=== PATIENT | male | born 1955 | race African-American/Black ===

== ENCOUNTER 2016-11-28 06:54 | Emergency (ER) | payer MEDICAID ==
[~2016-11-28] VITALS: Ht 172.7 cm; Wt 94.0 kg
[~2016-11-28 06:54] MED LIST: BLOOD GLUCOSE T1 TES; BUTA1CAP PO; CARV6.252 PO; DAPA1TAB PO; FLUT1SPR9 EACH NARE; HUMA75IN SQ; HUMALOG SQ; LANTINJ SQ; LIPI80TA PO; LISI-515 PO; MONT5CHW2 CHEW; OMEP20CA2 PO; PLAV75TA29 PO; PRED1SUS6 EACH EYE; REGL10TA5 PO; SERT-129 PO; TOPA100T11 PO; [UNRECOGNIZED DRUG - CODE] PO; [UNRECOGNIZED DRUG - SUPPLY]
[2016-11-28 06:58] VITALS: BP 170/84; PULSE 112; RESP 18; TEMP 97.9; O2SAT 98
[2016-11-28] MEDS ORDERED: SODIUM CHLOR 0.9% 1000 ML INJ 1,000 ML IV SCH ×2 (07:00→08:45)
[2016-11-28] MEDS ORDERED: ONDANSETRON HCL 4 MG/2 ML VIAL IVP ONE (07:00)
[2016-11-28] MEDS ORDERED: SODIUM CHLORIDE 0.9% FLUSH 5 ML FLUSH IVF PRN (07:00)
[2016-11-28 07:02] VITALS: BP 146/84; PULSE 109; RESP 18; TEMP 97.9; O2SAT 100
--- NOTE | 2016-11-28 07:21 | PD ---
HPI Chief Complaint: Cardiac Complaint Time Seen by Provider: 07:00 Travel History International Travel<30 days: No Contact w/Intl Traveler<30days: No Traveled to known affect area: No History of Present Illness HPI This is a 61-year-old male with a history of coronary artery disease who presents to the emergency department having not felt well for 6 months, saying that he saw his primary care doctor yesterday because he been having increasing headaches and abdominal cramping. He says overnight his headache worsen then he 's been having persistent diarrhea, having been on the toilet most of the night. He denies any fevers or chills. He does report cramping abdominal pain. He denies any chest pain or shortness of breath. [facility] was concerned about the patient's EKG and transported him as a STEMI alert, however he has no chest pain or shortness of breath at this time. PFSH Past Medical History Hx Anticoagulant Therapy: Yes Anemia: Yes Arthritis: Yes Depression: Yes Cancer: No Cardiovascular Problems: Yes High Cholesterol: Yes Cerebrovascular Accident: Yes Diabetes: Yes Patient Takes Glucophage: No Diminished Hearing: No Endocrine: Yes Gastrointestinal Disorders: No Genitourinary: No Hypertension: Yes Immune Disorder: No Musculoskeletal: Yes Neurologic: No Psychiatric: Yes Reproductive: No Respiratory: Yes Immunizations Current: Yes Sickle Cell Disease: Yes (sickle cell trait) Sleep Apnea: No Past Surgical History Cardiac Surgery: Yes (2 CARDIAC STENTS) Eye Surgery: Yes (retinopathy, LASER both eyes) Other Surgery: No Social History Alcohol Use: No Tobacco Use: No (QUIT 2006) Substance Use: No Allergies-Medications (Allergen,Severity, Reaction): Coded Allergies: Aspirin (Verified Allergy, Intermediate, nausea, 11/28/16) Reported Meds & Prescriptions Reported Meds & Active Scripts Active Lantus Solostar Pen Inj (Insulin Glargine) 300 Unit/3 Ml Pen 40 Units SQ HS Flonase Allergy Relief Children Nasal [place] (Fluticasone Nasal [place]) 50 Mcg/ Act [place] 2 [place] EACH NARE DAILY 50 mcg/spray Singulair (Montelukast Sodium) 5 Mg Chew 5 Mg CHEW HS Fioricet (Ezxlwjzfqq-Ybiqjcdfhdemm-Eatzrdjn) 50-300-40 Mg Cap 1 Cap PO Q4H PRN Reglan (Metoclopramide HCl) 10 Mg Tab 10 Mg PO TIDAC [31 G needle] Units TIDAC Blood Glucose Test Strips 1 Casi Casi 1 Ea .ROUTE BID Plavix (Clopidogrel Bisulfate) 75 Mg Tab 75 Mg PO DAILY Topamax (Topiramate) 100 Mg Tab 100 Mg PO DAILY Sertraline (Sertraline HCl) 100 Mg Tab 100 Mg PO DAILY Prednisolone Acetate Opth 1% Susp 1 Drop EACH EYE DAILY Omeprazole 20 Mg Cap 1 Cap PO DAILY Олег Advanced Aspirin Regular (Aspirin) 325 Mg Tab 325 Mg PO DAILY Humalog Inj (Insulin Human Lispro) 1,000 Unit/10 Ml Vial 1-9 Units SQ ACHS Max dose at bedtime:( )units; sugars< 70,(0)units; sugars 150-199,(1)unit; sugars 200-249,(3)units; sugars 250-299,(5)units; sugars 300-349,(7)units; sugars more than 349,(9)units. Lisinopril 20 Mg Tab 20 Mg PO DAILY Lipitor (Atorvastatin Calcium) 80 Mg Tab 80 Mg PO HS Carvedilol 6.25 Mg Tab 6.25 Mg PO BID Farxiga (Dapagliflozin) 5 Mg Tab 5 Mg PO DAILY Humalog Mix 75-25 Kwikpen Pen Inj (Insulin Lispro Protamine-Lispro 75-25 Inj) 300 unit/3 ML Pen 5 Units SQ TIDAC Review of Systems Except as stated in HPI: all other systems reviewed are Neg Physical Exam Narrative GENERAL:Well appearing, no acute distress SKIN: Warm and dry. HEAD: Atraumatic. Normocephalic. EYES: Patient is blind. Eyes are closed with some yellow drainage bilaterally. ENT: Moist mucous membranes NECK: Trachea midline. CARDIOVASCULAR: Regular rate and rhythm. No murmur appreciated. RESPIRATORY: Clear to auscultation. Breath sounds equal bilaterally. GASTROINTESTINAL: Abdomen soft, mildly tender to palpation in the epigastrium with no rebound or guarding. MUSCULOSKELETAL: No obvious deformities. NEUROLOGICAL: Awake and alert. No obvious cranial nerve deficits. Moving all extremities. PSYCHIATRIC: Appropriate mood and affect; insight and judgment normal. Data Data Last Documented VS Vital Signs Date Time Temp Pulse Resp B/P Pulse Ox O2 Delivery O2 Flow Rate FiO2 11/28/16 07:02 97.9 109 18 146/84 100 Room Air Orders Complete Blood Count With Diff (11/28/16 07:00) Comprehensive Metabolic Panel (11/28/16 07:00) Lipase (11/28/16 07:00) Urinalysis - C+S If Indicated (11/28/16 07:00) Iv Access Insert/Monitor (11/28/16 07:00) Ecg Monitoring (11/28/16 07:00) Oximetry (11/28/16 07:00) Ondansetron Inj (Zofran Inj) (11/28/16 07:00) Sodium Chlor 0.9% 1000 Ml Inj (Ns 1000 M (11/28/16 07:00) Sodium Chloride 0.9% Flush (Ns Flush) (11/28/16 07:00) Electrocardiogram (11/28/16 07:00) Troponin I (11/28/16 07:02) Ketorolac Inj (Toradol Inj) (11/28/16 08:45) Prochlorperazine Inj (Compazine Inj) (11/28/16 08:45) Ns (Bolus) Inj (11/28/16 08:45) Labs Laboratory Tests Test 11/28/16 07:00 White Blood Count 7.3 TH/MM3 Red Blood Count 5.89 MIL/MM3 Hemoglobin 12.3 GM/DL Hematocrit 39.5 % Mean Corpuscular Volume 67.0 FL Mean Corpuscular Hemoglobin 20.9 PG Mean Corpuscular Hemoglobin 31.2 % Concent Red Cell Distribution Width 16.4 % Platelet Count 186 TH/MM3 Mean Platelet Volume 9.7 FL Neutrophils (%) (Auto) 38.4 % Lymphocytes (%) (Auto) 47.8 % Monocytes (%) (Auto) 9.5 % Eosinophils (%) (Auto) 3.8 % Basophils (%) (Auto) 0.5 % Neutrophils # (Auto) 2.8 TH/MM3 Lymphocytes # (Auto) 3.5 TH/MM3 Monocytes # (Auto) 0.7 TH/MM3 Eosinophils # (Auto) 0.3 TH/MM3 Basophils # (Auto) 0.0 TH/MM3 CBC Comment AUTO DIFF Sodium Level 134 MEQ/L Potassium Level 4.1 MEQ/L Chloride Level 102 MEQ/L Carbon Dioxide Level 23.0 MEQ/L Anion Gap 9 MEQ/L Blood Urea Nitrogen 24 MG/DL Creatinine 1.17 MG/DL Estimat Glomerular Filtration 77 ML/MIN Rate Random Glucose 200 MG/DL Calcium Level 8.8 MG/DL Total Bilirubin 0.2 MG/DL Aspartate Amino Transf 29 U/L (AST/SGOT) Alanine Aminotransferase 40 U/L (ALT/SGPT) Alkaline Phosphatase 157 U/L Troponin I 0.05 NG/ML Total Protein 7.6 GM/DL Albumin 3.5 GM/DL Lipase 85 U/L MDM Medical Decision Making Medical Screen Exam Complete: Yes Emergency Medical Condition: Yes Medical Record Reviewed: Yes (patient had an abdominal CT scan on January of this year which was reassuring and has had 2 head CTs this year) Interpretation(s) Afebrile, tachycardic, mild hypertension No leukocytosis Mild hyponatremia BUN is 24 Troponin is 0.05 which is consistent with baseline Lipase is normal Differential Diagnosis Gastroenteritis, inflammatory bowel disease, irritable bowel syndrome, colitis, diverticulitis, appendicitis, cholecystitis Narrative Course This is a 61-year-old male who presents to the emergency department with abdominal pain and diarrhea associated with a headache. He reports that this is been going on intermittently since 2012 and he sees a GI doctor for these symptoms but he feels like his symptoms of been flaring up over the past 24 hours. He denies Any chest pain or trouble breathing and his EKG is ischemic but appears consistent with prior infarct. He was placed on a monitor and an IV was established. Labs are all reassuring. He was given 2 L of IV hydration in the setting of tachycardia which I suspect is dehydration due to diarrhea. I discussed with the patient the risks versus benefits of CT imaging as he is already had a CT scan this year. He feels like the symptoms are an exacerbation of his chronic symptoms and he would like to defer CT imaging at this time which I agree with. Patient will be treated for headache, and discharged home to follow up with his GI doctor. Diagnosis Primary Impression: Chronic abdominal pain Patient Instructions: General Instructions Additional Instructions: If you develop severe or worsening abdominal pain, fever>100.4, persistent vomiting or inability to eat or drink return to the emergency department immediately. Follow up with your primary care physician in 1-2 days for a check-up. Med/Other Pt SpecificInfo: Prescription(s) given Scripts Ondansetron Odt (Zofran Odt)4 Mg Tab4 Mg SL Q6HR PRN (Nausea/Vomiting) #15 TAB Ref 0 Prov:Jeanie Lundberg MD 11/28/16 Dicyclomine (Bentyl)20 Mg Tab20 Mg PO QID PRN (CRAMPS) #20 TAB Ref 0 Prov:Jeanie Lundberg MD 11/28/16 Disposition: 01 DISCHARGE HOME Condition: Stable Jeanie Lundberg MD Nov 28, 2016 07:21
[2016-11-28 08:09] LABS: AUTOMATED NEUTROPHIL # 2.8 TH/MM3 (1.8-7.7); BASOPHIL % 0.5 % (0.0-2.0); EOSINOPHIL # 0.3 TH/MM3 (0-0.4); EOSINOPHIL % 3.8 % (0.0-4.0); HEMATOCRIT 39.5 % (39.0-51.0); LYMPH % 47.8 % (9.0-44.0); LYMPHOCYTE # 3.5 TH/MM3 (1.0-4.8); MEAN CORPUSCULAR HEMOGLOBIN 20.9 PG (27.0-34.0); MEAN CORPUSCULAR HGB CONC 31.2 % (32.0-36.0); MONO % 9.5 % (0.0-8.0); NEUT % 38.4 % (16.0-70.0); PLATELET COUNT 186 TH/MM3 (150-450); RED BLOOD COUNT 5.89 MIL/MM3 (4.50-5.90); RED CELL DISTRIBUTION WIDTH 16.4 % (11.6-17.2); WHITE BLOOD COUNT 7.3 TH/MM3 (4.0-11.0)
[2016-11-28 08:15] LABS: HEMO FLAGS AUTO DIFF
[2016-11-28 08:30] LABS: ALKALINE PHOSPHATASE 157 U/L (45-117); ALT (GPT) 40 U/L (12-78); ANION GAP 9 MEQ/L (5-15); AST (GOT) 29 U/L (15-37); BLOOD UREA NITROGEN 24 MG/DL (7-18); CHLORIDE 102 MEQ/L (98-107); GLOMERULAR FILTRATION RATE 77 ML/MIN (>89); POTASSIUM 4.1 MEQ/L (3.5-5.1); SODIUM (NA) 134 MEQ/L (136-145); TOTAL BILIRUBIN ADULT 0.2 MG/DL (0.2-1.0)
[2016-11-28 08:45] VITALS: BP 170/85; PULSE 108; RESP 18; O2SAT 100
[2016-11-28] MEDS ORDERED: KETOROLAC TROMETHAMINE 30 MG/ML (IVP) VIAL IV PUSH ONE (08:45)
[2016-11-28] MEDS ORDERED: PROCHLORPERAZINE INJ 10 MG/2 ML VIAL IM ONE (08:45)
[2016-11-28] MEDS ORDERED: ZOFR4TAB3 SL (08:47)
[2016-11-28] MEDS ORDERED: BENT20TA PO (08:47)
[2016-11-28 08:56] LABS: BLOOD, URINE NEG (NEG); COMMENT (UR) CULT NOT INDICATED; CULTURE IF INDICATED CULT NOT INDICATED; GLUCOSE,URINE 70 mg/dL (NEG); HYALINE CAST, URINE 1 /lpf (RARE); KETONE, URINE NEG (NEG); NITRITE,URINE NEG (NEG); PH, URINE 5.5 (5.0-8.5); URINE COLOR LIGHT-YELLOW (YELLW/STRAW)
[2016-11-28 09:07] LABS: OVALOCYTES 1+ (NORMAL); SCAN/DIFF AUTO DIFF CONFIRMED
--- NOTE | 2016-11-28 12:26 | EKG ---
Date Performed: 11/28/2016 Time Performed: 06:56:45 PTAGE: 61 years EKG: SINUS TACHYCARDIA WITH OCCASIONAL VENTRICULAR PREMATURE COMPLEXES INFERIOR MYOCARDIAL INFAR CTION ABNORMAL ECG INTERPRETATION BASED ON A DEFAULT AGE OF 40 YEARS PREVIOUS TRACING : 06/20/2016 14.33 DOCTOR: Edenilson Pompa Interpretating Date/Time 11/28/2016 12:22:30
[2016-11-29] MEDS ORDERED: CARV6.252 PO (12:34)
[2016-11-29] MEDS ORDERED: LIPI80TA PO (12:34)
[2016-11-29] MEDS ORDERED: BLOOD GLUCOSE T1 TES (12:36)
[2016-12-03] MEDS ORDERED: PLAV75TA29 PO (11:04)
[2016-12-06] MEDS ORDERED: HUMA75IN SQ (16:43)
[2017-01-01] MEDS ORDERED: TOPA100T11 PO (13:04)
[2017-01-01] MEDS ORDERED: MONT5CHW2 CHEW (13:04)
[2017-01-01] MEDS ORDERED: FLUT1SPR9 EACH NARE (13:04)
[2017-01-01] MEDS ORDERED: PLAV75TA29 PO (13:19)
[2017-01-17] MEDS ORDERED: LISI-515 PO (16:41)
[2017-02-04] MEDS ORDERED: BLOOD GLUCOSE T1 TES (15:00)
[2017-03-04] MEDS ORDERED: [UNRECOGNIZED DRUG - SUPPLY] (16:47)
[2017-03-04] MEDS ORDERED: test strips (16:47)
[2017-03-04] MEDS ORDERED: PRED1SUS6 EACH EYE (16:47)
[2017-03-04] MEDS ORDERED: NYST100084 TOPICAL (16:57)
[2017-03-04] MEDS ORDERED: REGL10TA5 PO (16:58)
[2017-04-08] MEDS ORDERED: LANTINJ SQ (13:49)
[2017-04-08] MEDS ORDERED: HUMA75IN SQ (13:50)
== END 2016-11-28 11:00 | disposition home or self-care (01) ==
LOC: NEPE 06:54 → NEDAMB 11:00
DX: R10.9 Unspecified abdominal pain (principal); G89.29 Other chronic pain; D64.9 Anemia, unspecified; E78.00 Pure hypercholesterolemia, unspecified; I10 Essential (primary) hypertension; D57.3 Sickle-cell trait; R94.31 Abnormal electrocardiogram [ECG] [EKG]
CPT/HCPCS: 80053; 81001; 83690; 84484; 85025; 93005; 96372; 96374; 96375; 99284; J0780; J1885; J2405; J7030

== ENCOUNTER 2017-07-16 18:39 | Emergency (ER) | payer MEDICAID ==
[~2017-07-16] VITALS: Ht 172.7 cm; Wt 99.0 kg
[~2017-07-16 18:39] MED LIST changes: +ASPI81CH CHEW; +BAYEMIS; -BUTA1CAP PO; -FLUT1SPR9 EACH NARE; -HUMALOG SQ; +ZOFR4TAB3 SL; -[UNRECOGNIZED DRUG - CODE] PO; +test strips
[2017-07-16 18:40] VITALS: BP 159/78; PULSE 124; RESP 20; TEMP 102.4; O2SAT 99
[2017-07-16] MEDS ORDERED: IOHEXOL 350 MG/ML 10 ML VIAL (for RAD DIAG) IVCONTRAST ONE (18:40)
--- NOTE | 2017-07-16 18:58 | PD ---
Physical Exam Date Seen by Provider: Jul 16, 2017 Time Seen by Provider: 18:57 Data Data Last Documented VS Vital Signs Date Time Temp Pulse Resp B/P (MAP) Pulse Ox O2 Delivery O2 Flow Rate FiO2 07/16/17 18:40 102.4 124 20 159/78 (105) 99 Room Air MDM Supervised Visit with CINDY: No Narrative Course 61 YO M with complaint of N/V since yesterday. Denies CP, SOB. Cardiac stent placed 06/18. Vitals reviewed. Patient seen in triage, awaiting bed placement. Gaby Magdaleno Jul 16, 2017 18:58
[2017-07-16 19:27] VITALS: BP 161/82; PULSE 120; RESP 22; O2SAT 97
[2017-07-16] MEDS ORDERED: SODIUM CHLORIDE 0.9% FLUSH 10 ML FLUSH IV FLUSH PRN (19:30)
[2017-07-16] MEDS ORDERED: MORPHINE SULFATE 4 MG/ML INJ IV PUSH ONE (19:30)
[2017-07-16] MEDS ORDERED: SODIUM CHLOR 0.9% 1000 ML INJ 1,000 ML IV SCH (19:30)
[2017-07-16] MEDS ORDERED: ONDANSETRON HCL 4 MG/2 ML VIAL IVP ONE (19:30)
--- NOTE | 2017-07-16 19:37 | PD ---
HPI Chief Complaint: GI Complaint Time Seen by Provider: 19:30 Travel History International Travel<30 days: No Contact w/Intl Traveler<30days: No Traveled to known affect area: No History of Present Illness HPI The patient is a 61-year-old [place] male who presents to the emergency department for nausea, vomiting, and abdominal pain. The patient's states his symptoms started yesterday with him not "feeling well", followed by nausea and vomiting. The patient then developed abdominal pain which is located mostly in the right lower quadrant and radiates to the right mid low back. The patient denies any associated dysuria, frequency, or urgency. The does note he has had a few loose bowel movements, but has a history of intermittent loose bowel movements. The patient denies any previous abdominal surgeries. The patient does have a history of coronary artery disease with recent stent placement and is followed by his primary physician, Dr. Nicholson, at the [address] [place] [address]. He is unsure if he has had any fevers have her, does note decreased appetite and decreased oral intake secondary to the persistent nausea and right lower quadrant abdominal pain. Symptoms are moderate without any acute alleviating or exacerbating factors. PFSH Past Medical History Hx Anticoagulant Therapy: Yes Anemia: Yes Arthritis: Yes Depression: Yes Cancer: No Cardiovascular Problems: Yes High Cholesterol: Yes Diabetes: Yes Diminished Hearing: No Endocrine: Yes Gastrointestinal Disorders: No Genitourinary: No Hypertension: Yes Immune Disorder: No Musculoskeletal: Yes Neurologic: No Psychiatric: Yes Reproductive: No Respiratory: Yes Immunizations Current: Yes Sickle Cell Disease: Yes (sickle cell trait) Sleep Apnea: No Past Surgical History Cardiac Surgery: Yes (2 CARDIAC STENTS) Eye Surgery: Yes (retinopathy, LASER both eyes) Other Surgery: No Social History Alcohol Use: No Tobacco Use: No (QUIT 2006) Substance Use: No Allergies-Medications (Allergen,Severity, Reaction): Coded Allergies: aspirin (Verified Allergy, Intermediate, nausea, 07/16/17) Reported Meds & Prescriptions Reported Meds & Active Scripts Active Singulair (Montelukast Sodium) 5 Mg Chew 5 Mg CHEW HS [31 G needle] Units TIDAC Give BD Ultrafine pen needles, short 8mm x 31G Олег Microlet Lancets 1 Mis Mis 1 Ea .ROUTE DIRECTED Carvedilol 6.25 Mg Tab 6.25 Mg PO BID Farxiga (Dapagliflozin) 5 Mg Tab 5 Mg PO DAILY Lipitor (Atorvastatin Calcium) 80 Mg Tab 80 Mg PO HS Humalog Mix 75-25 Kwikpen Pen Inj (Insulin Lispro Protamine-Lispro 75-25 Inj) 300 unit/3 ML Pen 10 Units SQ TIDAC Lantus Solostar Pen Inj (Insulin Glargine) 300 Unit/3 Ml Pen 40 Units SQ HS Reglan (Metoclopramide HCl) 10 Mg Tab 10 Mg PO TIDAC [test strips] TIDAC Prednisolone Acetate Opth 1% Susp 1 Drop EACH EYE DAILY Blood Glucose Test Strips 1 Casi Casi 1 Ea .ROUTE BID Please provide Managed by Q Ultra test strips. Use to test blood sugar at least twice daily. 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 SKIN: Focused skin assessment warm/dry. HEAD: Atraumatic. Normocephalic. EYES: Blind in both eyes. ENT: No nasal bleeding or discharge. Dry mucous membranes. NECK: Trachea midline. No JVD. CARDIOVASCULAR: Regular, tachycardic with a heart rate of 120. RESPIRATORY: No accessory muscle use. Clear to auscultation. Breath sounds equal bilaterally. GASTROINTESTINAL: Abdomen soft, tender to palpation right lower quadrant. No rebound tenderness or guarding. Back: Mild tenderness of the paravertebral muscles bilaterally. MUSCULOSKELETAL: No obvious deformities. No clubbing. No cyanosis. No edema. NEUROLOGICAL: Awake and alert. No obvious cranial nerve deficits. Motor grossly within normal limits. Normal speech. PSYCHIATRIC: Appropriate mood and affect; insight and judgment normal. Data Data Last Documented VS Vital Signs Date Time Temp Pulse Resp B/P (MAP) Pulse Ox O2 Delivery O2 Flow Rate FiO2 07/16/17 19:27 120 22 161/82 (108) 97 Room Air 07/16/17 18:40 102.4 Orders Orders Electrocardiogram (07/16/17 ) Complete Blood Count With Diff (07/16/17 19:30) Comprehensive Metabolic Panel (07/16/17 19:30) Lipase (07/16/17 19:30) Lactic Acid (07/16/17 19:30) Urinalysis - C+S If Indicated (07/16/17 19:30) Ct Abd/Pel W Iv Contrast(Rout) (07/16/17 19:30) Iv Access Insert/Monitor (07/16/17 19:30) Ecg Monitoring (07/16/17 19:30) Oximetry (07/16/17 19:30) Morphine Inj (Morphine Inj) (07/16/17 19:30) Ondansetron Inj (Zofran Inj) (07/16/17 19:30) Sodium Chlor 0.9% 1000 Ml Inj (Ns 1000 M (07/16/17 19:30) Sodium Chloride 0.9% Flush (Ns Flush) (07/16/17 19:30) Chest, Single Ap (07/16/17 19:30) Blood Culture (07/16/17 19:30) Iohexol 350 Inj (Omnipaque 350 Inj) (07/16/17 18:40) Sodium Chlor 0.9% 1000 Ml Inj (Ns 1000 M (07/16/17 22:15) Labs Laboratory Tests Test 07/16/17 19:40 07/16/17 19:45 White Blood Count 12.0 TH/MM3 Red Blood Count 5.55 MIL/MM3 Hemoglobin 11.3 GM/DL Hematocrit 37.8 % Mean Corpuscular Volume 68.1 FL Mean Corpuscular Hemoglobin 20.3 PG Mean Corpuscular Hemoglobin Concent 29.9 % Red Cell Distribution Width 15.6 % Platelet Count 206 TH/MM3 Mean Platelet Volume 9.3 FL Neutrophils (%) (Auto) 74.6 % Lymphocytes (%) (Auto) 17.1 % Monocytes (%) (Auto) 6.8 % Eosinophils (%) (Auto) 0.9 % Basophils (%) (Auto) 0.6 % Neutrophils # (Auto) 8.9 TH/MM3 Lymphocytes # (Auto) 2.0 TH/MM3 Monocytes # (Auto) 0.8 TH/MM3 Eosinophils # (Auto) 0.1 TH/MM3 Basophils # (Auto) 0.1 TH/MM3 CBC Comment DIFF FINAL Differential Comment Urine Color YELLOW Urine Turbidity CLEAR Urine pH 6.0 Urine Specific [place] 1.035 Urine Protein 30 mg/dL Urine Glucose (UA) 1000 mg/dL Urine Ketones NEG mg/dL Urine Occult Blood MOD Urine Nitrite NEG Urine Bilirubin NEG Urine Urobilinogen 2.0 MG/DL Urine Leukocyte Esterase NEG Urine RBC 17 /hpf Urine WBC 1 /hpf Microscopic Urinalysis Comment CULT NOT INDICATED Lactic Acid Level 2.8 mmol/L Blood Urea Nitrogen 14 MG/DL Creatinine 1.15 MG/DL Random Glucose 278 MG/DL Total Protein 7.8 GM/DL Albumin 3.0 GM/DL Calcium Level 9.3 MG/DL Alkaline Phosphatase 174 U/L Aspartate Amino Transf (AST/SGOT) 19 U/L Alanine Aminotransferase (ALT/SGPT) 22 U/L Total Bilirubin 0.5 MG/DL Sodium Level 134 MEQ/L Potassium Level 4.2 MEQ/L Chloride Level 101 MEQ/L Carbon Dioxide Level 24.4 MEQ/L Anion Gap 9 MEQ/L Estimat Glomerular Filtration Rate 78 ML/MIN Lipase 64 U/L MDM Medical Decision Making Medical Screen Exam Complete: Yes Emergency Medical Condition: Yes Medical Record Reviewed: Yes Interpretation(s) EKG reveals sinus tachycardia with a heart rate of 120. Q waves noted in lead 2 , 3, and aVF. Inverted T waves noted in lead V3, V4, V5, and V6. Laboratory Tests Test 07/16/17 19:40 07/16/17 19:45 White Blood Count 12.0 TH/MM3 Red Blood Count 5.55 MIL/MM3 Hemoglobin 11.3 GM/DL Hematocrit 37.8 % Mean Corpuscular Volume 68.1 FL Mean Corpuscular Hemoglobin 20.3 PG Mean Corpuscular Hemoglobin Concent 29.9 % Red Cell Distribution Width 15.6 % Platelet Count 206 TH/MM3 Mean Platelet Volume 9.3 FL Neutrophils (%) (Auto) 74.6 % Lymphocytes (%) (Auto) 17.1 % Monocytes (%) (Auto) 6.8 % Eosinophils (%) (Auto) 0.9 % Basophils (%) (Auto) 0.6 % Neutrophils # (Auto) 8.9 TH/MM3 Lymphocytes # (Auto) 2.0 TH/MM3 Monocytes # (Auto) 0.8 TH/MM3 Eosinophils # (Auto) 0.1 TH/MM3 Basophils # (Auto) 0.1 TH/MM3 CBC Comment DIFF FINAL Differential Comment Urine Color YELLOW Urine Turbidity CLEAR Urine pH 6.0 Urine Specific [place] 1.035 Urine Protein 30 mg/dL Urine Glucose (UA) 1000 mg/dL Urine Ketones NEG mg/dL Urine Occult Blood MOD Urine Nitrite NEG Urine Bilirubin NEG Urine Urobilinogen 2.0 MG/DL Urine Leukocyte Esterase NEG Urine RBC 17 /hpf Urine WBC 1 /hpf Microscopic Urinalysis Comment CULT NOT INDICATED Lactic Acid Level 2.8 mmol/L Blood Urea Nitrogen 14 MG/DL Creatinine 1.15 MG/DL Random Glucose 278 MG/DL Total Protein 7.8 GM/DL Albumin 3.0 GM/DL Calcium Level 9.3 MG/DL Alkaline Phosphatase 174 U/L Aspartate Amino Transf (AST/SGOT) 19 U/L Alanine Aminotransferase (ALT/SGPT) 22 U/L Total Bilirubin 0.5 MG/DL Sodium Level 134 MEQ/L Potassium Level 4.2 MEQ/L Chloride Level 101 MEQ/L Carbon Dioxide Level 24.4 MEQ/L Anion Gap 9 MEQ/L Estimat Glomerular Filtration Rate 78 ML/MIN Lipase 64 U/L Chest x-rays unremarkable CT of the abdomen and pelvis is negative Differential Diagnosis Differential diagnosis includes appendicitis, diverticulitis, pyelonephritis, nephrolithiasis, cholecystitis, lower lobe pneumonia, sepsis. Narrative Course IV was established, labs were drawn and sent, and the patient was placed on cardiac telemetry monitoring and continuous pulse oximetry monitoring. EKG was ordered and interpreted. Lactic acid and blood cultures were sent to lab. The patient was administered IV fluids, Zofran, and morphine. Chest x-ray was obtained. CT of the abdomen and pelvis with IV contrast was ordered. Laboratory evaluation reveals mildly elevated white count and glucose, otherwise unremarkable. Chest x-rays negative for pneumonia. CT of the abdomen and pelvis is negative for cholecystitis, appendicitis, and diverticulitis, there were no acute findings to identify the patient's symptoms. The patient was reevaluated at 10 PM, his symptoms had significantly improved. His heart rate was down to 100. I do discussion with the patient regarding 23 hour observation versus discharge home. Patient states he feels well enough to go home. The patient was administered a second liter of IV fluids and will be discharged home on Zofran and Bentyl. He is advised to return if symptoms worsen or progress. Sepsis Criteria SIRS Criteria (2 or more): Temp > 100.9 or < 96.8, Heart rate over 90, WBC > 93538, < 4000 or > 10% bands Diagnosis Primary Impression: Abdominal pain Qualified Codes: R10.31 - Right lower quadrant pain Additional Impression: Nausea & vomiting Qualified Codes: R11.2 - Nausea with vomiting, unspecified Patient Instructions: General Instructions Additional Instructions: Please provide the patient a copy of his CT results and lab results at discharge. Follow-up with your primary physician. Medications as directed. Return if symptoms worsen or progress. Med/Other Pt SpecificInfo: Prescription(s) given Scripts Dicyclomine (Bentyl) 10 Mg Cap 10 MG PO QID for Bowel Management for 12 Days, CAP 0 Refills Prov: Galdino Mendoza MD 07/16/17 Ondansetron Odt (Zofran Odt) 4 Mg Tab 4 MG SL Q6HR Y for Nausea/Vomiting, #7 TAB 0 Refills Prov: Galdino Mendoza MD 07/16/17 Disposition: 01 DISCHARGE HOME Condition: Stable Galdino Mendoza MD Jul 16, 2017 19:37
[2017-07-16] MEDS ORDERED: HYDR50TA94 PO (19:42)
[2017-07-16 20:17] LABS: AUTOMATED NEUTROPHIL # 8.9 TH/MM3 (1.8-7.7); BASOPHIL # 0.1 TH/MM3 (0-0.2); BASOPHIL % 0.6 % (0.0-2.0); EOSINOPHIL # 0.1 TH/MM3 (0-0.4); EOSINOPHIL % 0.9 % (0.0-4.0); HEMATOCRIT 37.8 % (39.0-51.0); HEMO FLAGS DIFF FINAL; LYMPH % 17.1 % (9.0-44.0); MEAN CELL VOLUME 68.1 FL (80.0-100.0); MEAN CORPUSCULAR HEMOGLOBIN 20.3 PG (27.0-34.0); MONO % 6.8 % (0.0-8.0); NEUT % 74.6 % (16.0-70.0); PLATELET COUNT 206 TH/MM3 (150-450); RED BLOOD COUNT 5.55 MIL/MM3 (4.50-5.90); RED CELL DISTRIBUTION WIDTH 15.6 % (11.6-17.2)
[2017-07-16 20:22] LABS: BLOOD, URINE MOD (NEG); COMMENT (UR) CULT NOT INDICATED; CULTURE IF INDICATED CULT NOT INDICATED; GLUCOSE,URINE 1000 mg/dL (NEG); KETONE, URINE NEG (NEG); NITRITE,URINE NEG (NEG); URINE COLOR YELLOW (YELLW/STRAW)
[2017-07-16 20:25] LABS: MEAN CORPUSCULAR HGB CONC 29.9 % (32.0-36.0)
[2017-07-16 20:32] LABS: ALT (GPT) 22 U/L (12-78); ANION GAP 9 MEQ/L (5-15); AST (GOT) 19 U/L (15-37); BICARBONATE 24.4 MEQ/L (21.0-32.0); BLOOD UREA NITROGEN 14 MG/DL (7-18); CHLORIDE 101 MEQ/L (98-107); GLOMERULAR FILTRATION RATE 78 ML/MIN (>89); POTASSIUM 4.2 MEQ/L (3.5-5.1); SODIUM (NA) 134 MEQ/L (136-145)
[2017-07-16 20:35] LABS: ALKALINE PHOSPHATASE 174 U/L (45-117); TOTAL BILIRUBIN ADULT 0.5 MG/DL (0.2-1.0)
--- NOTE | 2017-07-16 21:08 | RADRPT ---
EXAM DATE/TIME: 07/16/2017 20:01 [facility] COMPARISON: CHEST SINGLE AP, June 20, 2016, 15:13. INDICATIONS : Fever. MEDICAL HISTORY : Cardiovascular disease. Hypertension. Diabetes SURGICAL HISTORY : Coronary artery stent. ENCOUNTER: Initial ACUITY: 2 days PAIN SCORE: 0/10 LOCATION: Bilateral chest FINDINGS: Portable AP view of the chest demonstrates a normal-sized cardiac silhouette. No effusion, consolidat ion, or pneumothorax is visualized. The bones and soft tissues demonstrate no acute abnormality. Lung s are underinflated. CONCLUSION: No acute cardiopulmonary abnormality is identified. Markus Chester MD on July 16, 2017 at 21:06 Board Certified Radiologist. This report was verified electronically.
--- NOTE | 2017-07-16 21:48 | RADRPT ---
EXAM DATE/TIME: 07/16/2017 21:17 [facility] COMPARISON: CT ABDOMEN & PELVIS W CONTRAST, February 05, 2016, 1:24. INDICATIONS : Patient complains of abdominal pain, nausea, vomiting. IV CONTRAST: 75 cc Omnipaque 350 (iohexol) IV ORAL CONTRAST: No oral contrast ingested. RADIATION DOSE: 14.65 CTDIvol (mGy) MEDICAL HISTORY : Cardiovascular disease. Diabetes mellitus type 1. Hypertension. SURGICAL HISTORY : None. ENCOUNTER: Initial ACUITY: 1 day PAIN SCALE: 5/10 LOCATION: lower quadrant TECHNIQUE: Volumetric scanning of the abdomen and pelvis was performed. Using automated exposure control and ad justment of the mA and/or kV according to patient size, radiation dose was kept as low as reasonably achievable to obtain optimal diagnostic quality images. DICOM format image data is available electro nically for review and comparison. FINDINGS: LOWER LUNGS: There is dependent atelectasis. LIVER: Homogeneous density without lesion. There is no dilation of the biliary tree. No calcified gallston es. SPLEEN: Normal size without lesion. PANCREAS: Within normal limits. KIDNEYS: Normal in size and shape. There is no mass, stone or hydronephrosis. There are 3 low density lesions in the left kidney ranging in size from 7 mm up to 11 mm. These are stable but too small to characte rize. ADRENAL GLANDS: Within normal limits. VASCULAR: There is no aortic aneurysm. There is mild atherosclerotic disease. BOWEL/MESENTERY: The stomach, small bowel, and colon demonstrate no acute abnormality. There is no free intraperitone al air or fluid. A small hiatal hernia is present. Appendix is normal. ABDOMINAL WALL: Within normal limits. RETROPERITONEUM: There is no lymphadenopathy. BLADDER: No wall thickening or mass. REPRODUCTIVE: Within normal limits. INGUINAL: There is no lymphadenopathy or hernia. MUSCULOSKELETAL: No acute abnormality. CONCLUSION: 1. No acute finding is identified to explain the clinical symptoms. 2. Stable small hiatal hernia and low density lesions in the left kidney. Markus Chester MD on July 16, 2017 at 21:42 Board Certified Radiologist. This report was verified electronically.
[2017-07-16] MEDS ORDERED: ZOFR4TAB3 SL (22:14)
[2017-07-16] MEDS ORDERED: DICY10 PO (22:14)
[2017-07-16] MEDS ORDERED: SODIUM CHLOR 0.9% 1000 ML INJ 1,000 ML IV ONE (22:15)
[2017-07-16] MEDS ORDERED: ACETAMINOPHEN 325 MG TAB PO ONE (22:30)
[2017-07-16 23:17] VITALS: BP 158/64; PULSE 60; RESP 20; O2SAT 98
--- NOTE | 2017-07-17 19:48 | EKG ---
Date Performed: 07/16/2017 Time Performed: 19:28:52 PTAGE: 61 years EKG: SINUS TACHYCARDIA INFERIOR MYOCARDIAL INFARCTION ABNORMAL ECG PREVIOUS TRACING : 11/28/2016 06.56 Compared to prior tracing no significant change DOCTOR: Leticia Coburn Interpretating Date/Time 07/17/2017 19:47:22
== END 2017-07-17 00:59 | disposition home or self-care (01) ==
LOC: NEPE 18:39
DX: R10.31 Right lower quadrant pain (principal); R11.2 Nausea with vomiting, unspecified; I10 Essential (primary) hypertension; E11.9 Type 2 diabetes mellitus without complications; E78.00 Pure hypercholesterolemia, unspecified; R94.31 Abnormal electrocardiogram [ECG] [EKG]
CPT/HCPCS: 71010; 74177; 80053; 81001; 83605; 83690; 85025; 87040; 93005; 96374; 96375; 99285; J2270; J2405; J7030; Q9967

== ENCOUNTER 2017-07-22 16:31 | Inpatient (IN) | payer MEDICAID ==
[~2017-07-22] VITALS: Ht 172.7 cm; Wt 118.7 kg
[~2017-07-22 16:31] MED LIST changes: +DICY10 PO; +HYDR50TA94 PO
[2017-07-22 16:51] VITALS: BP 167/81; PULSE 96; RESP 18; TEMP 100.2; O2SAT 98
[2017-07-22] MEDS ORDERED: SODIUM CHLOR 0.9% 1000 ML INJ 1,000 ML IV ONE ×2 (18:26→20:15)
[2017-07-22] MEDS ORDERED: SODIUM CHLORIDE 0.9% FLUSH 10 ML FLUSH IVF PRN (18:30)
[2017-07-22] MEDS ORDERED: ONDANSETRON HCL 4 MG/2 ML VIAL IVP ONE (18:30)
--- NOTE | 2017-07-22 18:43 | PD ---
HPI Chief Complaint: GI Complaint Time Seen by Provider: 18:17 Travel History International Travel<30 days: No Contact w/Intl Traveler<30days: No Traveled to known affect area: No History of Present Illness HPI Patient sent in by his primary care doctor for evaluation of generalized weakness, headache and not eating. Patient was seen emergency Department on the for abdominal pain and was evaluated at that time discharged home. Patient's reports patient is not eating or drinking much and has been complaining of headaches. states his gait is getting worse. Patient denies any chest pain or headaches currently. Denies any shortness breath, fever, nausea, vomiting, or diarrhea. Patient states has not had a bowel movement in a couple of days but has not been eating either. PFSH Past Medical History Hx Anticoagulant Therapy: Yes Anemia: Yes Arthritis: Yes Depression: Yes Cancer: No Cardiovascular Problems: Yes High Cholesterol: Yes Diabetes: Yes Patient Takes Glucophage: No Diminished Hearing: No Endocrine: Yes Gastrointestinal Disorders: No Genitourinary: No Hypertension: Yes Immune Disorder: No Medical other: Yes (BLINDNESS) Musculoskeletal: Yes Neurologic: No Psychiatric: Yes Reproductive: No Respiratory: Yes Immunizations Current: Yes Sickle Cell Disease: Yes (sickle cell trait) Sleep Apnea: No Tetanus Vaccination: Unknown Past Surgical History Cardiac Surgery: Yes (2 CARDIAC STENTS) Eye Surgery: Yes (retinopathy, LASER both eyes) Other Surgery: No Social History Alcohol Use: No Tobacco Use: No (QUIT 2006) Substance Use: No (HX OF) Allergies-Medications (Allergen,Severity, Reaction): Coded Allergies: aspirin (Verified Allergy, Intermediate, nausea, 07/22/17) Reported Meds & Prescriptions Reported Meds & Active Scripts Active Bentyl (Dicyclomine HCl) 10 Mg Cap 10 Mg PO QID 12 Days Singulair (Montelukast Sodium) 5 Mg Chew 5 Mg CHEW HS Carvedilol 6.25 Mg Tab 6.25 Mg PO BID Farxiga (Dapagliflozin) 5 Mg Tab 5 Mg PO DAILY Lipitor (Atorvastatin Calcium) 80 Mg Tab 80 Mg PO HS Humalog Mix 75-25 Kwikpen Pen Inj (Insulin Lispro Protamine-Lispro 75-25 Inj) 300 unit/3 ML Pen 10 Units SQ TIDAC Lantus Solostar Pen Inj (Insulin Glargine) 300 Unit/3 Ml Pen 40 Units SQ HS Reglan (Metoclopramide HCl) 10 Mg Tab 10 Mg PO TIDAC Prednisolone Acetate Opth 1% Susp 1 Drop EACH EYE DAILY Lisinopril 20 Mg Tab 20 Mg PO DAILY Plavix (Clopidogrel Bisulfate) 75 Mg Tab 75 Mg PO DAILY Topamax (Topiramate) 100 Mg Tab 100 Mg PO DAILY Omeprazole 20 Mg Cap 1 Cap PO DAILY Zofran Odt (Ondansetron Odt) 4 Mg Tab 4 Mg SL Q6HR PRN Sertraline (Sertraline HCl) 100 Mg Tab 100 Mg PO DAILY Reported Hydroxyzine HCl 50 Mg Tab 50 Mg PO HS Aspirin 81 Mg Chew 81 Mg CHEW DAILY Review of Systems Except as stated in HPI: all other systems reviewed are Neg Physical Exam Narrative GENERAL: Well-developed, overly nourished, in no acute distress, and non-ill appearing. SKIN: Focused skin assessment warm and dry. HEAD: Atraumatic. Normocephalic. EYES: Pupils equal and round. No scleral icterus. No injection or drainage. ENT: No nasal bleeding or discharge. Mucous membranes pink and moist. NECK: Trachea midline. Supple. No nuclear rigidity. CARDIOVASCULAR: Regular rate and rhythm. No murmur appreciated. RESPIRATORY: No accessory muscle use. No respiratory distress. Clear to auscultation. Breath sounds equal bilaterally. GASTROINTESTINAL: Abdomen soft, non-tender, nondistended, and no guarding. Hepatic and splenic margins not palpable. Normal bowel sounds 4. No pulsatile mass. MUSCULOSKELETAL: No obvious deformities. No clubbing. No cyanosis. No edema. Full range of motion. NEUROLOGICAL: Awake and alert. No obvious cranial nerve deficits. Motor grossly within normal limits. Normal speech. PSYCHIATRIC: Appropriate mood and affect; insight and judgment normal. Data Data Last Documented VS Vital Signs Date Time Temp Pulse Resp B/P (MAP) Pulse Ox O2 Delivery O2 Flow Rate FiO2 07/22/17 19:28 104 18 134/74 (94) 99 Room Air 07/22/17 16:51 100.2 Orders Orders Electrocardiogram (07/22/17 18:26) Complete Blood Count With Diff (07/22/17 18:26) Comprehensive Metabolic Panel (07/22/17 18:26) Magnesium (Mg) (07/22/17 18:26) Ckmb (Isoenzyme) Profile (07/22/17 18:26) Troponin I (07/22/17 18:26) Act Partial Throm Time (Ptt) (07/22/17 18:26) Prothrombin Time / Inr (Pt) (07/22/17 18:26) Urinalysis - C+S If Indicated (07/22/17 18:26) Chest, Single Ap (07/22/17 18:26) Ct Brain W/O Iv Contrast(Rout) (07/22/17 18:26) Blood Glucose (07/22/17 18:26) Ecg Monitoring (07/22/17 18:26) Iv Access Insert/Monitor (07/22/17 18:26) Oximetry (07/22/17 18:26) Sodium Chloride 0.9% Flush (Ns Flush) (07/22/17 18:30) Sodium Chlor 0.9% 1000 Ml Inj (Ns 1000 M (07/22/17 18:26) Beta Hydroxybutyrate (Acetone) (07/22/17 18:26) Lipase (07/22/17 18:26) Ondansetron Inj (Zofran Inj) (07/22/17 18:30) CKMB (07/22/17 18:48) CKMB% (07/22/17 18:48) Lactic Acid Sepsis Protocol (07/22/17 20:01) Blood Culture (07/22/17 20:01) Vancomycin Inj (Vancomycin Inj) (07/22/17 20:01) Piperacil-Tazo 4.5 Gm Premix (Zosyn 4.5 (07/22/17 20:01) Sodium Chlor 0.9% 1000 Ml Inj (Ns 1000 M (07/22/17 20:15) Admit Order (Ed Use Only) (07/22/17 20:57) Labs Laboratory Tests Test 07/22/17 18:40 07/22/17 18:48 07/22/17 20:05 White Blood Count 21.8 TH/MM3 Red Blood Count 4.71 MIL/MM3 Hemoglobin 9.8 GM/DL Hematocrit 31.7 % Mean Corpuscular Volume 67.2 FL Mean Corpuscular Hemoglobin 20.9 PG Mean Corpuscular Hemoglobin Concent 31.1 % Red Cell Distribution Width 15.7 % Platelet Count 241 TH/MM3 Mean Platelet Volume 9.1 FL Neutrophils (%) (Auto) 83.5 % Lymphocytes (%) (Auto) 7.9 % Monocytes (%) (Auto) 7.9 % Eosinophils (%) (Auto) 0.1 % Basophils (%) (Auto) 0.6 % Neutrophils # (Auto) 18.2 TH/MM3 Lymphocytes # (Auto) 1.7 TH/MM3 Monocytes # (Auto) 1.7 TH/MM3 Eosinophils # (Auto) 0.0 TH/MM3 Basophils # (Auto) 0.1 TH/MM3 CBC Comment AUTO DIFF Differential Total Cells Counted 100 Neutrophils % (Manual) 73 % Band Neutrophils % 12 % Lymphocytes % 10 % Monocytes % 4 % Basophils % 1 % Neutrophils # (Manual) 18.5 TH/MM3 Differential Comment FINAL DIFF MANUAL Platelet Estimate NORMAL Platelet Morphology Comment NORMAL Ovalocytes 1+ Acanthocytes OCC Prothrombin Time 12.1 SEC Prothromb Time International Ratio 1.1 RATIO Activated Partial Thromboplast Time 31.2 SEC Blood Urea Nitrogen 37 MG/DL Creatinine 1.66 MG/DL Random Glucose 237 MG/DL Total Protein 8.1 GM/DL Albumin 2.3 GM/DL Calcium Level 8.9 MG/DL Magnesium Level 2.8 MG/DL Alkaline Phosphatase 152 U/L Aspartate Amino Transf (AST/SGOT) 88 U/L Alanine Aminotransferase (ALT/SGPT) 52 U/L Total Bilirubin 0.5 MG/DL Sodium Level 132 MEQ/L Potassium Level 3.9 MEQ/L Chloride Level 99 MEQ/L Carbon Dioxide Level 23.2 MEQ/L Anion Gap 10 MEQ/L Estimat Glomerular Filtration Rate 51 ML/MIN Total Creatine Kinase 261 U/L Creatine Kinase MB 1.1 NG/ML Troponin I 0.17 NG/ML Lipase 87 U/L B-Hydroxybutyrate 1.29 MMOL/L Lactic Acid Level 1.4 mmol/L [facility] Medical Decision Making Medical Screen Exam Complete: Yes Emergency Medical Condition: Yes Interpretation(s) EKG reviewed by Dr. Sandhu shows sinus tachycardia with a ventricular rate of 104. No STEMI. Chest x-ray read by the radiologist shows: No acute disease. CT the head read by the radiologist shows: 1. No acute abnormality is seen. 2. Atrophy. 3. Persistent stable encephalomalacia at the inferior left cerebellar hemisphere. Differential Diagnosis Pneumonia, CVA, WI, likely normally, dehydration, failure to thrive, DKA, other Narrative Course Patient was seen and examined. Initial laboratory radiological studies were ordered. Patient was hydrated with IV fluid. Discussed patient with Dr. Sandhu, who saw and evaluated the patient and is in agreement with plan of care and disposition. Discussed all findings (with exception of UA that has not been collected yet) and plan care of patient is agreeable for admission. All questions were answered. Discussed patient with residents operations support professionals, who are agreeable to admit the patient. HemaPrompt Point of Care Internal Pos. & Neg. Controls: Passed Fecal Specimen Occult Blood: Negative Comment Verbal consent was obtained. Digital rectal exam was performed. Stool specimen applied and test interpreted between 1 and 3 minutes of application and the result was negative. Internal Controls: Both positive and negative controls were validated. electronics tester Kelly was present during this exam. Sepsis Criteria SIRS Criteria (2 or more): Heart rate over 90, WBC > 87468, < 4000 or > 10% bands Sepsis Criteria (SIRS+source): Infect source susp/known Severe Sepsis (+one): Organ Dysfunction Physician Communication Physician Communication [id number] discussed patient with residents operations support professionals who are agreeable to admit the patient for Dr. Mcdaniel. Diagnosis Primary Impression: Sepsis Qualified Codes: A41.9 - Sepsis, unspecified organism Additional Impressions: Elevated troponin Dehydration Admitting Information Admitting Physician Requests: Admit Condition: Stable Clay Ochoa Jul 22, 2017 18:43
[2017-07-22 19:03] LABS: AUTOMATED NEUTROPHIL # 18.2 TH/MM3 (1.8-7.7); BASOPHIL # 0.1 TH/MM3 (0-0.2); BASOPHIL % 0.6 % (0.0-2.0); EOSINOPHIL % 0.1 % (0.0-4.0); HEMATOCRIT 31.7 % (39.0-51.0); LYMPH % 7.9 % (9.0-44.0); LYMPHOCYTE # 1.7 TH/MM3 (1.0-4.8); MEAN CELL VOLUME 67.2 FL (80.0-100.0); MEAN CORPUSCULAR HEMOGLOBIN 20.9 PG (27.0-34.0); MEAN CORPUSCULAR HGB CONC 31.1 % (32.0-36.0); MONO % 7.9 % (0.0-8.0); NEUT % 83.5 % (16.0-70.0); PLATELET COUNT 241 TH/MM3 (150-450); RED BLOOD COUNT 4.71 MIL/MM3 (4.50-5.90); RED CELL DISTRIBUTION WIDTH 15.7 % (11.6-17.2); WHITE BLOOD COUNT 21.8 TH/MM3 (4.0-11.0)
[2017-07-22 19:12] LABS: HEMO FLAGS AUTO DIFF
[2017-07-22 19:16] LABS: APTT (PATIENT) 31.2 SEC (24.3-30.1); INTERNATIONAL NORMALIZED RATIO 1.1 RATIO; PROTHROMBIN TIME - PATIENT 12.1 SEC (9.8-11.6)
[2017-07-22 19:21] LABS: ANION GAP 10 MEQ/L (5-15); AST (GOT) 88 U/L (15-37); BICARBONATE 23.2 MEQ/L (21.0-32.0); BLOOD UREA NITROGEN 37 MG/DL (7-18); CHLORIDE 99 MEQ/L (98-107); GLOMERULAR FILTRATION RATE 51 ML/MIN (>89); MAGNESIUM 2.8 MG/DL (1.5-2.5); POTASSIUM 3.9 MEQ/L (3.5-5.1); SODIUM (NA) 132 MEQ/L (136-145)
[2017-07-22 19:22] LABS: ALT (GPT) 52 U/L (12-78)
[2017-07-22 19:25] LABS: ALKALINE PHOSPHATASE 152 U/L (45-117); BETA-HYDROXYBUTYRATE 1.29 MMOL/L (0.00-0.39); CREATINE KINASE 261 U/L (39-308); TOTAL BILIRUBIN ADULT 0.5 MG/DL (0.2-1.0)
[2017-07-22 19:28] VITALS: BP 134/74; PULSE 104; RESP 18; O2SAT 99
[2017-07-22 19:37] LABS: CKMB 1.1 NG/ML (0.5-3.6)
[2017-07-22 20:00] LABS: BANDS 12 % (0-6); BASOPHILS 1 % (0-2); NEUTROPHIL # MANUAL DIFF 18.5 TH/MM3 (1.8-7.7); POLYS (SEG NEUTROPHILS) 73 % (16-70); WBC DIFF SAMPLE 100
[2017-07-22 20:01] LABS: ACANTHOCYTES OCC (NORMAL); OVALOCYTES 1+ (NORMAL); PLATELET ESTIMATE SMEAR NORMAL (NORMAL); PLATELET MORPHOLOGY NORMAL (NORMAL); SCAN/DIFF FINAL DIFF MANUAL
[2017-07-22] MEDS ORDERED: VANCOMYCIN INJ 1,000 MG in SODIUM CHLOR 0.9% 250 ML INJ 250 ML IV STA (20:01)
[2017-07-22] MEDS ORDERED: PIPERACIL-TAZO 4.5 GM PREMIX 100 ML IV STA (20:01)
--- NOTE | 2017-07-22 20:09 | PD ---
Physical Exam Narrative I, Dr. Sandhu, have reviewed the advance practice practitioner's documentation and am in agreement, met with the patient face to face, made the diagnosis, and the medical decision making was done by me. *My assessment and Findings: Sepsis vs. failure to failure vs. UTI 61yo M with PMH of CAD, DM, CVA bilateral blindness was sent in by [facility] medicine for generalized weakness and not eating well. Pt denies any headache to me. Denies any chest pain, sob, n/v, abdominal pain, focal weakness or numbness. Labs reviewed, leukocytosis at 21.8, increased from 07/16/17 when he was evaluated for abdominal pain. H/H is also low at 9.8/31.7 which is decreased from 11.3/37.8. Occult blood negative. Glucose elevated at 237 with normal anion gap. There is also an increased in BUN/creatinine at 37/1.66 compared to 6 days ago. Troponin is mildly elevated at 0.17. However, pt is denying any chest pain or sob. May be elevated secondary to sepsis. Blood cultures were drawn, lactic acid added and pt empirically given vancomycin and zosyn. NS IVF also given. Lactic acid normal at 1.4. Data Data Last Documented VS Vital Signs Date Time Temp Pulse Resp B/P (MAP) Pulse Ox O2 Delivery O2 Flow Rate FiO2 07/22/17 19:28 104 18 134/74 (94) 99 Room Air 07/22/17 16:51 100.2 Orders Orders Electrocardiogram (07/22/17 18:26) Complete Blood Count With Diff (07/22/17 18:26) Comprehensive Metabolic Panel (07/22/17 18:26) Magnesium (Mg) (07/22/17 18:26) Ckmb (Isoenzyme) Profile (07/22/17 18:26) Troponin I (07/22/17 18:26) Act Partial Throm Time (Ptt) (07/22/17 18:26) Prothrombin Time / Inr (Pt) (07/22/17 18:26) Urinalysis - C+S If Indicated (07/22/17 18:26) Chest, Single Ap (07/22/17 18:26) Ct Brain W/O Iv Contrast(Rout) (07/22/17 18:26) Blood Glucose (07/22/17 18:26) Ecg Monitoring (07/22/17 18:26) Iv Access Insert/Monitor (07/22/17 18:26) Oximetry (07/22/17 18:26) Sodium Chloride 0.9% Flush (Ns Flush) (07/22/17 18:30) Sodium Chlor 0.9% 1000 Ml Inj (Ns 1000 M (07/22/17 18:26) Beta Hydroxybutyrate (Acetone) (07/22/17 18:26) Lipase (07/22/17 18:26) Ondansetron Inj (Zofran Inj) (07/22/17 18:30) CKMB (07/22/17 18:48) CKMB% (07/22/17 18:48) Lactic Acid Sepsis Protocol (07/22/17 20:01) Blood Culture (07/22/17 20:01) Vancomycin Inj (Vancomycin Inj) (07/22/17 20:01) Piperacil-Tazo 4.5 Gm Premix (Zosyn 4.5 (07/22/17 20:01) Sodium Chlor 0.9% 1000 Ml Inj (Ns 1000 M (07/22/17 20:15) Admit Order (Ed Use Only) (07/22/17 20:57) Labs Laboratory Tests Test 07/22/17 18:40 07/22/17 18:48 07/22/17 20:05 White Blood Count 21.8 TH/MM3 Red Blood Count 4.71 MIL/MM3 Hemoglobin 9.8 GM/DL Hematocrit 31.7 % Mean Corpuscular Volume 67.2 FL Mean Corpuscular Hemoglobin 20.9 PG Mean Corpuscular Hemoglobin Concent 31.1 % Red Cell Distribution Width 15.7 % Platelet Count 241 TH/MM3 Mean Platelet Volume 9.1 FL Neutrophils (%) (Auto) 83.5 % Lymphocytes (%) (Auto) 7.9 % Monocytes (%) (Auto) 7.9 % Eosinophils (%) (Auto) 0.1 % Basophils (%) (Auto) 0.6 % Neutrophils # (Auto) 18.2 TH/MM3 Lymphocytes # (Auto) 1.7 TH/MM3 Monocytes # (Auto) 1.7 TH/MM3 Eosinophils # (Auto) 0.0 TH/MM3 Basophils # (Auto) 0.1 TH/MM3 CBC Comment AUTO DIFF Differential Total Cells Counted 100 Neutrophils % (Manual) 73 % Band Neutrophils % 12 % Lymphocytes % 10 % Monocytes % 4 % Basophils % 1 % Neutrophils # (Manual) 18.5 TH/MM3 Differential Comment FINAL DIFF MANUAL Platelet Estimate NORMAL Platelet Morphology Comment NORMAL Ovalocytes 1+ Acanthocytes OCC Prothrombin Time 12.1 SEC Prothromb Time International Ratio 1.1 RATIO Activated Partial Thromboplast Time 31.2 SEC Blood Urea Nitrogen 37 MG/DL Creatinine 1.66 MG/DL Random Glucose 237 MG/DL Total Protein 8.1 GM/DL Albumin 2.3 GM/DL Calcium Level 8.9 MG/DL Magnesium Level 2.8 MG/DL Alkaline Phosphatase 152 U/L Aspartate Amino Transf (AST/SGOT) 88 U/L Alanine Aminotransferase (ALT/SGPT) 52 U/L Total Bilirubin 0.5 MG/DL Sodium Level 132 MEQ/L Potassium Level 3.9 MEQ/L Chloride Level 99 MEQ/L Carbon Dioxide Level 23.2 MEQ/L Anion Gap 10 MEQ/L Estimat Glomerular Filtration Rate 51 ML/MIN Total Creatine Kinase 261 U/L Creatine Kinase MB 1.1 NG/ML Troponin I 0.17 NG/ML Lipase 87 U/L B-Hydroxybutyrate 1.29 MMOL/L Lactic Acid Level 1.4 mmol/L [facility] Supervised Visit with CINDY: Yes Interpretation(s) EKG: Sinus tachycardia at 104bpm. Q waves inferior leads unchanged from EKG from 11/28/16. T wave flattening V6. Critical Care Narrative Aggregate critical care time was 35 minutes. Time to perform other separately billable procedures was not included in the critical care time. My time did not include minutes spent treating any other patients simultaneously or on activities that did not directly contribute to the patient's treatment. The services I provided to this patient were to treat and/or prevent clinically significant deterioration that could result in: cardiovascular collapse or . I provided critical care services requiring my management, as noted below: Chart data review, documentation time, medication orders and management, vital sign assessments/reviewing monitor data, ordering and reviewing lab tests, ordering and interpreting/reviewing x-rays and diagnostic studies, care of the patient and discussion of the patient with the admitting physicians. Diagnosis Primary Impression: Sepsis Qualified Codes: A41.9 - Sepsis, unspecified organism Admitting Information Admitting Physician Requests: Lisa White DO Jul 22, 2017 20:09
--- NOTE | 2017-07-22 20:16 | RADRPT ---
EXAM DATE/TIME: 07/22/2017 18:43 [facility] COMPARISON: CHEST SINGLE AP, July 16, 2017, 20:01. INDICATIONS : Chest pain MEDICAL HISTORY : Cardiovascular disease. Hypertension. Diabetes SURGICAL HISTORY : Coronary artery stent. ENCOUNTER: Initial ACUITY: 1 week PAIN SCORE: 4/10 LOCATION: chest FINDINGS: A single view of the chest demonstrates the lungs to be symmetrically aerated without evidence of mas s, infiltrate or effusion. The cardiomediastinal contours are unremarkable. Osseous structures are intact. CONCLUSION: No acute disease. Markus Denny MD on July 22, 2017 at 20:14 Board Certified Radiologist. This report was verified electronically.
--- NOTE | 2017-07-22 20:27 | RADRPT ---
EXAM DATE/TIME: 07/22/2017 19:17 [facility] COMPARISON: CT BRAIN W/O CONTRAST, June 20, 2016, 17:05. INDICATIONS : Cephalgia. RADIATION DOSE: 34.85 CTDIvol (mGy) MEDICAL HISTORY : Cardiovascular disease. Hypertension. Sickle cell trait. SURGICAL HISTORY : Cardiac stents. Coronary stent. ENCOUNTER: Initial ACUITY: 1 day PAIN SCALE: 2/10 LOCATION: cranial TECHNIQUE: Multiple contiguous axial images were obtained of the head. Using automated exposure control and adj ustment of the mA and/or kV according to patient size, radiation dose was kept as low as reasonably a chievable to obtain optimal diagnostic quality images. DICOM format image data is available electro nically for review and comparison. FINDINGS: CEREBRUM: The ventricles and cortical sulci are widened. No evidence of midline shift, mass lesion, hemorrhage or acute infarction. No extra-axial fluid collections are seen. POSTERIOR FOSSA: There is an area of persistent encephalomalacia at the inferior left cerebellar hemisphere. Otherwise , the cerebellum and brainstem are intact. The 4th ventricle is midline. The cerebellopontine angle is unremarkable. EXTRACRANIAL: The visualized portion of the orbits is intact. SKULL: The calvaria is intact. No evidence of skull fracture. CONCLUSION: 1. No acute abnormality is seen. 2. Atrophy. 3. Persistent stable encephalomalacia at the inferior left cerebellar hemisphere. Markus Denny MD on July 22, 2017 at 20:23 Board Certified Radiologist. This report was verified electronically.
--- NOTE | 2017-07-22 21:02 | HHI.HP ---
HPI Service Family Medicine Primary Care Physician Unknown Admission Diagnosis sepsis, elevated troponin, dehydration Diagnoses: Chief Complaint: dehydration International Travel<30 Days: No Contact w/Intl Traveler<30days: No Known Affected Area: No History of Present Illness Patient is a 61-year-old male with history of diabetes, CAD, CVA's, HTN who presents from clinic. Patient was seen in the ED last week after nausea, vomiting, and abdominal pain. Patient was given IV fluids and then sent home. Today, he followed up in outpatient clinic with Dr. Nicholson. Per chart review, patient has had more difficulty ambulating and decreased by mouth intake since ED visit. He states he has only had oatmeal in the last couple days once. He endorses decreased appetite. States his nausea and vomiting has improved. Has had 2 falls in the last week, states there are slow falls and he did not hit his head. Unsure how he fell. Patient does live with his and daughter. Patient reports no pain, except for headache. Denies any fever. Occasional chills. States he hasn't taking his medications in the last few days. Denies any chest pain, shortness of breath, abdominal pain, leg pain, dysuria. Has not had a bowel movement for a few days. Review of Systems ROS Limitations: Poor Historian Constitutional: COMPLAINS OF: Chills, DENIES: Fever Eyes: COMPLAINS OF: Vision loss Ears, nose, mouth, throat: DENIES: Hearing loss Respiratory: DENIES: Cough, Sputum production, Shortness of breath Cardiovascular: DENIES: Chest pain Gastrointestinal: COMPLAINS OF: Constipation, DENIES: Abdominal pain, Diarrhea , Nausea, Vomiting Genitourinary: DENIES: Urinary frequency, Dysuria Integumentary: DENIES: Rash Neurologic: DENIES: Abnormal gait, Headache Psychiatric: DENIES: Anxiety, Confusion Past Family Social History Past Medical History 07/16/2017: ED visit at [facility] for N/V and abdominal pain; received IVF, CXR, labs, CT abd/pelvis, lactate was 2.8 Diabetes - "Type 1" poorly controlled, last A1c 10.3 10/2016 Hypertension 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 Calloway for wound care Past Surgical History Eye Surgery 2009 PCI with stent placement in 2014 Reported Medications Reported Meds & Active Scripts Active Bentyl (Dicyclomine HCl) 10 Mg Cap 10 Mg PO QID 12 Days Singulair (Montelukast Sodium) 5 Mg Chew 5 Mg CHEW HS Carvedilol 6.25 Mg Tab 6.25 Mg PO BID Farxiga (Dapagliflozin) 5 Mg Tab 5 Mg PO DAILY Lipitor (Atorvastatin Calcium) 80 Mg Tab 80 Mg PO HS Humalog Mix 75-25 Kwikpen Pen Inj (Insulin Lispro Protamine-Lispro 75-25 Inj) 300 unit/3 ML Pen 10 Units SQ TIDAC Lantus Solostar Pen Inj (Insulin Glargine) 300 Unit/3 Ml Pen 40 Units SQ HS Reglan (Metoclopramide HCl) 10 Mg Tab 10 Mg PO TIDAC Prednisolone Acetate Opth 1% Susp 1 Drop EACH EYE DAILY Lisinopril 20 Mg Tab 20 Mg PO DAILY Plavix (Clopidogrel Bisulfate) 75 Mg Tab 75 Mg PO DAILY Topamax (Topiramate) 100 Mg Tab 100 Mg PO DAILY Omeprazole 20 Mg Cap 1 Cap PO DAILY Zofran Odt (Ondansetron Odt) 4 Mg Tab 4 Mg SL Q6HR PRN Sertraline (Sertraline HCl) 100 Mg Tab 100 Mg PO DAILY Reported Hydroxyzine HCl 50 Mg Tab 50 Mg PO HS Aspirin 81 Mg Chew 81 Mg CHEW DAILY Allergies: Coded Allergies: aspirin (Verified Allergy, Intermediate, nausea, 07/22/17) Active Ordered Medications Active Medications Ondansetron HCl (Zofran Inj) 4 mg ONCE ONCE IVP Last administered on 07/22/17 19:11; Admin Dose 4 MG; Start 07/22/17 at 18:30; Stop 07/22/17 at 18:32; Status DC Piperacillin Sod/ Tazobactam Sod 100 ml @ 200 mls/hr ONCE STAT IV Last administered on 07/22/17 20:01; Admin Dose 200 MLS/HR; Start 07/22/17 at 20:01 ; Stop 07/22/17 at 20:30; Status DC Sodium Chloride 1,000 ml @ 999 mls/hr BOLUS ONCE IV; Start 07/22/17 at 20:15; Stop 07/22/17 at 21:15 Sodium Chloride 1,000 ml @ 1,000 mls/hr Q1H ONCE IV Last administered on t 19:11; Admin Dose 1,000 MLS/HR; Start 07/22/17 at 18:26; Stop 07/22/17 at 19:25; Status DC Sodium Chloride (NS Flush) 2 ml UNSCH PRN IVF; Start 07/22/17 at 18:30 Vancomycin HCl 1000 mg/Sodium Chloride 250 ml @ 250 mls/hr ONCE STAT IV; Start 07/22/17 at 20:01; Stop 07/22/17 at 21:00 Family History Fatherdeceased, unknown cause Motherdeceased, unknown cause Siblings2 sisters and 3 brothers, healthy Childrenone male child, healthy Social History On disability. No smoking or alcohol use. Denies illicit drug use. takes care of patient at home but notes feeling overwhelmed Baseline prior to 07/15/2017: requiring some assistance with ADLs, but could toilet and ambulate with tactile stimuli Physical Exam Vital Signs Vital Signs Date Time Temp Pulse Resp B/P (MAP) Pulse Ox O2 Delivery O2 Flow Rate FiO2 07/22/17 19:28 104 18 134/74 (94) 99 Room Air 07/22/17 16:51 100.2 96 18 167/81 (109) 98 Physical Exam GENERAL: This is a well-nourished, well-developed patient, lying in bed. No acute distress. SKIN: No rashes, ecchymoses or lesions. Cool and dry. No sacral ulcers. HEAD: Atraumatic. Normocephalic. EYES: Eyelids shut. Blindness from diabetic retinopathy. ENT: Nose without bleeding. Throat with white plaque presents. Uvula midline. Airway patent. NECK: Trachea midline. No JVD or lymphadenopathy. Supple, nontender. CARDIOVASCULAR: Regular rate and rhythm without murmurs, gallops, or rubs. RESPIRATORY: Clear to auscultation. Breath sounds equal bilaterally. No wheezes , rales, or rhonchi. GASTROINTESTINAL: Abdomen soft, non-tender, mildly distended. BS+. No masses appreciated. MUSCULOSKELETAL: Extremities without clubbing, cyanosis, or edema. No joint tenderness, effusion, or edema noted. No calf tenderness. Ulcer present on right medial hallux. NEUROLOGICAL: Awake and alert. Motor and sensory grossly within normal limits. Normal speech. Laboratory Laboratory Tests Test 07/22/17 18:40 07/22/17 18:48 07/22/17 20:05 White Blood Count 21.8 Red Blood Count 4.71 Hemoglobin 9.8 Hematocrit 31.7 Mean Corpuscular Volume 67.2 Mean Corpuscular Hemoglobin 20.9 Mean Corpuscular Hemoglobin Concent 31.1 Red Cell Distribution Width 15.7 Platelet Count 241 Mean Platelet Volume 9.1 Neutrophils (%) (Auto) 83.5 Lymphocytes (%) (Auto) 7.9 Monocytes (%) (Auto) 7.9 Eosinophils (%) (Auto) 0.1 Basophils (%) (Auto) 0.6 Neutrophils # (Auto) 18.2 Lymphocytes # (Auto) 1.7 Monocytes # (Auto) 1.7 Eosinophils # (Auto) 0.0 Basophils # (Auto) 0.1 CBC Comment AUTO DIFF Differential Total Cells Counted 100 Neutrophils % (Manual) 73 Band Neutrophils % 12 Lymphocytes % 10 Monocytes % 4 Basophils % 1 Neutrophils # (Manual) 18.5 Differential Comment FINAL DIFF MANUAL Platelet Estimate NORMAL Platelet Morphology Comment NORMAL Ovalocytes 1+ Acanthocytes OCC Prothrombin Time 12.1 Prothromb Time International Ratio 1.1 Activated Partial Thromboplast Time 31.2 Blood Urea Nitrogen 37 Creatinine 1.66 Random Glucose 237 Total Protein 8.1 Albumin 2.3 Calcium Level 8.9 Magnesium Level 2.8 Alkaline Phosphatase 152 Aspartate Amino Transf (AST/SGOT) 88 Alanine Aminotransferase (ALT/SGPT) 52 Total Bilirubin 0.5 Sodium Level 132 Potassium Level 3.9 Chloride Level 99 Carbon Dioxide Level 23.2 Anion Gap 10 Estimat Glomerular Filtration Rate 51 Total Creatine Kinase 261 Creatine Kinase MB 1.1 Troponin I 0.17 Lipase 87 B-Hydroxybutyrate 1.29 Lactic Acid Level 1.4 Date/Time Source Procedure Growth Status 07/22/17 20:05 Blood Peripheral Aerobic Blood Culture Pending Received 07/22/17 20:05 Blood Peripheral Anaerobic Blood Culture Pending Received Result Diagram: 07/22/17 1840 07/22/17 1848 Septic Shock Reassessment Heart: Regular rate and rhythm Lungs: Clear, Diminished Skin: Warm, Dry Peripheral Pulses: Weak Right Dorsalis Pedis Weak Left Dorsalis Pedis Weak Right Posterior Tibial Weak Left Posterior Tibial Bounding Right Radial Bounding Left Radial Bounding Right Popliteal Bounding Left Popliteal Capillary Refill: <2 seconds Caprini VTE Risk Assessment Caprini VTE Risk Assessment: Mod/High Risk (score >= 2) Caprini Risk Assessment Model Point Value = 1 Point Value = 2 Point Value = 3 Point Value = 5 Age 41-60 Minor surgery BMI > 25 kg/m2 Swollen legs Varicose veins or History of unexplained or recurrent spontaneous Oral contraceptives or hormone replacement Sepsis (< 1 month) Serious lung disease, including pneumonia (< 1 month) Abnormal pulmonary function Acute myocardial infarction Congestive heart failure (< 1 month) History of inflammatory bowel disease Medical patient at bed rest Age 61-74 Arthroscopic surgery Major open surgery (> 45 min) Laparoscopic surgery (> 45 min) Malignancy Confined to bed (> 72 hours) Immobilizing plaster cast Central venous access Age >= 75 History of VTE Family history of VTE Factor V Leiden Prothrombin [id number] Lupus anticoagulant Anticardiolipin antibodies Elevated serum homocysteine Heparin-induced thrombocytopenia Other congenital or acquired thrombophilia Stroke (< 1 month) Elective arthroplasty Hip, pelvis, or leg fracture Acute spinal cord injury (< 1 month) Prophylaxis Regimen Total Risk Factor Score Risk Level Prophylaxis Regimen 0-1 Low Early ambulation 2 Moderate Order ONE of the following: *Sequential Compression Device (SCD) *Heparin 5000 units SQ BID 3-4 Higher Order ONE of the following medications: *Heparin 5000 units SQ TID *Enoxaparin/Lovenox 40 mg SQ daily (WT < 150 kg, CrCl > 30 mL/min) *Enoxaparin/Lovenox 30 mg SQ daily (WT < 150 kg, CrCl > 10-29 mL/min) *Enoxaparin/Lovenox 30 mg SQ BID (WT < 150 kg, CrCl > 30 mL/min) AND/OR *Sequential Compression Device (SCD) 5 or more Highest Order ONE of the following medications: *Heparin 5000 units SQ TID (Preferred with Epidurals) *Enoxaparin/Lovenox 40 mg SQ daily (WT < 150 kg, CrCl > 30 mL/min) *Enoxaparin/Lovenox 30 mg SQ daily (WT < 150 kg, CrCl > 10-29 mL/min) *Enoxaparin/Lovenox 30 mg SQ BID (WT < 150 kg, CrCl > 30 mL/min) AND *Sequential Compression Device (SCD) Assessment and Plan Assessment and Plan 61-year-old male with history of hypertension, poorly controlled diabetes, CVA, WA, presents with malaise and conditioning. We'll admit for infectious workup and treatment. Code Status Full Discussed Condition With Dr. Somers Problem List: (1) Sepsis ICD Codes: A41.9 - Sepsis, unspecified organism Status: Acute Plan: Patient presents with leukocytosis to 21.8. On admission, heart rate up to 104. Fever to 100.2. Respiratory rate stable on room air. Meets SIRS criteria, unclear source of infection. Lactic acid 1.4. CXR: no acute disease Head CT: no acute abnormality UA: 1000 glucose, 30 protein, 10 ketones; rare bacteria, neg nitrite and neg LE -Admit to inpatient -Continue Vancomycin q12H; consult pharmacy -Continue Zosyn 4.5g q6H -CT abdomen/pelvis -IVF -Blood cultures pending (2) Elevated troponin ICD Codes: R79.89 - Other specified abnormal findings of blood chemistry Status: Acute Plan: Elevated troponin to 0.17. History of multiple MIs and CAD. Denies any chest pain. EKG with chronic changes. No acute ST changes. -Trend troponins/EKGs -Monitor vitals -O2 PRN (3) Diabetes mellitus ICD Codes: E11.9 - Type 2 diabetes mellitus without complications Status: Acute Plan: History of poorly controlled diabetes. Patient takes Lantus 40 units SQ at bedtime and Humalog mix 10 units 3 times a day. Glucose elevated to 37 on admission. Beta hydroxybutyrate 1.29. Patient states he has not been eating much lately, nor taking his insulin. -Regular Accuchecks -Low dose SSI -Hold home insulin regimen since pt not eating; may need to add basal insulin once tolerating PO (4) Hypertension ICD Codes: I10 - Essential (primary) hypertension Status: Acute Plan: Blood pressure 167/81 on arrival. Trending down. Continue home meds -Coreg 6.2mg BID -Lisinopril 20mg daily (5) Toe ulcer, right ICD Codes: L97.519 - Non-pressure chronic ulcer of other part of right foot with unspecified severity Plan: Ulcer present on right medial hallux. He dose see jute bag clipper outpatient. -Consult wound care-appreciate recs -Regular cleaning and dressing changes (6) Anemia ICD Codes: D64.9 - Anemia, unspecified Plan: Hemoglobin of 9.8 on admission. Microcytic anemia, with MCV of 67.2. This is a downtrend from 11.3 and week ago. Hemoccult done in the ED, which was negative. -Daily CBC -Monitor for signs of bleeding. (7) HOWARD (acute kidney injury) ICD Codes: N17.9 - Acute kidney failure, unspecified Plan: Elevated BUN to 37. Up from 14 last week. Creatinine 1.66, up from 1.15. BUN/CR ratio 22.3. Suggestive of prerenal etiology, most likely dehydration. Patient with dry mucous membranes on exam. -IVF -Daily BMPs -Continue to monitor (8) Thrush, oral ICD Codes: B37.0 - Candidal stomatitis Plan: Thrush on tongue on physical exam. Patient with uncontrolled diabetes, more susceptible to fungal infections. -Nystatin QID -Continue to monitor (9) FEN Status: Acute Plan: Fluids: NS @ 150mls/hr Electrolytes: wnl, continue to monitor Diet: CLD DVT ppx: heparin q12H Physician Certification 2 Midnight Certification Type: Admission for Inpatient Services Order for Inpatient Services The services are ordered in accordance with Medicare regulations or non- Medicare payer requirements, as applicable. In the case of services not specified as inpatient-only, they are appropriately provided as inpatient services in accordance with the 2-midnight benchmark. Estimated LOS (days): 3 days is the estimated time the patient will need to remain in the hospital, assuming treatment plan goals are met and no additional complications. Post-Hospital Plan: Home Problem Qualifiers (1) Sepsis: Qualified Codes: A41.9 - Sepsis, unspecified organism (2) Diabetes mellitus: Qualified Codes: E10.319 - Type 1 diabetes mellitus with unspecified diabetic retinopathy without macular edema (3) Hypertension: Qualified Codes: I10 - Essential (primary) hypertension (4) Toe ulcer, right: Qualified Codes: L97.512 - Non-pressure chronic ulcer of other part of right foot with fat layer exposed (5) Anemia: Qualified Codes: D64.9 - Anemia, unspecified Joshua Leary MD, R2 Jul 22, 2017 21:02
[2017-07-22] MEDS: SODIUM CHLOR 0.9% 1000 ML INJ 1,000 ML IV SCH (21:50)
[2017-07-22] MEDS: HEPARIN SODIUM - SQ 10,000 UNITS/ML VIAL SQ SCH (22:00)
[2017-07-22] MEDS ORDERED: Vancomycin Consult Pharmacy 1 EA OTHER SCH (22:00)
[2017-07-22] MEDS ORDERED: BISACODYL 10 MG SUPP RECTAL PRN (22:00)
[2017-07-22] MEDS ORDERED: SODIUM CHLORIDE 0.9% FLUSH 10 ML FLUSH IV FLUSH PRN (22:00)
[2017-07-22] MEDS ORDERED: SENNOSIDES 8.6 MG TAB PO PRN (22:00)
[2017-07-22] MEDS ORDERED: NALOXONE HCL 0.4 MG/ML AMP IV PRN (22:00)
[2017-07-22] MEDS ORDERED: LACTULOSE SYRUP 20 GM/30 ML CUP PO PRN (22:00)
[2017-07-22] MEDS ORDERED: MAGNESIUM HYDROXIDE SUSP 30 ML CUP PO PRN (22:00)
[2017-07-22 22:08] LABS: BACTERIA, URINE RARE /hpf; BLOOD, URINE TRACE (NEG); GLUCOSE,URINE 1000 mg/dL (NEG); HYALINE CAST, URINE 13 /lpf (RARE); KETONE, URINE 10 mg/dL (NEG); MUCUS URINE FEW /lpf (OCC); NITRITE,URINE NEG (NEG); SQUAMOUS EPITHELIAL CELL URINE <1 /hpf (0-5); URINE COLOR YELLOW (YELLW/STRAW)
[2017-07-22 22:11] VITALS: BP 138/64; PULSE 99; RESP 16; TEMP 99.4; O2SAT 98
[2017-07-22 22:12] LABS: COMMENT (UR) CULT NOT INDICATED; CULTURE IF INDICATED CULT NOT INDICATED
[2017-07-22 22:13] VITALS: O2SAT 98
[2017-07-22] MEDS ORDERED: DEXTROSE 50% IN WATER 50 ML VIAL(D50) IV PRN (22:15)
[2017-07-22] MEDS: VANCOMYCIN 1,000 MG/NS 250 ML IV ONE ×2 (22:15)
[2017-07-22] MEDS ORDERED: GLUCAGON 1 MG/ML VIAL OTHER PRN (22:15)
[2017-07-22] MEDS ORDERED: DIATRIZOATE MEGLUM/DIATRIZOATE SOD 9 ML CUP ONE (22:16)
[2017-07-22] MEDS ORDERED: DIATRIZOATE MEGLUM/DIATRIZOATE SOD 9 ML CUP PO ONE (22:45)
[2017-07-22] MEDS: PANTOPRAZOLE SODIUM 40 MG VIAL IV PUSH SCH (22:45)
[2017-07-22] MEDS ORDERED: IOHEXOL 350 MG/ML 10 ML VIAL (for RAD DIAG) IVCONTRAST ONE (23:59)
[2017-07-23] VITALS (10 sets, daily range): BP systolic 104–139; BP diastolic 59–68; PULSE 89–99; RESP 14–23; TEMP 98.2–101.7; O2SAT 97–98
--- NOTE | 2017-07-23 00:15 | RADRPT ---
EXAM DATE/TIME: 07/22/2017 23:56 [facility] COMPARISON: CT ABDOMEN & PELVIS W CONTRAST, July 16, 2017, 21:17. INDICATIONS : Abdominal pain with general weakness. IV CONTRAST: 95 cc Omnipaque 350 (iohexol) IV ORAL CONTRAST: Prescribed oral contrast ingested. RADIATION DOSE: 17.34 CTDIvol (mGy) MEDICAL HISTORY : Myocardial infarction. Cardiovascular disease Diabetes mellitus type 2.Sickle cell trait. Hypertensio n. SURGICAL HISTORY : Cardiac stent. ENCOUNTER: Initial ACUITY: 1 day PAIN SCALE: 5/10 LOCATION: Bilateral abdomen TECHNIQUE: Volumetric scanning of the abdomen and pelvis was performed. Using automated exposure control and ad justment of the mA and/or kV according to patient size, radiation dose was kept as low as reasonably achievable to obtain optimal diagnostic quality images. DICOM format image data is available electro nically for review and comparison. FINDINGS: There is respiratory motion artifact. LOWER LUNGS: There is trace left pleural fluid with dependent atelectasis bilaterally. LIVER: Homogeneous density without lesion. There is no dilation of the biliary tree. No calcified gallston es. SPLEEN: Normal size without lesion. PANCREAS: Within normal limits. KIDNEYS: Normal in size and shape. There is no mass, stone or hydronephrosis. There is an incidental 6 mm low -density lesion at the upper pole the right kidney that is too small to characterize. 2 low-density l esions are present the lower pole left kidney measuring up to 8 mm. These have density measurements c onsistent with cysts. ADRENAL GLANDS: Within normal limits. VASCULAR: There is no aortic aneurysm. There is mild atherosclerotic disease. BOWEL/MESENTERY: The stomach, small bowel, and colon demonstrate no acute abnormality. There is no free intraperitone al air or fluid. Small lateral hernia is present. ABDOMINAL WALL: Within normal limits. RETROPERITONEUM: There is no lymphadenopathy. BLADDER: No wall thickening or mass. REPRODUCTIVE: Within normal limits. INGUINAL: There is no lymphadenopathy or hernia. MUSCULOSKELETAL: No acute abnormality. CONCLUSION: 1. No acute finding is identified within the abdomen or pelvis. There is mild respiratory motion jeffery fact. 2. Stable nonacute findings include small hiatal hernia and small bilateral low-density renal lesions . There is trace left pleural fluid. Markus Chester MD on July 23, 2017 at 0:06 Board Certified Radiologist. This report was verified electronically.
[2017-07-23] MEDS: PIPERACIL-TAZO 4.5 GM PREMIX 100 ML IV SCH ×4 (02:30→19:20)
[2017-07-23] MEDS: SODIUM CHLOR 0.9% 1000 ML INJ 1,000 ML IV SCH ×3 (05:11→17:55)
[2017-07-23] MEDS ORDERED: VANCOMYCIN INJ 1,500 MG in SODIUM CHLORID 0.9% 500 ML INJ 500 ML IV SCH (08:00)
[2017-07-23] MEDS: INSULIN ASPART SUPPLEMENTAL SCALE SQ SCH ×4 (08:20→22:49)
--- NOTE | 2017-07-23 09:49 | HHI.FPPN ---
Subjective Remarks Mr. ribera is a 62-year-old gentleman, with a significant past medical history for type 2 diabetes, coronary artery disease, CVA, blindness 2/2 uncontrolled diabetes, and right ankle wound present with increase in weakness over the past 7 days. On 07/15/2017, he was having episodes of nausea and vomiting, and was evaluated on 07/16/2017. A chest x-ray, basic lab chemistries, and CT of his abdomen at that time were benign. Per ED physician note, patient was given the option for 23 hour observation, but opted to go home. Over the next several days, he continued to have decreased appetite, decreased by mouth intake, and increasing weakness. It got to the point where his had to help him out of bed to use the bedside commode. He was evaluated by Dr. Sonia Nicholson on 07/22/17, was found to be severely dehydrated and was encouraged to go to the emergency department. In the emergency department, he had a leukocytosis of 21.8 k, an increase in BUN/creatinine from a normal baseline to 37/1.66, and an elevated troponin of 0.18. A repeat CT of his abdomen showed no acute pathology, a chest x-ray was within normal limits, and a UA showed no signs of infection. He was started on vancomycin, Zosyn, and IV fluids. Serial EKGs showed sinus rhythm of 100 bpm, with possible new Q waves in V6, and peaked P waves in inferior leads. 07/23: Patient reports feeling better. He denies any chest pain, shortness of breath, increased sputum production, swelling in his extremities, or new shortness of breath when laying flat. He says that he wants to start a diet today as he is feeling better at the current time. He denies being in pain. He denies any changes in his bowel movements. He denies any pain with urination. (Johny Freire MD, R3) Objective Vitals Vital Signs Date Time Temp Pulse Resp B/P (MAP) Pulse Ox O2 Delivery O2 Flow Rate FiO2 07/23/17 07:40 99.3 97 18 139/66 (90) 97 07/23/17 04:00 100.2 95 18 130/65 (86) 97 07/23/17 01:15 98 14 135/63 (87) 97 Room Air 8/28/17 22:13 98 07/22/17 22:11 99.4 99 16 138/64 (88) 98 Room Air 07/22/17 19:28 104 18 134/74 (94) 99 Room Air 07/22/17 16:51 100.2 96 18 167/81 (109) 98 I/O 07/22/17 07/22/17 07/22/17 07/23/17 07/23/17 07/23/17 07:00 15:00 23:00 07:00 15:00 23:00 Intake Total 2350 ml 1350 ml Balance 2350 ml 1350 ml Intake IV Total 2350 ml 1350 ml (Johny Freire MD, R3) Result Diagram: 07/22/17 1840 07/22/17 1848 Objective Remarks Gen.: Disheveled, poorly groomed, not opening his eyes. No acute distress CV: Regular rate and rhythm, no murmurs appreciated. Pulses equal to all extremities. Left upper extremity cooler than right upper extremity. (Johny Freire MD, R3) A/P Assessment and Plan 61-year-old male with history of hypertension, poorly controlled diabetes, CVA, ID, presents with malaise and conditioning. We'll admit for infectious workup and treatment. (Johny Freire MD, R3) Attending Attestation Patient interviewed and examined with Dr Robert Freire. Case reviewed and discussed with the resident . Agree with plan of care as discussed with me and documented in the resident note. (Nick Mcdaniel MD) Problem List: (1) Elevated troponin ICD Codes: R79.89 - Other specified abnormal findings of blood chemistry Status: Acute Plan: Patient at high risk for myocardial infarction given uncontrolled diabetes, and history. Elevated troponins from a normal baseline to 0.18. EKG showing nonspecific Q-wave abnormalities in inferior leads, that are similar to EKGs in 2016. He was evaluated on 02/18/16, by Dr. Jacinto who recommended medical optimization. October 2015 cath showed an ejection fraction of 50% with a 30% LAD, 60% ramus occlusion. He also had a totally included RCA treated with a 3.5 18 mm bare- metal stent. At that time, it was recommended that he continued his statin, aspirin, Plavix, and beta jose eduardo. We will reconsult cardiology, given increasing troponin, previous coronary artery disease with stents, and vague symptoms in a person with diabetes that may represent ischemia. (2) Sepsis ICD Codes: A41.9 - Sepsis, unspecified organism Status: Acute Plan: Patient presents with leukocytosis to 21.8. On admission, heart rate up to 104. Fever to 100.2. Respiratory rate stable on room air. Meets SIRS criteria, unclear source of infection. May be from right diabetic foot ulcer/infection. Lactic acid 1.6. CXR: no acute disease Head CT: no acute abnormality UA: 1000 glucose, 30 protein, 10 ketones; rare bacteria, neg nitrite and neg LE -Admit to inpatient -Continue Vancomycin q12H; consult pharmacy -Continue Zosyn 4.5g q6H -CT abdomen/pelvis grossly WNL. -IVF at maintenance. -Blood cultures pending (3) Diabetes mellitus ICD Codes: E11.9 - Type 2 diabetes mellitus without complications Status: Acute Plan: History of poorly controlled diabetes. Patient takes Lantus 40 units SQ at bedtime and Humalog mix 10 units 3 times a day. Glucose elevated to 37 on admission. Beta hydroxybutyrate 1.29. Patient states he has not been eating much lately, nor taking his insulin. -Regular Accuchecks -Low dose SSI -Hold home insulin regimen since pt not eating; may need to add basal insulin once tolerating PO (4) Hypertension ICD Codes: I10 - Essential (primary) hypertension Status: Acute Plan: Continue home meds -Coreg 6.2mg BID -Lisinopril 20mg daily (5) Toe ulcer, right ICD Codes: L97.519 - Non-pressure chronic ulcer of other part of right foot with unspecified severity Status: Acute Plan: Ulcer present on right medial hallux. He dose see business process manager outpatient. -Consult wound care and podiatry -appreciate recs -Regular cleaning and dressing changes (6) Anemia ICD Codes: D64.9 - Anemia, unspecified Plan: Hemoglobin of 9.8 on admission. Microcytic anemia, with MCV of 67.2. This is a downtrend from 11.3 and week ago. Hemoccult done in the ED, which was negative. -Daily CBC -Monitor for signs of bleeding. (7) HOWARD (acute kidney injury) ICD Codes: N17.9 - Acute kidney failure, unspecified Plan: Elevated BUN to 37. Up from 14 last week. Creatinine 1.66, up from 1.15. BUN/CR ratio 22.3. Suggestive of prerenal etiology, most likely dehydration. Patient with dry mucous membranes on exam. -IVF -Daily BMPs -Continue to monitor (8) Thrush, oral ICD Codes: B37.0 - Candidal stomatitis Plan: Thrush on tongue on physical exam. Patient with uncontrolled diabetes, more susceptible to fungal infections. -Nystatin QID -Continue to monitor (9) FEN Status: Acute Plan: Fluids: NS @ 150mls/hr Electrolytes: wnl, continue to monitor Diet: CLD DVT ppx: heparin q12H sdw Dr. Mcdaniel. (Johny Freire MD, R3) Problem Qualifiers (1) Sepsis: Qualified Codes: A41.9 - Sepsis, unspecified organism (2) Diabetes mellitus: Qualified Codes: E10.52 - Type 1 diabetes mellitus with diabetic peripheral angiopathy with gangrene (3) Hypertension: Qualified Codes: I10 - Essential (primary) hypertension (4) Toe ulcer, right: Qualified Codes: L97.512 - Non-pressure chronic ulcer of other part of right foot with fat layer exposed (5) Anemia: Qualified Codes: D64.9 - Anemia, unspecified Johny Freire MD, R3 Jul 23, 2017 09:48 Nick Mcdaniel MD Jul 23, 2017 19:42
--- NOTE | 2017-07-23 09:49 | HHI.DS ---
Discharge Summary Admission Date Jul 22, 2017 at 20:59 Admitting Diagnosis sepsis, elevated troponin, dehydration (1) Sepsis Plan: Patient presents with leukocytosis to 21.8. On admission, heart rate up to 104. Fever to 100.2. Respiratory rate stable on room air. Meets SIRS criteria, unclear source of infection. Lactic acid 1.4. CXR: no acute disease Head CT: no acute abnormality UA: 1000 glucose, 30 protein, 10 ketones; rare bacteria, neg nitrite and neg LE -Admit to inpatient -Continue Vancomycin q12H; consult pharmacy -Continue Zosyn 4.5g q6H -CT abdomen/pelvis -IVF -Blood cultures pending ICD Codes: A41.9 - Sepsis, unspecified organism Status: Acute (2) Elevated troponin Plan: Elevated troponin to 0.17. History of multiple MIs and CAD. Denies any chest pain. EKG with chronic changes. No acute ST changes. -Trend troponins/EKGs -Monitor vitals -O2 PRN ICD Codes: R79.89 - Other specified abnormal findings of blood chemistry Status: Acute (3) Diabetes mellitus Plan: History of poorly controlled diabetes. Patient takes Lantus 40 units SQ at bedtime and Humalog mix 10 units 3 times a day. Glucose elevated to 37 on admission. Beta hydroxybutyrate 1.29. Patient states he has not been eating much lately, nor taking his insulin. -Regular Accuchecks -Low dose SSI -Hold home insulin regimen since pt not eating; may need to add basal insulin once tolerating PO ICD Codes: E11.9 - Type 2 diabetes mellitus without complications Status: Acute (4) Hypertension Plan: Blood pressure 167/81 on arrival. Trending down. Continue home meds -Coreg 6.2mg BID -Lisinopril 20mg daily ICD Codes: I10 - Essential (primary) hypertension Status: Acute (5) Toe ulcer, right Plan: Ulcer present on right medial hallux. He dose see gluer machine operator outpatient. -Consult wound care-appreciate recs -Regular cleaning and dressing changes ICD Codes: L97.519 - Non-pressure chronic ulcer of other part of right foot with unspecified severity (6) Anemia Plan: Hemoglobin of 9.8 on admission. Microcytic anemia, with MCV of 67.2. This is a downtrend from 11.3 and week ago. Hemoccult done in the ED, which was negative. -Daily CBC -Monitor for signs of bleeding. ICD Codes: D64.9 - Anemia, unspecified (7) HOWARD (acute kidney injury) Plan: Elevated BUN to 37. Up from 14 last week. Creatinine 1.66, up from 1.15. BUN/CR ratio 22.3. Suggestive of prerenal etiology, most likely dehydration. Patient with dry mucous membranes on exam. -IVF -Daily BMPs -Continue to monitor ICD Codes: N17.9 - Acute kidney failure, unspecified (8) Thrush, oral Plan: Thrush on tongue on physical exam. Patient with uncontrolled diabetes, more susceptible to fungal infections. -Nystatin QID -Continue to monitor ICD Codes: B37.0 - Candidal stomatitis (9) FEN Plan: Fluids: NS @ 150mls/hr Electrolytes: wnl, continue to monitor Diet: CLD DVT ppx: heparin q12H Status: Acute Brief History Patient is a 61-year-old male with history of diabetes, CAD, CVA's, HTN who presents from clinic. Patient was seen in the ED last week after nausea, vomiting, and abdominal pain. Patient was given IV fluids and then sent home. Today, he followed up in outpatient clinic with Dr. Nicholson. Per chart review, patient has had more difficulty ambulating and decreased by mouth intake since ED visit. He states he has only had oatmeal in the last couple days once. He endorses decreased appetite. States his nausea and vomiting has improved. Has had 2 falls in the last week, states there are slow falls and he did not hit his head. Unsure how he fell. Patient does live with his and daughter. Patient reports no pain, except for headache. Denies any fever. Occasional chills. States he hasn't taking his medications in the last few days. Denies any chest pain, shortness of breath, abdominal pain, leg pain, dysuria. Has not had a bowel movement for a few days. CBC/BMP: 07/22/17 18407/22/17 184 Significant Findings Laboratory Tests Test 07/22/17 18:40 07/22/17 18:48 07/22/17 20:05 07/22/17 21:25 White Blood Count 21.8 TH/MM3 (4.0-11.0) Hemoglobin 9.8 GM/DL (13.0-17.0) Hematocrit 31.7 % (39.0-51.0) Mean Corpuscular Volume 67.2 FL (80.0-100.0) Mean Corpuscular Hemoglobin 20.9 PG (27.0-34.0) Mean Corpuscular Hemoglobin Concent 31.1 % (32.0-36.0) Neutrophils (%) (Auto) 83.5 % (16.0-70.0) Lymphocytes (%) (Auto) 7.9 % (9.0-44.0) Neutrophils # (Auto) 18.2 TH/MM3 (1.8-7.7) Monocytes # (Auto) 1.7 TH/MM3 (0-0.9) Neutrophils % (Manual) 73 % (16-70) Band Neutrophils % 12 % (0-6) Neutrophils # (Manual) 18.5 TH/MM3 (1.8-7.7) Ovalocytes 1+ (NORMAL) Prothrombin Time 12.1 SEC (9.8-11.6) Activated Partial Thromboplast Time 31.2 SEC (24.3-30.1) Blood Urea Nitrogen 37 MG/DL (7-18) Creatinine 1.66 MG/DL (0.60-1.30) Random Glucose 237 MG/DL (74-106) Albumin 2.3 GM/DL (3.4-5.0) Magnesium Level 2.8 MG/DL (1.5-2.5) Alkaline Phosphatase 152 U/L (45-117) Aspartate Amino Transf (AST/SGOT) 88 U/L (15-37) Sodium Level 132 MEQ/L (136-145) Estimat Glomerular Filtration Rate 51 ML/MIN (>89) Troponin I 0.17 NG/ML (0.02-0.05) B-Hydroxybutyrate 1.29 MMOL/L (0.00-0.39) Urine Turbidity HAZY (CLEAR) Urine Protein 30 mg/dL (NEG-TRACE) Urine Glucose (UA) 1000 mg/dL (NEG) Urine Ketones 10 mg/dL (NEG) Urine Occult Blood TRACE (NEG) Urine Bacteria RARE /hpf (NONE) Urine Mucus FEW /lpf (OCC) Test 07/23/17 01:17 Troponin I 0.18 NG/ML (0.02-0.05) Johny Freire MD, R3 Jul 23, 2017 09:49
[2017-07-23] MEDS ORDERED: NITROGLYCERIN 2% OINT 1 GM PACKET TOPICAL ONE (10:00)
[2017-07-23] MEDS: TOPIRAMATE 100 MG TAB PO SCH (10:22)
[2017-07-23] MEDS: SODIUM CHLORIDE 0.9% FLUSH 10 ML FLUSH IV FLUSH SCH ×2 (10:22→21:00)
[2017-07-23] MEDS: CLOPIDOGREL 75 MG TAB PO SCH (10:23)
[2017-07-23] MEDS: PANTOPRAZOLE SODIUM 40 MG VIAL IV PUSH SCH (10:24)
[2017-07-23] MEDS: NYSTATIN SUSP 500,000 U/5 ML CUP SWISH-SWAL SCH ×4 (10:24→22:34)
[2017-07-23] MEDS: DOCUSATE SODIUM 50 MG/SENNA 8.6 MG TAB PO SCH ×2 (10:25→22:34)
[2017-07-23] MEDS: SERTRALINE HCL 100 MG TAB PO SCH (10:25)
[2017-07-23] MEDS: ASPIRIN 81 MG CHEW TAB CHEW SCH (10:25)
[2017-07-23] MEDS: prednisoLONE ACETATE 1% OPHT SUSP 5 ML BTL EACH EYE SCH (10:25)
[2017-07-23] MEDS: LISINOPRIL 20 MG TAB PO SCH (10:25)
[2017-07-23] MEDS: CARVEDILOL 6.25 MG TAB PO SCH ×2 (10:25→22:34)
[2017-07-23] MEDS: HEPARIN SODIUM - SQ 10,000 UNITS/ML VIAL SQ SCH ×2 (10:26→22:34)
--- NOTE | 2017-07-23 11:17 | RADRPT ---
EXAM DATE/TIME: 07/23/2017 10:24 [facility] COMPARISON: No previous studies available for comparison. INDICATIONS : Wound on right medial foot. MEDICAL HISTORY : Hypertension. Diabetes mellitus type II. SURGICAL HISTORY : None. ENCOUNTER: Initial ACUITY: 2 weeks PAIN SCORE: 0/10 LOCATION: Right foot. FINDINGS: The bony structures appear intact. There are vascular calcifications between the first second and thi rd metatarsals. There is soft tissue swelling ventral to the first metatarsal phalangeal joints and s uspicion of crescentic air in the soft tissues. CONCLUSION: Vascular calcifications. Soft tissue swelling ventral to the first metatarsophalangeal joint and on o ne view suggests a possible crescentic air in soft tissues Floyd Johansen MD on July 23, 2017 at 11:14 Board Certified Radiologist. This report was verified electronically.
--- NOTE | 2017-07-23 12:30 | PD.WOU.CON ---
Patient Intake Chief Complaint Achiness changes of the right hallux Consult Requested by Medicine Reason for Consult Evaluate patient for possible saving of his toe versus amputation Primary Care Physician Unknown History of Present Illness Patient is a 62-year-old male who I saw for his initial visit 2 weeks ago and the wound center. Patient was given a referral for arterial segmental Dopplers at that time. Patient's primary care physician has not followed through on the referral for arterial segmental Dopplers. Patient had 2 visits to the ER for chills and fever with nausea. He is unable to take his medications. The toe is gotten worse and he was admitted for workup. Coded Allergies: aspirin (Verified Allergy, Intermediate, nausea, 07/22/17) Preferred Language to Discuss: Luxembour[place] Barriers to Learning: None Teaching Method: Discussion Vital Signs Date Time Temp Pulse Resp B/P (MAP) Pulse Ox O2 Delivery O2 Flow Rate FiO2 07/23/17 11:45 101.1 99 23 134/68 (90) 07/23/17 07:40 99.3 97 18 139/66 (90) 97 07/23/17 04:00 100.2 95 18 130/65 (86) 97 07/23/17 01:15 98 14 135/63 (87) 97 Room Air 07/22/17 22:13 98 07/22/17 22:11 99.4 99 16 138/64 (88) 98 Room Air 07/22/17 19:28 104 18 134/74 (94) 99 Room Air 07/22/17 16:51 100.2 96 18 167/81 (109) 98 Pain scale used: 0-10 numeric scale Pain score: 2 Medications Current Medications Sodium Chloride (NS Flush) 2 ml UNSCH PRN IVF FLUSH AFTER USING IV ACCESS; Start 07/22/17 at 18:30 Sodium Chloride 1,000 ml @ 1,000 mls/hr Q1H ONCE IV Last administered on 19:11; Start 07/22/17 at 18:26; Stop 07/22/17 at 19:25; Status DC Ondansetron HCl (Zofran Inj) 4 mg ONCE ONCE IVP Last administered on 19:11; Start 07/22/17 at 18:30; Stop 07/22/17 at 18:32; Status DC Vancomycin HCl 1000 mg/Sodium Chloride 250 ml @ 250 mls/hr ONCE STAT IV Last administered on 07/22/17 20:01; Start 07/22/17 at 20:01; Stop 07/22/17 at 21:00 ; Status DC Piperacillin Sod/ Tazobactam Sod 100 ml @ 200 mls/hr ONCE STAT IV Last administered on 07/22/17 20:01; Start 07/22/17 at 20:01; Stop 07/22/17 at 20:30 ; Status DC Sodium Chloride 1,000 ml @ 999 mls/hr BOLUS ONCE IV Last administered on 07/22 20:15; Start 07/22/17 at 20:15; Stop 07/22/17 at 21:16; Status DC Sodium Chloride 1,000 ml @ 150 mls/hr Q6H40M IV Last administered on 21:50; Start 07/22/17 at 21:50 Sodium Chloride (NS Flush) 2 ml UNSCH PRN IV FLUSH FLUSH AFTER USING IV ACCESS ; Start 07/22/17 at 22:00 Sodium Chloride (NS Flush) 2 ml BID IV FLUSH ; Start 07/23/17 at 09:00 Acetaminophen (Tylenol) 650 mg Q4H PRN PO TEMP > 100.4; Start 07/22/17 at 22:00 Ondansetron HCl (Zofran Inj) 4 mg Q6H PRN IVP NAUSEA OR VOMITING; Start at 22:00 Heparin Sodium (Porcine) (Heparin Inj) 5,000 units Q12H SQ Last administered on 07/23/17 10:26; Start 07/22/17 at 22:00 Naloxone HCl (Narcan Inj) 0.4 mg UNSCH PRN IV SEE LABEL COMMENTS; Start at 22:00 Senna/Docusate Sodium (Najma-Colace) 1 tab BID PO Last administered on 10:25; Start 07/23/17 at 09:00 Magnesium Hydroxide (Milk Of Magnesia Liq) 30 ml Q12H PRN PO MILD - MODERATE CONSTIPATION; Start 07/22/17 at 22:00 Sennosides (Senokot) 17.2 mg Q12H PRN PO MODERATE - SEVERE CONSTIPATION; Start 07/22/17 at 22:00 Bisacodyl (Dulcolax Supp) 10 mg DAILY PRN RECTAL SEVERE CONSITIPATION; Start at 22:00 Lactulose (Lactulose Liq) 30 ml DAILY PRN PO SEVERE CONSITIPATION; Start at 22:00 Pharmacy Profile Note 0 ml @ 0 mls/hr UNSCH OTHER ; Start 07/22/17 at 22:00 Vancomycin HCl 1500 mg/Sodium Chloride 515 ml @ 257.5 mls/ hr Q12H IV ; Start 07/23/17 at 08:00; Status UNV Piperacillin Sod/ Tazobactam Sod 100 ml @ 200 mls/hr Q6H IV Last administered on 07/23/17 10:21; Start 07/23/17 at 02:00 Aspirin (Aspirin Chew) 81 mg DAILY CHEW Last administered on 07/23/17 10:25; Start 07/23/17 at 09:00 Atorvastatin Calcium (Lipitor) 80 mg HS PO ; Start 07/23/17 at 21:00 Carvedilol (Coreg) 6.25 mg BID PO Last administered on 07/23/17 10:25; Start 07/23/17 at 09:00 Clopidogrel Bisulfate (Plavix) 75 mg DAILY PO Last administered on 07/23/17 10 :23; Start 07/23/17 at 09:00 Hydroxyzine HCl (Atarax) 50 mg HS PO ; Start 07/23/17 at 21:00 Lisinopril (Prinivil) 20 mg DAILY PO Last administered on 07/23/17 10:25; Start 07/23/17 at 09:00 Montelukast Sodium (Singulair Chew) 5 mg HS CHEW ; Start 07/23/17 at 21:00 Prednisolone Acetate (Pred Forte 1% Opth Susp) 1 drop DAILY EACH EYE Last administered on 07/23/17 10:25; Start 07/23/17 at 09:00 Sertraline HCl (Zoloft) 100 mg DAILY PO Last administered on 07/23/17 10:25; Start 07/23/17 at 09:00 Topiramate (Topamax) 100 mg DAILY PO Last administered on 07/23/17 10:22; Start 07/23/17 at 09:00 Dextrose (D50w (Vial) Inj) 50 ml UNSCH PRN IV HYPOGLYCEMIA-SEE COMMENTS; Start 07/22/17 at 22:15 Glucagon (Glucagon Inj) 1 mg UNSCH PRN OTHER HYPOGLYCEMIA-SEE COMMENTS; Start 07/22/17 at 22:15 Insulin Aspart (NovoLOG SUPPLEMENTAL SCALE) 1 ACHS SLIDING SCALE SQ Last administered on 07/23/17 08:20; Start 07/23/17 at 07:00 Vancomycin HCl 1000 mg/Sodium Chloride 250 ml @ 250 mls/hr ONCE ONCE IV Last administered on 07/22/17 22:15; Start 07/22/17 at 22:15; Stop 07/22/17 at 23:14 ; Status DC Diatrizoate Meglum/ Diatrizoate Sod ( Gastroview Liq) 18 ml STK-MED ONCE .ROUTE ; Start 07/22/17 at 22:16; Stop 07/22/17 at 22:17; Status DC Diatrizoate Meglum/ Diatrizoate Sod ( Gastroview Liq) 18 ml NOW ONCE PO Last administered on 07/22/17 22:45; Start 07/22/17 at 22:45; Stop 07/22/17 at 22:46; Status DC Nystatin (Mycostatin Liq) 5 ml QID SWISH-SWAL Last administered on 07/23/17 10:24; Start 07/23/17 at 09:00 Pantoprazole Sodium (Protonix Inj) 40 mg DAILY IV PUSH Last administered on 10:24; Start 07/22/17 at 22:45 Iohexol (Omnipaque 350 Inj) 95 ml STK-MED ONCE IVCONTRAST Last administered on 07/22/17 23:59; Start 07/22/17 at 23:59; Stop 07/23/17 at 00:00; Status DC Nitroglycerin (Nitroglycerin 2% Oint) 1 inch ONCE ONCE TOPICAL Last administered on 07/23/17 10:22; Start 07/23/17 at 10:00; Stop 07/23/17 at 10:01 ; Status DC Vancomycin HCl 2000 mg/Sodium Chloride 520 ml @ 250 mls/hr Q24H IV ; Start at 18:00 Miscellaneous Information SPECIFIC LAB TO BE DRAWN:VANCOMYCIN TROUGH DATE TO... ONCE ONCE .XX ; Start 07/25/17 at 17:45; Stop 07/25/17 at 17:46 Past, Family & Social History Past Medical History HEENT: REPORTS HX OF: Other HEENT history (PRP Laser OU( dr. Cr 05/2009)) Endocrine: REPORTS HX OF: Diabetes mellitus Cardiovascular: REPORTS HX OF: Hyperlipidemia, Hypertension, Peripheral vascular dz Past Surgical History Cardiovascular: REPORTS HX OF: Coronary stent Substance Use Substance Use: Denies use Review of Systems Eyes: COMPLAINS OF: Poor Vision/Glasses/Conta Cardiovascular: COMPLAINS OF: Hx hypertension Genitourinary: COMPLAINS OF: Renal disease Neurological: COMPLAINS OF: Numbness/tingling, Changes in sensation Wound Assessment Vascular Assessment R Dorsails Pedis: Doppler L Dorsails Pedis: Doppler R Posterior Tibial: Doppler L Posterior Tibial: Doppler Temperature of Left Extremity: Cool Color of Left Extremity: WNL Sensation of Left Extremity: Diminished Temperature of Right Extremity: Cool Color of Right Extremity: Dusky Sensation of Right Extremity: Diminished Wound Information - Wound One Wound Location: Right foot- Dorsal Wound Type: Ischemic Classification: FT- full thickness Exudate: None Debridement: No Fibrin Amount: None Granulation Tissue Color: None Granulation Tissue Texture: N/A Eschar: Yes Odor: Yes Dressings: Sterile 4x4 Wound Two Wound Location: Right foot-first metatarsal head area Wound Type: Ischemic Classification: FT- full thickness Exudate: None Exudate Type: N/A Debridement: No Fibrin Amount: None Granulation Tissue Color: None Granulation Tissue Texture: N/A Eschar: Yes Odor: Yes Periwound Appearance: FINDINGS: Ecchymotic Dressings: Sterile 4x4 Lab and Radiology Results Laboratory Laboratory Tests Test 07/22/17 18:40 White Blood Count 21.8 TH/MM3 Red Blood Count 4.71 MIL/MM3 Hemoglobin 9.8 GM/DL Hematocrit 31.7 % Mean Corpuscular Volume 67.2 FL Mean Corpuscular Hemoglobin 20.9 PG Mean Corpuscular Hemoglobin Concent 31.1 % Red Cell Distribution Width 15.7 % Platelet Count 241 TH/MM3 Mean Platelet Volume 9.1 FL Neutrophils (%) (Auto) 83.5 % Lymphocytes (%) (Auto) 7.9 % Monocytes (%) (Auto) 7.9 % Eosinophils (%) (Auto) 0.1 % Basophils (%) (Auto) 0.6 % Neutrophils # (Auto) 18.2 TH/MM3 Lymphocytes # (Auto) 1.7 TH/MM3 Monocytes # (Auto) 1.7 TH/MM3 Eosinophils # (Auto) 0.0 TH/MM3 Basophils # (Auto) 0.1 TH/MM3 CBC Comment AUTO DIFF Differential Total Cells Counted 100 Neutrophils % (Manual) 73 % Band Neutrophils % 12 % Lymphocytes % 10 % Monocytes % 4 % Basophils % 1 % Neutrophils # (Manual) 18.5 TH/MM3 Differential Comment FINAL DIFF MANUAL Platelet Estimate NORMAL Platelet Morphology Comment NORMAL Ovalocytes 1+ Acanthocytes OCC Laboratory Tests Test 07/22/17 18:48 07/22/17 20:05 07/23/17 01:17 Blood Urea Nitrogen 37 MG/DL Creatinine 1.66 MG/DL Random Glucose 237 MG/DL Total Protein 8.1 GM/DL Albumin 2.3 GM/DL Calcium Level 8.9 MG/DL Magnesium Level 2.8 MG/DL Alkaline Phosphatase 152 U/L Aspartate Amino Transf (AST/SGOT) 88 U/L Alanine Aminotransferase (ALT/SGPT) 52 U/L Total Bilirubin 0.5 MG/DL Sodium Level 132 MEQ/L Potassium Level 3.9 MEQ/L Chloride Level 99 MEQ/L Carbon Dioxide Level 23.2 MEQ/L Anion Gap 10 MEQ/L Estimat Glomerular Filtration Rate 51 ML/MIN Total Creatine Kinase 261 U/L Creatine Kinase MB 1.1 NG/ML Troponin I 0.17 NG/ML 0.18 NG/ML Lipase 87 U/L Lactic Acid Level 1.4 mmol/L Microbiology Date/Time Source Procedure Growth Status 07/22/17 20:05 Blood Peripheral Aerobic Blood Culture - Preliminary NO GROWTH IN 1 DAY Resulted 07/22/17 20:05 Blood Peripheral Anaerobic Blood Culture - Preliminary NO GROWTH IN 1 DAY Resulted 07/22/17 20:00 Blood Peripheral Aerobic Blood Culture - Preliminary NO GROWTH IN 1 DAY Resulted 07/22/17 20:00 Blood Peripheral Anaerobic Blood Culture - Preliminary NO GROWTH IN 1 DAY Resulted Radiology Last Impressions Foot X-Ray 07/23/17 0000 Signed Impressions: Service Date/Time: Sunday, July 23, 2017 10:24 - CONCLUSION: Vascular calcifications. Soft tissue swelling ventral to the first metatarsophalangeal joint and on one view suggests a possible crescentic air in soft tissues Floyd Johansen MD Head CT 07/22/17 1826 Signed Impressions: Service Date/Time: [place], July 22, 2017 19:17 - CONCLUSION: 1. No acute abnormality is seen. 2. Atrophy. 3. Persistent stable encephalomalacia at the inferior left cerebellar hemisphere. Markus Denny MD Chest X-Ray 07/22/17 1826 Signed Impressions: Service Date/Time: Saturday, July 22, 2017 18:43 - CONCLUSION: No acute disease. Markus Denny MD Abdomen/Pelvis CT 07/22/17 0000 Signed Impressions: Service Date/Time: Saturday, July 22, 2017 23:56 - CONCLUSION: 1. No acute finding is identified within the abdomen or pelvis. There is mild respiratory motion artifact. 2. Stable nonacute findings include small hiatal hernia and small bilateral low-density renal lesions. There is trace left pleural fluid. Markus Chester MD Assessment/Plan Problem List: (1) Toe ulcer, right Status: Acute (2) Diabetes mellitus Status: Acute Additional information PLAN: Dry protective bandage for now. Await arterial segmental Dopplers. Vascular surgery consult ordered. Patient more than likely will require an amputation of the right hallux. Radiographs were reviewed. Problem Qualifiers (1) Toe ulcer, right: Qualified Codes: L97.512 - Non-pressure chronic ulcer of other part of right foot with fat layer exposed (2) Diabetes mellitus: Qualified Codes: E10.52 - Type 1 diabetes mellitus with diabetic peripheral angiopathy with gangrene Dwaine Calloway DPM Jul 23, 2017 12:30
[2017-07-23 12:54] LABS: AUTOMATED NEUTROPHIL # 13.9 TH/MM3 (1.8-7.7); BASOPHIL % 0.2 % (0.0-2.0); EOSINOPHIL % 0.2 % (0.0-4.0); HEMATOCRIT 28.4 % (39.0-51.0); HEMO FLAGS DIFF FINAL; LYMPH % 8.1 % (9.0-44.0); LYMPHOCYTE # 1.4 TH/MM3 (1.0-4.8); MEAN CELL VOLUME 66.3 FL (80.0-100.0); MEAN CORPUSCULAR HEMOGLOBIN 20.8 PG (27.0-34.0); MEAN CORPUSCULAR HGB CONC 31.3 % (32.0-36.0); MONO % 9.5 % (0.0-8.0); PLATELET COUNT 231 TH/MM3 (150-450); RED BLOOD COUNT 4.28 MIL/MM3 (4.50-5.90); RED CELL DISTRIBUTION WIDTH 15.8 % (11.6-17.2); WHITE BLOOD COUNT 16.9 TH/MM3 (4.0-11.0)
[2017-07-23 13:07] LABS: ALT (GPT) 34 U/L (12-78); ANION GAP 13 MEQ/L (5-15); AST (GOT) 56 U/L (15-37); BICARBONATE 18.9 MEQ/L (21.0-32.0); BLOOD UREA NITROGEN 30 MG/DL (7-18); CHLORIDE 104 MEQ/L (98-107); GLOMERULAR FILTRATION RATE 72 ML/MIN (>89); MAGNESIUM 2.4 MG/DL (1.5-2.5); POTASSIUM 3.5 MEQ/L (3.5-5.1); SODIUM (NA) 136 MEQ/L (136-145)
[2017-07-23 13:09] LABS: ALKALINE PHOSPHATASE 125 U/L (45-117); BETA-HYDROXYBUTYRATE 0.85 MMOL/L (0.00-0.39); TOTAL BILIRUBIN ADULT 0.6 MG/DL (0.2-1.0)
--- NOTE | 2017-07-23 13:14 | MB ---
cc: KULWINDER CORREIA M.D. DATE OF CONSULTATION 07/23/2017 REASON FOR CONSULTATION Evaluation of elevated troponin. HISTORY Kulwinder Obando is a 61-year-old man with known coronary artery disease. He had an acute inferior wall myocardial infarction November 15, 2015 and had his mid-right coronary artery stented with a 3.5 x 18 mm Integrity stent. He has had Q-waves appearing on his EKG's since then. He does not follow with any particular Tufting Supervisor. He has longstanding diabetes and has a known wound on his right foot. He came into the emergency room yesterday with complaints of generalized weakness headaches, not eating, some intermittent fevers up to 101 degrees and decided to finally come into the hospital. The patient does not have any anginal-type chest pain. He occasionally gets chest pain, but it only last a second or two. He denies any obvious severe infection on his right foot. Denies any shortness of breath. Denies palpitations, syncope, presyncope or any other cardiac complaints. PAST MEDICAL HISTORY Includes: 1. Longstanding diabetes 2. Hypertension 3. Multiple strokes in the past 4. Coronary artery disease as described above 5. Question of peripheral arterial disease of the wound up by the right ankle. PAST SURGICAL HISTORY Includes: 1. Eye surgery 2. Stent placement MEDICATIONS Include: 1. Carvedilol 6.25 p.o. b.i.d. 2. Lisinopril 20 mg daily 3. Plavix 75 mg daily 4. Aspirin 81 mg daily SOCIAL HISTORY He is an ex-smoker. REVIEW OF SYSTEMS Otherwise noncontributory. PHYSICAL EXAM This is a well-developed, well-nourished -[place]izen [place] male in no acute distress. VITAL SIGNS: Charted. He has been intermittently febrile. 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 NECK: Shows no bruits. CHEST: Shows S1-S2, regular rate and rhythm. No murmurs or gallops. ABDOMEN: Soft and nontender. EXTREMITIES: Reveal strong femoral pulses with no bruits. Pedal pulses are very weak. He has a severe wound by the right medial malleolus that is being followed by podiatry. NEUROLOGIC: He is alert and oriented. LABORATORY DATA Notable for a markedly elevated white count with a left shift, elevated BUN and creatinine from baseline at 37/1.66. Chest x-ray showed no acute disease. EKG shows sinus rhythm with an old inferior infarct and some slight T-wave flattening laterally and no significant interval mold changer three tracings. LABORATORY DATA His laboratories are notable for mildly elevated troponin of 0.17 and 0.18 on repeat. There is no rise and fall in the troponin levels IMPRESSION This is a 62-year male with known atherosclerotic disease. He has had a previous right coronary artery stent for an [place]. He comes in now with a near sepsis picture and obvious severe infection of the right foot. He does not have any symptoms to suggest acute coronary syndrome. Troponin is mildly elevated, but has been so in the past as well. Doubt that the elevated troponin represents any type of acute cardiac situation. RECOMMENDATIONS I will be following on an as-needed basis. Please call if there are any questions. I would recommend continuing his cardiac medications. Agree with him having a peripheral vascular evaluation because of the wound infection. MD ERICA Demarco/FRANKY /12:52 PM /1:02 PM
--- NOTE | 2017-07-23 13:19 | EKG ---
Date Performed: 07/23/2017 Time Performed: 09:44:58 PTAGE: 62 years EKG: Sinus rhythm INFERIOR MYOCARDIAL INFARCTION ABNORMAL ECG PREVIOUS TRACING : 07/23/2017 09.06 Compared to prior tracing no significant change DOCTOR: Adelina Albarado Interpretating Date/Time 07/23/2017 13:18:00
--- NOTE | 2017-07-23 13:19 | EKG ---
Date Performed: 07/22/2017 Time Performed: 19:40:30 PTAGE: 61 years EKG: SINUS TACHYCARDIA POSSIBLE LEFT ATRIAL ENLARGEMENT PROBABLE INFERIOR MYOCARDIAL INFARCTION ABNORMAL ECG PREVIOUS TRACING : 07/16/2017 19.28 Compared to prior tracing no significant change DOCTOR: Adelina Albarado Interpretating Date/Time 07/23/2017 13:18:08
--- NOTE | 2017-07-23 14:32 | PD.VS.CON ---
History of Present Illness Chief Complaint: Non healing ulceration Right medial aspect of foot (4 weeks) Consult Requested by: Dr. Calloway History of Present Illness Mr. Obando is a 62/M patient who has a PMH of DM, coronary artery disease and CVA. Pt arrived to the ED with a cc of weakness with nausea. Pt with a 2 cm X 1.75 cm dry ulceration to right medial aspect of foot for an estimated duration of 1 month Pt stated he may have bumped his foot into a door several weeks ago but is uncertain (Marguerite Shi) Past/Family/Social History Past Medical History DM Coronary artery disease CVA Pt legally blind Past Surgical History Eye Surgery 2008 PCI with stent placement in 2014 Social History Denies ETOH/Smoking Lives w/ his (Marguerite Shi) Home Medications Active Scripts Dicyclomine (Bentyl) 10 Mg Cap, 10 MG PO QID for Bowel Management for 12 Days, CAP 0 Refills Prov:Galdino Mendoza MD 07/16/17 Montelukast (Singulair) 5 Mg Chew, 5 MG CHEW HS, #30 TAB 1 Refill Prov:Sonia Nicholson MD R2 07/04/17 Carvedilol (Carvedilol) 6.25 Mg Tab, 6.25 MG PO BID, #60 TAB 5 Refills Prov:Sonia Nicholson MD R2 06/25/17 Dapagliflozin (Farxiga) 5 Mg Tab, 5 MG PO DAILY for Blood Sugar Management, #30 TAB 5 Refills Prov:Sonia Nicholson MD R2 06/25/17 Atorvastatin (Lipitor) 80 Mg Tab, 80 MG PO HS for Cholesterol Management, #30 TAB 5 Refills Prov:Sonia Nicholson MD R2 06/25/17 Insulin Lispro Protamine-Lispro 75-25 Inj (Humalog Mix 75-25 Kwikpen Pen Inj) 300 unit/3 ML Pen, 10 UNITS SQ TIDAC for Blood Sugar Management, #5 PEN 5 Refills Prov:Sonia Nicholson MD R2 06/25/17 Insulin Glargine Inj (Lantus Solostar Pen Inj) 300 Unit/3 Ml Pen, 40 UNITS SQ HS for Blood Sugar Management, #15 PEN 3 Refills Prov:Sonia Nicholson MD R2 06/25/17 Metoclopramide (Reglan) 10 Mg Tab, 10 MG PO TIDAC, #120 TAB 2 Refills Prov:Sonia Nicholson MD R2 06/25/17 Prednisolone Acetate Opth (Prednisolone Acetate Opth) 1% Susp, 1 DROP EACH EYE DAILY, #1 CONTAINER 5 Refills Prov:Sonia Nicholson MD R2 06/25/17 Lisinopril (Lisinopril) 20 Mg Tab, 20 MG PO DAILY, #90 TAB 3 Refills Prov:Sonia Nicholson MD R2 06/25/17 Clopidogrel (Plavix) 75 Mg Tab, 75 MG PO DAILY for Blood Clot Prevention, #30 TAB 5 Refills Prov:Sonia Nicholson MD R2 06/25/17 Topiramate (Topamax) 100 Mg Tab, 100 MG PO DAILY for Control Seizures, #60 TAB 5 Refills Prov:Sonia Nicholson MD R2 06/25/17 Omeprazole (Omeprazole) 20 Mg Cap, 1 CAP PO DAILY, #30 CAP Prov:Sonia Nicholson MD R2 06/25/17 Ondansetron Odt (Zofran Odt) 4 Mg Tab, 4 MG SL Q6HR Y for Nausea/Vomiting, #15 TAB 0 Refills Prov:Jeanie Lundberg MD 11/28/16 Sertraline (Sertraline) 100 Mg Tab, 100 MG PO DAILY, #30 TAB 0 Refills Prov:Asad Moore MD R3 10/31/16 Reported Medications Hydroxyzine HCl (Hydroxyzine HCl) 50 Mg Tab, 50 MG PO HS, TAB 0 Refills 07/16/17 Discontinued Reported Medications Aspirin (Aspirin) 81 Mg Chew, 81 MG CHEW DAILY, TAB 0 Refills 06/25/17 Coded Allergies: aspirin (Verified Allergy, Intermediate, nausea, 07/22/17) Physical Exam Vitals/I&O Date Time Temp Pulse Resp B/P (MAP) Pulse Ox O2 Delivery O2 Flow Rate FiO2 07/23/17 11:45 101.1 99 23 134/68 (90) 07/23/17 07:40 99.3 97 18 139/66 (90) 97 07/23/17 04:00 100.2 95 18 130/65 (86) 97 07/23/17 01:15 98 14 135/63 (87) 97 Room Air 07/22/17 22:13 98 07/22/17 22:11 99.4 99 16 138/64 (88) 98 Room Air 07/22/17 19:28 104 18 134/74 (94) 99 Room Air 07/22/17 16:51 100.2 96 18 167/81 (109) 98 07/23/17 07/23/17 07/23/17 06:59 14:59 22:59 Intake Total 1350 ml Balance 1350 ml Neuro: GCS15 Pt alert and oriented Heart: RRR +S1,S2 Lungs: CTA Vascular: Non palpable R DP/PT Palpable L DP (faint) Extremities: 2 cm X 1.75 cm dry ulceration to right medial aspect of foot (1 month) (Marguerite Shi) Laboratory Tests Test 07/22/17 18:40 07/22/17 18:48 07/22/17 20:05 07/22/17 21:25 White Blood Count 21.8 Red Blood Count 4.71 Hemoglobin 9.8 Hematocrit 31.7 Mean Corpuscular Volume 67.2 Mean Corpuscular Hemoglobin 20.9 Mean Corpuscular Hemoglobin Concent 31.1 Red Cell Distribution Width 15.7 Platelet Count 241 Mean Platelet Volume 9.1 Neutrophils (%) (Auto) 83.5 Lymphocytes (%) (Auto) 7.9 Monocytes (%) (Auto) 7.9 Eosinophils (%) (Auto) 0.1 Basophils (%) (Auto) 0.6 Neutrophils # (Auto) 18.2 Lymphocytes # (Auto) 1.7 Monocytes # (Auto) 1.7 Eosinophils # (Auto) 0.0 Basophils # (Auto) 0.1 CBC Comment AUTO DIFF Differential Total Cells Counted 100 Neutrophils % (Manual) 73 Band Neutrophils % 12 Lymphocytes % 10 Monocytes % 4 Basophils % 1 Neutrophils # (Manual) 18.5 Differential Comment FINAL DIFF MANUAL Platelet Estimate NORMAL Platelet Morphology Comment NORMAL Ovalocytes 1+ Acanthocytes OCC Prothrombin Time 12.1 Prothromb Time International Ratio 1.1 Activated Partial Thromboplast Time 31.2 Blood Urea Nitrogen 37 Creatinine 1.66 Random Glucose 237 Total Protein 8.1 Albumin 2.3 Calcium Level 8.9 Magnesium Level 2.8 Alkaline Phosphatase 152 Aspartate Amino Transf (AST/SGOT) 88 Alanine Aminotransferase (ALT/SGPT) 52 Total Bilirubin 0.5 Sodium Level 132 Potassium Level 3.9 Chloride Level 99 Carbon Dioxide Level 23.2 Anion Gap 10 Estimat Glomerular Filtration Rate 51 Total Creatine Kinase 261 Creatine Kinase MB 1.1 Troponin I 0.17 Lipase 87 B-Hydroxybutyrate 1.29 Lactic Acid Level 1.4 Urine Color YELLOW Urine Turbidity HAZY Urine pH 5.0 Urine Specific [place] 1.021 Urine Protein 30 Urine Glucose (UA) 1000 Urine Ketones 10 Urine Occult Blood TRACE Urine Nitrite NEG Urine Bilirubin NEG Urine Urobilinogen 2.0 Urine Leukocyte Esterase NEG Urine RBC 2 Urine WBC 5 Urine Squamous Epithelial Cells <1 Urine Bacteria RARE Urine Hyaline Casts 13 Urine Mucus FEW Microscopic Urinalysis Comment CULT NOT INDICATED Test 07/23/17 01:17 07/23/17 12:00 07/23/17 12:10 Troponin I 0.18 0.20 White Blood Count 16.9 Red Blood Count 4.28 Hemoglobin 8.9 Hematocrit 28.4 Mean Corpuscular Volume 66.3 Mean Corpuscular Hemoglobin 20.8 Mean Corpuscular Hemoglobin Concent 31.3 Red Cell Distribution Width 15.8 Platelet Count 231 Mean Platelet Volume 9.3 Neutrophils (%) (Auto) 82.0 Lymphocytes (%) (Auto) 8.1 Monocytes (%) (Auto) 9.5 Eosinophils (%) (Auto) 0.2 Basophils (%) (Auto) 0.2 Neutrophils # (Auto) 13.9 Lymphocytes # (Auto) 1.4 Monocytes # (Auto) 1.6 Eosinophils # (Auto) 0.0 Basophils # (Auto) 0.0 CBC Comment DIFF FINAL Differential Comment Blood Urea Nitrogen 30 Creatinine 1.23 Random Glucose 324 Total Protein 6.7 Albumin 1.8 Calcium Level 8.2 Phosphorus Level 2.5 Magnesium Level 2.4 Alkaline Phosphatase 125 Aspartate Amino Transf (AST/SGOT) 56 Alanine Aminotransferase (ALT/SGPT) 34 Total Bilirubin 0.6 Sodium Level 136 Potassium Level 3.5 Chloride Level 104 Carbon Dioxide Level 18.9 Anion Gap 13 Estimat Glomerular Filtration Rate 72 B-Hydroxybutyrate 0.85 Date/Time Source Procedure Growth Status 07/22/17 20:05 Blood Peripheral Aerobic Blood Culture - Preliminary NO GROWTH IN 1 DAY Resulted 07/22/17 20:05 Blood Peripheral Anaerobic Blood Culture - Preliminary NO GROWTH IN 1 DAY Resulted Last 48 hours Impressions Foot X-Ray 07/23/17 0000 Signed Impressions: Service Date/Time: Sunday, July 23, 2017 10:24 - CONCLUSION: Vascular calcifications. Soft tissue swelling ventral to the first metatarsophalangeal joint and on one view suggests a possible crescentic air in soft tissues Floyd Johansen MD Head CT [id number]/22/171825 Signed Impressions: Service Date/Time: Saturday, July 22, 2017 19:17 - CONCLUSION: 1. No acute abnormality is seen. 2. Atrophy. 3. Persistent stable encephalomalacia at the inferior left cerebellar hemisphere. Markus Denny MD Chest X-Ray 07/22/171825 Signed Impressions: Service Date/Time: Saturday, July 22, 2017 18:43 - CONCLUSION: No acute disease. Markus Denny MD Abdomen/Pelvis CT 07/22/17 0000 Signed Impressions: Service Date/Time: Saturday, July 22, 2017 23:56 - CONCLUSION: 1. No acute finding is identified within the abdomen or pelvis. There is mild respiratory motion artifact. 2. Stable nonacute findings include small hiatal hernia and small bilateral low-density renal lesions. There is trace left pleural fluid. Markus Chester MD (Marguerite Shi) Assessment and Plan Assessment: (1) PAD (peripheral artery disease) Status: Chronic (2) Toe ulcer, right Status: Acute Plan Pt with a non healing right foot ulceration (1M) Pt w/o a palpable R DP/PT Plan Will review sonography studies Scheduled a R LE Angiogram on w/ Dr. Clarissa CUELLO [facility] [phone] (Marguerite Shi) Plan He has R LE diabetic ulcer and likely needs metatarsectomy. However, I don't appreciate any pedal pulses and ABIs show moderate occlusive disease. Needs R LE angiogram and potential endovascular revascularization. On my OR schedule for . Klever Romo MD FACS VI [employer] [facility] - Heart and Vascular Surgery at [facility] [phone] (Klever Romo MD) Problem Qualifiers (1) Toe ulcer, right: Qualified Codes: L97.512 - Non-pressure chronic ulcer of other part of right foot with fat layer exposed Marguerite Shi Jul 23, 2017 14:31 Klever Romo MD Jul 23, 2017 15:41
--- NOTE | 2017-07-23 14:56 | RADRPT ---
EXAM DATE/TIME: 07/23/2017 00:00 [place] COMPARISON: No previous studies available for comparison. INDICATIONS : Right foot ulcer, Sepsis, Diabetes mellitus TECHNIQUE: Five-station segmental examination of the lower extremities was performed. Pulsed-cuff waveform tracings and pressures were recorded. Ankle-brachial indices and toe-brachial indices were calculated. PRESSURES (mmHg): Brachial (arm): Right 117 Left IV SITE Lower Thigh: Right 130 Left 140 Calf: Right 113 Left 124 Ankle: Right 66 Left 83 Toe: Right 0 Left 56 SCOTTIE: Right 0.56 Left 0.71 TBI: Right 0.00 Left 0.48 PULSED CUFF WAVEFORMS: Biphasic waveforms at the ankles bilaterally. CONCLUSION: Significant reduction of the ABIs bilaterally more pronounced on the right with segmental pressure browning ggesting tibioperoneal disease. Consider CTA with runoff to further evaluate. Jose De Jesus Ross Jr., MD on July 23, 2017 at 14:53 Board Certified Radiologist. This report was verified electronically.
--- NOTE | 2017-07-23 15:06 | EKG ---
Date Performed: 07/23/2017 Time Performed: 01:28:16 PTAGE: 62 years EKG: Sinus rhythm INFERIOR MYOCARDIAL INFARCTION ABNORMAL ECG PREVIOUS TRACING : 07/22/2017 19.40 Since the prior tracing, the nonspecific ST segment changes have resolved. DOCTOR: Adelina Albarado Interpretating Date/Time 07/23/2017 15:05:55
--- NOTE | 2017-07-23 16:01 | ECHRPT ---
Indication: cardiomyopathy CONCLUSIONS The left ventricular systolic function is preserved normal with an estimated ejection fraction in th e range of 60-65%. Old inferior SC. Normal left ventricular size. Wall thickness is normal. No regional wall motion abnormalities are present. There is trace tricuspid valve regurgitation. The estimated pulmonary arterial pressure is 35 mmHg. BP: / HR: Rhythm: Sinus MEASUREMENTS (Male / Female) Normal Values Technical Quality:Good 2D ECHO LV Diastolic Diameter PLAX 5.0 cm 4.2 - 5.9 / 3.9 - 5.3 cm LV Systolic Diameter PLAX 3.1 cm IVS Diastolic Thickness 1.1 cm 0.6 - 1.0 / 0.6 - 0.9 cm LVPW Diastolic Thickness 1.1 cm 0.6 - 1.0 / 0.6 - 0.9 cm LV Relative Wall Thickness 0.4 RV Internal Dim ED PLAX 2.8 cm LVOT Diameter 2.1 cm LA Systolic Diameter LX 3.6 cm 3.0 - 4.0 / 2.7 - 3.8 cm LV Ejection Fraction MOD 4C 65.2 % LV Ejection Fraction 4C AL 66.2 % M-MODE Aortic Root Diameter MM 2.5 cm AV Cusp Separation MM 2.2 cm DOPPLER AV Peak Velocity 128.0 cm/s AV Peak Gradient 6.6 mmHg LVOT Peak Velocity 95.3 cm/s LVOT Peak Gradient 3.6 mmHg AV Area Cont Eq pk 2.6 cm MV Area PHT 5.1 cm Mitral E Point Velocity 93.8 cm/s Mitral A Point Velocity 77.0 cm/s Mitral E to A Ratio 1.2 LV E' Lateral Velocity 8.3 cm/s Mitral E to LV E' Lateral Ratio 11.3 LV E' Septal Velocity 10.0 cm/s Mitral E to LV E' Septal Ratio 9.4 TR Peak Velocity 250.0 cm/s TR Peak Gradient 25.0 mmHg PV Peak Velocity 90.5 cm/s PV Peak Gradient 3.3 mmHg FINDINGS LEFT VENTRICLE The left ventricular systolic function is normal with an estimated ejection fraction in the range of 60-65%. Scarring and akinesis of the basal inferior wall. Wall thickness is normal. No regional wall motion abnormalities are present. RIGHT VENTRICLE Normal right ventricular size and systolic function. LEFT ATRIUM The left atrial size is normal. RIGHT ATRIUM The right atrial size is normal. ATRIAL SEPTUM Normal atrial septal thickness without atrial level shunting by limited color doppler interrogation. AORTA The aortic root and proximal ascending aorta are normal in size on limited imaging. MITRAL VALVE Structurally normal mitral valve. Trace mitral valve regurgitation. AORTIC VALVE Trileaflet aortic valve. No aortic valve stenosis or regurgitation. TRICUSPID VALVE There is trace tricuspid valve regurgitation. The estimated pulmonary arterial pressure is 35 mmHg. PULMONARY VALVE The pulmonary valve is not well visualized. VESSELS The inferior vena cava is normal in size. PERICARDIUM No pericardial effusion. Chris Guerrero MD (Electronically Signed) Final Date:23 July 2017 16:01
[2017-07-23 16:11] LABS: HEMOGLOBIN A1a 3.9 %; HEMOGLOBIN Ao 74.7 %; HEMOGLOBIN LA1C 3.2 %; HEMOGLOBIN P3 4.7 %
[2017-07-23] MEDS: VANCOMYCIN INJ 2,000 MG in SODIUM CHLORID 0.9% 500 ML INJ 500 ML IV SCH (20:31)
[2017-07-23] MEDS: LACTOBACILLUS ACIDOPHILUS 1 GM PACKET PO SCH (20:32)
[2017-07-23] MEDS: hydrOXYzine HCL 50 MG TAB PO SCH (21:00)
[2017-07-23] MEDS: ATORVASTATIN 80 MG TAB PO SCH (22:33)
[2017-07-23] MEDS: MONTELUKAST SODIUM 5 MG CHEWABLE TAB CHEW SCH (22:34)
[2017-07-24] MEDS: ACETAMINOPHEN 325 MG TAB PO PRN ×2 (00:17→16:07)
[2017-07-24 04:05] VITALS: BP 103/56; PULSE 87; RESP 18; TEMP 98.6; O2SAT 98
[2017-07-24] MEDS: PIPERACIL-TAZO 4.5 GM PREMIX 100 ML IV SCH ×4 (04:49→21:41)
[2017-07-24] MEDS: SODIUM CHLOR 0.9% 1000 ML INJ 1,000 ML IV SCH ×4 (07:05→18:09)
[2017-07-24] MEDS: INSULIN ASPART SUPPLEMENTAL SCALE SQ SCH ×3 (07:10→19:43)
[2017-07-24 08:22] VITALS: BP 126/59; PULSE 90; RESP 16; TEMP 99.8; O2SAT 97
[2017-07-24] MEDS: ASPIRIN 81 MG CHEW TAB CHEW SCH (08:55)
[2017-07-24] MEDS: CARVEDILOL 6.25 MG TAB PO SCH ×2 (08:55→21:38)
[2017-07-24] MEDS: DOCUSATE SODIUM 50 MG/SENNA 8.6 MG TAB PO SCH ×2 (08:55→21:38)
[2017-07-24] MEDS: SERTRALINE HCL 100 MG TAB PO SCH (08:55)
[2017-07-24] MEDS: TOPIRAMATE 100 MG TAB PO SCH (08:55)
[2017-07-24] MEDS: NYSTATIN SUSP 500,000 U/5 ML CUP SWISH-SWAL SCH ×4 (08:56→21:39)
[2017-07-24] MEDS: CLOPIDOGREL 75 MG TAB PO SCH (08:56)
[2017-07-24] MEDS: LISINOPRIL 20 MG TAB PO SCH (08:56)
[2017-07-24] MEDS: PANTOPRAZOLE SODIUM 40 MG VIAL IV PUSH SCH (08:57)
[2017-07-24] MEDS: LACTOBACILLUS ACIDOPHILUS 1 GM PACKET PO SCH ×3 (08:57→19:41)
[2017-07-24] MEDS: SODIUM CHLORIDE 0.9% FLUSH 10 ML FLUSH IV FLUSH SCH ×2 (08:57→21:00)
[2017-07-24] MEDS: prednisoLONE ACETATE 1% OPHT SUSP 5 ML BTL EACH EYE SCH (08:57)
[2017-07-24] MEDS: HEPARIN SODIUM - SQ 10,000 UNITS/ML VIAL SQ SCH ×2 (09:00→21:38)
--- NOTE | 2017-07-24 09:24 | HHI.FPPN ---
Subjective Remarks Patient feeling "cold" this morning. Having fevers last night to 101.7 F. Able to tolerate some PO intake yesterday without becoming nauseated. Denying any new chest pain, SOB, sputum production, abdominal pain, or other complaints. (Johny Freire MD, R3) Objective Vitals Vital Signs Date Time Temp Pulse Resp B/P (MAP) Pulse Ox O2 Delivery O2 Flow Rate FiO2 07/24/17 08:22 99.8 90 16 126/59 (81) 97 07/24/17 04:05 98.6 87 18 103/56 (72) 98 07/23/17 23:43 101.7 92 18 134/60 (84) 98 07/23/17 21:52 97 07/23/17 20:21 101.1 93 18 120/59 (79) 97 07/23/17 17:52 92 128/62 (84) 07/23/17 17:39 99.6 90 104/59 (74) 07/23/17 15:37 98.2 89 18 125/65 (85) 97 07/23/17 11:45 101.1 99 23 134/68 (90) I/O 07/23/17 07/23/17 07/23/17 07/24/17 07/24/17 07/24/17 07:00 15:00 23:00 07:00 15:00 23:00 Intake Total 1350 ml Balance 1350 ml Intake IV Total 1350 ml (Johny Freire MD, R3) Result Diagram: 07/23/17 1200 07/23/17 1200 Imaging Last 72 hours Impressions Foot X-Ray 07/23/17 0000 Signed Impressions: Service Date/Time: Sunday, July 23, 2017 10:24 - CONCLUSION: Vascular calcifications. Soft tissue swelling ventral to the first metatarsophalangeal joint and on one view suggests a possible crescentic air in soft tissues Floyd Johansen MD Head CT 07/22/171825 Signed Impressions: Service Date/Time: Saturday, July 22, 2017 19:17 - CONCLUSION: 1. No acute abnormality is seen. 2. Atrophy. 3. Persistent stable encephalomalacia at the inferior left cerebellar hemisphere. Markus Denny MD Chest X-Ray 07/22/171825 Signed Impressions: Service Date/Time: Saturday, July 22, 2017 18:43 - CONCLUSION: No acute disease. Markus Denny MD Abdomen/Pelvis CT 07/22/17 0000 Signed Impressions: Service Date/Time: Saturday, July 22, 2017 23:56 - CONCLUSION: 1. No acute finding is identified within the abdomen or pelvis. There is mild respiratory motion artifact. 2. Stable nonacute findings include small hiatal hernia and small bilateral low-density renal lesions. There is trace left pleural fluid. Markus Chester MD Objective Remarks Gen.: Disheveled, poorly groomed, not opening his eyes. No acute distress CV: Regular rate and rhythm, no murmurs appreciated. Pulses equal to all extremities. Left upper extremity cooler than right upper extremity. (Johny Freire MD, R3) A/P Assessment and Plan 61-year-old male with history of hypertension, poorly controlled diabetes, CVA, NC, presents with sepsis with suspected source being his right foot. (Johny Freire MD, R3) Attending Attestation Patient seen and examined. Case reviewed and discussed with the resident DR Robert Freire. Agree with plan of care as discussed with me and documented in the resident note. (Nick Mcdaniel MD) Problem List: (1) Sepsis ICD Codes: A41.9 - Sepsis, unspecified organism Status: Acute Plan: On admission WBC = 21.8 k, HR 104, Fevers 100.2. --> placed on IV Vancomycin and Zosyn --> WBC decreased to 16.9. However still febrile to 101.7 F in past 24 hours. Likely source of infection being right diabetic foot ulcer. CXR: no acute disease Head CT: no acute abnormality UA: 1000 glucose, 30 protein, 10 ketones; rare bacteria, neg nitrite and neg LE PLAN: -Continue Vancomycin q12H; consult pharmacy -Continue Zosyn 4.5g q6H -CT abdomen/pelvis grossly WNL. -IVF at maintenance. -Blood cultures negative x 24 hours, repeat if still having persistent fevers. -Consult ID if still having fevers despite 72 hours of antibiotics. (2) Elevated troponin ICD Codes: R79.89 - Other specified abnormal findings of blood chemistry Status: Acute Plan: Evaluated by cardiology, we appreciate their help in care. Elevation in troponin to 0.20 likely demand ischemia without no infarct or ischemia. EKG showing nonspecific Q-wave abnormalities in inferior leads, that are similar to EKGs in 2016. October 2015 cath showed an ejection fraction of 50% with a 30% LAD, 60% ramus occlusion. He also had a totally included RCA treated with a 3.5 18 mm bare- metal stent. At that time, it was recommended that he continued his statin, aspirin, Plavix, and beta jose eduardo. (3) Diabetes mellitus ICD Codes: E11.9 - Type 2 diabetes mellitus without complications Status: Acute Plan: History of poorly controlled diabetes. Patient takes Lantus 40 units SQ at bedtime and Humalog mix 10 units 3 times a day. Patient states he has not been eating much lately, nor taking his insulin. -Regular Accuchecks -Medium dose sliding scale -Hold home insulin regimen since pt not eating; may need to add basal insulin once tolerating PO (4) Hypertension ICD Codes: I10 - Essential (primary) hypertension Status: Acute Plan: Continue home meds -Coreg 6.2mg BID -Lisinopril 20mg daily (5) Toe ulcer, right ICD Codes: L97.519 - Non-pressure chronic ulcer of other part of right foot with unspecified severity Status: Acute Plan: Ulcer present on right medial hallux. He does see chocolate refining roller outpatient. -Podiatry recommended: "patient will more than likely require an amputation of the right hallux". -Vascular surgery consulted: Arterial segmental Doppler showed: "Significant reduction of the ABIs bilaterally more pronounced on the right with segmental pressure suggesting tibioperoneal disease. Consider CTA with runoff to further evaluate." -Plan for R LE Angiogram with possible operative repair of arterial disease on 07/25. (6) Anemia ICD Codes: D64.9 - Anemia, unspecified Plan: Hemoglobin of 9.8 on admission. Microcytic anemia, with MCV of 67.2. This is a downtrend from 11.3 and week ago. Hemoccult done in the ED, which was negative. -Daily CBC -Monitor for signs of bleeding. (7) HOWARD (acute kidney injury) ICD Codes: N17.9 - Acute kidney failure, unspecified Plan: Elevated BUN to 37. Up from 14 last week. Creatinine 1.66, up from 1.15. BUN/CR ratio 22.3. Suggestive of prerenal etiology, most likely dehydration. Patient with dry mucous membranes on exam. -IVF -Daily BMPs -Continue to monitor (8) Thrush, oral ICD Codes: B37.0 - Candidal stomatitis Plan: Thrush on tongue on physical exam. Patient with uncontrolled diabetes, more susceptible to fungal infections. -Nystatin QID -Continue to monitor (9) FEN Status: Acute Plan: Fluids: NS @ 150mls/hr Electrolytes: wnl, continue to monitor Diet: CLD DVT ppx: heparin q12H GI Pxx: Protonix 40 mg PO daily. sdw Dr. Mcdaniel. 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
[2017-07-24 09:49] LABS: AUTOMATED NEUTROPHIL # 13.8 TH/MM3 (1.8-7.7); BASOPHIL # 0.1 TH/MM3 (0-0.2); BASOPHIL % 0.3 % (0.0-2.0); EOSINOPHIL # 0.1 TH/MM3 (0-0.4); EOSINOPHIL % 0.6 % (0.0-4.0); HEMATOCRIT 27.7 % (39.0-51.0); LYMPH % 11.6 % (9.0-44.0); MEAN CELL VOLUME 67.1 FL (80.0-100.0); MEAN CORPUSCULAR HEMOGLOBIN 20.4 PG (27.0-34.0); MEAN CORPUSCULAR HGB CONC 30.3 % (32.0-36.0); MONO % 8.2 % (0.0-8.0); NEUT % 79.3 % (16.0-70.0); PLATELET COUNT 248 TH/MM3 (150-450); RED BLOOD COUNT 4.12 MIL/MM3 (4.50-5.90); RED CELL DISTRIBUTION WIDTH 15.7 % (11.6-17.2); WHITE BLOOD COUNT 17.4 TH/MM3 (4.0-11.0)
[2017-07-24 10:02] LABS: HEMO FLAGS AUTO DIFF
[2017-07-24 10:21] LABS: ALKALINE PHOSPHATASE 124 U/L (45-117); ALT (GPT) 31 U/L (12-78); TOTAL BILIRUBIN ADULT 0.5 MG/DL (0.2-1.0)
[2017-07-24 10:23] LABS: ANION GAP 13 MEQ/L (5-15); AST (GOT) 55 U/L (15-37); CHLORIDE 105 MEQ/L (98-107); GLOMERULAR FILTRATION RATE 54 ML/MIN (>89); POTASSIUM 3.8 MEQ/L (3.5-5.1); SODIUM (NA) 137 MEQ/L (136-145)
[2017-07-24 10:25] LABS: BLOOD UREA NITROGEN 34 MG/DL (7-18)
--- NOTE | 2017-07-24 10:25 | PD.WCN.NOT ---
Wound Consult Description: Received consult for wound management of Lorna Jennings from Doctor Leary Recommendation: Please follow orders in place by Doctor Calloway. Additional Information: Patient not seen. Podiatry Doctor Brodie consulted and wrote wound care orders for patient. Wound care signing off. Tiffanie Fisher [facility] Jul 24, 2017 10:25
[2017-07-24 11:13] LABS: OVALOCYTES 1+ (NORMAL)
[2017-07-24 11:14] LABS: BURR CELLS 1+ (NORMAL); PLATELET ESTIMATE SMEAR NORMAL (NORMAL); PLATELET MORPHOLOGY NORMAL (NORMAL); SPHEROCYTES 1+ (NORMAL)
[2017-07-24 11:15] LABS: SCAN/DIFF AUTO DIFF CONFIRMED
[2017-07-24 11:52] VITALS: BP 115/59; PULSE 91; RESP 16; TEMP 100.1; O2SAT 96
--- NOTE | 2017-07-24 13:17 | PD.POD ---
Subjective Podiatric Problems Dry gangrene of the right hallux Pain scale used: 0-10 numeric scale Pain score: 2 Remarks 62-year-old diabetic male with peripheral vascular disease presented with dry gangrene of the right hallux. Vascular surgery consult appreciated. Patient to undergo angiogram tomorrow. Depending on the results of any endovascular procedures I'm more than likely will amputate his right hallux on Saturday or Saturday. Past Med/Surg/Social History Past Medical History HEENT: REPORTS HX OF: Other HEENT history (PRP Laser OU( dr. Cr 05/2009)) Endocrine: REPORTS HX OF: Diabetes mellitus Cardiovascular: REPORTS HX OF: Hyperlipidemia, Hypertension, Peripheral vascular dz Past Surgical History Cardiovascular: REPORTS HX OF: Coronary stent Social History Smoking Status: Former Smoker Review of Systems Notes No changes in his 14 point review of systems exam since yesterday Objective Vital Signs Vital Signs Date Time Temp Pulse Resp B/P (MAP) Pulse Ox O2 Delivery O2 Flow Rate FiO2 07/24/17 11:52 100.1 91 16 115/59 (77) 96 07/24/17 08:22 99.8 90 16 126/59 (81) 97 07/24/17 04:05 98.6 87 18 103/56 (72) 98 07/23/17 23:43 101.7 92 18 134/60 (84) 98 07/23/17 21:52 97 07/23/17 20:21 101.1 93 18 120/59 (79) 97 07/23/17 17:52 92 128/62 (84) 07/23/17 17:39 99.6 90 104/59 (74) 07/23/17 15:37 98.2 89 18 125/65 (85) 97 Coded Allergies: aspirin (Verified Allergy, Intermediate, nausea, 07/22/17) Medications and IVs Current Medications Sodium Chloride (NS Flush) 2 ml UNSCH PRN IVF FLUSH AFTER USING IV ACCESS; Start 07/22/17 at 18:30 Sodium Chloride 1,000 ml @ 1,000 mls/hr Q1H ONCE IV Last administered on 19:11; Start 07/22/17 at 18:26; Stop 07/22/17 at 19:25; Status DC Ondansetron HCl (Zofran Inj) 4 mg ONCE ONCE IVP Last administered on 19:11; Start 07/22/17 at 18:30; Stop 07/22/17 at 18:32; Status DC Vancomycin HCl 1000 mg/Sodium Chloride 250 ml @ 250 mls/hr ONCE STAT IV Last administered on 07/22/17 20:01; Start 07/22/17 at 20:01; Stop 07/22/17 at 21:00 ; Status DC Piperacillin Sod/ Tazobactam Sod 100 ml @ 200 mls/hr ONCE STAT IV Last administered on 07/22/17 20:01; Start 07/22/17 at 20:01; Stop 07/22/17 at 20:30 ; Status DC Sodium Chloride 1,000 ml @ 999 mls/hr BOLUS ONCE IV Last administered on 07/22 20:15; Start 07/22/17 at 20:15; Stop 07/22/17 at 21:16; Status DC Sodium Chloride 1,000 ml @ 75 mls/hr [id number] IV Last administered on 07:05; Start 07/22/17 at 21:50 Sodium Chloride (NS Flush) 2 ml UNSCH PRN IV FLUSH FLUSH AFTER USING IV ACCESS ; Start 07/22/17 at 22:00 Sodium Chloride (NS Flush) 2 ml BID IV FLUSH Last administered on 07/24/17 08: 57; Start 07/23/17 at 09:00 Acetaminophen (Tylenol) 650 mg Q4H PRN PO TEMP > 100.4 Last administered on 00:17; Start 07/22/17 at 22:00 Ondansetron HCl (Zofran Inj) 4 mg Q6H PRN IVP NAUSEA OR VOMITING; Start at 22:00 Heparin Sodium (Porcine) (Heparin Inj) 5,000 units Q12H SQ Last administered on 07/24/17 09:00; Start 07/22/17 at 22:00 Naloxone HCl (Narcan Inj) 0.4 mg UNSCH PRN IV SEE LABEL COMMENTS; Start at 22:00 Senna/Docusate Sodium (Najma-Colace) 1 tab BID PO Last administered on 08:55; Start 07/23/17 at 09:00 Magnesium Hydroxide (Milk Of Magnesia Liq) 30 ml Q12H PRN PO MILD - MODERATE CONSTIPATION; Start 07/22/17 at 22:00 Sennosides (Senokot) 17.2 mg Q12H PRN PO MODERATE - SEVERE CONSTIPATION; Start 07/22/17 at 22:00 Bisacodyl (Dulcolax Supp) 10 mg DAILY PRN RECTAL SEVERE CONSITIPATION; Start at 22:00 Lactulose (Lactulose Liq) 30 ml DAILY PRN PO SEVERE CONSITIPATION; Start at 22:00 Pharmacy Profile Note 0 ml @ 0 mls/hr UNSCH OTHER ; Start 07/22/17 at 22:00 Vancomycin HCl 1500 mg/Sodium Chloride 515 ml @ 257.5 mls/ hr Q12H IV ; Start 07/23/17 at 08:00; Status UNV Piperacillin Sod/ Tazobactam Sod 100 ml @ 200 mls/hr Q6H IV Last administered on 07/24/17 08:54; Start 07/23/17 at 02:00 Aspirin (Aspirin Chew) 81 mg DAILY CHEW Last administered on 07/24/17 08:55; Start 07/23/17 at 09:00 Atorvastatin Calcium (Lipitor) 80 mg HS PO Last administered on 07/23/17 22:33 ; Start 07/23/17 at 21:00 Carvedilol (Coreg) 6.25 mg BID PO Last administered on 07/24/17 08:55; Start 07/23/17 at 09:00 Clopidogrel Bisulfate (Plavix) 75 mg DAILY PO Last administered on 07/24/17 08 :56; Start 07/23/17 at 09:00 Hydroxyzine HCl (Atarax) 50 mg HS PO Last administered on 07/23/17 21:00; Start 07/23/17 at 21:00 Lisinopril (Prinivil) 20 mg DAILY PO Last administered on 07/24/17 08:56; Start 07/23/17 at 09:00 Montelukast Sodium (Singulair Chew) 5 mg HS CHEW Last administered on 22:34; Start 07/23/17 at 21:00 Prednisolone Acetate (Pred Forte 1% Opth Susp) 1 drop DAILY EACH EYE Last administered on 07/24/17 08:57; Start 07/23/17 at 09:00 Sertraline HCl (Zoloft) 100 mg DAILY PO Last administered on 07/24/17 08:55; Start 07/23/17 at 09:00 Topiramate (Topamax) 100 mg DAILY PO Last administered on 07/24/17 08:55; Start 07/23/17 at 09:00 Dextrose (D50w (Vial) Inj) 50 ml UNSCH PRN IV HYPOGLYCEMIA-SEE COMMENTS; Start 07/22/17 at 22:15 Glucagon (Glucagon Inj) 1 mg UNSCH PRN OTHER HYPOGLYCEMIA-SEE COMMENTS; Start 07/22/17 at 22:15 Insulin Aspart (NovoLOG SUPPLEMENTAL SCALE) 1 ACHS SLIDING SCALE SQ Last administered on 07/24/17 07:10; Start 07/23/17 at 07:00 Vancomycin HCl 1000 mg/Sodium Chloride 250 ml @ 250 mls/hr ONCE ONCE IV Last administered on 07/22/17 22:15; Start 07/22/17 at 22:15; Stop 07/22/17 at 23:14 ; Status DC Diatrizoate Meglum/ Diatrizoate Sod ( Gastroview Liq) 18 ml STK-MED ONCE .ROUTE ; Start 07/22/17 at 22:16; Stop 07/22/17 at 22:17; Status DC Diatrizoate Meglum/ Diatrizoate Sod ( Gastroview Liq) 18 ml NOW ONCE PO Last administered on 07/22/17 22:45; Start 07/22/17 at 22:45; Stop 07/22/17 at 22:46; Status DC Nystatin (Mycostatin Liq) 5 ml QID SWISH-SWAL Last administered on 07/24/17 08:56; Start 07/23/17 at 09:00 Pantoprazole Sodium (Protonix Inj) 40 mg DAILY IV PUSH Last administered on 08:57; Start 07/22/17 at 22:45 Iohexol (Omnipaque 350 Inj) 95 ml STK-MED ONCE IVCONTRAST Last administered on 07/22/17 23:59; Start 07/22/17 at 23:59; Stop 07/23/17 at 00:00; Status DC Nitroglycerin (Nitroglycerin 2% Oint) 1 inch ONCE ONCE TOPICAL Last administered on 07/23/17 10:22; Start 07/23/17 at 10:00; Stop 07/23/17 at 10:01 ; Status DC Vancomycin HCl 2000 mg/Sodium Chloride 520 ml @ 250 mls/hr Q24H IV Last administered on 07/23/17 20:31; Start 07/23/17 at 18:00 Miscellaneous Information SPECIFIC LAB TO BE DRAWN:VANCOMYCIN TROUGH DATE TO... ONCE ONCE .XX ; Start 07/25/17 at 17:45; Stop 07/25/17 at 17:46 Lactobacillus Acidophilus (Lactinex Pkt) 1 gm TID PO Last administered on 08:57; Start 07/23/17 at 18:00 Other Results Laboratory Tests Test 07/22/17 18:40 07/23/17 12:00 07/24/17 06:58 White Blood Count 21.8 TH/MM3 16.9 TH/MM3 17.4 TH/MM3 Red Blood Count 4.71 MIL/MM3 4.28 MIL/MM3 4.12 MIL/MM3 Hemoglobin 9.8 GM/DL 8.9 GM/DL 8.4 GM/DL Hematocrit 31.7 % 28.4 % 27.7 % Mean Corpuscular Volume 67.2 FL 66.3 FL 67.1 FL Mean Corpuscular Hemoglobin 20.9 PG 20.8 PG 20.4 PG Mean Corpuscular Hemoglobin Concent 31.1 % 31.3 % 30.3 % Red Cell Distribution Width 15.7 % 15.8 % 15.7 % Platelet Count 241 TH/MM3 231 TH/MM3 248 TH/MM3 Mean Platelet Volume 9.1 FL 9.3 FL 9.4 FL Neutrophils (%) (Auto) 83.5 % 82.0 % 79.3 % Lymphocytes (%) (Auto) 7.9 % 8.1 % 11.6 % Monocytes (%) (Auto) 7.9 % 9.5 % 8.2 % Eosinophils (%) (Auto) 0.1 % 0.2 % 0.6 % Basophils (%) (Auto) 0.6 % 0.2 % 0.3 % Neutrophils # (Auto) 18.2 TH/MM3 13.9 TH/MM3 13.8 TH/MM3 Lymphocytes # (Auto) 1.7 TH/MM3 1.4 TH/MM3 2.0 TH/MM3 Monocytes # (Auto) 1.7 TH/MM3 1.6 TH/MM3 1.4 TH/MM3 Eosinophils # (Auto) 0.0 TH/MM3 0.0 TH/MM3 0.1 TH/MM3 Basophils # (Auto) 0.1 TH/MM3 0.0 TH/MM3 0.1 TH/MM3 CBC Comment AUTO DIFF DIFF FINAL AUTO DIFF Differential Total Cells Counted 100 Neutrophils % (Manual) 73 % Band Neutrophils % 12 % Lymphocytes % 10 % Monocytes % 4 % Basophils % 1 % Neutrophils # (Manual) 18.5 TH/MM3 Differential Comment FINAL DIFF MANUAL AUTO DIFF CONFIRMED Platelet Estimate NORMAL NORMAL Platelet Morphology Comment NORMAL NORMAL Ovalocytes 1+ 1+ Acanthocytes OCC Spherocytes 1+ Asia Cells 1+ Laboratory Tests Test 07/22/17 18:48 07/22/17 20:05 07/23/17 01:17 07/23/17 12:00 Blood Urea Nitrogen 37 MG/DL 30 MG/DL Creatinine 1.66 MG/DL 1.23 MG/DL Random Glucose 237 MG/DL 324 MG/DL Total Protein 8.1 GM/DL 6.7 GM/DL Albumin 2.3 GM/DL 1.8 GM/DL Calcium Level 8.9 MG/DL 8.2 MG/DL Magnesium Level 2.8 MG/DL 2.4 MG/DL Alkaline Phosphatase 152 U/L 125 U/L Aspartate Amino Transf (AST/SGOT) 88 U/L 56 U/L Alanine Aminotransferase (ALT/SGPT) 52 U/L 34 U/L Total Bilirubin 0.5 MG/DL 0.6 MG/DL Sodium Level 132 MEQ/L 136 MEQ/L Potassium Level 3.9 MEQ/L 3.5 MEQ/L Chloride Level 99 MEQ/L 104 MEQ/L Carbon Dioxide Level 23.2 MEQ/L 18.9 MEQ/L Anion Gap 10 MEQ/L 13 MEQ/L Estimat Glomerular Filtration Rate 51 ML/MIN 72 ML/MIN Total Creatine Kinase 261 U/L Creatine Kinase MB 1.1 NG/ML Troponin I 0.17 NG/ML 0.18 NG/ML Lipase 87 U/L Lactic Acid Level 1.4 mmol/L Phosphorus Level 2.5 MG/DL Hemoglobin A1c 10.0 % Test 07/23/17 12:10 07/23/17 21:00 07/24/17 06:58 Troponin I 0.20 NG/ML 0.18 NG/ML Blood Urea Nitrogen 34 MG/DL Creatinine 1.58 MG/DL Random Glucose 285 MG/DL Total Protein 6.2 GM/DL Albumin 1.5 GM/DL Calcium Level 7.8 MG/DL Alkaline Phosphatase 124 U/L Aspartate Amino Transf (AST/SGOT) 55 U/L Alanine Aminotransferase (ALT/SGPT) 31 U/L Total Bilirubin 0.5 MG/DL Sodium Level 137 MEQ/L Potassium Level 3.8 MEQ/L Chloride Level 105 MEQ/L Carbon Dioxide Level 19.0 MEQ/L Anion Gap 13 MEQ/L Estimat Glomerular Filtration Rate 54 ML/MIN Microbiology Date/Time Source Procedure Growth Status 07/22/17 20:05 Blood Peripheral Aerobic Blood Culture - Preliminary NO GROWTH IN 2 DAYS Resulted 07/22/17 20:05 Blood Peripheral Anaerobic Blood Culture - Preliminary NO GROWTH IN 2 DAYS Resulted 07/22/17 20:00 Blood Peripheral Aerobic Blood Culture - Preliminary NO GROWTH IN 2 DAYS Resulted 07/22/17 20:00 Blood Peripheral Anaerobic Blood Culture - Preliminary NO GROWTH IN 2 DAYS Resulted Exam-Podiatry Constitutional General appearance: comfortable Nutritional status: overweight Orientation: alert and oriented x3 Dermatological Exam Skin Temp - Right: Cool Skin Texture - Right: Within Normal Limits Skin Elasticity - Right: Decreased Skin Tugor - Right: Decreased Hair Growth - Right: Absent Pigmentation - Right: Abnormal Skin Temp - Left: Within Normal Limits Skin Texture - Left: Within Normal Limits Skin Elasticity - Left: Within Normal Limits Skin Tugor - Left: Within Normal Limits Hair Growth - Left: Within Normal Limits Pigmentation - Left: Within Normal Limits Vascular/Lymphatic Exam R Dorsails Pedis: Absent R Posterior Tibial: Absent Neurologic Exam Details D Ferdig Muscle Strength Dorsiflexion (Right): Normal Plantarflexion (Right): Normal Inversion (Right): Normal Eversion (Right): Normal Digital (Right): Normal Dorsiflexion (Left): Normal Plantarflexion (Left): Normal Inversion (Left): Normal Eversion (Left): Normal Digital (Left): Normal Foot Range of Motion Dorsiflexion (Right): Normal Plantarflexion (Right): Normal Inversion (Right): Normal Eversion (Right): Normal Digital (Right): Normal Dorsiflexion (Left): Normal Plantarflexion (Left): Normal Inversion (Left): Normal Eversion (Left): Normal Digital (Left): Normal Assessment & Plan Diagnosis: (1) PAD (peripheral artery disease) ICD Codes: I73.9 - Peripheral vascular disease, unspecified Status: Chronic (2) IDDM (insulin dependent diabetes mellitus) ICD Codes: E11.9 - Type 2 diabetes mellitus without complications; Z79.4 - FPC (current) use of insulin Status: Chronic A/P PLAN: Await vascular surgery outcome before scheduling amputation of the right. Discuss patient with his daughter. Dwaine Calloway DPM Jul 24, 2017 13:17
[2017-07-24 16:00] VITALS: BP 136/63; PULSE 90; RESP 18; TEMP 100.6; O2SAT 95
[2017-07-24] MEDS ORDERED: Vancomycin Consult Pharmacy 1 EA OTHER SCH (16:45)
[2017-07-24] MEDS ORDERED: INSULIN DETEMIR 100 UNITS/ML VIAL SQ ONE (17:00)
[2017-07-24] MEDS: VANCOMYCIN INJ 2,000 MG in SODIUM CHLORID 0.9% 500 ML INJ 500 ML IV SCH (19:42)
[2017-07-24 20:04] VITALS: BP 135/65; PULSE 94; RESP 19; TEMP 99.3; O2SAT 98
[2017-07-24] MEDS: ATORVASTATIN 80 MG TAB PO SCH (21:38)
[2017-07-24] MEDS: MONTELUKAST SODIUM 5 MG CHEWABLE TAB CHEW SCH (21:38)
[2017-07-24] MEDS: hydrOXYzine HCL 50 MG TAB PO SCH (21:39)
[2017-07-24 23:00] VITALS: BP 138/68; PULSE 90; PULSE 92; RESP 20; TEMP 100.1; O2SAT 96
[2017-07-25] VITALS (10 sets, daily range): BP systolic 121–166; BP diastolic 58–81; PULSE 72–96; RESP 17–22; TEMP 98.1–101.8; O2SAT 96–98
[2017-07-25] MEDS: PIPERACIL-TAZO 4.5 GM PREMIX 100 ML IV SCH ×2 (02:33→09:23)
[2017-07-25] MEDS: SODIUM CHLOR 0.9% 1000 ML INJ 1,000 ML IV SCH ×3 (03:50→21:50)
[2017-07-25] MEDS: INSULIN ASPART SUPPLEMENTAL SCALE SQ SCH ×5 (06:06→21:39)
[2017-07-25] MEDS: ACETAMINOPHEN 325 MG TAB PO PRN (06:07)
[2017-07-25 08:36] LABS: AUTOMATED NEUTROPHIL # 14.8 TH/MM3 (1.8-7.7); BASOPHIL # 0.1 TH/MM3 (0-0.2); BASOPHIL % 0.5 % (0.0-2.0); EOSINOPHIL # 0.3 TH/MM3 (0-0.4); EOSINOPHIL % 1.5 % (0.0-4.0); HEMATOCRIT 25.2 % (39.0-51.0); HEMO FLAGS DIFF FINAL; LYMPHOCYTE # 1.8 TH/MM3 (1.0-4.8); MEAN CELL VOLUME 66.1 FL (80.0-100.0); MEAN CORPUSCULAR HEMOGLOBIN 20.8 PG (27.0-34.0); MEAN CORPUSCULAR HGB CONC 31.4 % (32.0-36.0); MONO % 7.3 % (0.0-8.0); NEUT % 80.7 % (16.0-70.0); PLATELET COUNT 218 TH/MM3 (150-450); RED BLOOD COUNT 3.81 MIL/MM3 (4.50-5.90); RED CELL DISTRIBUTION WIDTH 16.1 % (11.6-17.2); WHITE BLOOD COUNT 18.4 TH/MM3 (4.0-11.0)
[2017-07-25 08:56] LABS: BICARBONATE 18.3 MEQ/L (21.0-32.0)
[2017-07-25] MEDS: ASPIRIN 81 MG CHEW TAB CHEW SCH ×2 (09:00→15:06)
[2017-07-25] MEDS: LISINOPRIL 20 MG TAB PO SCH (09:00)
[2017-07-25] MEDS: NYSTATIN SUSP 500,000 U/5 ML CUP SWISH-SWAL SCH ×4 (09:00→21:40)
[2017-07-25] MEDS: CARVEDILOL 6.25 MG TAB PO SCH ×3 (09:00→21:40)
[2017-07-25] MEDS: CLOPIDOGREL 75 MG TAB PO SCH ×3 (09:00→18:13)
[2017-07-25] MEDS: LACTOBACILLUS ACIDOPHILUS 1 GM PACKET PO SCH ×2 (09:00→12:14)
[2017-07-25] MEDS: DOCUSATE SODIUM 50 MG/SENNA 8.6 MG TAB PO SCH ×2 (09:00→21:41)
[2017-07-25] MEDS: SERTRALINE HCL 100 MG TAB PO SCH (09:00)
[2017-07-25] MEDS: TOPIRAMATE 100 MG TAB PO SCH (09:00)
--- NOTE | 2017-07-25 09:02 | HHI.FPPN ---
Subjective Remarks Patient febrile to 101.8 at 0400. NPO since midnight for Vascular procedure / CTA Lower ext. Denies new SOB, cough, abdominal pain. Eating small amounts of food yesterday. Telling the team that he is going to be transferred to [place]. (Johny Freire MD, R3) Objective Vitals Vital Signs Date Time Temp Pulse Resp B/P (MAP) Pulse Ox O2 Delivery O2 Flow Rate FiO2 07/25/17 04:00 Room Air 07/25/17 04:00 101.8 90 18 146/67 (93) 97 07/25/17 00:00 101.6 91 18 137/68 (91) 96 07/25/17 00:00 Room Air 07/24/17 23:00 Room Air 07/24/17 23:00 90 07/24/17 23:00 100.1 92 20 138/68 (91) 96 07/24/17 20:04 99.3 94 19 135/65 (88) 98 07/24/17 16:00 100.6 90 18 136/63 (87) 95 07/24/17 11:52 100.1 91 16 115/59 (77) 96 I/O 07/24/17 07/24/17 07/24/17 07/25/17 07/25/17 07/25/17 07:00 15:00 23:00 07:00 15:00 23:00 Intake Total 990 ml 1200 ml Output Total 0 ml Balance 990 ml 1200 ml Intake Oral 0 ml IV Total 990 ml 1200 ml Output Urine Total 0 ml # Bowel Movements 0 (Johny Freire MD, R3) Result Diagram: 07/25/17 0824 07/24/17 0658 Imaging Last 72 hours Impressions Foot X-Ray 07/23/17 0000 Signed Impressions: Service Date/Time: Sunday, July 23, 2017 10:24 - CONCLUSION: Vascular calcifications. Soft tissue swelling ventral to the first metatarsophalangeal joint and on one view suggests a possible crescentic air in soft tissues Floyd Johansen MD Head CT 07/22/17 1826 Signed Impressions: Service Date/Time: Saturday, July 22, 2017 19:17 - CONCLUSION: 1. No acute abnormality is seen. 2. Atrophy. 3. Persistent stable encephalomalacia at the inferior left cerebellar hemisphere. Markus Denny MD Chest X-Ray 07/22/17 1826 Signed Impressions: Service Date/Time: Saturday, July 22, 2017 18:43 - CONCLUSION: No acute disease. Markus Denny MD Objective Remarks Gen.: Disheveled, poorly groomed, not opening his eyes. No acute distress CV: Regular rate and rhythm, no murmurs appreciated. Pulses equal to all extremities. Left upper extremity cooler than right upper extremity. EXT: Right foot with 1 cm round dry gangrenous ulcer wound, non draining. GI: SOft NT ND BS present Neuro: Not opening eyes, moving all extremities. (Johny Freire MD, R3) A/P Assessment and Plan 61-year-old male with history of hypertension, poorly controlled diabetes, CVA, IN, presents with sepsis with suspected source being his right foot. (Johny Freire MD, R3) Attending Attestation Medical rounds performed with Dr Freire this am, Patient interviewed and examined, Agree with Assessment and Plan, Contents of note reviewed, See Orders. (Nick Mcdaniel MD) Problem List: (1) Sepsis ICD Codes: A41.9 - Sepsis, unspecified organism Status: Acute Plan: On admission WBC = 21.8 k, HR 104, Fevers 100.2. --> placed on IV Vancomycin and Zosyn --> WBC decreased to 16.9. However, still febrile to 101.8 F in past 24 hours. Likely source of infection being right gangrenous wound on foot. CXR: no acute disease Head CT: no acute abnormality UA: 1000 glucose, 30 protein, 10 ketones; rare bacteria, neg nitrite and neg LE PLAN: -Continue Vancomycin q12H; consult pharmacy -Continue Zosyn 4.5g q6H -CT abdomen/pelvis grossly WNL. -IVF at maintenance. -Blood cultures negative x 48 hours, repeat x 2 since still having persistent fevers. -Consult ID, we appreciate their recommendations. (2) Elevated troponin ICD Codes: R79.89 - Other specified abnormal findings of blood chemistry Status: Acute Plan: Evaluated by cardiology, we appreciate their help in care. Elevation in troponin to 0.20 likely demand ischemia without no infarct or ischemia. EKG showing nonspecific Q-wave abnormalities in inferior leads, that are similar to EKGs in 2016. October 2015 cath showed an ejection fraction of 50% with a 30% LAD, 60% ramus occlusion. He also had a totally included RCA treated with a 3.5 18 mm bare- metal stent. At that time, it was recommended that he continued his statin, aspirin, Plavix, and beta jose eduardo. (3) Diabetes mellitus ICD Codes: E11.9 - Type 2 diabetes mellitus without complications Status: Acute Plan: History of poorly controlled diabetes. Patient takes Lantus 40 units SQ at bedtime and Humalog mix 10 units 3 times a day. Patient states he has not been eating much lately, nor taking his insulin. -Regular Accuchecks- BG 300's since hospitalization, given 30 units Levemir on . -Medium dose sliding scale (26 units Novolog in past 24 hours). -Start Levemir 20 units BID with sliding scale after procedure and tolerating PO. (4) Hypertension ICD Codes: I10 - Essential (primary) hypertension Status: Acute Plan: Continue home meds -Coreg 6.2mg BID -Lisinopril 20mg daily (5) Toe ulcer, right ICD Codes: L97.519 - Non-pressure chronic ulcer of other part of right foot with unspecified severity Status: Acute Plan: -Podiatry recommended: "patient will more than likely require an amputation of the right hallux". -Vascular surgery consulted: Arterial segmental Doppler showed: "Significant reduction of the ABIs bilaterally more pronounced on the right with segmental pressure suggesting tibioperoneal disease. Consider CTA with runoff to further evaluate." -Plan for R LE Angiogram with possible operative repair of arterial disease on 07/25. (6) Anemia ICD Codes: D64.9 - Anemia, unspecified Plan: Hemoglobin of 9.8 on admission. Microcytic anemia, with MCV of 67.2. This is a downtrend from 11.3 and week ago. Hemoccult done in the ED, which was negative. -Daily CBC -Monitor for signs of bleeding. -7.9 g/dL on 07/25 (7) HOWARD (acute kidney injury) ICD Codes: N17.9 - Acute kidney failure, unspecified Plan: Elevated BUN to 37. Up from 14 last week. Creatinine 1.66, up from 1.15. BUN/CR ratio 22.3. Suggestive of prerenal etiology, most likely dehydration. Patient with dry mucous membranes on exam. -IVF -Daily BMPs -Continue to monitor (8) Thrush, oral ICD Codes: B37.0 - Candidal stomatitis Plan: Thrush on tongue on physical exam. Patient with uncontrolled diabetes, more susceptible to fungal infections. -Nystatin QID -Continue to monitor (9) FEN Status: Acute Plan: Fluids: NS @ 150mls/hr Electrolytes: wnl, continue to monitor Diet: CLD DVT ppx: heparin q12H GI Pxx: Protonix 40 mg PO daily. sdw Dr. Mcdaniel. (Johny Freire MD, R3) Problem Qualifiers (1) Sepsis: Qualified Codes: A41.9 - Sepsis, unspecified organism (2) Diabetes mellitus: Qualified Codes: E10.52 - Type 1 diabetes mellitus with diabetic peripheral angiopathy with gangrene (3) Hypertension: Qualified Codes: I10 - Essential (primary) hypertension (4) Toe ulcer, right: Qualified Codes: L97.512 - Non-pressure chronic ulcer of other part of right foot with fat layer exposed (5) Anemia: Qualified Codes: D64.9 - Anemia, unspecified Johny Freire MD, R3 Jul 25, 2017 09:02 Nick Mcdaniel MD Jul 25, 2017 11:33
[2017-07-25] MEDS: SODIUM CHLORIDE 0.9% FLUSH 10 ML FLUSH IV FLUSH SCH ×2 (09:23→21:00)
[2017-07-25] MEDS: HEPARIN SODIUM - SQ 10,000 UNITS/ML VIAL SQ SCH ×2 (09:30→21:58)
[2017-07-25] MEDS: prednisoLONE ACETATE 1% OPHT SUSP 5 ML BTL EACH EYE SCH (09:35)
[2017-07-25] MEDS: PANTOPRAZOLE SODIUM 40 MG VIAL IV PUSH SCH (09:35)
[2017-07-25] MEDS ORDERED: FUROSEMIDE 20 MG/2 ML VIAL IV SCH (09:45)
[2017-07-25] MEDS ORDERED: SODIUM CHLOR 0.9% 250 ML INJ 250 ML IV ONE (10:00)
[2017-07-25] MEDS: POTASSIUM CHLORIDE 10 MEQ CONTROLLED RELEASE TAB PO SCH (12:08)
[2017-07-25] MEDS: PIPERACIL-TAZO 3.375 GM PREMIX 50 ML IV SCH ×2 (15:06→23:46)
[2017-07-25] MEDS ORDERED: HEPARIN-NS/PF INJ 500 ML ONE ×2 (16:08→16:35)
[2017-07-25] MEDS ORDERED: MIDAZOLAM HCL 5 MG/ML VIAL (1 ML) ONE ×2 (16:28→17:18)
[2017-07-25] MEDS ORDERED: HEPARIN SODIUM - IV 10,000 UNITS/10 ML VIAL ONE (16:46)
--- NOTE | 2017-07-25 17:21 | PD.ID.CON ---
History of Present Illness Service ID Consult Requested By Dr Sequeira Reason for Consult dry gangrene of R foot Primary Care Physician Unknown Diagnoses: History of Present Illness ERRONEOUS NOTE PLEASE DISREGARD THE NOTE Past Family Social History Allergies: Coded Allergies: aspirin (Verified Allergy, Intermediate, nausea, 07/22/17) Active Ordered Medications Medications where reviewed in EMR Antibiotics Include: zosyn vancomycin Physical Exam Vital Signs Vital Signs Date Time Temp Pulse Resp B/P (MAP) Pulse Ox O2 Delivery O2 Flow Rate FiO2 07/25/17 16:00 100.5 90 18 140/72 (94) 97 07/25/17 12:00 96 Room Air 07/25/17 12:00 98.8 87 18 137/69 (91) 96 07/25/17 09:20 99 Room Air 07/25/17 08:32 83 07/25/17 08:00 99.7 85 18 121/58 (79) 97 07/25/17 04:00 Room Air 07/25/17 04:00 101.8 90 18 146/67 (93) 97 07/25/17 00:00 101.6 91 18 137/68 (91) 96 07/25/17 00:00 Room Air 07/24/17 23:00 Room Air 07/24/17 23:00 90 07/24/17 23:00 100.1 92 20 138/68 (91) 96 07/24/17 20:04 99.3 94 19 135/65 (88) 98 Physical Exam Laboratory Laboratory Tests Test 07/25/17 08:24 White Blood Count 18.4 Red Blood Count 3.81 Hemoglobin 7.9 Hematocrit 25.2 Mean Corpuscular Volume 66.1 Mean Corpuscular Hemoglobin 20.8 Mean Corpuscular Hemoglobin Concent 31.4 Red Cell Distribution Width 16.1 Platelet Count 218 Mean Platelet Volume 8.9 Neutrophils (%) (Auto) 80.7 Lymphocytes (%) (Auto) 10.0 Monocytes (%) (Auto) 7.3 Eosinophils (%) (Auto) 1.5 Basophils (%) (Auto) 0.5 Neutrophils # (Auto) 14.8 Lymphocytes # (Auto) 1.8 Monocytes # (Auto) 1.3 Eosinophils # (Auto) 0.3 Basophils # (Auto) 0.1 CBC Comment DIFF FINAL Differential Comment Blood Urea Nitrogen 42 Creatinine 1.90 Random Glucose 286 Calcium Level 7.6 Sodium Level 137 Potassium Level 3.0 Chloride Level 108 Carbon Dioxide Level 18.3 Anion Gap 11 Estimat Glomerular Filtration Rate 44 Date/Time Source Procedure Growth Status 07/24/17 20:54 Blood Peripheral Aerobic Blood Culture - Preliminary NO GROWTH IN 1 DAY Resulted 07/24/17 20:54 Blood Peripheral Anaerobic Blood Culture - Preliminary NO GROWTH IN 1 DAY Resulted Result Diagram: 07/25/17 0824 07/25/17 0824 Imaging Last Impressions Foot X-Ray 07/23/17 0000 Signed Impressions: Service Date/Time: Sunday, July 23, 2017 10:24 - CONCLUSION: Vascular calcifications. Soft tissue swelling ventral to the first metatarsophalangeal joint and on one view suggests a possible crescentic air in soft tissues Floyd Johansen MD Head CT [id number]/[id number] Signed Impressions: Service Date/Time: Saturday, July 22, 2017 19:17 - CONCLUSION: 1. No acute abnormality is seen. 2. Atrophy. 3. Persistent stable encephalomalacia at the inferior left cerebellar hemisphere. Markus Denny MD Chest X-Ray [id number] Signed Impressions: Service Date/Time: Saturday, July 22, 2017 18:43 - CONCLUSION: No acute disease. Markus Denny MD Abdomen/Pelvis CT 07/22/17 0000 Signed Impressions: Service Date/Time: Saturday, July 22, 2017 23:56 - CONCLUSION: 1. No acute finding is identified within the abdomen or pelvis. There is mild respiratory motion artifact. 2. Stable nonacute findings include small hiatal hernia and small bilateral low-density renal lesions. There is trace left pleural fluid. Markus Chester [facility] Jul 25, 2017 17:21
--- NOTE | 2017-07-25 17:22 | HHI.PR ---
Addendum to Inpatient Note Additional Information Attempted to see the pt Pt is in OR will see the pt in am Rima Khan MD Jul 25, 2017 17:22
[2017-07-25] MEDS ORDERED: PHARMACY ORDERED LAB ONE (17:45)
--- NOTE | 2017-07-25 17:49 | HHI.PR ---
Immediate Post Op Note Procedure Date: Jul 25, 2017 Pre Op Diagnosis: PAD, R LE tissue loss Post Op Diagnosis: PAD, R LE tissue loss Surgeon: Klever Romo Iron Cutter(s): none Procedure: 1. R LE angiogram 2. R SFA TIP SCOURER (6mm) 3. R AT TIP SCOURER (3mm) 4. R DP TIP SCOURER (2mm) 5. L [employer]NA[employer] Angioseal Findings: moderate SFA stenosis - successful TIP SCOURER >90% AT stenosis - successful TIP SCOURER DP occlusion - recanalized and TIP SCOURER Additional Information: Biphasic DP Doppler signal at end of case Complications: none Specimen(s) removed: none for pathology Estimated blood loss: 10mL Anesthesia: MAC Drains: None Patient to: Other (DOCU) Patient Condition: Good Date/Time of Procedure: SEE SURGICAL CARE RECORD Klever Romo MD Jul 25, 2017 17:49
[2017-07-25] MEDS ORDERED: IOHEXOL 300 INJ 50 ML IV ONE (17:54)
[2017-07-25] MEDS ORDERED: CLOPIDOGREL 75 MG TAB PO ONE (20:45)
[2017-07-25] MEDS: INSULIN DETEMIR 100 UNITS/ML VIAL SQ SCH (21:39)
[2017-07-25] MEDS: hydrOXYzine HCL 50 MG TAB PO SCH (21:40)
[2017-07-25] MEDS: ATORVASTATIN 80 MG TAB PO SCH (21:41)
[2017-07-25] MEDS: MONTELUKAST SODIUM 5 MG CHEWABLE TAB CHEW SCH (21:41)
[2017-07-25] MEDS: VANCOMYCIN INJ 2,000 MG in SODIUM CHLORID 0.9% 500 ML INJ 500 ML IV SCH (21:46)
[2017-07-25 22:09] LABS: HEMATOCRIT 29.7 % (39.0-51.0); REVIEW FLAG FINAL
[2017-07-25 22:31] LABS: TRANSFERRIN IRON PROFILE 57 MG/DL (200-360)
[2017-07-26] MEDS: PIPERACIL-TAZO 3.375 GM PREMIX 50 ML IV SCH ×4 (03:48→21:00)
[2017-07-26 04:00] VITALS: BP 146/75; PULSE 93; RESP 16; TEMP 99.5; O2SAT 96
[2017-07-26 05:29] LABS: AUTOMATED NEUTROPHIL # 15.4 TH/MM3 (1.8-7.7); BASOPHIL # 0.1 TH/MM3 (0-0.2); BASOPHIL % 0.5 % (0.0-2.0); EOSINOPHIL # 0.3 TH/MM3 (0-0.4); EOSINOPHIL % 1.8 % (0.0-4.0); HEMATOCRIT 28.9 % (39.0-51.0); LYMPH % 8.5 % (9.0-44.0); LYMPHOCYTE # 1.6 TH/MM3 (1.0-4.8); MEAN CELL VOLUME 68.3 FL (80.0-100.0); MEAN CORPUSCULAR HEMOGLOBIN 21.5 PG (27.0-34.0); MEAN CORPUSCULAR HGB CONC 31.4 % (32.0-36.0); MONO % 6.3 % (0.0-8.0); NEUT % 82.9 % (16.0-70.0); PLATELET COUNT 256 TH/MM3 (150-450); RED BLOOD COUNT 4.23 MIL/MM3 (4.50-5.90); RED CELL DISTRIBUTION WIDTH 17.7 % (11.6-17.2); WHITE BLOOD COUNT 18.5 TH/MM3 (4.0-11.0)
[2017-07-26 05:32] LABS: HEMO FLAGS AUTO DIFF
[2017-07-26] MEDS: SODIUM CHLOR 0.9% 1000 ML INJ 1,000 ML IV SCH ×5 (05:45→23:41)
[2017-07-26 05:48] LABS: ALT (GPT) 26 U/L (12-78); ANION GAP 12 MEQ/L (5-15); AST (GOT) 38 U/L (15-37); BICARBONATE 18.3 MEQ/L (21.0-32.0); BLOOD UREA NITROGEN 40 MG/DL (7-18); CHLORIDE 110 MEQ/L (98-107); GLOMERULAR FILTRATION RATE 44 ML/MIN (>89); POTASSIUM 3.4 MEQ/L (3.5-5.1); SODIUM (NA) 140 MEQ/L (136-145)
[2017-07-26 05:49] LABS: ALKALINE PHOSPHATASE 122 U/L (45-117); TOTAL BILIRUBIN ADULT 0.5 MG/DL (0.2-1.0)
--- NOTE | 2017-07-26 05:50 | HHI.FPPN ---
Addendum to progress note ADDENDUM Reason for addendum: Additonal documentation Additional information S: Due to patient's temperature overnight (~0000 9/); I contacted nurse regarding status. Patient reportedly has not been urinating; nursing staff reports suspicion for obstruction. No other concerns noted I discussed with patient; he does not report chest pain, abdominal pain, dysuria , or other symptoms. Patient states that he has mild shortness of breath but that this is chronic. No reported fevers or concerns. O: Vitals: T 99.5f (0400 07/26; was 100.9 07/25 at 2356) Gen: NAD CV: Regular rhythm; borderline tachycardia with HR ~100 RR: CTAB, normal rate GI: No pain to palpation A/P: Oliguria Impression: Cr increased to 1.9 during hospitalization -Discussed with nursing staff; will check bladder scan and place ceja if needed -Will increase IVF (will give ~maintenance following 500ml/hr x2 hrs) -Will recheck Cr Fever Impression: Suspicion for RLE infection in association with vascular disease. No other infectious causes identified at this time -Continue antibiotic treatment per Day team -Will recheck blood culture due to fever -Will check lactic acid -Will increase IVF Jonathan Garcia MD, R3 Jul 26, 2017 05:50
[2017-07-26] MEDS: INSULIN ASPART SUPPLEMENTAL SCALE SQ SCH ×4 (06:18→21:00)
[2017-07-26 06:20] LABS: EOSINOPHILS 1 % (0-4); NEUTROPHIL # MANUAL DIFF 16.1 TH/MM3 (1.8-7.7); POLYS (SEG NEUTROPHILS) 87 % (16-70); WBC DIFF SAMPLE 100
[2017-07-26 06:21] LABS: OVALOCYTES 2+ (NORMAL); PLATELET ESTIMATE SMEAR NORMAL (NORMAL); PLATELET MORPHOLOGY NORMAL (NORMAL); SCAN/DIFF FINAL DIFF MANUAL; TARGET CELLS 1+ (NORMAL)
--- NOTE | 2017-07-26 07:47 | HHI.FPPN ---
Subjective Remarks Feeling well. No acute changes. (Johny Freire MD, R3) Objective Vitals Vital Signs Date Time Temp Pulse Resp B/P (MAP) Pulse Ox O2 Delivery O2 Flow Rate FiO2 07/26/17 04:00 Room Air 07/26/17 04:00 99.5 93 16 146/75 (98) 96 07/26/17 00:00 Room Air 07/25/17 23:56 100.9 95 22 166/70 98 07/25/17 23:39 98.5 96 22 157/81 97 07/25/17 20:43 99.0 90 17 161/79 (106) 97 07/25/17 20:00 Room Air 07/25/17 20:00 91 07/25/17 18:54 100 Nasal Cannula 2.00 07/25/17 16:00 100.5 90 18 140/72 (94) 97 07/25/17 12:00 96 Room Air 07/25/17 12:00 98.8 87 18 137/69 (91) 96 07/25/17 09:20 99 Room Air 07/25/17 08:32 83 07/25/17 08:00 99.7 85 18 121/58 (79) 97 I/O 07/25/17 07/25/17 07/25/17 07/26/17 07/26/17 07/26/17 06:59 14:59 22:59 06:59 14:59 22:59 Intake Total 1200 ml 100 ml 1930 ml Output Total 0 ml 500 ml Balance 1200 ml 100 ml 1430 ml Intake Oral 0 ml IV Total 1200 ml 100 ml 1670 ml Packed Cells 250 ml Blood Product IV Normal Saline Flush 10 ml Output Urine Total 0 ml 500 ml Bladder Scan Volume Amount 369 ml # Voids 4 # Bowel Movements 0 1 (Johny Friere MD, R3) Result Diagram: 07/26/1751707/26/17517 Objective Remarks Gen.: Disheveled, poorly groomed, not opening his eyes. No acute distress CV: Regular rate and rhythm, no murmurs appreciated. Pulses equal to all extremities. Left upper extremity cooler than right upper extremity. EXT: Right foot with 1 cm round dry gangrenous ulcer wound, non draining. GI: SOft NT ND BS present Neuro: Not opening eyes, moving all extremities. (Johny Freire MD, R3) A/P Assessment and Plan 61-year-old male with history of hypertension, poorly controlled diabetes, CVA, GA, presents with sepsis with suspected source being his right foot. (Johny Freire MD, R3) Attending Attestation THIS CASE WAS DISCUSSED WITH THE RESIDENT DR Robert FREIRE. I HAVE REVIEWED THE RECORD, SEEN AND INTERVIEWED PATIENT, AND AGREE WITH THE ABOVE NOTE AND PLAN OF CARE WAS DISCUSSED. I HAVE AUTHORIZED THE ORDERS.. (Nick Mcdaniel MD) Problem List: (1) Sepsis ICD Codes: A41.9 - Sepsis, unspecified organism Status: Acute Plan: On admission WBC = 21.8 k, HR 104, Fevers 100.2. --> placed on IV Vancomycin and Zosyn --> WBC decreased to 16.9. However, still febrile to 101.8 F in past 24 hours. Likely source of infection being right gangrenous wound on foot. CXR: no acute disease Head CT: no acute abnormality UA: 1000 glucose, 30 protein, 10 ketones; rare bacteria, neg nitrite and neg LE PLAN: -Continue Vancomycin q12H; consult pharmacy -Continue Zosyn 4.5g q6H -CT abdomen/pelvis grossly WNL. -IVF at maintenance. -Blood cultures negative x 48 hours, repeat x 2 since still having persistent fevers. -Consult ID, we appreciate their recommendations. (2) Elevated troponin ICD Codes: R79.89 - Other specified abnormal findings of blood chemistry Status: Acute Plan: Evaluated by cardiology, we appreciate their help in care. Elevation in troponin to 0.20 likely demand ischemia without no infarct or ischemia. EKG showing nonspecific Q-wave abnormalities in inferior leads, that are similar to EKGs in 2016. October 2015 cath showed an ejection fraction of 50% with a 30% LAD, 60% ramus occlusion. He also had a totally included RCA treated with a 3.5 18 mm bare- metal stent. At that time, it was recommended that he continued his statin, aspirin, Plavix, and beta jose eduardo. (3) Diabetes mellitus ICD Codes: E11.9 - Type 2 diabetes mellitus without complications Status: Acute Plan: History of poorly controlled diabetes. Patient takes Lantus 40 units SQ at bedtime and Humalog mix 10 units 3 times a day. Patient states he has not been eating much lately, nor taking his insulin. -Regular Accuchecks. This AM 210. -Medium dose sliding scale -Continue Levemir 20 units BID with sliding scale - hold 07/27 in AM for NPO status. (4) Hypertension ICD Codes: I10 - Essential (primary) hypertension Status: Acute Plan: Continue home meds -Coreg 6.2mg BID -Lisinopril 20mg daily (5) Toe ulcer, right ICD Codes: L97.519 - Non-pressure chronic ulcer of other part of right foot with unspecified severity Status: Acute Plan: -Podiatry recommended: "patient will more than likely require an amputation of the right hallux". -Vascular surgery consulted: Arterial segmental Doppler showed: "Significant reduction of the ABIs bilaterally more pronounced on the right with segmental pressure suggesting tibioperoneal disease. Consider CTA with runoff to further evaluate." -Plan for R LE Angiogram with possible operative repair of arterial disease on 07/25. (6) Anemia ICD Codes: D64.9 - Anemia, unspecified Plan: Hemoglobin of 9.8 on admission. Microcytic anemia, with MCV of 67.2. This is a downtrend from 11.3 and week ago. Hemoccult done in the ED, which was negative. -Daily CBC -Monitor for signs of bleeding. -7.9 g/dL on 07/25 (7) HOWARD (acute kidney injury) ICD Codes: N17.9 - Acute kidney failure, unspecified Plan: Elevated BUN to 37. Up from 14 last week. Creatinine 1.66, up from 1.15. BUN/CR ratio 22.3. Suggestive of prerenal etiology, most likely dehydration. Patient with dry mucous membranes on exam. -IVF -Daily BMPs -Continue to monitor (8) Thrush, oral ICD Codes: B37.0 - Candidal stomatitis Plan: Thrush on tongue on physical exam. Patient with uncontrolled diabetes, more susceptible to fungal infections. -Nystatin QID -Continue to monitor (9) FEN Status: Acute Plan: Fluids: NS @ 150mls/hr Electrolytes: wnl, continue to monitor Diet: CLD DVT ppx: heparin q12H GI Pxx: Protonix 40 mg PO daily. sdw Dr. Mcdaniel. (MounaJohny khan MD, R3) Problem Qualifiers (1) Sepsis: Qualified Codes: A41.9 - Sepsis, unspecified organism (2) Diabetes mellitus: Qualified Codes: E10.52 - Type 1 diabetes mellitus with diabetic peripheral angiopathy with gangrene (3) Hypertension: Qualified Codes: I10 - Essential (primary) hypertension (4) Toe ulcer, right: Qualified Codes: L97.512 - Non-pressure chronic ulcer of other part of right foot with fat layer exposed (5) Anemia: Qualified Codes: D64.9 - Anemia, unspecified Johny Freire MD, R3 Jul 26, 2017 07:47 Nick Mcdaniel MD Jul 26, 2017 15:52
[2017-07-26 07:48] VITALS: BP 152/82; PULSE 103; RESP 20; TEMP 96.2; O2SAT 97
[2017-07-26 08:00] VITALS: PULSE 96
[2017-07-26] MEDS: DOCUSATE SODIUM 50 MG/SENNA 8.6 MG TAB PO SCH ×3 (09:00→21:00)
[2017-07-26] MEDS: SODIUM CHLORIDE 0.9% FLUSH 10 ML FLUSH IV FLUSH SCH (09:00)
[2017-07-26] MEDS: POTASSIUM CHLORIDE 10 MEQ CONTROLLED RELEASE TAB PO SCH (09:15)
[2017-07-26] MEDS: TOPIRAMATE 100 MG TAB PO SCH (09:15)
[2017-07-26] MEDS: NYSTATIN SUSP 500,000 U/5 ML CUP SWISH-SWAL SCH ×4 (09:16→20:58)
[2017-07-26] MEDS: SERTRALINE HCL 100 MG TAB PO SCH (09:16)
[2017-07-26] MEDS: ASPIRIN 81 MG CHEW TAB CHEW SCH (09:16)
[2017-07-26] MEDS: CARVEDILOL 6.25 MG TAB PO SCH ×2 (09:16→20:58)
[2017-07-26] MEDS: CLOPIDOGREL 75 MG TAB PO SCH (09:16)
[2017-07-26] MEDS: PANTOPRAZOLE SODIUM 40 MG VIAL IV PUSH SCH (09:17)
[2017-07-26] MEDS: INSULIN DETEMIR 100 UNITS/ML VIAL SQ SCH ×2 (09:18→21:00)
[2017-07-26] MEDS: prednisoLONE ACETATE 1% OPHT SUSP 5 ML BTL EACH EYE SCH (09:18)
[2017-07-26] MEDS: HEPARIN SODIUM - SQ 10,000 UNITS/ML VIAL SQ SCH ×2 (09:19→20:57)
[2017-07-26] MEDS: LACTOBACILLUS ACIDOPHILUS 1 GM PACKET PO SCH ×3 (09:24→17:15)
--- NOTE | 2017-07-26 11:17 | PD.POD ---
Subjective Podiatric Problems Dry gangrene of the right hallux Pain scale used: 0-10 numeric scale Pain score: 2 Remarks 62-year-old diabetic male with peripheral vascular disease presented with dry gangrene of the right hallux. Vascular surgery consult appreciated. Dr. Romo was able to open up his blood supply for now. Spoke with him and do an amputation. Past Med/Surg/Social History Past Medical History HEENT: REPORTS HX OF: Other HEENT history (PRP Laser OU( dr. Cr 05/2009)) Endocrine: REPORTS HX OF: Diabetes mellitus Cardiovascular: REPORTS HX OF: Hyperlipidemia, Hypertension, Peripheral vascular dz Past Surgical History Cardiovascular: REPORTS HX OF: Coronary stent Social History Smoking Status: Former Smoker Review of Systems Notes No changes in his 14 point review of systems exam since yesterday Objective Vital Signs Vital Signs Date Time Temp Pulse Resp B/P (MAP) Pulse Ox O2 Delivery O2 Flow Rate FiO2 07/26/17 08:00 96 07/26/17 07:48 96.2 103 20 152/82 (105) 97 07/26/17 07:46 Room Air 07/26/17 04:00 Room Air 07/26/17 04:00 99.5 93 16 146/75 (98) 96 07/26/17 00:00 Room Air 07/25/17 23:56 100.9 95 22 166/70 98 07/25/17 23:39 98.5 96 22 157/81 97 07/25/17 20:43 99.0 90 17 161/79 (106) 97 07/25/17 20:00 Room Air 07/25/17 20:00 91 07/25/17 18:54 100 Nasal Cannula 2.00 07/25/17 16:00 100.5 90 18 140/72 (94) 97 07/25/17 12:00 96 Room Air 07/25/17 12:00 98.8 87 18 137/69 (91) 96 Coded Allergies: aspirin (Verified Allergy, Intermediate, nausea, 07/22/17) Medications and IVs Current Medications Sodium Chloride (NS Flush) 2 ml UNSCH PRN IVF FLUSH AFTER USING IV ACCESS; Start 07/22/17 at 18:30 Sodium Chloride 1,000 ml @ 1,000 mls/hr Q1H ONCE IV Last administered on t 19:11; Start 07/22/17 at 18:26; Stop 07/22/17 at 19:25; Status DC Ondansetron HCl (Zofran Inj) 4 mg ONCE ONCE IVP Last administered on 19:11; Start 07/22/17 at 18:30; Stop 07/22/17 at 18:32; Status DC Vancomycin HCl 1000 mg/Sodium Chloride 250 ml @ 250 mls/hr ONCE STAT IV Last administered on 07/22/17 20:01; Start 07/22/17 at 20:01; Stop 07/22/17 at 21:00 ; Status DC Piperacillin Sod/ Tazobactam Sod 100 ml @ 200 mls/hr ONCE STAT IV Last administered on 07/22/17 20:01; Start 07/22/17 at 20:01; Stop 07/22/17 at 20:30 ; Status DC Sodium Chloride 1,000 ml @ 999 mls/hr BOLUS ONCE IV Last administered on 07/22 20:15; Start 07/22/17 at 20:15; Stop 07/22/17 at 21:16; Status DC Sodium Chloride 1,000 ml @ 150 mls/hr Q6H40M IV Last administered on 07/26/17 09:14; Start 07/22/17 at 21:50 Sodium Chloride (NS Flush) 2 ml UNSCH PRN IV FLUSH FLUSH AFTER USING IV ACCESS ; Start 07/22/17 at 22:00 Sodium Chloride (NS Flush) 2 ml BID IV FLUSH Last administered on 07/25/17 09: 23; Start 07/23/17 at 09:00 Acetaminophen (Tylenol) 650 mg Q4H PRN PO TEMP > 100.4 Last administered on 06:07; Start 07/22/17 at 22:00 Ondansetron HCl (Zofran Inj) 4 mg Q6H PRN IVP NAUSEA OR VOMITING; Start at 22:00 Heparin Sodium (Porcine) (Heparin Inj) 5,000 units Q12H SQ Last administered on 07/26/17 09:19; Start 07/22/17 at 22:00 Naloxone HCl (Narcan Inj) 0.4 mg UNSCH PRN IV SEE LABEL COMMENTS; Start at 22:00 Senna/Docusate Sodium (Najma-Colace) 1 tab BID PO Last administered on 21:41; Start 07/23/17 at 09:00 Magnesium Hydroxide (Milk Of Magnesia Liq) 30 ml Q12H PRN PO MILD - MODERATE CONSTIPATION; Start 07/22/17 at 22:00 Sennosides (Senokot) 17.2 mg Q12H PRN PO MODERATE - SEVERE CONSTIPATION; Start 07/22/17 at 22:00 Bisacodyl (Dulcolax Supp) 10 mg DAILY PRN RECTAL SEVERE CONSITIPATION; Start at 22:00 Lactulose (Lactulose Liq) 30 ml DAILY PRN PO SEVERE CONSITIPATION; Start at 22:00 Pharmacy Profile Note 0 ml @ 0 mls/hr UNSCH OTHER ; Start 07/22/17 at 22:00 Vancomycin HCl 1500 mg/Sodium Chloride 515 ml @ 257.5 mls/ hr Q12H IV ; Start 07/23/17 at 08:00; Status UNV Piperacillin Sod/ Tazobactam Sod 100 ml @ 200 mls/hr Q6H IV Last administered on 07/25/17 09:23; Start 07/23/17 at 02:00; Stop 07/25/17 at 09:58; Status DC Aspirin (Aspirin Chew) 81 mg DAILY CHEW Last administered on 07/26/17 09:16; Start 07/23/17 at 09:00 Atorvastatin Calcium (Lipitor) 80 mg HS PO Last administered on 07/25/17 21:41 ; Start 07/23/17 at 21:00 Carvedilol (Coreg) 6.25 mg BID PO Last administered on 07/26/17 09:16; Start at 09:00 Clopidogrel Bisulfate (Plavix) 75 mg DAILY PO Last administered on 07/26/17 09: 16; Start 07/23/17 at 09:00 Hydroxyzine HCl (Atarax) 50 mg HS PO Last administered on 07/25/17 21:40; Start 07/23/17 at 21:00 Lisinopril (Prinivil) 20 mg DAILY PO Last administered on 07/24/17 08:56; Start 07/23/17 at 09:00; Status Future Hold Montelukast Sodium (Singulair Chew) 5 mg HS CHEW Last administered on 21:41; Start 07/23/17 at 21:00 Prednisolone Acetate (Pred Forte 1% Opth Susp) 1 drop DAILY EACH EYE Last administered on 07/26/17 09:18; Start 07/23/17 at 09:00 Sertraline HCl (Zoloft) 100 mg DAILY PO Last administered on 07/26/17 09:16; Start 07/23/17 at 09:00 Topiramate (Topamax) 100 mg DAILY PO Last administered on 07/26/17 09:15; Start 07/23/17 at 09:00 Dextrose (D50w (Vial) Inj) 50 ml UNSCH PRN IV HYPOGLYCEMIA-SEE COMMENTS; Start 07/22/17 at 22:15 Glucagon (Glucagon Inj) 1 mg UNSCH PRN OTHER HYPOGLYCEMIA-SEE COMMENTS; Start 07/22/17 at 22:15 Insulin Aspart (NovoLOG SUPPLEMENTAL SCALE) 1 ACHS SLIDING SCALE SQ Last administered on 07/26/17 06:18; Start 07/23/17 at 07:00 Vancomycin HCl 1000 mg/Sodium Chloride 250 ml @ 250 mls/hr ONCE ONCE IV Last administered on 07/22/17 22:15; Start 07/22/17 at 22:15; Stop 07/22/17 at 23:14 ; Status DC Diatrizoate Meglum/ Diatrizoate Sod ( Gastroview Liq) 18 ml STK-MED ONCE .ROUTE ; Start 07/22/17 at 22:16; Stop 07/22/17 at 22:17; Status DC Diatrizoate Meglum/ Diatrizoate Sod ( Gastroview Liq) 18 ml NOW ONCE PO Last administered on 07/22/17 22:45; Start 07/22/17 at 22:45; Stop 07/22/17 at 22:46; Status DC Nystatin (Mycostatin Liq) 5 ml QID SWISH-SWAL Last administered on 07/26/17 09 :16; Start 07/23/17 at 09:00 Pantoprazole Sodium (Protonix Inj) 40 mg DAILY IV PUSH Last administered on 07/26 09:17; Start 07/22/17 at 22:45 Iohexol (Omnipaque 350 Inj) 95 ml STK-MED ONCE IVCONTRAST Last administered on 07/22/17 23:59; Start 07/22/17 at 23:59; Stop 07/23/17 at 00:00; Status DC Nitroglycerin (Nitroglycerin 2% Oint) 1 inch ONCE ONCE TOPICAL Last administered on 07/23/17 10:22; Start 07/23/17 at 10:00; Stop 07/23/17 at 10:01 ; Status DC Vancomycin HCl 2000 mg/Sodium Chloride 520 ml @ 250 mls/hr Q24H IV Last administered on 07/25/17 21:46; Start 07/23/17 at 18:00; Stop 07/26/17 at 09:24 ; Status DC Miscellaneous Information SPECIFIC LAB TO BE DRAWN:VANCOMYCIN TROUGH DATE TO... ONCE ONCE .XX ; Start 07/25/17 at 17:45; Stop 07/25/17 at 17:46; Status DC Lactobacillus Acidophilus (Lactinex Pkt) 1 gm TID PO Last administered on 09:24; Start 07/23/17 at 18:00 Pharmacy Profile Note 0 ml @ 0 mls/hr UNSCH OTHER ; Start 07/24/17 at 16:45; Stop 07/24/17 at 17:00; Status DC Insulin Detemir (Levemir Inj) 20 units ONCE ONCE SQ Last administered on 17:00; Start 07/24/17 at 17:00; Stop 07/24/17 at 17:01; Status DC Insulin Detemir (Levemir Inj) 20 units Q12HR SQ Last administered on 07/26/17 09:18; Start 07/25/17 at 21:00 Potassium Chloride (KCl) 30 meq DAILY PO Last administered on 07/26/17 09:15; Start 07/25/17 at 09:45 Sodium Chloride 250 ml @ 15 mls/hr ONCE ONCE IV Last administered on 23:48; Start 07/25/17 at 10:00; Stop 07/26/17 at 02:39; Status DC Furosemide (Lasix Inj) 20 mg LASER OPERATOR IV Last administered on 07/26/17 03:39; Start 07/25/17 at 09:45; Stop 07/26/17 at 09:44; Status DC Piperacillin Sod/ Tazobactam Sod 50 ml @ 100 mls/hr Q6H IV Last administered on 07/26/17 09:19; Start 07/25/17 at 16:00 Heparin Sodium/ Sodium Chloride 500 ml @ As Directed STK-MED ONCE .ROUTE Last administered on 07/25/17 16:08; Start 07/25/17 at 16:08; Stop 07/25/17 at 16:09 ; Status DC Midazolam HCl (Versed Inj) 5 mg STK-MED ONCE .ROUTE Last administered on 16:37; Start 07/25/17 at 16:28; Stop 07/25/17 at 16:29; Status DC Fentanyl Citrate (fentaNYL INJ) 100 mcg STK-MED ONCE .ROUTE Last administered on 07/25/17 16:36; Start 07/25/17 at 16:28; Stop 07/25/17 at 16:29; Status DC Heparin Sodium/ Sodium Chloride 500 ml @ As Directed STK-MED ONCE .ROUTE Last administered on 07/25/17 16:35; Start 07/25/17 at 16:35; Stop 07/25/17 at 16:36 ; Status DC Heparin Sodium (Porcine) (Heparin Inj) 10,000 units STK-MED ONCE .ROUTE Last administered on 07/25/17 16:46; Start 07/25/17 at 16:46; Stop 07/25/17 at 16:47 ; Status DC Midazolam HCl (Versed Inj) 5 mg STK-MED ONCE .ROUTE ; Start 07/25/17 at 17:18; Stop 07/25/17 at 17:19; Status DC Fentanyl Citrate (fentaNYL INJ) 100 mcg STK-MED ONCE .ROUTE ; Start 07/25/17 at 17:18; Stop 07/25/17 at 17:19; Status DC Clopidogrel Bisulfate (Plavix) 75 mg DAILY PO ; Start 07/27/17 at 09:00; Stop 07/27/17 at 09:00; Status DC Clopidogrel Bisulfate (Plavix) 150 mg ONCE ONCE PO Last administered on 21:46; Start 07/25/17 at 20:45; Stop 07/25/17 at 21:35; Status DC Iohexol 50 ml @ 0 mls/hr ONCE ONCE IV ; Start 07/25/17 at 17:54; Stop 07/25/17 at 21:35; Status DC Sodium Chloride 1,000 ml @ 500 mls/hr Q2H IV Last administered on 07/26/17t 05: 45; Start 07/26/17 at 05:45; Stop 07/26/17 at 07:45; Status DC Vancomycin HCl 1750 mg/Sodium Chloride 517.5 ml @ 250 mls/hr Q24H IV ; Start at 18:00 Miscellaneous Information SPECIFIC LAB TO BE SEPIDEH... ONCE ONCE .XX ; Start at 17:45; Stop 07/29/17 at 17:46 Other Results Laboratory Tests Test 07/25/17 08:24 07/25/17 21:21 07/26/17 05:18 White Blood Count 18.4 TH/MM3 18.5 TH/MM3 Red Blood Count 3.81 MIL/MM3 4.23 MIL/MM3 Hemoglobin 7.9 GM/DL 9.1 GM/DL 9.1 GM/DL Hematocrit 25.2 % 29.7 % 28.9 % Mean Corpuscular Volume 66.1 FL 68.3 FL Mean Corpuscular Hemoglobin 20.8 PG 21.5 PG Mean Corpuscular Hemoglobin Concent 31.4 % 31.4 % Red Cell Distribution Width 16.1 % 17.7 % Platelet Count 218 TH/MM3 256 TH/MM3 Mean Platelet Volume 8.9 FL 8.7 FL Neutrophils (%) (Auto) 80.7 % 82.9 % Lymphocytes (%) (Auto) 10.0 % 8.5 % Monocytes (%) (Auto) 7.3 % 6.3 % Eosinophils (%) (Auto) 1.5 % 1.8 % Basophils (%) (Auto) 0.5 % 0.5 % Neutrophils # (Auto) 14.8 TH/MM3 15.4 TH/MM3 Lymphocytes # (Auto) 1.8 TH/MM3 1.6 TH/MM3 Monocytes # (Auto) 1.3 TH/MM3 1.2 TH/MM3 Eosinophils # (Auto) 0.3 TH/MM3 0.3 TH/MM3 Basophils # (Auto) 0.1 TH/MM3 0.1 TH/MM3 CBC Comment DIFF FINAL AUTO DIFF Differential Comment FINAL DIFF MANUAL Differential Total Cells Counted 100 Neutrophils % (Manual) 87 % Lymphocytes % 8 % Monocytes % 4 % Eosinophils % 1 % Neutrophils # (Manual) 16.1 TH/MM3 Platelet Estimate NORMAL Platelet Morphology Comment NORMAL Target Cells 1+ Ovalocytes 2+ Laboratory Tests Test 07/25/17 08:24 07/25/17 21:21 07/26/17 05:18 Blood Urea Nitrogen 42 MG/DL 40 MG/DL Creatinine 1.90 MG/DL 1.89 MG/DL Random Glucose 286 MG/DL 226 MG/DL Calcium Level 7.6 MG/DL 7.7 MG/DL Sodium Level 137 MEQ/L 140 MEQ/L Potassium Level 3.0 MEQ/L 3.4 MEQ/L Chloride Level 108 MEQ/L 110 MEQ/L Carbon Dioxide Level 18.3 MEQ/L 18.3 MEQ/L Anion Gap 11 MEQ/L 12 MEQ/L Estimat Glomerular Filtration Rate 44 ML/MIN 44 ML/MIN Iron Level 25 MCG/DL Total Iron Binding Capacity 80 MCG/DL Percent Iron Saturation 31.3 % Total Protein 6.7 GM/DL Albumin 1.4 GM/DL Alkaline Phosphatase 122 U/L Aspartate Amino Transf (AST/SGOT) 38 U/L Alanine Aminotransferase (ALT/SGPT) 26 U/L Total Bilirubin 0.5 MG/DL Lactic Acid Level 1.0 mmol/L Microbiology Date/Time Source Procedure Growth Status 07/26/17 05:18 Blood Peripheral Aerobic Blood Culture Pending Received 07/26/17 05:18 Blood Peripheral Anaerobic Blood Culture Pending Received 07/26/17 04:24 Blood Peripheral Aerobic Blood Culture Pending Received 07/26/17 04:24 Blood Peripheral Anaerobic Blood Culture Pending Received 07/24/17 20:54 Blood Peripheral Aerobic Blood Culture - Preliminary NO GROWTH IN 2 DAYS Resulted 07/24/17 20:54 Blood Peripheral Anaerobic Blood Culture - Preliminary NO GROWTH IN 2 DAYS Resulted 07/24/17 20:51 Blood Peripheral Aerobic Blood Culture - Preliminary NO GROWTH IN 2 DAYS Resulted 07/24/17 20:51 Blood Peripheral Anaerobic Blood Culture - Preliminary NO GROWTH IN 2 DAYS Resulted Exam-Podiatry Constitutional General appearance: comfortable Nutritional status: overweight Orientation: alert and oriented x3 Dermatological Exam Skin Temp - Right: Cool Skin Texture - Right: Thin Skin Elasticity - Right: Decreased Skin Tugor - Right: Within Normal Limits Hair Growth - Right: Absent Pigmentation - Right: Abnormal Skin Temp - Left: Within Normal Limits Skin Texture - Left: Within Normal Limits Skin Elasticity - Left: Within Normal Limits Skin Tugor - Left: Within Normal Limits Hair Growth - Left: Within Normal Limits Pigmentation - Left: Within Normal Limits Ulcers: Location/Measurements Gangrenous changes of the first metatarsal phalangeal joint. Vascular/Lymphatic Exam R Dorsails Pedis: Doppler L Dorsails Pedis: Doppler R Posterior Tibial: Doppler L Posterior Tibial: Doppler Neurologic Exam Present on right: Tingling Present on left: Tingling Muscle Strength Dorsiflexion (Right): Normal Plantarflexion (Right): Normal Inversion (Right): Normal Eversion (Right): Normal Digital (Right): Normal Dorsiflexion (Left): Normal Plantarflexion (Left): Normal Inversion (Left): Normal Eversion (Left): Normal Digital (Left): Normal Foot Range of Motion Dorsiflexion (Right): Normal Plantarflexion (Right): Normal Inversion (Right): Normal Eversion (Right): Normal Digital (Right): Normal Dorsiflexion (Left): Normal Plantarflexion (Left): Normal Inversion (Left): Normal Eversion (Left): Normal Digital (Left): Normal Assessment & Plan Diagnosis: (1) PAD (peripheral artery disease) ICD Codes: I73.9 - Peripheral vascular disease, unspecified Status: Chronic (2) IDDM (insulin dependent diabetes mellitus) ICD Codes: E11.9 - Type 2 diabetes mellitus without complications; Z79.4 - nursing home (current) use of insulin Status: Chronic A/P PLAN: No place the patient on the surgery schedule for tomorrow morning for an amputation of the left hallux with resection of gangrenous tissue as needed. Preop orders written. Discussed planned procedure with the patient and wishes to proceed with surgery. We'll continue to follow.. Dwaine Calloway DPM Jul 26, 2017 11:17
[2017-07-26 12:00] VITALS: BP 137/76; PULSE 92; RESP 20; TEMP 98.8; O2SAT 98
[2017-07-26 16:00] VITALS: BP 145/77; PULSE 90; RESP 20; TEMP 98.8; O2SAT 99
--- NOTE | 2017-07-26 17:45 | PD.ID.CON ---
History of Present Illness Service ID Consult Requested By Dr Freire Reason for Consult R DFI Primary Care Physician Sonia Nicholson MD Diagnoses: History of Present Illness Pt is non cooperative and not contribute to history at all. He is lying in bed supine with case covered with his blanket. He is pleasant , but not cooperative at all and ignores all questions Chart wqs reviewed: Pt is a 62 yo male with poorly controlled type 1 DM presented 4 dys ago essentially with functional decline (not eating, not getting OOB and abd discomfort) He presented with fevers and leukocyutosis of 21 K He was started on broad spectrum abx (zosyn, vanco) but cont to have fevers up to 101 and persistent leukocytosis He had a negative CT abd/pel on presentation He was seen by Dr Calloway 2 weeks ago for the R hallux ulceratrion and apparently it got worse Vascular insufficiency was suspected and pt was referred to get segental doppler , but apparently did not do it It was done here and showed significan t reduction on ABIs on vascular studies Xray showed: v ascular calcifications. 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 gastroparesis Past Surgical History Eye Surgery 2008 PCI with stent placement in 2014 Active Ordered Medications Medications where reviewed in EMR Antibiotics Include: vancomycin zosyn Family History reviewd non contributory Social History No Tobacco. No ETOH. No Illicit Drugs. on disablility Physical Exam Vital Signs Vital Signs Date Time Temp Pulse Resp B/P (MAP) Pulse Ox O2 Delivery O2 Flow Rate FiO2 07/26/17 12:00 98.8 92 20 137/76 (96) 98 07/26/17 08:00 96 07/26/17 07:48 96.2 103 20 152/82 (105) 97 07/26/17 07:46 Room Air 07/26/17 04:00 Room Air 07/26/17 04:00 99.5 93 16 146/75 (98) 96 07/26/17 00:00 Room Air 07/25/17 23:56 100.9 95 22 166/70 98 07/25/17 23:39 98.5 96 22 157/81 97 07/25/17 20:43 99.0 90 17 161/79 (106) 97 07/25/17 20:00 Room Air 07/25/17 20:00 91 07/25/17 18:54 100 Nasal Cannula 2.00 Physical Exam CONSTITUTIONAL/GENERAL: This is an obese elderly male patient, in no apparent distress. TUBES/LINES/DRAINS: SKIN: No jaundice, rashes, or lesions. Skin temperature appropriate. Not diaphoretic. HEAD: Atraumatic. Normocephalic. EYES: Pupils equal and round and reactive. Extraocular motions intact. No scleral icterus. No injection or drainage. Fundi not examined. ENT: Hearing grossly normal. Nose without bleeding or purulent drainage. Oral mucosae is moist without visible erythema, exudates, masses, or lesions. Edentulous NECK: Trachea midline. Supple, nontender. CARDIOVASCULAR: Regular rate and rhythm without murmurs, gallops, or rubs. No JVD. Peripheral pulses symmetric. RESPIRATORY/CHEST: Symmetric, unlabored respirations. Clear to auscultation. Breath sounds equal bilaterally. No wheezes, rales, or rhonchi. GASTROINTESTINAL: Abdomen soft, non-tender, nondistended. No hepato-splenomegaly , or palpable masses. No guarding. Bowel sounds present. GENITOURINARY: Without palpable bladder distension. Medina catheter in place with dark urine MUSCULOSKELETAL: Extremities without clubbing, cyanosis, STATUS LOCALIS: R foot edematous, erythematous Evidence of dry and wet gangrenous changes involving R hallux and 1st MT area and a draining neuropathic ulcer over 1st MT area (medial aspect) + edema and erythema cw cellulitis changes + palpable DP pules LYMPHATICS: No palpable cervical or supraclavicular adenopathy. NEUROLOGICAL: Awake and alert. Grossly non focal . Moves all extremities. PSYCHIATRIC: NOn cooperative Laboratory Laboratory Tests Test 07/25/17 21:21 07/26/17 05:18 Hemoglobin 9.1 9.1 Hematocrit 29.7 28.9 Iron Level 25 Total Iron Binding Capacity 80 Percent Iron Saturation 31.3 Vancomycin Level Trough 20.0 White Blood Count 18.5 Red Blood Count 4.23 Mean Corpuscular Volume 68.3 Mean Corpuscular Hemoglobin 21.5 Mean Corpuscular Hemoglobin Concent 31.4 Red Cell Distribution Width 17.7 Platelet Count 256 Mean Platelet Volume 8.7 Neutrophils (%) (Auto) 82.9 Lymphocytes (%) (Auto) 8.5 Monocytes (%) (Auto) 6.3 Eosinophils (%) (Auto) 1.8 Basophils (%) (Auto) 0.5 Neutrophils # (Auto) 15.4 Lymphocytes # (Auto) 1.6 Monocytes # (Auto) 1.2 Eosinophils # (Auto) 0.3 Basophils # (Auto) 0.1 CBC Comment AUTO DIFF Differential Total Cells Counted 100 Neutrophils % (Manual) 87 Lymphocytes % 8 Monocytes % 4 Eosinophils % 1 Neutrophils # (Manual) 16.1 Differential Comment FINAL DIFF MANUAL Platelet Estimate NORMAL Platelet Morphology Comment NORMAL Target Cells 1+ Ovalocytes 2+ Blood Urea Nitrogen 40 Creatinine 1.89 Random Glucose 226 Total Protein 6.7 Albumin 1.4 Calcium Level 7.7 Alkaline Phosphatase 122 Aspartate Amino Transf (AST/SGOT) 38 Alanine Aminotransferase (ALT/SGPT) 26 Total Bilirubin 0.5 Sodium Level 140 Potassium Level 3.4 Chloride Level 110 Carbon Dioxide Level 18.3 Anion Gap 12 Estimat Glomerular Filtration Rate 44 Lactic Acid Level 1.0 Date/Time Source Procedure Growth Status 07/26/17 05:18 Blood Peripheral Aerobic Blood Culture Pending Received 07/26/17 05:18 Blood Peripheral Anaerobic Blood Culture Pending Received Result Diagram: 07/26/17 0518 07/26/17 0518 Imaging Last Impressions Foot X-Ray 07/23/17 0000 Signed Impressions: Service Date/Time: Sunday, July 23, 2017 10:24 - CONCLUSION: Vascular calcifications. Soft tissue swelling ventral to the first metatarsophalangeal joint and on one view suggests a possible crescentic air in soft tissues Floyd Johansen MD Head CT [id number]/22/171825 Signed Impressions: Service Date/Time: Saturday, July 22, 2017 19:17 - CONCLUSION: 1. No acute abnormality is seen. 2. Atrophy. 3. Persistent stable encephalomalacia at the inferior left cerebellar hemisphere. Markus Denny MD Chest X-Ray [id number]/22/171825 Signed Impressions: Service Date/Time: Saturday, July 22, 2017 18:43 - CONCLUSION: No acute disease. Markus Denny MD Abdomen/Pelvis CT 07/22/17 0000 Signed Impressions: Service Date/Time: Saturday, July 22, 2017 23:56 - CONCLUSION: 1. No acute finding is identified within the abdomen or pelvis. There is mild respiratory motion artifact. 2. Stable nonacute findings include small hiatal hernia and small bilateral low-density renal lesions. There is trace left pleural fluid. Markus Chester MD Assessment and Plan Assessment and Plan Fever, leukocytosis 2/2 severe R hallux DFI, klikely polimicrobial with mixed aerobic/anaerobic asad Both wet and dry gangrene present Persistent fever and leukocytosis 2/ severe DFI, wet gangrene and likley severe osteo - pt is on the right choice of abx, however his ongoing symptoms are 2/2 lack of source controll. His fevers and leukocytosis should improve after surgery. At least 1st ray amputation will be needed to control the infection however his vascular status needs to be otpimized if confirmed large vessel dz The infection occurs in the settings of vascular insufficinecy suspected mixed type: both small vessell 2/2 poor glyecemic controll and large vessel as it is suspected by ABIs Poorly controlled DM POor compliance cont joseph saxena awaiting input from [facility] surgeon surgery after revascularisation Rima Khan MD Jul 26, 2017 17:45
[2017-07-26] MEDS ORDERED: VANCOMYCIN INJ 1,750 MG in SODIUM CHLORID 0.9% 500 ML INJ 500 ML IV SCH (18:00)
[2017-07-26 20:00] VITALS: BP 155/77; PULSE 95; PULSE 98; RESP 20; TEMP 100.7; O2SAT 98
[2017-07-26] MEDS: VANCOMYCIN 1,500 MG/NS 500 ML IV SCH ×2 (20:39)
[2017-07-26] MEDS: ATORVASTATIN 80 MG TAB PO SCH (20:57)
[2017-07-26] MEDS: MONTELUKAST SODIUM 5 MG CHEWABLE TAB CHEW SCH (20:57)
[2017-07-26] MEDS: hydrOXYzine HCL 50 MG TAB PO SCH (20:58)
[2017-07-27] VITALS (7 sets, daily range): BP systolic 129–163; BP diastolic 60–80; PULSE 89–108; RESP 18–20; TEMP 97.5–101.5; O2SAT 94–100
[2017-07-27] MEDS: PIPERACIL-TAZO 3.375 GM PREMIX 50 ML IV SCH ×4 (04:51→21:59)
[2017-07-27] MEDS: SODIUM CHLORIDE 0.9% FLUSH 10 ML FLUSH IV FLUSH SCH ×5 (04:57→21:58)
[2017-07-27] MEDS ORDERED: BUPIVACAINE HCL PF 0.5% 30 ML VIAL ONE (05:31)
[2017-07-27] MEDS ORDERED: LIDOCAINE HCL 1% 50 ML VIAL ONE (05:32)
[2017-07-27] MEDS ORDERED: DEXAMETHASONE SOD PHOS 4 MG/ML VIAL ONE (05:32)
[2017-07-27] MEDS: INSULIN ASPART SUPPLEMENTAL SCALE SQ SCH ×4 (07:00→21:56)
[2017-07-27 07:32] LABS: AUTOMATED NEUTROPHIL # 13.9 TH/MM3 (1.8-7.7); BASOPHIL # 0.1 TH/MM3 (0-0.2); BASOPHIL % 0.3 % (0.0-2.0); EOSINOPHIL # 0.3 TH/MM3 (0-0.4); EOSINOPHIL % 1.8 % (0.0-4.0); HEMATOCRIT 26.8 % (39.0-51.0); HEMO FLAGS DIFF FINAL; LYMPH % 12.6 % (9.0-44.0); LYMPHOCYTE # 2.2 TH/MM3 (1.0-4.8); MEAN CELL VOLUME 67.3 FL (80.0-100.0); MEAN CORPUSCULAR HEMOGLOBIN 21.3 PG (27.0-34.0); MEAN CORPUSCULAR HGB CONC 31.6 % (32.0-36.0); MONO % 6.6 % (0.0-8.0); NEUT % 78.7 % (16.0-70.0); PLATELET COUNT 238 TH/MM3 (150-450); RED BLOOD COUNT 3.99 MIL/MM3 (4.50-5.90); RED CELL DISTRIBUTION WIDTH 17.6 % (11.6-17.2); WHITE BLOOD COUNT 17.6 TH/MM3 (4.0-11.0)
[2017-07-27 07:39] LABS: BICARBONATE 17.6 MEQ/L (21.0-32.0); POTASSIUM 3.5 MEQ/L (3.5-5.1)
[2017-07-27] MEDS: CARVEDILOL 6.25 MG TAB PO SCH ×2 (09:00→21:49)
[2017-07-27] MEDS: TOPIRAMATE 100 MG TAB PO SCH (09:00)
[2017-07-27] MEDS ORDERED: HYDROmorphone HCL PF 1 MG/ML VIAL IV PRN (09:00)
[2017-07-27] MEDS: LACTOBACILLUS ACIDOPHILUS 1 GM PACKET PO SCH ×3 (09:00→16:32)
[2017-07-27] MEDS ORDERED: SODIUM CHLORIDE 0.9% FLUSH 10 ML FLUSH IV FLUSH PRN (09:00)
[2017-07-27] MEDS: PANTOPRAZOLE SODIUM 40 MG VIAL IV PUSH SCH (09:00)
[2017-07-27] MEDS: prednisoLONE ACETATE 1% OPHT SUSP 5 ML BTL EACH EYE SCH (09:00)
[2017-07-27] MEDS: POTASSIUM CHLORIDE 10 MEQ CONTROLLED RELEASE TAB PO SCH (09:00)
[2017-07-27] MEDS: ASPIRIN 81 MG CHEW TAB CHEW SCH (09:00)
[2017-07-27] MEDS: INSULIN DETEMIR 100 UNITS/ML VIAL SQ SCH ×2 (09:00→21:53)
[2017-07-27] MEDS ORDERED: CLOPIDOGREL 75 MG TAB PO SCH (09:00)
[2017-07-27] MEDS: DOCUSATE SODIUM 50 MG/SENNA 8.6 MG TAB PO SCH ×2 (09:00→21:49)
[2017-07-27] MEDS: SERTRALINE HCL 100 MG TAB PO SCH (09:00)
[2017-07-27] MEDS: NYSTATIN SUSP 500,000 U/5 ML CUP SWISH-SWAL SCH ×4 (09:00→21:49)
[2017-07-27] MEDS ORDERED: Post-op Orders (for Pharmacy) MISC XX ONE (09:00)
[2017-07-27] MEDS ORDERED: NALOXONE HCL 0.4 MG/ML AMP IV PRN (09:00)
--- NOTE | 2017-07-27 09:19 | HHI.FPPN ---
Subjective Remarks Patient seen in PACU. Doing well. Vitals stable. Uncomplicated operative course per Dr. Calloway's note. Estimated blood loss 30 cc. Good cultures obtained and sent. Patient appears comfortable. Still having bright red blood from right foot. Needed dressing changes x 2, and still bleeding per RN. Objective Vitals Vital Signs Date Time Temp Pulse Resp B/P (MAP) Pulse Ox O2 Delivery O2 Flow Rate FiO2 07/27/17 04:00 97.5 91 18 153/80 (104) 98 07/27/17 00:15 101.5 94 18 150/79 (102) 94 07/26/17 21:00 Room Air 07/26/17 20:00 95 07/26/17 20:00 100.7 98 20 155/77 (103) 98 07/26/17 17:57 21 07/26/17 16:00 98.8 90 20 145/77 (99) 99 07/26/17 12:00 98.8 92 20 137/76 (96) 98 I/O 07/26/17 07/26/17 07/26/17 07/27/17 07/27/17 07/27/17 07:00 15:00 23:00 07:00 15:00 23:00 Intake Total 1930 ml 50 ml 600 ml 900 ml Output Total 500 ml 350 ml 150 ml 100 ml Balance 1430 ml 50 ml 250 ml -150 ml 800 ml Intake Oral 600 ml IV Total 1670 ml 50 ml Packed Cells 250 ml Blood Product IV Normal Saline Flush 10 ml Other 900 ml Output Urine Total 500 ml 350 ml 150 ml Other 100 ml Bladder Scan Volume Amount 369 ml # Bowel Movements 0 Result Diagram: 07/27/17 0642 07/27/17 0642 Objective Remarks Gen.: Disheveled, poorly groomed, not opening his eyes. No acute distress CV: Regular rate and rhythm, no murmurs appreciated. Pulses equal to all extremities. Left upper extremity cooler than right upper extremity. EXT: Right foot with 1 cm round dry gangrenous ulcer wound, non draining. GI: SOft NT ND BS present Neuro: Not opening eyes, moving all extremities. A/P Assessment and Plan 61-year-old male with history of hypertension, poorly controlled diabetes, CVA, DE, presents with sepsis with suspected source being his right foot. Problem List: (1) Sepsis ICD Codes: A41.9 - Sepsis, unspecified organism Status: Acute Plan: On admission WBC = 21.8 k, HR 104, Fevers 100.2. --> placed on IV Vancomycin and Zosyn. Likely source of infection being right gangrenous wound on foot. CXR: no acute disease Head CT: no acute abnormality UA: 1000 glucose, 30 protein, 10 ketones; rare bacteria, neg nitrite and neg LE PLAN: -Continue Vancomycin q12H; consult pharmacy -Continue Zosyn 4.5g q6H -CT abdomen/pelvis grossly WNL. -IVF at maintenance. -Blood cultures negative x 48 hours, repeat x 2 since still having persistent fevers. -Consult ID, we appreciate their recommendations. Recommend continuing Zosyn, vancomycin. (2) Elevated troponin ICD Codes: R79.89 - Other specified abnormal findings of blood chemistry Status: Acute Plan: Evaluated by cardiology, we appreciate their help in care. Elevation in troponin to 0.20 likely demand ischemia without no infarct or ischemia. EKG showing nonspecific Q-wave abnormalities in inferior leads, that are similar to EKGs in 2016. October 2015 cath showed an ejection fraction of 50% with a 30% LAD, 60% ramus occlusion. He also had a totally included RCA treated with a 3.5 18 mm bare- metal stent. At that time, it was recommended that he continued his statin, aspirin, Plavix, and beta jose eduardo. (3) Diabetes mellitus ICD Codes: E11.9 - Type 2 diabetes mellitus without complications Status: Acute Plan: History of poorly controlled diabetes. Patient takes Lantus 40 units SQ at bedtime and Humalog mix 10 units 3 times a day. Patient states he has not been eating much lately, nor taking his insulin. -Regular Accuchecks. This AM 210. -Medium dose sliding scale -Continue Levemir 20 units BID with sliding scale - hold 9/ in AM for NPO status. (4) Hypertension ICD Codes: I10 - Essential (primary) hypertension Status: Acute Plan: Continue home meds -Coreg 6.2mg BID -Lisinopril 20mg daily (5) Toe ulcer, right ICD Codes: L97.519 - Non-pressure chronic ulcer of other part of right foot with unspecified severity Status: Acute Plan: -Podiatry recommended: "patient will more than likely require an amputation of the right hallux". S/P amputation of first metatarsal on 2016. -Vascular surgery consulted: Arterial segmental Doppler showed: "Significant reduction of the ABIs bilaterally more pronounced on the right with segmental pressure suggesting tibioperoneal disease." -07/25/2017: S/p revascularization of right successful STATE AUDITOR of the SFA, ALT, and DP (6) Anemia ICD Codes: D64.9 - Anemia, unspecified Plan: Hgb 8.5 on 07/27, s/p 1 unit PRBCs. recheck H&H at 1200 transfuse if less than 8.0. Suspect he will need an additional 1-2 units. (7) HOWARD (acute kidney injury) ICD Codes: N17.9 - Acute kidney failure, unspecified Plan: CR increasing throughout hospitalization to 2.2 on 07/27. -IVF increase to 125 ml/hr NS with 20 MEq KCl. -Daily BMPs -Continue to monitor (8) Thrush, oral ICD Codes: B37.0 - Candidal stomatitis Plan: Thrush on tongue on physical exam. Patient with uncontrolled diabetes, more susceptible to fungal infections. -Nystatin QID -Continue to monitor (9) FEN Status: Acute Plan: Fluids: NS @ 125mls/hr with 20 m/Eq of potassium Electrolytes: wnl, continue to monitor Diet: CLD DVT ppx: heparin q12H GI Pxx: Protonix 40 mg PO daily. sdw Dr. Mcdaniel. Problem Qualifiers (1) Sepsis: Qualified Codes: A41.9 - Sepsis, unspecified organism (2) Diabetes mellitus: Qualified Codes: E10.52 - Type 1 diabetes mellitus with diabetic peripheral angiopathy with gangrene (3) Hypertension: Qualified Codes: I10 - Essential (primary) hypertension (4) Toe ulcer, right: Qualified Codes: L97.512 - Non-pressure chronic ulcer of other part of right foot with fat layer exposed (5) Anemia: Qualified Codes: D64.9 - Anemia, unspecified Johny Freire MD, R3 Jul 27, 2017 09:19
--- NOTE | 2017-07-27 09:28 | PD.OP ---
Operative Report Date of Surgery: Jul 27, 2017 Preoperative Diagnosis: (1) Diabetes mellitus with peripheral angiopathy with gangrene Right hallux Postoperative Diagnosis: (1) Peripheral autonomic neuropathy due to DM Right hallux Procedure: Open Amputation of right hallux Anesthesia: Genital amputation Surgeon: Dwaine Calloway DPM Stockroom Associate(s): None Operation and Findings: Patient was brought to the operating room placed on the operating table in a supine position. Patient was given general inhalation anesthesia and the right foot was prepped and draped in the usual sterile manner. Should be noted that the patient had dry and wet gangrene of the right first metatarsal phalangeal joint and hallux. At this time to semi-elliptical incisions were made around the base of the lateral hallux and carried proximal to the surgical neck of the first metatarsal. The hallux was then disarticulated from the first MPJ and delivered from the wound. It was noted that the first metatarsal head was necrotic and using an oscillating saw the first metatarsal head was resected. Additional bone from the first metatarsal was resected and sent for culture and sensitivity. Generalized small bleeding was noted in the surgical site. The area was flushed with copious amounts of sterile saline. The area was anesthetized with 10 cc of 0.5% Marcaine plain. A small negative pressure VAC unit was placed on the surgical site. However, a good seal was not able to be obtained and the VAC sponge was removed and the wound was dressed with 4 x 4's ABDs and a Brandon and Maxi bandage. Estimated blood loss was less than 30 cc. Sponge and instrument count was noted to be correct. Bone was sent for pathology and culture. Patient tolerated the anesthesia and procedure well and left the OR to PACU in apparent satisfactory condition with all vital signs stable and neurovascular status intact to the remaining toes of the right foot Dwaine Calloway DPM Jul 27, 2017 09:28
[2017-07-27] MEDS ORDERED: DO NOT ADM ANY ANTICOAGULANT DRUGS PRN (09:30)
[2017-07-27] MEDS: NS + KCL 20 MEQ INJ 1,000 ML IV SCH ×3 (09:45→22:09)
[2017-07-27] MEDS: HEPARIN SODIUM - SQ 10,000 UNITS/ML VIAL SQ SCH ×2 (10:00→22:09)
[2017-07-27] MEDS ORDERED: ONDANSETRON HCL 4 MG/2 ML VIAL IV PUSH ONE (10:20)
[2017-07-27] MEDS ORDERED: PROPOFOL 200 MG/20 ML AMP IV ONE (10:20)
[2017-07-27] MEDS ORDERED: ePHEDrine/NS 25 MG/5 ML SYR IV ONE (10:20)
[2017-07-27] MEDS ORDERED: PHENYLEPH/NS 1000 MCG/10 ML SYR IV ONE (10:20)
--- NOTE | 2017-07-27 11:42 | RADRPT ---
EXAM DATE/TIME: 07/27/2017 10:40 [place] COMPARISON: No previous studies available for comparison. INDICATIONS : Post op Right foot. MEDICAL HISTORY : Diabetes mellitus type II. Hypertension SURGICAL HISTORY : None. ENCOUNTER: Initial ACUITY: 1 day PAIN SCORE: Non-responsive. LOCATION: Right Foot FINDINGS: The patient has undergone interval amputation of the first digit distal to the base of the first meta tarsal. There is associated soft tissue deformity, bandage artifact and soft tissue emphysema. Bone d ensity is normal. Joint space widths are intact. Soft tissue swelling is seen. CONCLUSION: Postsurgical changes are identified right first digit amputation. Ruiz Johnson MD on July 27, 2017 at 11:40 Board Certified Radiologist. This report was verified electronically.
[2017-07-27 13:35] LABS: HEMATOCRIT 23.9 % (39.0-51.0); REVIEW FLAG FINAL
[2017-07-27] MEDS ORDERED: SODIUM CHLOR 0.9% 250 ML INJ 250 ML IV ONE (15:30)
[2017-07-27] MEDS ORDERED: FUROSEMIDE 20 MG/2 ML VIAL IV ONE (15:30)
[2017-07-27] MEDS ORDERED: diphenhydrAMINE HCL 25 MG CAP PO PRN (15:30)
[2017-07-27] MEDS ORDERED: ACETAMINOPHEN 325 MG TAB PO PRN (15:30)
--- NOTE | 2017-07-27 17:10 | HHI.IDPN ---
Subjective Subjective Remarks T max 101.5 in the last 24 hrs @ [facility], no fev ers after amputation Again lying in bed with his face covered sp Open Amputation of right hallux by Dr Calloway after endovascular revacularisation by Dr Romo Creatinine was rising with decreased UOP bladder scan was + for urinary retention, pt has ceja placed WBC @ 17K today Antibiotics zosyn vancomycin Allergies: Coded Allergies: aspirin (Verified Allergy, Intermediate, nausea, 07/22/17) Objective . Vital Signs Date Time Temp Pulse Resp B/P (MAP) Pulse Ox O2 Delivery O2 Flow Rate FiO2 07/27/17 12:00 99.3 94 20 158/74 (102) 100 07/27/17 10:25 Room Air 07/27/17 10:08 97.9 90 20 128/65 (86) 100 Nasal Cannula 2 07/27/17 10:00 90 20 128/65 (86) 100 Nasal Cannula 2 07/27/17 09:45 87 20 131/69 (89) 100 Nasal Cannula 2 07/27/17 09:30 90 20 122/59 (80) 100 Nasal Cannula 2 07/27/17 09:15 91 20 137/70 (92) 93 Nasal Cannula 2 07/27/17 08:49 97.9 93 20 134/69 (90) 97 Nasal Cannula 2 07/27/17 04:00 97.5 91 18 153/80 (104) 98 07/27/17 00:15 101.5 94 18 150/79 (102) 94 07/26/17 21:00 Room Air 07/26/17 20:00 95 07/26/17 20:00 100.7 98 20 155/77 (103) 98 07/26/17 17:57 21 07/27/17 07/27/17 07/28/17 15:00 23:00 07:00 Intake Total 900 ml Output Total 100 ml Balance 800 ml Other 900 ml Other 100 ml . Laboratory Tests Test 07/25/17 21:21 07/26/17 05:18 07/27/17 06:42 07/27/17 13:13 Hemoglobin 9.1 GM/DL 9.1 GM/DL 8.5 GM/DL 7.6 GM/DL Hematocrit 29.7 % 28.9 % 26.8 % 23.9 % White Blood Count 18.5 TH/MM3 17.6 TH/MM3 Red Blood Count 4.23 MIL/MM3 3.99 MIL/MM3 Mean Corpuscular Volume 68.3 FL 67.3 FL Mean Corpuscular Hemoglobin 21.5 PG 21.3 PG Mean Corpuscular Hemoglobin Concent 31.4 % 31.6 % Red Cell Distribution Width 17.7 % 17.6 % Platelet Count 256 TH/MM3 238 TH/MM3 Mean Platelet Volume 8.7 FL 8.8 FL Neutrophils (%) (Auto) 82.9 % 78.7 % Lymphocytes (%) (Auto) 8.5 % 12.6 % Monocytes (%) (Auto) 6.3 % 6.6 % Eosinophils (%) (Auto) 1.8 % 1.8 % Basophils (%) (Auto) 0.5 % 0.3 % Neutrophils # (Auto) 15.4 TH/MM3 13.9 TH/MM3 Lymphocytes # (Auto) 1.6 TH/MM3 2.2 TH/MM3 Monocytes # (Auto) 1.2 TH/MM3 1.2 TH/MM3 Eosinophils # (Auto) 0.3 TH/MM3 0.3 TH/MM3 Basophils # (Auto) 0.1 TH/MM3 0.1 TH/MM3 CBC Comment AUTO DIFF DIFF FINAL Differential Total Cells Counted 100 Neutrophils % (Manual) 87 % Lymphocytes % 8 % Monocytes % 4 % Eosinophils % 1 % Neutrophils # (Manual) 16.1 TH/MM3 Differential Comment FINAL DIFF MANUAL Platelet Estimate NORMAL Platelet Morphology Comment NORMAL Target Cells 1+ Ovalocytes 2+ Laboratory Tests Test 07/25/17 21:21 07/26/17 05:18 07/27/17 06:42 Iron Level 25 MCG/DL Total Iron Binding Capacity 80 MCG/DL Percent Iron Saturation 31.3 % Blood Urea Nitrogen 40 MG/DL 44 MG/DL Creatinine 1.89 MG/DL 2.21 MG/DL Random Glucose 226 MG/DL 164 MG/DL Total Protein 6.7 GM/DL Albumin 1.4 GM/DL Calcium Level 7.7 MG/DL 7.6 MG/DL Alkaline Phosphatase 122 U/L Aspartate Amino Transf (AST/SGOT) 38 U/L Alanine Aminotransferase (ALT/SGPT) 26 U/L Total Bilirubin 0.5 MG/DL Sodium Level 140 MEQ/L 143 MEQ/L Potassium Level 3.4 MEQ/L 3.5 MEQ/L Chloride Level 110 MEQ/L 113 MEQ/L Carbon Dioxide Level 18.3 MEQ/L 17.6 MEQ/L Anion Gap 12 MEQ/L 12 MEQ/L Estimat Glomerular Filtration Rate 44 ML/MIN 37 ML/MIN Lactic Acid Level 1.0 mmol/L Microbiology Date/Time Source Procedure Growth Status 07/26/17 05:18 Blood Peripheral Aerobic Blood Culture - Preliminary NO GROWTH IN 1 DAY Resulted 07/26/17 05:18 Blood Peripheral Anaerobic Blood Culture - Preliminary NO GROWTH IN 1 DAY Resulted 07/26/17 04:24 Blood Peripheral Aerobic Blood Culture - Preliminary NO GROWTH IN 1 DAY Resulted 07/26/17 04:24 Blood Peripheral Anaerobic Blood Culture - Preliminary NO GROWTH IN 1 DAY Resulted 07/24/17 20:54 Blood Peripheral Aerobic Blood Culture - Preliminary NO GROWTH IN 3 DAYS Resulted 07/24/17 20:54 Blood Peripheral Anaerobic Blood Culture - Preliminary NO GROWTH IN 3 DAYS Resulted 07/24/17 20:51 Blood Peripheral Aerobic Blood Culture - Preliminary NO GROWTH IN 3 DAYS Resulted 07/24/17 20:51 Blood Peripheral Anaerobic Blood Culture - Preliminary NO GROWTH IN 3 DAYS Resulted 07/27/17 08:30 Wound Toe Fungal Smear Pending Received 07/27/17 08:30 Wound Toe Fungal Culture Pending Received 07/27/17 08:30 Wound Toe Gram Stain Pending Received 07/27/17 08:30 Wound Toe Wound Culture Pending Received Imaging Last Impressions Foot X-Ray 07/27/17 0000 Signed Impressions: Service Date/Time: Thursday, July 27, 2017 10:40 - CONCLUSION: Postsurgical changes are identified right first digit amputation. Ruiz Johnson MD Head CT 07/22/171825 Signed Impressions: Service Date/Time: Saturday, July 22, 2017 19:17 - CONCLUSION: 1. No acute abnormality is seen. 2. Atrophy. 3. Persistent stable encephalomalacia at the inferior left cerebellar hemisphere. Markus Denny MD Chest X-Ray 07/22/17 182 Signed Impressions: Service Date/Time: Saturday, July 22, 2017 18:43 - CONCLUSION: No acute disease. Markus Denny MD Abdomen/Pelvis CT 07/22/17 0000 Signed Impressions: Service Date/Time: Saturday, July 22, 2017 23:56 - CONCLUSION: 1. No acute finding is identified within the abdomen or pelvis. There is mild respiratory motion artifact. 2. Stable nonacute findings include small hiatal hernia and small bilateral low-density renal lesions. There is trace left pleural fluid. Markus Chester MD Physical Exam CONSTITUTIONAL/GENERAL: This is an obese elderly male patient, in no apparent distress. TUBES/LINES/DRAINS: SKIN: No jaundice, rashes, or lesions. CARDIOVASCULAR: Regular rate and rhythm without murmurs, gallops, or rubs. RESPIRATORY/CHEST: Symmetric, unlabored respirations. Clear to auscultation. GASTROINTESTINAL: Abdomen soft, non-tender, nondistended. Bowel sounds present. GENITOURINARY: Ceja catheter in place with very dark bloody urine MUSCULOSKELETAL: Extremities without clubbing, cyanosis, STATUS LOCALIS: R foot with surgical dressing in place and serosangious staining NEUROLOGICAL: Awake and alert. Grossly non focal . Moves all extremities. PSYCHIATRIC: calm, very flat affect Assessment & Plan Remarks Fever, leukocytosis 2/2 severe R hallux DFI, klikely polimicrobial with mixed aerobic/anaerobic asad DFI with wet and dry gangrene present Persistent fever and leukocytosis 2/ severe DFI, wet gangrene and likley severe osteo - sp R hallux amputation PVD, sp successuful endocvascular revascularisation moderate SFA stenosis - successful ADMISSIONS SPECIALIST >90% AT stenosis - successful ADMISSIONS SPECIALIST DP occlusion - recanalized and ADMISSIONS SPECIALIST Poorly controlled DM POor compliance Obstructive uropahty, sp ceja placement HOWARD - likley 2/2 obstructive uropathy ? concommitant UTI cont zosyn , vanco monitor surg cultures, adjust abx per clx monitor creatinine ch k UA, C+S Rima Khan MD Jul 27, 2017 17:10
[2017-07-27] MEDS: VANCOMYCIN 1,500 MG/NS 500 ML IV SCH ×2 (18:44)
[2017-07-27] MEDS: ATORVASTATIN 80 MG TAB PO SCH (21:49)
[2017-07-27] MEDS: MONTELUKAST SODIUM 5 MG CHEWABLE TAB CHEW SCH (21:49)
[2017-07-27] MEDS: hydrOXYzine HCL 50 MG TAB PO SCH (21:49)
[2017-07-27 23:39] LABS: HEMATOCRIT 25.7 % (39.0-51.0)
[2017-07-28] VITALS (8 sets, daily range): BP systolic 101–146; BP diastolic 56–91; PULSE 60–101; RESP 20; TEMP 97–101.4; O2SAT 97–100
[2017-07-28] MEDS: ACETAMINOPHEN 325 MG TAB PO PRN (01:05)
[2017-07-28] MEDS: NS + KCL 20 MEQ INJ 1,000 ML IV SCH ×2 (01:45→08:56)
[2017-07-28] MEDS: INSULIN ASPART SUPPLEMENTAL SCALE SQ SCH ×5 (02:35→20:55)
[2017-07-28] MEDS: PIPERACIL-TAZO 3.375 GM PREMIX 50 ML IV SCH ×4 (05:12→22:35)
[2017-07-28] MEDS: SERTRALINE HCL 100 MG TAB PO SCH (08:55)
[2017-07-28] MEDS: CLOPIDOGREL 75 MG TAB PO SCH (08:56)
[2017-07-28] MEDS: NYSTATIN SUSP 500,000 U/5 ML CUP SWISH-SWAL SCH ×4 (08:56→21:01)
--- NOTE | 2017-07-28 08:56 | HHI.FPPN ---
Subjective Remarks Patient is more talkative today and interactive. Still with covers over his head , because he is always cold. He reports that his pain is well controlled. He denies any new chest pain. Yesterday he ate chicken noddle soup that his brought him from the cafe. He tells me that "honestly, I feel like giving up." He tells me that he has been through a lot.. He was incarcerated for many years, and had to watch his parents, brothers, and sisters . He also says that "my health has gone done since my stroke in 2013." He tells me that "If I do not start feeling better, I would like to go to one of those places that takes care of you." Motivating factors: 5 y/o granddaughter. Objective Vitals Vital Signs Date Time Temp Pulse Resp B/P (MAP) Pulse Ox O2 Delivery O2 Flow Rate FiO2 07/28/17 08:38 98 Nasal Cannula 3.00 07/28/17 04:00 99.3 88 20 101/56 (71) 100 07/28/17 00:00 101.4 101 20 146/72 (96) 100 07/27/17 21:40 Room Air 07/27/17 20:00 99.8 108 20 163/79 (107) 100 07/27/17 20:00 106 07/27/17 18:10 97.9 106 18 134/74 100 07/27/17 17:23 97.8 89 18 129/60 96 07/27/17 16:00 99.0 102 20 156/70 (98) 99 07/27/17 12:00 99.3 94 20 158/74 (102) 100 07/27/17 10:25 Room Air 07/27/17 10:08 97.9 90 20 128/65 (86) 100 Nasal Cannula 2 07/27/17 10:00 90 20 128/65 (86) 100 Nasal Cannula 2 07/27/17 09:45 87 20 131/69 (89) 100 Nasal Cannula 2 07/27/17 09:30 90 20 122/59 (80) 100 Nasal Cannula 2 07/27/17 09:15 91 20 137/70 (92) 93 Nasal Cannula 2 07/27/17 08:49 97.9 93 20 134/69 (90) 97 Nasal Cannula 2 I/O 07/27/17 07/27/17 07/27/17 07/28/17 07/28/17 07/28/17 07:00 15:00 23:00 07:00 15:00 23:00 Intake Total 900 ml 1060 ml 240 ml Output Total 150 ml 100 ml 100 ml 150 ml Balance -150 ml 800 ml 960 ml 90 ml Intake Oral 240 ml 240 ml IV Total 560 ml Packed Cells 250 ml Blood Product IV Normal Saline Flush 10 ml Other 900 ml Output Urine Total 150 ml 100 ml 150 ml Other 100 ml # Bowel Movements 0 1 Result Diagram: 07/27/17 2318 07/27/17 0642 Objective Remarks Gen.: Disheveled, poorly groomed, not opening his eyes. No acute distress CV: Regular rate and rhythm, no murmurs appreciated. Pulses equal to all extremities. Left upper extremity cooler than right upper extremity. EXT: Right foot with angela bandage wrapping. Non draining. Elevated on pillow. GI: Soft NT ND BS present Neuro: Not opening eyes, moving all extremities. A/P Assessment and Plan 61-year-old male with history of hypertension, poorly controlled diabetes, CVA in 2012, MD, presents with sepsis with suspected source being his right foot. Problem List: (1) Sepsis ICD Codes: A41.9 - Sepsis, unspecified organism Status: Acute Plan: Still spiking fevers to 101.4 F on 07/28/2017 and elevated WBC to 17,600. Likely source of infection being right gangrenous wound on foot. CXR: no acute disease Head CT: no acute abnormality UA: 1000 glucose, 30 protein, 10 ketones; rare bacteria, neg nitrite and neg LE PLAN: -Continue Vancomycin q12H; consult pharmacy -Continue Zosyn 4.5g q6H -CT abdomen/pelvis grossly WNL. -IVF at maintenance. -Blood cultures negative x 72 hours, repeat x 2 have also showed no growth. -Consult ID, we appreciate their recommendations. Recommend continuing Zosyn, vancomycin. (2) Toe ulcer, right ICD Codes: L97.519 - Non-pressure chronic ulcer of other part of right foot with unspecified severity Status: Acute Plan: -S/P amputation of first metatarsal on 07/27/2017. Appreciate the care of podiatry. -07/25/2017: S/p revascularization of right successful CARDIOLOGY MANAGER of the SFA, ALT, and DP (3) Diabetes mellitus ICD Codes: E11.9 - Type 2 diabetes mellitus without complications Status: Acute Plan: History of poorly controlled diabetes. Patient takes Lantus 40 units SQ at bedtime and Humalog mix 10 units 3 times a day. Patient states he has not been eating much lately, nor taking his insulin. -Regular Accuchecks. This AM 204. -Medium dose sliding scale -Continue Levemir 20 units BID with sliding scale. (4) Elevated troponin ICD Codes: R79.89 - Other specified abnormal findings of blood chemistry Status: Acute Plan: Evaluated by cardiology, we appreciate their help in care. Elevation in troponin to 0.20 likely demand ischemia without no infarct or ischemia. EKG showing nonspecific Q-wave abnormalities in inferior leads, that are similar to EKGs in 2016. October 2015 cath showed an ejection fraction of 50% with a 30% LAD, 60% ramus occlusion. He also had a totally included RCA treated with a 3.5 18 mm bare- metal stent. At that time, it was recommended that he continued his statin, aspirin, Plavix, and beta jose eduardo. (5) Hypertension ICD Codes: I10 - Essential (primary) hypertension Status: Acute Plan: Continue home meds -Coreg 6.2mg BID -Lisinopril 20mg daily (6) Anemia ICD Codes: D64.9 - Anemia, unspecified Plan: s/p 2 units Packed RBCs. Right first metatarsal amputation complicated by bleeding. Hgb on 07/27 = went from 7.6 --> 8.2 after 1 unit. Continue to monitor. Will get peripheral smear given anemia, persistent leukocytosis, and fevers/ chills/night sweats for several weeks. Start Ferrous Sulfate 325 BID. (7) HOWARD (acute kidney injury) ICD Codes: N17.9 - Acute kidney failure, unspecified Plan: CR increasing throughout hospitalization to 2.2 on 07/27. Likely from contrast procedures. -IVF increase to 125 ml/hr NS with 20 MEq KCl. -Daily BMPs -Get KUB US to rule out obstruction. Medina catheter in place. (8) Thrush, oral ICD Codes: B37.0 - Candidal stomatitis Plan: Thrush on tongue on physical exam. Patient with uncontrolled diabetes, more susceptible to fungal infections. -Nystatin QID -Continue to monitor (9) Depression ICD Codes: F32.9 - Major depressive disorder, single episode, unspecified Plan: Patient appears apathic and hopeless on exam. Will increase Sertaline from 100 mg daily to 150 mg daily. Titrate to goal. (10) FEN Status: Acute Plan: Fluids: NS @ 125mls/hr with 20 m/Eq of potassium Electrolytes: wnl, continue to monitor Diet: CLD DVT ppx: heparin q12H GI Pxx: Protonix 40 mg PO daily. sdw Dr. Mcdaniel. Problem Qualifiers (1) Sepsis: Qualified Codes: A41.9 - Sepsis, unspecified organism (2) Toe ulcer, right: Qualified Codes: L97.512 - Non-pressure chronic ulcer of other part of right foot with fat layer exposed (3) Diabetes mellitus: Qualified Codes: E10.52 - Type 1 diabetes mellitus with diabetic peripheral angiopathy with gangrene (4) Hypertension: Qualified Codes: I10 - Essential (primary) hypertension (5) Anemia: Qualified Codes: D64.9 - Anemia, unspecified Johny Freire MD, R3 Jul 28, 2017 08:56
[2017-07-28] MEDS: DOCUSATE SODIUM 50 MG/SENNA 8.6 MG TAB PO SCH ×2 (08:57→20:51)
[2017-07-28] MEDS: CARVEDILOL 6.25 MG TAB PO SCH ×2 (08:57→20:51)
[2017-07-28] MEDS: PANTOPRAZOLE SODIUM 40 MG VIAL IV PUSH SCH (08:57)
[2017-07-28] MEDS: TOPIRAMATE 100 MG TAB PO SCH (08:57)
[2017-07-28] MEDS: ASPIRIN 81 MG CHEW TAB CHEW SCH (08:57)
[2017-07-28] MEDS: HEPARIN SODIUM - SQ 10,000 UNITS/ML VIAL SQ SCH ×2 (08:58→22:35)
[2017-07-28] MEDS: INSULIN DETEMIR 100 UNITS/ML VIAL SQ SCH ×3 (09:00→20:53)
[2017-07-28] MEDS ORDERED: PILL SPLITTER OTHER PRN (09:00)
[2017-07-28] MEDS: SODIUM CHLORIDE 0.9% FLUSH 10 ML FLUSH IV FLUSH SCH ×2 (09:00→20:50)
[2017-07-28] MEDS: LACTOBACILLUS ACIDOPHILUS 1 GM PACKET PO SCH ×3 (09:00→17:58)
[2017-07-28] MEDS: POTASSIUM CHLORIDE 10 MEQ CONTROLLED RELEASE TAB PO SCH (09:01)
[2017-07-28] MEDS: FERROUS SULFATE 325 MG (65 MG ELEMENTAL IRON) TAB PO SCH ×2 (09:10→20:50)
--- NOTE | 2017-07-28 10:06 | RADRPT ---
EXAM DATE/TIME: 07/28/2017 09:19 [facility] COMPARISON: CHEST SINGLE AP, July 22, 2017, 18:43. INDICATIONS : Short of breath MEDICAL HISTORY : Cardiovascular disease. Hypertension. Diabetes SURGICAL HISTORY : Coronary artery stent. ENCOUNTER: Subsequent ACUITY: 2 weeks PAIN SCORE: Non-responsive. LOCATION: chest FINDINGS: There is right lower lobe and to a lesser extent left lower lobe airspace disease. No effusions. Card iomegaly. Osseous structures are intact. CONCLUSION: Bilateral lower lobe airspace disease. Ruiz Johnson MD on July 28, 2017 at 10:04 Board Certified Radiologist. This report was verified electronically.
--- NOTE | 2017-07-28 10:11 | RADRPT ---
EXAM DATE/TIME: 07/28/2017 09:48 [facility] COMPARISON: CT ABDOMEN & PELVIS W CONTRAST, July 22, 2017, 23:56. INDICATIONS : Increased BUN/Creatnine. MEDICAL HISTORY : Hypercholesterolemia. Hypertension. Retinopathy. Neck pain. Legally blind. Missing teeth. Cardiac s tent. Hyperlipidemia. Arthritis. Osteoporosis. Diabtetes. Sickle cell anemia. SURGICAL HISTORY : Cardiac stents. ENCOUNTER: Initial ACUITY: 1 day PAIN SCORE: 1/10 LOCATION: Bilateral flank MEASUREMENTS: RIGHT KIDNEY: 10.7 x 5.8 x 4.8 cm LEFT KIDNEY: 11.9 x 4.9 x 6.7 cm FINDINGS: RIGHT KIDNEY: Renal cortex is normal in thickness and echotexture. No hydronephrosis, stone, or mass. LEFT KIDNEY: Renal cortex is normal in thickness and echotexture. No hydronephrosis, stone, or mass. BLADDER: Medina catheter is noted within the urinary bladder which is decompressed. CONCLUSION: Normal examination. Ruiz Johnson MD on July 28, 2017 at 10:09 Board Certified Radiologist. This report was verified electronically.
[2017-07-28 10:46] LABS: BASOPHIL # 0.1 TH/MM3 (0-0.2); BASOPHIL % 0.4 % (0.0-2.0); EOSINOPHIL # 0.2 TH/MM3 (0-0.4); EOSINOPHIL % 1.2 % (0.0-4.0); LYMPH % 8.2 % (9.0-44.0); LYMPHOCYTE # 1.6 TH/MM3 (1.0-4.8); MEAN CELL VOLUME 70.6 FL (80.0-100.0); MEAN CORPUSCULAR HEMOGLOBIN 22.8 PG (27.0-34.0); MEAN CORPUSCULAR HGB CONC 32.2 % (32.0-36.0); MONO % 6.8 % (0.0-8.0); NEUT % 83.4 % (16.0-70.0); PLATELET COUNT 154 TH/MM3 (150-450); RED CELL DISTRIBUTION WIDTH 21.8 % (11.6-17.2); WHITE BLOOD COUNT 19.1 TH/MM3 (4.0-11.0)
[2017-07-28 10:50] LABS: HEMO FLAGS AUTO DIFF
[2017-07-28 11:12] LABS: BICARBONATE 17.3 MEQ/L (21.0-32.0); POTASSIUM 3.9 MEQ/L (3.5-5.1)
[2017-07-28 11:36] LABS: ACANTHOCYTES 1+ (NORMAL); BANDS 12 % (0-6); EOSINOPHILS 3 % (0-4); NEUTROPHIL # MANUAL DIFF 16.6 TH/MM3 (1.8-7.7); OVALOCYTES 1+ (NORMAL); PLATELET ESTIMATE SMEAR NORMAL (NORMAL); PLATELET MORPHOLOGY NORMAL (NORMAL); POLYS (SEG NEUTROPHILS) 75 % (16-70); SCAN/DIFF FINAL DIFF MANUAL; WBC DIFF SAMPLE 100
--- NOTE | 2017-07-28 11:43 | MP ---
cc: KLEVER ROMO MD DATE OF SURGERY: 07/25/2017. PREOPERATIVE DIAGNOSIS: Right lower extremity tissue loss, peripheral arterial occlusive disease POSTOPERATIVE DIAGNOSIS: Right lower extremity tissue loss, peripheral arterial occlusive disease OPERATIVE PROCEDURE PERFORMED: 1. Right lower extremity angiogram. 2. Superficial femoral artery angioplasty, 6 mm. 3. Right anterior tibial artery angioplasty 3 mm. 4. Right dorsalis pedis artery angioplasty 2 mm. 5. Left common femoral artery Angio-Seal. ATTENDING SURGEON: Klever Romo MD. ARTIFICIAL BREEDING TECHNICIAN SURGEON: None. ANESTHESIA: Local with sedation. INDICATIONS FOR THE PROCEDURE: Mr. Obando is a 62-year-old gentleman with diabetes who has a hallux wound and no pedal pulses. He is taken to the operating room for angiographic evaluation and treatment. There is no prior catheter-based imaging available for my review. DESCRIPTION OF THE PROCEDURE IN DETAIL: Informed consent was obtained from both the patient and his . He was taken to the operating room and placed supine on the operating room table. An appropriate time out was taken to ensure the patient's identity, the operative site and the planned procedure. He was already on systemic antibiotics and these were to be continued postoperatively for treatment of his diabetic foot infection. They were re-dosed in the appropriate time interval before surgery. Everyone in the room agreed with the time out and we proceeded. His bilateral groins were prepped and draped and the left groin was anesthetized with 1% lidocaine. A 21-gauge micropuncture needle was used to access the left common femoral artery and this was exchanged using Seldinger technique for a micropuncture sheath and a 0.035 Glidewire was introduced. The micropuncture sheath was exchanged for a 5-Amharic sheath and a VCF catheter was placed over the wire and through the sheath. The Glidewire was reintroduced navigated down to the right common femoral artery. The VCF catheter was advanced over this and a right lower extremity arteriogram was obtained. The patient was systemically heparinized with 5000 units of IV heparin.. A 0.035 Storq wire was introduced through the VCF catheter and the 5-Amharic sheath removed and a 6-Amharic 55 cm Ansell sheath was introduced. The proximal superficial femoral artery lesion was then angioplastied with a 5 x 60 balloon and the completion angiogram showed an imperfect result with residual stenosis and so it was angioplastied with a 6 x 60 balloon. At completion, the angiogram showed excellent result and no recoil extravasation or flow-limiting dissection. The Storq wire was then advanced down to the popliteal artery and navigated into the anterior tibial artery. The CXI catheter was advanced over this and then once into the anterior tibial artery the Storz wire was exchanged for a CLIP BOLTER AND WRAPPER wire. The CLIP BOLTER AND WRAPPER wire was used to navigate all way down to the distal anterior tibial artery and the anterior tibial artery high-grade stenosis was angioplastied with a 3-mm balloon. Completion angiogram showed excellent result without any recoil, extravasation or dissection. We then traversed the CLIP BOLTER AND WRAPPER wire down to the foot crossing a total occlusion of the dorsalis pedis artery. This was dilated with a 2-mm balloon. Completion angiogram showed in-line flow of the entire anterior tibial artery to the dorsalis pedis artery. Wire, catheter and sheath were removed and the groin was closed with Angio-Seal. There were no complications. I was present and scrubbed for the entire procedure. INTERPRETATION OF IMAGES: The patient has a patent right common femoral artery and profunda and a patent superficial femoral artery. There is a high-grade proximal superficial femoral artery stenosis that was completely treated with a 5 mm balloon but completely treated with a 6 mm balloon. The remainder of the superficial femoral artery was widely patent. The popliteal artery was widely patent. The anterior tibial artery is the dominant runoff to the foot. There was a near occlusive stenosis in the mid superficial femoral artery which was successfully treated with angioplasty at 3 mm. The dorsalis pedis artery proximally was occluded but was successfully recanalized and angioplastied with a 2 mm balloon. MD JACINDA Huff/ANNA /5:27 AM /11:28 AM
--- NOTE | 2017-07-28 12:40 | PD.POD ---
Subjective Podiatric Problems Dry gangrene of the right hallux Pain scale used: 0-10 numeric scale Pain score: 1 Remarks 62-year-old diabetic male with peripheral vascular disease presented with dry gangrene of the right hallux. Vascular surgery consult appreciated. Dr. Romo was able to open up his blood supply for now. Yesterday I performed an open amputation of the right hallux. Because of the patient's heparin the blood through his negative pressure wound VAC which was discontinued in PACU. No break through bleeding noted today. Past Med/Surg/Social History Past Medical History PFSH Reviewed: Yes HEENT: REPORTS HX OF: Other HEENT history (PRP Laser OU( dr. Cr 05/2009)) Endocrine: REPORTS HX OF: Diabetes mellitus Cardiovascular: REPORTS HX OF: Hyperlipidemia, Hypertension, Peripheral vascular dz Past Surgical History Cardiovascular: REPORTS HX OF: Coronary stent Musculoskeletal: REPORTS HX OF: Other musculoskeletal srg (amputation of the right hallux) Social History Smoking Status: Former Smoker Review of Systems Notes No changes in his 14 point review of systems exam with the exception of the hallux amputation Objective Vital Signs Vital Signs Date Time Temp Pulse Resp B/P (MAP) Pulse Ox O2 Delivery O2 Flow Rate FiO2 07/28/17 08:38 98 Nasal Cannula 3.00 07/28/17 08:00 98.7 95 20 134/81 (98) 100 07/28/17 08:00 Room Air 07/28/17 04:00 99.3 88 20 101/56 (71) 100 07/28/17 00:00 101.4 101 20 146/72 (96) 100 07/27/17 21:40 Room Air 07/27/17 20:00 99.8 108 20 163/79 (107) 100 07/27/17 20:00 106 07/27/17 18:10 97.9 106 18 134/74 100 07/27/17 17:23 97.8 89 18 129/60 96 07/27/17 16:00 99.0 102 20 156/70 (98) 99 Coded Allergies: aspirin (Verified Allergy, Intermediate, nausea, 07/22/17) Medications and IVs Current Medications Sodium Chloride (NS Flush) 2 ml UNSCH PRN IVF FLUSH AFTER USING IV ACCESS; Start 07/22/17 at 18:30; Stop 07/28/17 at 08:50; Status DC Sodium Chloride 1,000 ml @ 1,000 mls/hr Q1H ONCE IV Last administered on 19:11; Start 07/22/17 at 18:26; Stop 07/22/17 at 19:25; Status DC Ondansetron HCl (Zofran Inj) 4 mg ONCE ONCE IVP Last administered on 19:11; Start 07/22/17 at 18:30; Stop 07/22/17 at 18:32; Status DC Vancomycin HCl 1000 mg/Sodium Chloride 250 ml @ 250 mls/hr ONCE STAT IV Last administered on 07/22/17 20:01; Start 07/22/17 at 20:01; Stop 07/22/17 at 21:00 ; Status DC Piperacillin Sod/ Tazobactam Sod 100 ml @ 200 mls/hr ONCE STAT IV Last administered on 07/22/17 20:01; Start 07/22/17 at 20:01; Stop 07/22/17 at 20:30 ; Status DC Sodium Chloride 1,000 ml @ 999 mls/hr BOLUS ONCE IV Last administered on 07/22 20:15; Start 07/22/17 at 20:15; Stop 07/22/17 at 21:16; Status DC Sodium Chloride 1,000 ml @ 100 mls/hr Q10H IV Last administered on 07/26/17 09 :14; Start 07/22/17 at 21:50; Stop 07/27/17 at 09:37; Status DC Sodium Chloride (NS Flush) 2 ml UNSCH PRN IV FLUSH FLUSH AFTER USING IV ACCESS ; Start 07/22/17 at 22:00; Stop 07/28/17 at 08:50; Status DC Sodium Chloride (NS Flush) 2 ml BID IV FLUSH Last administered on 07/27/17 21: 58; Start 07/23/17 at 09:00; Stop 07/28/17 at 08:50; Status DC Acetaminophen (Tylenol) 650 mg Q4H PRN PO TEMP > 100.4 Last administered on 07/28 01:05; Start 07/22/17 at 22:00 Ondansetron HCl (Zofran Inj) 4 mg Q6H PRN IVP NAUSEA OR VOMITING; Start at 22:00 Heparin Sodium (Porcine) (Heparin Inj) 5,000 units Q12H SQ Last administered on 07/28/17 08:58; Start 07/22/17 at 22:00 Naloxone HCl (Narcan Inj) 0.4 mg UNSCH PRN IV SEE LABEL COMMENTS; Start at 22:00 Senna/Docusate Sodium (Najma-Colace) 1 tab BID PO Last administered on 07/28/17 08:57; Start 07/23/17 at 09:00 Magnesium Hydroxide (Milk Of Magnesia Liq) 30 ml Q12H PRN PO MILD - MODERATE CONSTIPATION; Start 07/22/17 at 22:00 Sennosides (Senokot) 17.2 mg Q12H PRN PO MODERATE - SEVERE CONSTIPATION; Start 07/22/17 at 22:00 Bisacodyl (Dulcolax Supp) 10 mg DAILY PRN RECTAL SEVERE CONSITIPATION; Start at 22:00 Lactulose (Lactulose Liq) 30 ml DAILY PRN PO SEVERE CONSITIPATION; Start at 22:00 Pharmacy Profile Note 0 ml @ 0 mls/hr UNSCH OTHER ; Start 07/22/17 at 22:00 Vancomycin HCl 1500 mg/Sodium Chloride 515 ml @ 257.5 mls/ hr Q12H IV ; Start 07/23/17 at 08:00; Status UNV Piperacillin Sod/ Tazobactam Sod 100 ml @ 200 mls/hr Q6H IV Last administered on 07/25/17 09:23; Start 07/23/17 at 02:00; Stop 07/25/17 at 09:58; Status DC Aspirin (Aspirin Chew) 81 mg DAILY CHEW Last administered on 07/28/17 08:57; Start 07/23/17 at 09:00 Atorvastatin Calcium (Lipitor) 80 mg HS PO Last administered on 07/27/17 21:49 ; Start 07/23/17 at 21:00 Carvedilol (Coreg) 6.25 mg BID PO Last administered on 07/28/17 08:57; Start at 09:00 Clopidogrel Bisulfate (Plavix) 75 mg DAILY PO Last administered on 07/28/17 08: 56; Start 07/23/17 at 09:00 Hydroxyzine HCl (Atarax) 50 mg HS PO Last administered on 07/27/17 21:49; Start 07/23/17 at 21:00 Lisinopril (Prinivil) 20 mg DAILY PO Last administered on 07/24/17 08:56; Start 07/23/17 at 09:00; Status Future Hold Montelukast Sodium (Singulair Chew) 5 mg HS CHEW Last administered on 07/27/17 21:49; Start 07/23/17 at 21:00 Prednisolone Acetate (Pred Forte 1% Opth Susp) 1 drop DAILY EACH EYE Last administered on 07/26/17 09:18; Start 07/23/17 at 09:00 Sertraline HCl (Zoloft) 100 mg DAILY PO Last administered on 07/26/17 09:16; Start 07/23/17 at 09:00; Stop 07/28/17 at 08:42; Status DC Topiramate (Topamax) 100 mg DAILY PO Last administered on 07/28/17 08:57; Start 07/23/17 at 09:00 Dextrose (D50w (Vial) Inj) 50 ml UNSCH PRN IV HYPOGLYCEMIA-SEE COMMENTS; Start 07/22/17 at 22:15 Glucagon (Glucagon Inj) 1 mg UNSCH PRN OTHER HYPOGLYCEMIA-SEE COMMENTS; Start 07/22/17 at 22:15 Insulin Aspart (NovoLOG SUPPLEMENTAL SCALE) 1 ACHS SLIDING SCALE SQ Last administered on 07/28/17 06:38; Start 07/23/17 at 07:00 Vancomycin HCl 1000 mg/Sodium Chloride 250 ml @ 250 mls/hr ONCE ONCE IV Last administered on 07/22/17 22:15; Start 07/22/17 at 22:15; Stop 07/22/17 at 23:14 ; Status DC Diatrizoate Meglum/ Diatrizoate Sod ( Gastroview Liq) 18 ml STK-MED ONCE .ROUTE ; Start 07/22/17 at 22:16; Stop 07/22/17 at 22:17; Status DC Diatrizoate Meglum/ Diatrizoate Sod ( Gastroview Liq) 18 ml NOW ONCE PO Last administered on 07/22/17 22:45; Start 07/22/17 at 22:45; Stop 07/22/17 at 22:46; Status DC Nystatin (Mycostatin Liq) 5 ml QID SWISH-SWAL Last administered on 07/28/17 08 :56; Start 07/23/17 at 09:00 Pantoprazole Sodium (Protonix Inj) 40 mg DAILY IV PUSH Last administered on 07/28 08:57; Start 07/22/17 at 22:45 Iohexol (Omnipaque 350 Inj) 95 ml STK-MED ONCE IVCONTRAST Last administered on 07/22/17 23:59; Start 07/22/17 at 23:59; Stop 07/23/17 at 00:00; Status DC Nitroglycerin (Nitroglycerin 2% Oint) 1 inch ONCE ONCE TOPICAL Last administered on 07/23/17 10:22; Start 07/23/17 at 10:00; Stop 07/23/17 at 10:01 ; Status DC Vancomycin HCl 2000 mg/Sodium Chloride 520 ml @ 250 mls/hr Q24H IV Last administered on 07/25/17 21:46; Start 07/23/17 at 18:00; Stop 07/26/17 at 09:24 ; Status DC Miscellaneous Information SPECIFIC LAB TO BE DRAWN:VANCOMYCIN TROUGH DATE TO... ONCE ONCE .XX ; Start 07/25/17 at 17:45; Stop 07/25/17 at 17:46; Status DC Lactobacillus Acidophilus (Lactinex Pkt) 1 gm TID PO Last administered on 16:32; Start 07/23/17 at 18:00 Pharmacy Profile Note 0 ml @ 0 mls/hr UNSCH OTHER ; Start 07/24/17 at 16:45; Stop 07/24/17 at 17:00; Status DC Insulin Detemir (Levemir Inj) 20 units ONCE ONCE SQ Last administered on 17:00; Start 07/24/17 at 17:00; Stop 07/24/17 at 17:01; Status DC Insulin Detemir (Levemir Inj) 20 units Q12HR SQ Last administered on 07/28/17 09:04; Start 07/25/17 at 21:00 Potassium Chloride (KCl) 30 meq DAILY PO Last administered on 07/28/17 09:01; Start 07/25/17 at 09:45 Sodium Chloride 250 ml @ 15 mls/hr ONCE ONCE IV Last administered on 23:48; Start 07/25/17 at 10:00; Stop 07/26/17 at 02:39; Status DC Furosemide (Lasix Inj) 20 mg MAGAZINE FEEDER IV Last administered on 07/26/17 03:39; Start 07/25/17 at 09:45; Stop 07/26/17 at 09:44; Status DC Piperacillin Sod/ Tazobactam Sod 50 ml @ 100 mls/hr Q6H IV Last administered on 07/28/17 08:58; Start 07/25/17 at 16:00 Heparin Sodium/ Sodium Chloride 500 ml @ As Directed STK-MED ONCE .ROUTE Last administered on 07/25/17 16:08; Start 07/25/17 at 16:08; Stop 07/25/17 at 16:09 ; Status DC Midazolam HCl (Versed Inj) 5 mg STK-MED ONCE .ROUTE Last administered on 16:37; Start 07/25/17 at 16:28; Stop 07/25/17 at 16:29; Status DC Fentanyl Citrate (fentaNYL INJ) 100 mcg STK-MED ONCE .ROUTE Last administered on 07/25/17 16:36; Start 07/25/17 at 16:28; Stop 07/25/17 at 16:29; Status DC Heparin Sodium/ Sodium Chloride 500 ml @ As Directed STK-MED ONCE .ROUTE Last administered on 07/25/17 16:35; Start 07/25/17 at 16:35; Stop 07/25/17 at 16:36 ; Status DC Heparin Sodium (Porcine) (Heparin Inj) 10,000 units STK-MED ONCE .ROUTE Last administered on 07/25/17 16:46; Start 07/25/17 at 16:46; Stop 07/25/17 at 16:47 ; Status DC Midazolam HCl (Versed Inj) 5 mg STK-MED ONCE .ROUTE ; Start 07/25/17 at 17:18; Stop 07/25/17 at 17:19; Status DC Fentanyl Citrate (fentaNYL INJ) 100 mcg STK-MED ONCE .ROUTE ; Start 07/25/17 at 17:18; Stop 07/25/17 at 17:19; Status DC Clopidogrel Bisulfate (Plavix) 75 mg DAILY PO ; Start 07/27/17 at 09:00; Stop 07/27/17 at 09:00; Status DC Clopidogrel Bisulfate (Plavix) 150 mg ONCE ONCE PO Last administered on 21:46; Start 07/25/17 at 20:45; Stop 07/25/17 at 21:35; Status DC Iohexol 50 ml @ 0 mls/hr ONCE ONCE IV ; Start 07/25/17 at 17:54; Stop 07/25/17 at 21:35; Status DC Sodium Chloride 1,000 ml @ 500 mls/hr Q2H IV Last administered on 07/26/17 15: 48; Start 07/26/17 at 05:45; Stop 07/26/17 at 07:45; Status DC Vancomycin HCl 1750 mg/Sodium Chloride 517.5 ml @ 250 mls/hr Q24H IV ; Start at 18:00; Stop 07/26/17 at 18:00; Status DC Miscellaneous Information SPECIFIC LAB TO BE SEPIDEH... ONCE ONCE .XX ; Start at 17:45; Stop 07/29/17 at 17:46; Status Cancel Vancomycin HCl 1500 mg/Sodium Chloride 515 ml @ 257.5 mls/ hr Q24H IV Last administered on 07/27/17 18:44; Start 07/26/17 at 18:00; Status Future Hold Bupivacaine HCl (Marcaine Pf 0.5% Inj) 30 ml STK-MED ONCE .ROUTE ; Start at 05:31; Stop 07/27/17 at 05:32; Status DC Dexamethasone Sodium Phosphate (Decadron Inj) 4 mg STK-MED ONCE .ROUTE ; Start 07/27/17 at 05:32; Stop 07/27/17 at 05:33; Status DC Lidocaine HCl (Xylocaine 1% Inj (50 ml)) 50 ml STK-MED ONCE .ROUTE ; Start at 05:32; Stop 07/27/17 at 05:33; Status DC Fentanyl Citrate (fentaNYL INJ) 100 mcg STK-MED ONCE .ROUTE ; Start 07/27/17 at 08:54; Stop 07/27/17 at 08:55; Status DC Sodium Chloride (NS Flush) 2 ml UNSCH PRN IV FLUSH FLUSH AFTER USING IV ACCESS ; Start 07/27/17 at 09:00 Sodium Chloride (NS Flush) 2 ml BID IV FLUSH ; Start 07/27/17 at 09:00 Miscellaneous Information (Post-op Orders (for Pharmacy)) STAT ONCE XX ; Start 07/27/17 at 09:00; Stop 07/27/17 at 09:27; Status DC Oxycodone HCl (Roxicodone) 10 mg Q4H PRN PO PAIN SCALE 6 TO 10; Start 07/27/17 at 09:00 Hydromorphone HCl (Dilaudid Pf Inj) 1 mg Q3H PRN IV BREAKTHROUGH PAIN; Start at 09:00 Oxycodone HCl (Roxicodone) 5 mg Q4H PRN PO PAIN SCALE 3 TO 5 Last administered on 07/27/17 21:50; Start 07/27/17 at 09:00 Naloxone HCl (Narcan Inj) 0.4 mg UNSCH PRN IV SEE LABEL COMMENTS; Start at 09:00 Miscellaneous Information ALL NURSING DEPARTME... UNSCH PRN .XX SEE LABEL COMMENTS; Start 07/27/17 at 09:30; Stop 07/28/17 at 09:29; Status DC Potassium Chloride/Sodium Chloride 1,000 ml @ 125 mls/hr Q8H IV Last administered on 07/28/17 08:56; Start 07/27/17 at 09:45 Sodium Chloride 250 ml @ 15 mls/hr ONCE ONCE IV Last administered on 15:30; Start 07/27/17 at 15:30; Stop 07/28/17 at 08:09; Status DC Acetaminophen (Tylenol) 650 mg Q4H PRN PO SEE LABEL COMMENTS; Start 07/27/17 at 15:30 Diphenhydramine HCl (Benadryl) 25 mg Q4H PRN PO SEE LABEL COMMENTS; Start at 15:30 Furosemide (Lasix Inj) 20 mg ONCE ONCE IV Last administered on 07/27/17 21:58 ; Start 07/27/17 at 15:30; Stop 07/27/17 at 15:33; Status DC Sertraline HCl (Zoloft) 150 mg DAILY PO Last administered on 07/28/17 08:55; Start 07/28/17 at 09:00 Miscellaneous (Pill Splitter) 1 ea UNSCH PRN OTHER SEE LABEL COMMENTS; Start at 09:00 Ferrous Sulfate (Ferrous Sulfate) 325 mg BID PO Last administered on 07/28/17t 09:10; Start 07/28/17 at 09:00 Other Results Laboratory Tests Test 07/27/17 06:42 07/27/17 13:13 07/27/17 23:18 07/28/17 10:10 White Blood Count 17.6 TH/MM3 19.1 TH/MM3 Red Blood Count 3.99 MIL/MM3 3.40 MIL/MM3 Hemoglobin 8.5 GM/DL 7.6 GM/DL 8.2 GM/DL 7.7 GM/DL Hematocrit 26.8 % 23.9 % 25.7 % 24.0 % Mean Corpuscular Volume 67.3 FL 70.6 FL Mean Corpuscular Hemoglobin 21.3 PG 22.8 PG Mean Corpuscular Hemoglobin Concent 31.6 % 32.2 % Red Cell Distribution Width 17.6 % 21.8 % Platelet Count 238 TH/MM3 154 TH/MM3 Mean Platelet Volume 8.8 FL 9.1 FL Neutrophils (%) (Auto) 78.7 % 83.4 % Lymphocytes (%) (Auto) 12.6 % 8.2 % Monocytes (%) (Auto) 6.6 % 6.8 % Eosinophils (%) (Auto) 1.8 % 1.2 % Basophils (%) (Auto) 0.3 % 0.4 % Neutrophils # (Auto) 13.9 TH/MM3 16.0 TH/MM3 Lymphocytes # (Auto) 2.2 TH/MM3 1.6 TH/MM3 Monocytes # (Auto) 1.2 TH/MM3 1.3 TH/MM3 Eosinophils # (Auto) 0.3 TH/MM3 0.2 TH/MM3 Basophils # (Auto) 0.1 TH/MM3 0.1 TH/MM3 CBC Comment DIFF FINAL AUTO DIFF Differential Comment FINAL DIFF MANUAL Differential Total Cells Counted 100 Neutrophils % (Manual) 75 % Band Neutrophils % 12 % Lymphocytes % 6 % Monocytes % 4 % Eosinophils % 3 % Neutrophils # (Manual) 16.6 TH/MM3 Platelet Estimate NORMAL Platelet Morphology Comment NORMAL Ovalocytes 1+ Acanthocytes 1+ Blood Smear Pathologist Review Laboratory Tests Test 07/27/17 06:42 07/28/17 10:10 Blood Urea Nitrogen 44 MG/DL 52 MG/DL Creatinine 2.21 MG/DL 3.57 MG/DL Random Glucose 164 MG/DL 197 MG/DL Calcium Level 7.6 MG/DL 7.5 MG/DL Sodium Level 143 MEQ/L 140 MEQ/L Potassium Level 3.5 MEQ/L 3.9 MEQ/L Chloride Level 113 MEQ/L 113 MEQ/L Carbon Dioxide Level 17.6 MEQ/L 17.3 MEQ/L Anion Gap 12 MEQ/L 10 MEQ/L Estimat Glomerular Filtration Rate 37 ML/MIN 21 ML/MIN Microbiology Date/Time Source Procedure Growth Status 07/26/17 05:18 Blood Peripheral Aerobic Blood Culture - Preliminary NO GROWTH IN 2 DAYS Resulted 07/26/17 05:18 Blood Peripheral Anaerobic Blood Culture - Preliminary NO GROWTH IN 2 DAYS Resulted 07/26/17 04:24 Blood Peripheral Aerobic Blood Culture - Preliminary NO GROWTH IN 2 DAYS Resulted 07/26/17 04:24 Blood Peripheral Anaerobic Blood Culture - Preliminary NO GROWTH IN 2 DAYS Resulted 07/27/17 08:30 Wound Toe Fungal Smear - Final NO FUNGAL ELEMENTS SEEN. Resulted 07/27/17 08:30 Wound Toe Fungal Culture Pending Resulted 07/27/17 08:30 Wound Toe Gram Stain - Final Resulted 07/27/17 08:30 Wound Toe Wound Culture Pending Resulted Exam-Podiatry Constitutional General appearance: comfortable Nutritional status: normal Orientation: alert and oriented x3 Dermatological Exam Other: Scars, Surgery,Injury Dressing to her right foot is dry and intact. No break through bleeding noted. Vascular/Lymphatic Exam R Dorsails Pedis: Palpable L Dorsails Pedis: Palpable R Posterior Tibial: Palpable L Posterior Tibial: Palpable Neurologic Exam Present on right: Tingling, Paraesthesia Present on left: Tingling, Paraesthesia Assessment & Plan Diagnosis: (1) PAD (peripheral artery disease) ICD Codes: I73.9 - Peripheral vascular disease, unspecified Status: Chronic (2) IDDM (insulin dependent diabetes mellitus) ICD Codes: E11.9 - Type 2 diabetes mellitus without complications; Z79.4 - intermodal customer service (current) use of insulin Status: Chronic Plan: Status post amputation open of the right hallux 1 day A/P PLAN: Leave dressing intact until tomorrow. We'll apply a negative pressure wound therapy VAC unit on Saturday. We'll follow cultures and Path report. Dwaine Calloway DPM Jul 28, 2017 12:40
[2017-07-28] MEDS ORDERED: FUROSEMIDE 40 MG/4 ML VIAL IV PUSH ONE (12:45)
[2017-07-28] MEDS: prednisoLONE ACETATE 1% OPHT SUSP 5 ML BTL EACH EYE SCH (14:20)
[2017-07-28] MEDS: MONTELUKAST SODIUM 5 MG CHEWABLE TAB CHEW SCH (20:50)
[2017-07-28] MEDS: hydrOXYzine HCL 50 MG TAB PO SCH (20:51)
[2017-07-28] MEDS: ATORVASTATIN 80 MG TAB PO SCH (20:51)
[2017-07-29] VITALS (9 sets, daily range): BP systolic 124–165; BP diastolic 66–75; PULSE 92–104; RESP 18–20; TEMP 98.4–99.3; O2SAT 93–99
[2017-07-29] MEDS: NS + KCL 20 MEQ INJ 1,000 ML IV SCH (03:28)
[2017-07-29] MEDS: PIPERACIL-TAZO 3.375 GM PREMIX 50 ML IV SCH ×2 (03:28→09:41)
[2017-07-29] MEDS: INSULIN ASPART SUPPLEMENTAL SCALE SQ SCH ×4 (06:24→21:24)
--- NOTE | 2017-07-29 07:09 | MB ---
cc: SHAHIDA THURSTON MD DATE OF CONSULTATION 07/28/2017 REASON FOR CONSULTATION Elevated BUN and creatinine, for evaluation. HISTORY OF PRESENT ILLNESS This is a 62-year-old male with past medical history of diabetes mellitus which is longstanding since he was a teenager, history of hypertension, peripheral vascular disease, chronic kidney disease, history of cerebrovascular accident, ischemic heart disease who was admitted on July 22 with complaint of nausea, or vomiting and abdominal pain. I was called to see the patient because of elevated BUN and creatinine. The patient has known history of chronic kidney disease and looking back it looks like his creatinine was 1.1 about 6 days before admission and then when he was admitted was 1.6 and went down to 1.2 and now it has been going up. It has gone up to 3.5. The patient denies any known history of renal disease. He has not been seen by any nuclear plant equipment operator before. During this admission the patient was found to have peripheral vascular disease and gangrene of his left hallux. The patient has also been seen by Vascular Surgery and underwent angiogram done by Dr. Romo which showed that he has high-grade proximal superficial artery stenosis and it was treated by balloon angioplasty. The patient denies any nausea or vomiting but his appetite is not very good and there is no history of diarrhea. He denies any dysuria, hematuria or difficulty in passing urine. His vision is not very good because of the diabetes. PAST MEDICAL HISTORY 1. Hypertension. 2. Diabetes mellitus. 3. History of cerebrovascular accident. 4. Ischemic heart disease. 5. Peripheral vascular disease. 6. Possible chronic kidney disease. PAST SURGICAL HISTORY 1. History of eye surgery. 2. Cardiac catheterization with stent placement in 2014. 3. Angiography of his legs with angioplasty. REVIEW OF SYSTEMS There is no history of fever. No sore throat. No headache, dizziness or blurring of vision. The patient had decreased vision and he has possible diabetic retinopathy. There is no history of chest pain or shortness of breath or palpitation. He occasional nausea and has decreased appetite and there is no vomiting. There is no history of diarrhea. No dysuria or hematuria. SOCIAL HISTORY There is no history of smoking or alcoholism. FAMILY HISTORY Mother for unknown reason but there was no history of renal failure. ALLERGIES ALLERGY TO ASPIRIN. CURRENT MEDICATIONS The patient is on following medications - 1. IV fluids with potassium chloride at 125 an hour . 2. Najma-Colace 1 tablet b.i.d. 3. Coreg 6.25 mg b.i.d. 4. Ferrous sulfate 325 mg b.i.d. 5. Aspirin 81 mg once a day. 6. Plavix 75 mg daily. 7. Topamax 100 mg once a day. 8. KCL 30 mEq daily. 9. Zoloft 150 mg once a day. 10. Lipitor 80 mg q.h.s. 11. Atarax 50 mg q.h.s. 12. Singulair 5 mg q.h.s. 13. Levemir 20 units subcu q. 12 hours. 14. Heparin 5000 units q. 12 hours. 15. Zosyn 3.375 grams IV q. 6 hours. 16. Nystatin 5 mL b.i.d. 17. Insulin as per sliding scale. 18. Lactinex 1 gram t.i.d. 19. Zofran as needed. 20. Dulcolax as needed. PHYSICAL EXAMINATION GENERAL: The patient is awake, alert, not in acute distress. VITAL SIGNS: His last blood pressure was 130/91, temperature is 97, oxygen saturation 99%. HEENT: The patient has some corneal opacities. Conjunctivae is pale. NECK: Supple. JVD is not elevated. LUNGS: The patient has bilateral decreased air entry with occasional wheezing. HEART: S1, S2, regular rhythm. ABDOMEN: Distended, soft, lax. There is no tenderness. Bowel sounds positive. EXTREMITIES: There is no pedal edema. INVESTIGATIONS WBC count is 19.1, hemoglobin 7.7, platelet count of 154, neutrophils 83.4%, eosinophils 1.2%. Sodium 140, potassium 3.9, chloride 113, bicarb 17.3, BUN 52, creatinine 3.57. Calcium is 7.5, AST was 38, ALT is 26, alkaline phosphatase 122, total protein is 6.7, albumin of 1.4. Urinalysis was done and showed that he has protein of 30, glucose 1.1. Vanco trough level was 20 on 07/25. IMAGING STUDIES The patient has ultrasound of the kidneys done today which shows that she has normal-size kidneys, the right 10.7 and the left is 11.9 cm. There is no hydronephrosis. ASSESSMENT AND PLAN 1. Acute kidney injury with possibility of some chronic kidney disease. 2. Peripheral vascular disease of the kidneys post-angiogram. 3. Hypertension. 4. Diabetes mellitus. 5. Anemia. The patient has elevated BUN and creatinine. The differential diagnosis of acute kidney injury could be related to either acute tubular necrosis, interstitial nephritis or possibility of contrast nephropathy. I will check the urine sodium and eosinophil. He also has anemia so I will check the serum protein electrophoresis. There is a possibility of some chronic kidney disease, may be related to hypertensive diabetic nephropathy. His potassium has now normalized and is 3.9. I will DC the oral potassium because of this kidney failure. I agree with some hydration and follow the urine output and BUN and creatinine. Thank you for the consultation. I will follow the patient while he is in the hospital. Shahida Thurston MD AQJ/SSB /10:10 PM /6:45 AM
[2017-07-29] MEDS: SODIUM CHLORIDE 0.9% FLUSH 10 ML FLUSH IV FLUSH SCH ×2 (09:00→21:10)
[2017-07-29] MEDS: CARVEDILOL 6.25 MG TAB PO SCH ×2 (09:00→21:09)
[2017-07-29] MEDS: FERROUS SULFATE 325 MG (65 MG ELEMENTAL IRON) TAB PO SCH ×2 (09:27→21:08)
[2017-07-29] MEDS: NYSTATIN SUSP 500,000 U/5 ML CUP SWISH-SWAL SCH ×4 (09:27→21:08)
[2017-07-29] MEDS: DOCUSATE SODIUM 50 MG/SENNA 8.6 MG TAB PO SCH ×2 (09:27→21:08)
[2017-07-29] MEDS: PANTOPRAZOLE SODIUM 40 MG VIAL IV PUSH SCH (09:27)
[2017-07-29] MEDS: SERTRALINE HCL 100 MG TAB PO SCH (09:28)
[2017-07-29] MEDS: CLOPIDOGREL 75 MG TAB PO SCH (09:29)
[2017-07-29] MEDS: ASPIRIN 81 MG CHEW TAB CHEW SCH (09:29)
[2017-07-29] MEDS: HEPARIN SODIUM - SQ 10,000 UNITS/ML VIAL SQ SCH ×2 (09:30→21:09)
[2017-07-29] MEDS: prednisoLONE ACETATE 1% OPHT SUSP 5 ML BTL EACH EYE SCH (09:32)
[2017-07-29] MEDS: LACTOBACILLUS ACIDOPHILUS 1 GM PACKET PO SCH ×3 (09:40→17:14)
[2017-07-29] MEDS: ONDANSETRON HCL 4 MG/2 ML VIAL IVP PRN (09:48)
[2017-07-29] MEDS: INSULIN DETEMIR 100 UNITS/ML VIAL SQ SCH ×2 (09:54→21:24)
[2017-07-29 09:58] LABS: BACTERIA, URINE MOD /hpf; BLOOD, URINE LARGE (NEG); COMMENT (UR) CULTURE INDICATED; CULTURE IF INDICATED CULTURE INDICATED; GLUCOSE,URINE 70 mg/dL (NEG); KETONE, URINE TRACE mg/dL (NEG); NITRITE,URINE NEG (NEG)
[2017-07-29 09:59] LABS: URINE COLOR BROWN (YELLW/STRAW)
[2017-07-29] MEDS: TOPIRAMATE 100 MG TAB PO SCH (10:06)
[2017-07-29 10:13] LABS: AUTOMATED NEUTROPHIL # 17.7 TH/MM3 (1.8-7.7); BASOPHIL # 0.1 TH/MM3 (0-0.2); BASOPHIL % 0.2 % (0.0-2.0); EOSINOPHIL # 0.4 TH/MM3 (0-0.4); EOSINOPHIL % 1.9 % (0.0-4.0); HEMATOCRIT 23.1 % (39.0-51.0); LYMPH % 9.5 % (9.0-44.0); MEAN CELL VOLUME 70.7 FL (80.0-100.0); MEAN CORPUSCULAR HEMOGLOBIN 22.6 PG (27.0-34.0); MEAN CORPUSCULAR HGB CONC 31.9 % (32.0-36.0); MONO % 5.6 % (0.0-8.0); NEUT % 82.8 % (16.0-70.0); PLATELET COUNT 142 TH/MM3 (150-450); RED BLOOD COUNT 3.27 MIL/MM3 (4.50-5.90); RED CELL DISTRIBUTION WIDTH 22.2 % (11.6-17.2); WHITE BLOOD COUNT 21.4 TH/MM3 (4.0-11.0)
[2017-07-29 10:19] LABS: HEMO FLAGS AUTO DIFF
[2017-07-29 10:39] LABS: BICARBONATE 15.5 MEQ/L (21.0-32.0); POTASSIUM 4.8 MEQ/L (3.5-5.1)
[2017-07-29 10:41] LABS: TOTAL PROTEIN SPE 5.9 GM/DL (6.0-7.6)
[2017-07-29 10:52] LABS: BANDS 2 % (0-6); MYELOCYTES 1 % (0-0); NEUTROPHIL # MANUAL DIFF 18.8 TH/MM3 (1.8-7.7); PLATELET ESTIMATE SMEAR LOW (NORMAL); PLATELET MORPHOLOGY NORMAL (NORMAL); POLYS (SEG NEUTROPHILS) 85 % (16-70); SCAN/DIFF FINAL DIFF MANUAL; WBC DIFF SAMPLE 100
[2017-07-29 10:53] LABS: KERATOCYTES OCC (NORMAL); OVALOCYTES 1+ (NORMAL)
--- NOTE | 2017-07-29 11:21 | HHI.FPPN ---
Subjective Remarks No acute issues overnight. Vitals are stable, patient remains afebrile. He denies any chest pain, shortness of breath, fever, chills, nausea, or vomiting. His only concern this morning is that he gets his coffee. He is tolerating by mouth, voiding and stooling. (Aniya Jacobo MD, R3) Objective Vitals Vital Signs Date Time Temp Pulse Resp B/P (MAP) Pulse Ox O2 Delivery O2 Flow Rate FiO2 07/29/17 08:00 98.4 94 18 128/70 (89) 93 07/29/17 04:00 99.3 95 19 137/69 (91) 99 07/29/17 00:00 99.3 99 20 128/71 (90) 98 07/28/17 22:00 Room Air 07/28/17 20:00 94 07/28/17 20:00 98.9 97 20 134/69 (90) 97 07/28/17 17:57 100 Nasal Cannula 2.00 07/28/17 17:00 20 07/28/17 16:00 88 07/28/17 16:00 97.0 60 20 130/91 (104) 99 07/28/17 12:00 98.7 94 20 132/68 (89) 99 I/O 07/28/17 07/28/17 07/28/17 07/29/17 07/29/17 07/29/17 07:00 15:00 23:00 07:00 15:00 23:00 Intake Total 240 ml 1504 ml 1596 ml Output Total 150 ml 100 ml 100 ml Balance 90 ml 1404 ml 1496 ml Intake Oral 240 ml 240 ml 240 ml IV Total 1264 ml 1356 ml Output Urine Total 150 ml 100 ml 100 ml # Bowel Movements 1 1 (Aniya Jacobo MD, R3) Result Diagram: 07/29/17 0940 07/29/17 0940 Objective Remarks Gen.: Well-nourished, well-developed male. No acute distress CV: Regular rate and rhythm, no murmurs appreciated. Pulses equal to all extremities. Left upper extremity cooler than right upper extremity. Respiratory: Clear to auscultation bilaterally, no wheezes or rales. EXT: Right foot with angela bandage wrapping. Non draining. Elevated on pillow. GI: Soft NT ND BS present Neuro: Awake and alert, moving all extremities. (Aniya Jacobo MD, R3) A/P Assessment and Plan 61-year-old male with history of hypertension, poorly controlled diabetes, CVA in 2012, , admitted for sepsis secondary to right diabetic foot ulcer with wet gangrene and severe osteomyelitis, now s/p right hallux amputation and endovascular revascularization. Discharge Planning Timetable unclear at this time. (Aniya Jacobo MD, R3) Attending Attestation Patient seen and examined. Case reviewed and discussed with the resident team. Agree with plan of care as discussed with me and documented in the resident note. had discussion with pt and his . he is very ill at this time with multiple problems stemming from his very long history of type 1 DM since he was a teenager. discussed his past history as well as future plans. I explained that his kidneys were doing poorly and it was uncertain if they would turn around and start to improve but he was making very little urine and his creatinine is going up. He stated he would accept dialysis "if he really needed to have it". 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 he has had some chronic depression after his CVA but his med list has zoloft 150 mg per day. his is anemic today and will stop his lovenox as his platelets are low. his foot is getting good blood flow and in fact is having some bleeding so that appears the reason or one of the reasons his H/H is lower today. agree with transfusion as he does and has had acute blood loss. also spoke to pt and his about future goals and plans. he is extremely sick now with his problems. his is concerned about being able to take care of him at home but relies on his disability check to live and would lose that if he went to a snf. he does have family nearby in [place]. 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 s/p right hallux amputation on 07/27 and endovascular revascularization on 07/25 Afebrile x 24 hours Last fever 101.4 F on 07/28/2017. Leukocytosis trending up from 19.1-21.4 today 07/22 BCx x 2 No growth 07/24 BCx x 2 NGTD 07/26 BCx x 2 NGTD 07/27 wound culture growing Group B strep, no fungal elements seen 07/29 UCx pending CXR: no acute disease Head CT: no acute abnormality Plan: -Continue Vancomycin q12H with pharmacy consult (started 07/22) -Continue Zosyn 3.375g q6H (started 07/25) -Infectious Disease, Podiatry, and Vascular Surgery Consulted- Appreciate recommendations. (3) HOWARD (acute kidney injury) ICD Codes: N17.9 - Acute kidney failure, unspecified Status: Acute Plan: Acute kidney injury with possible chronic kidney disease Creatinine trending up from 3.57-4.65 today, with BUN increasing from 52-59 today 07/29 UA significant for large occult blood, moderate leukocyte esterase, moderate bacteria. Urine culture pending. Renal US normal Nephrology consulted- Appreciate recommendations. Differential includes acute tubular necrosis versus interstitial nephritis versus contrast nephropathy. Will check urine sodium and eosinophils and serum protein electrophoresis. Discontinue oral potassium. Continue IV hydration and follow urine output, BUN and creatinine. (4) Anemia ICD Codes: D64.9 - Anemia, unspecified Plan: s/p 2 units Packed RBCs, 1 on 07/25 and 1 on 07/27. Right first metatarsal amputation on 07/27 complicated by bleeding. Obtain peripheral smear given anemia, persistent leukocytosis, and fevers/chills /night sweats for several weeks. Continue Ferrous Sulfate 325 BID. Continue to monitor H/H Transfuse if Hgb <7.5 (5) Diabetes mellitus ICD Codes: E11.9 - Type 2 diabetes mellitus without complications Status: Chronic Plan: History of poorly controlled diabetes. Patient takes Lantus 40 units SQ at bedtime and Humalog mix 10 units 3 times a day. -Accu-Cheks ranging 185-209 -Medium dose SSI - Diabetic Diet -Continue Levemir 20 units BID . (6) Hypertension ICD Codes: I10 - Essential (primary) hypertension Status: Chronic Plan: Stable. Continue home meds -Coreg 6.2mg BID -Lisinopril 20mg daily (7) Thrush, oral ICD Codes: B37.0 - Candidal stomatitis Plan: Thrush on tongue on physical exam. Patient with uncontrolled diabetes, more susceptible to fungal infections. -Nystatin QID x 7-14 days (started 07/23) (8) Depression ICD Codes: F32.9 - Major depressive disorder, single episode, unspecified Plan: Improving, continue sertraline 150 mg PO daily. (9) FEN Status: Acute Plan: Fluids: NS @ 145mls/hr Electrolytes: wnl, continue to monitor Diet: Diabetic diet DVT ppx: heparin 5000units SQ q12H GI Pxx: Protonix 40 mg PO daily. dw Dr. 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
[2017-07-29] MEDS ORDERED: SODIUM CHLOR 0.9% 250 ML INJ 250 ML IV ONE (12:00)
--- NOTE | 2017-07-29 12:23 | PD.POD ---
Subjective Podiatric Problems Dry gangrene of the right hallux Pain scale used: 0-10 numeric scale Pain score: 1 Remarks 62-year-old diabetic male with peripheral vascular disease presented with dry gangrene of the right hallux. Vascular surgery consult appreciated. Dr. Romo was able to open up his blood supply for now. I performed an open amputation of the right hallux. Because of the patient's heparin the blood through his negative pressure wound VAC which was discontinued in PACU. No break through bleeding noted today. Bone culture from interop is growing strep species Past Med/Surg/Social History Past Medical History PFSH Reviewed: Yes HEENT: REPORTS HX OF: Other HEENT history (PRP Laser OU( dr. Cr 05/2009)) Endocrine: REPORTS HX OF: Diabetes mellitus Cardiovascular: REPORTS HX OF: Hyperlipidemia, Hypertension, Peripheral vascular dz Past Surgical History Cardiovascular: REPORTS HX OF: Coronary stent Musculoskeletal: REPORTS HX OF: Other musculoskeletal srg (amputation of the right hallux) Social History Smoking Status: Former Smoker Review of Systems Notes No changes in his 14 point review of systems exam since yesterday Objective Vital Signs Vital Signs Date Time Temp Pulse Resp B/P (MAP) Pulse Ox O2 Delivery O2 Flow Rate FiO2 07/29/17 08:00 98.4 94 18 128/70 (89) 93 07/29/17 07:40 92 07/29/17 04:00 99.3 95 19 137/69 (91) 99 07/29/17 00:00 99.3 99 20 128/71 (90) 98 07/28/17 22:00 Room Air 07/28/17 20:00 94 07/28/17 20:00 98.9 97 20 134/69 (90) 97 07/28/17 17:57 100 Nasal Cannula 2.00 07/28/17 17:00 20 07/28/17 16:00 88 07/28/17 16:00 97.0 60 20 130/91 (104) 99 Coded Allergies: aspirin (Verified Allergy, Intermediate, nausea, 07/22/17) Medications and IVs Current Medications Sodium Chloride (NS Flush) 2 ml UNSCH PRN IVF FLUSH AFTER USING IV ACCESS; Start 07/22/17 at 18:30; Stop 07/28/17 at 08:50; Status DC Sodium Chloride 1,000 ml @ 1,000 mls/hr Q1H ONCE IV Last administered on 19:11; Start 07/22/17 at 18:26; Stop 07/22/17 at 19:25; Status DC Ondansetron HCl (Zofran Inj) 4 mg ONCE ONCE IVP Last administered on 19:11; Start 07/22/17 at 18:30; Stop 07/22/17 at 18:32; Status DC Vancomycin HCl 1000 mg/Sodium Chloride 250 ml @ 250 mls/hr ONCE STAT IV Last administered on 07/22/17 20:01; Start 07/22/17 at 20:01; Stop 07/22/17 at 21:00 ; Status DC Piperacillin Sod/ Tazobactam Sod 100 ml @ 200 mls/hr ONCE STAT IV Last administered on 07/22/17 20:01; Start 07/22/17 at 20:01; Stop 07/22/17 at 20:30 ; Status DC Sodium Chloride 1,000 ml @ 999 mls/hr BOLUS ONCE IV Last administered on 07/22 20:15; Start 07/22/17 at 20:15; Stop 07/22/17 at 21:16; Status DC Sodium Chloride 1,000 ml @ 100 mls/hr Q10H IV Last administered on 07/26/17 09 :14; Start 07/22/17 at 21:50; Stop 07/27/17 at 09:37; Status DC Sodium Chloride (NS Flush) 2 ml UNSCH PRN IV FLUSH FLUSH AFTER USING IV ACCESS ; Start 07/22/17 at 22:00; Stop 07/28/17 at 08:50; Status DC Sodium Chloride (NS Flush) 2 ml BID IV FLUSH Last administered on 07/27/17 21: 58; Start 07/23/17 at 09:00; Stop 07/28/17 at 08:50; Status DC Acetaminophen (Tylenol) 650 mg Q4H PRN PO TEMP > 100.4 Last administered on 07/28 01:05; Start 07/22/17 at 22:00 Ondansetron HCl (Zofran Inj) 4 mg Q6H PRN IVP NAUSEA OR VOMITING Last administered on 07/29/17 09:48; Start 07/22/17 at 22:00 Heparin Sodium (Porcine) (Heparin Inj) 5,000 units Q12H SQ Last administered on 07/29/17 09:30; Start 07/22/17 at 22:00 Naloxone HCl (Narcan Inj) 0.4 mg UNSCH PRN IV SEE LABEL COMMENTS; Start at 22:00 Senna/Docusate Sodium (Najma-Colace) 1 tab BID PO Last administered on 07/29/17 09:27; Start 07/23/17 at 09:00 Magnesium Hydroxide (Milk Of Magnesia Liq) 30 ml Q12H PRN PO MILD - MODERATE CONSTIPATION; Start 07/22/17 at 22:00 Sennosides (Senokot) 17.2 mg Q12H PRN PO MODERATE - SEVERE CONSTIPATION; Start 07/22/17 at 22:00 Bisacodyl (Dulcolax Supp) 10 mg DAILY PRN RECTAL SEVERE CONSITIPATION; Start at 22:00 Lactulose (Lactulose Liq) 30 ml DAILY PRN PO SEVERE CONSITIPATION; Start at 22:00 Pharmacy Profile Note 0 ml @ 0 mls/hr UNSCH OTHER ; Start 07/22/17 at 22:00 Vancomycin HCl 1500 mg/Sodium Chloride 515 ml @ 257.5 mls/ hr Q12H IV ; Start 07/23/17 at 08:00; Status UNV Piperacillin Sod/ Tazobactam Sod 100 ml @ 200 mls/hr Q6H IV Last administered on 07/25/17 09:23; Start 07/23/17 at 02:00; Stop 07/25/17 at 09:58; Status DC Aspirin (Aspirin Chew) 81 mg DAILY CHEW Last administered on 07/29/17 09:29; Start 07/23/17 at 09:00 Atorvastatin Calcium (Lipitor) 80 mg HS PO Last administered on 07/28/17 20:51 ; Start 07/23/17 at 21:00 Carvedilol (Coreg) 6.25 mg BID PO Last administered on 07/29/17 09:00; Start at 09:00 Clopidogrel Bisulfate (Plavix) 75 mg DAILY PO Last administered on 07/29/17 09: 29; Start 07/23/17 at 09:00 Hydroxyzine HCl (Atarax) 50 mg HS PO Last administered on 07/28/17 20:51; Start 07/23/17 at 21:00 Lisinopril (Prinivil) 20 mg DAILY PO Last administered on 07/24/17 08:56; Start 07/23/17 at 09:00; Status Future Hold Montelukast Sodium (Singulair Chew) 5 mg HS CHEW Last administered on 07/28/17 20:50; Start 07/23/17 at 21:00 Prednisolone Acetate (Pred Forte 1% Opth Susp) 1 drop DAILY EACH EYE Last administered on 07/29/17 09:32; Start 07/23/17 at 09:00 Sertraline HCl (Zoloft) 100 mg DAILY PO Last administered on 07/26/17 09:16; Start 07/23/17 at 09:00; Stop 07/28/17 at 08:42; Status DC Topiramate (Topamax) 100 mg DAILY PO Last administered on 07/29/17 10:06; Start 07/23/17 at 09:00 Dextrose (D50w (Vial) Inj) 50 ml UNSCH PRN IV HYPOGLYCEMIA-SEE COMMENTS; Start 07/22/17 at 22:15 Glucagon (Glucagon Inj) 1 mg UNSCH PRN OTHER HYPOGLYCEMIA-SEE COMMENTS; Start 07/22/17 at 22:15 Insulin Aspart (NovoLOG SUPPLEMENTAL SCALE) 1 ACHS SLIDING SCALE SQ Last administered on 07/29/17 06:24; Start 07/23/17 at 07:00 Vancomycin HCl 1000 mg/Sodium Chloride 250 ml @ 250 mls/hr ONCE ONCE IV Last administered on 07/22/17 22:15; Start 07/22/17 at 22:15; Stop 07/22/17 at 23:14 ; Status DC Diatrizoate Meglum/ Diatrizoate Sod ( Gastroview Liq) 18 ml STK-MED ONCE .ROUTE ; Start 07/22/17 at 22:16; Stop 07/22/17 at 22:17; Status DC Diatrizoate Meglum/ Diatrizoate Sod ( Gastroview Liq) 18 ml NOW ONCE PO Last administered on 07/22/17 22:45; Start 07/22/17 at 22:45; Stop 07/22/17 at 22:46; Status DC Nystatin (Mycostatin Liq) 5 ml QID SWISH-SWAL Last administered on 07/29/17 09 :27; Start 07/23/17 at 09:00 Pantoprazole Sodium (Protonix Inj) 40 mg DAILY IV PUSH Last administered on 07/29 09:27; Start 07/22/17 at 22:45; Stop 07/29/17 at 11:21; Status DC Iohexol (Omnipaque 350 Inj) 95 ml STK-MED ONCE IVCONTRAST Last administered on 07/22/17 23:59; Start 07/22/17 at 23:59; Stop 07/23/17 at 00:00; Status DC Nitroglycerin (Nitroglycerin 2% Oint) 1 inch ONCE ONCE TOPICAL Last administered on 07/23/17 10:22; Start 07/23/17 at 10:00; Stop 07/23/17 at 10:01 ; Status DC Vancomycin HCl 2000 mg/Sodium Chloride 520 ml @ 250 mls/hr Q24H IV Last administered on 07/25/17 21:46; Start 07/23/17 at 18:00; Stop 07/26/17 at 09:24 ; Status DC Miscellaneous Information SPECIFIC LAB TO BE DRAWN:VANCOMYCIN TROUGH DATE TO... ONCE ONCE .XX ; Start 07/25/17 at 17:45; Stop 07/25/17 at 17:46; Status DC Lactobacillus Acidophilus (Lactinex Pkt) 1 gm TID PO Last administered on 09:40; Start 07/23/17 at 18:00 Pharmacy Profile Note 0 ml @ 0 mls/hr UNSCH OTHER ; Start 07/24/17 at 16:45; Stop 07/24/17 at 17:00; Status DC Insulin Detemir (Levemir Inj) 20 units ONCE ONCE SQ Last administered on 17:00; Start 07/24/17 at 17:00; Stop 07/24/17 at 17:01; Status DC Insulin Detemir (Levemir Inj) 20 units Q12HR SQ Last administered on 07/29/17 09:54; Start 07/25/17 at 21:00 Potassium Chloride (KCl) 30 meq DAILY PO Last administered on 07/28/17 09:01; Start 07/25/17 at 09:45; Stop 07/28/17 at 22:23; Status DC Sodium Chloride 250 ml @ 15 mls/hr ONCE ONCE IV Last administered on 23:48; Start 07/25/17 at 10:00; Stop 07/26/17 at 02:39; Status DC Furosemide (Lasix Inj) 20 mg CATTLE [employer]ODUCERS IV Last administered on 07/26/17 03:39; Start 07/25/17 at 09:45; Stop 07/26/17 at 09:44; Status DC Piperacillin Sod/ Tazobactam Sod 50 ml @ 100 mls/hr Q6H IV Last administered on 07/29/17 09:41; Start 07/25/17 at 16:00 Heparin Sodium/ Sodium Chloride 500 ml @ As Directed STK-MED ONCE .ROUTE Last administered on 07/25/17 16:08; Start 07/25/17 at 16:08; Stop 07/25/17 at 16:09 ; Status DC Midazolam HCl (Versed Inj) 5 mg STK-MED ONCE .ROUTE Last administered on 16:37; Start 07/25/17 at 16:28; Stop 07/25/17 at 16:29; Status DC Fentanyl Citrate (fentaNYL INJ) 100 mcg STK-MED ONCE .ROUTE Last administered on 07/25/17 16:36; Start 07/25/17 at 16:28; Stop 07/25/17 at 16:29; Status DC Heparin Sodium/ Sodium Chloride 500 ml @ As Directed STK-MED ONCE .ROUTE Last administered on 07/25/17 16:35; Start 07/25/17 at 16:35; Stop 07/25/17 at 16:36 ; Status DC Heparin Sodium (Porcine) (Heparin Inj) 10,000 units STK-MED ONCE .ROUTE Last administered on 07/25/17 16:46; Start 07/25/17 at 16:46; Stop 07/25/17 at 16:47 ; Status DC Midazolam HCl (Versed Inj) 5 mg STK-MED ONCE .ROUTE ; Start 07/25/17 at 17:18; Stop 07/25/17 at 17:19; Status DC Fentanyl Citrate (fentaNYL INJ) 100 mcg STK-MED ONCE .ROUTE ; Start 07/25/17 at 17:18; Stop 07/25/17 at 17:19; Status DC Clopidogrel Bisulfate (Plavix) 75 mg DAILY PO ; Start 07/27/17 at 09:00; Stop 07/27/17 at 09:00; Status DC Clopidogrel Bisulfate (Plavix) 150 mg ONCE ONCE PO Last administered on 21:46; Start 07/25/17 at 20:45; Stop 07/25/17 at 21:35; Status DC Iohexol 50 ml @ 0 mls/hr ONCE ONCE IV ; Start 07/25/17 at 17:54; Stop 07/25/17 at 21:35; Status DC Sodium Chloride 1,000 ml @ 500 mls/hr Q2H IV Last administered on 07/26/17 15: 48; Start 07/26/17 at 05:45; Stop 07/26/17 at 07:45; Status DC Vancomycin HCl 1750 mg/Sodium Chloride 517.5 ml @ 250 mls/hr Q24H IV ; Start at 18:00; Stop 07/26/17 at 18:00; Status DC Miscellaneous Information SPECIFIC LAB TO BE SEPIDEH... ONCE ONCE .XX ; Start at 17:45; Stop 07/29/17 at 17:46; Status Cancel Vancomycin HCl 1500 mg/Sodium Chloride 515 ml @ 257.5 mls/ hr Q24H IV Last administered on 07/27/17 18:44; Start 07/26/17 at 18:00; Status Future Hold Bupivacaine HCl (Marcaine Pf 0.5% Inj) 30 ml STK-MED ONCE .ROUTE ; Start at 05:31; Stop 07/27/17 at 05:32; Status DC Dexamethasone Sodium Phosphate (Decadron Inj) 4 mg STK-MED ONCE .ROUTE ; Start 07/27/17 at 05:32; Stop 07/27/17 at 05:33; Status DC Lidocaine HCl (Xylocaine 1% Inj (50 ml)) 50 ml STK-MED ONCE .ROUTE ; Start at 05:32; Stop 07/27/17 at 05:33; Status DC Fentanyl Citrate (fentaNYL INJ) 100 mcg STK-MED ONCE .ROUTE ; Start 07/27/17 at 08:54; Stop 07/27/17 at 08:55; Status DC Sodium Chloride (NS Flush) 2 ml UNSCH PRN IV FLUSH FLUSH AFTER USING IV ACCESS ; Start 07/27/17 at 09:00 Sodium Chloride (NS Flush) 2 ml BID IV FLUSH ; Start 07/27/17 at 09:00 Miscellaneous Information (Post-op Orders (for Pharmacy)) STAT ONCE XX ; Start 07/27/17 at 09:00; Stop 07/27/17 at 09:27; Status DC Oxycodone HCl (Roxicodone) 10 mg Q4H PRN PO PAIN SCALE 6 TO 10 Last administered on 07/28/17 22:39; Start 07/27/17 at 09:00 Hydromorphone HCl (Dilaudid Pf Inj) 1 mg Q3H PRN IV BREAKTHROUGH PAIN; Start at 09:00 Oxycodone HCl (Roxicodone) 5 mg Q4H PRN PO PAIN SCALE 3 TO 5 Last administered on 07/28/17 15:53; Start 07/27/17 at 09:00 Naloxone HCl (Narcan Inj) 0.4 mg UNSCH PRN IV SEE LABEL COMMENTS; Start at 09:00 Miscellaneous Information ALL NURSING DEPARTME... UNSCH PRN .XX SEE LABEL COMMENTS; Start 07/27/17 at 09:30; Stop 07/28/17 at 09:29; Status DC Potassium Chloride/Sodium Chloride 1,000 ml @ 125 mls/hr Q8H IV Last administered on 07/29/17 03:28; Start 07/27/17 at 09:45; Stop 07/29/17 at 11:18; Status DC Sodium Chloride 250 ml @ 15 mls/hr ONCE ONCE IV Last administered on 15:30; Start 07/27/17 at 15:30; Stop 07/28/17 at 08:09; Status DC Acetaminophen (Tylenol) 650 mg Q4H PRN PO SEE LABEL COMMENTS; Start 07/27/17 at 15:30 Diphenhydramine HCl (Benadryl) 25 mg Q4H PRN PO SEE LABEL COMMENTS; Start at 15:30 Furosemide (Lasix Inj) 20 mg ONCE ONCE IV Last administered on 07/27/17 21:58 ; Start 07/27/17 at 15:30; Stop 07/27/17 at 15:33; Status DC Sertraline HCl (Zoloft) 150 mg DAILY PO Last administered on 07/29/17 09:28; Start 07/28/17 at 09:00 Miscellaneous (Pill Splitter) 1 ea UNSCH PRN OTHER SEE LABEL COMMENTS; Start at 09:00 Ferrous Sulfate (Ferrous Sulfate) 325 mg BID PO Last administered on 07/29/17 09:27; Start 07/28/17 at 09:00 Furosemide (Lasix Inj) 40 mg ONCE ONCE IV PUSH Last administered on 07/28/17 14:17; Start 07/28/17 at 12:45; Stop 07/28/17 at 12:46; Status DC Sodium Chloride 1,000 ml @ 145 mls/hr Q6H54M IV ; Start 07/29/17 at 12:00 Pantoprazole Sodium (Protonix) 40 mg DAILY PO ; Start 07/30/17 at 09:00 Sodium Chloride 250 ml @ 15 mls/hr ONCE ONCE IV ; Start 07/29/17 at 12:00; Stop 07/30/17 at 04:39 Other Results Laboratory Tests Test 07/27/17 13:13 07/27/17 23:18 07/28/17 10:10 07/29/17 09:40 Hemoglobin 7.6 GM/DL 8.2 GM/DL 7.7 GM/DL 7.4 GM/DL Hematocrit 23.9 % 25.7 % 24.0 % 23.1 % White Blood Count 19.1 TH/MM3 21.4 TH/MM3 Red Blood Count 3.40 MIL/MM3 3.27 MIL/MM3 Mean Corpuscular Volume 70.6 FL 70.7 FL Mean Corpuscular Hemoglobin 22.8 PG 22.6 PG Mean Corpuscular Hemoglobin Concent 32.2 % 31.9 % Red Cell Distribution Width 21.8 % 22.2 % Platelet Count 154 TH/MM3 142 TH/MM3 Mean Platelet Volume 9.1 FL 8.9 FL Neutrophils (%) (Auto) 83.4 % 82.8 % Lymphocytes (%) (Auto) 8.2 % 9.5 % Monocytes (%) (Auto) 6.8 % 5.6 % Eosinophils (%) (Auto) 1.2 % 1.9 % Basophils (%) (Auto) 0.4 % 0.2 % Neutrophils # (Auto) 16.0 TH/MM3 17.7 TH/MM3 Lymphocytes # (Auto) 1.6 TH/MM3 2.0 TH/MM3 Monocytes # (Auto) 1.3 TH/MM3 1.2 TH/MM3 Eosinophils # (Auto) 0.2 TH/MM3 0.4 TH/MM3 Basophils # (Auto) 0.1 TH/MM3 0.1 TH/MM3 CBC Comment AUTO DIFF AUTO DIFF Differential Total Cells Counted 100 100 Neutrophils % (Manual) 75 % 85 % Band Neutrophils % 12 % 2 % Lymphocytes % 6 % 10 % Monocytes % 4 % 2 % Eosinophils % 3 % Neutrophils # (Manual) 16.6 TH/MM3 18.8 TH/MM3 Differential Comment FINAL DIFF MANUAL FINAL DIFF MANUAL Platelet Estimate NORMAL LOW Platelet Morphology Comment NORMAL NORMAL Ovalocytes 1+ 1+ Acanthocytes 1+ Blood Smear Pathologist Review Myelocytes 1 % Keratocytes OCC Laboratory Tests Test 07/28/17 10:10 07/29/17 09:40 Blood Urea Nitrogen 52 MG/DL 59 MG/DL Creatinine 3.57 MG/DL 4.65 MG/DL Random Glucose 197 MG/DL 172 MG/DL Calcium Level 7.5 MG/DL 7.9 MG/DL Sodium Level 140 MEQ/L 139 MEQ/L Potassium Level 3.9 MEQ/L 4.8 MEQ/L Chloride Level 113 MEQ/L 114 MEQ/L Carbon Dioxide Level 17.3 MEQ/L 15.5 MEQ/L Anion Gap 10 MEQ/L 10 MEQ/L Estimat Glomerular Filtration Rate 21 ML/MIN 16 ML/MIN Phosphorus Level 4.1 MG/DL Total Protein 5.9 GM/DL Microbiology Date/Time Source Procedure Growth Status 07/29/17 09:15 Urine Clean Catch Urine Culture Pending Received 07/27/17 08:30 Wound Toe Fungal Smear - Final NO FUNGAL ELEMENTS SEEN. Resulted 07/27/17 08:30 Wound Toe Fungal Culture Pending Resulted 07/27/17 08:30 Wound Toe Gram Stain - Final Complete 07/27/17 08:30 Wound Culture - Final Group B Beta Strep Complete Exam-Podiatry Constitutional General appearance: comfortable Nutritional status: overweight Orientation: alert and oriented x3 Dermatological Exam Skin Temp - Right: Within Normal Limits Skin Texture - Right: Within Normal Limits Skin Elasticity - Right: Within Normal Limits Skin Tugor - Right: Within Normal Limits Hair Growth - Right: Within Normal Limits Pigmentation - Right: Within Normal Limits Skin Temp - Left: Within Normal Limits Skin Texture - Left: Within Normal Limits Skin Elasticity - Left: Within Normal Limits Skin Tugor - Left: Within Normal Limits Hair Growth - Left: Within Normal Limits Pigmentation - Left: Within Normal Limits Ulcers: Location/Measurements Open amputation site appears healthy with granulating base. No purulence seen. No ascending cellulitis seen Vascular/Lymphatic Exam R Dorsails Pedis: Palpable L Dorsails Pedis: Palpable R Posterior Tibial: Palpable L Posterior Tibial: Palpable Neurologic Exam Present on right: Tingling, Paraesthesia Present on left: Tingling, Paraesthesia Musculoskeletal Exam Details Amputation of the right hallux Muscle Strength Dorsiflexion (Right): Normal Plantarflexion (Right): Normal Inversion (Right): Normal Eversion (Right): Normal Digital (Right): Normal Dorsiflexion (Left): Normal Plantarflexion (Left): Normal Inversion (Left): Normal Eversion (Left): Normal Digital (Left): Normal Foot Range of Motion Dorsiflexion (Right): Normal Plantarflexion (Right): Normal Inversion (Right): Normal Eversion (Right): Normal Digital (Right): Normal Dorsiflexion (Left): Normal Plantarflexion (Left): Normal Inversion (Left): Normal Eversion (Left): Normal Digital (Left): Normal Assessment & Plan Diagnosis: (1) PAD (peripheral artery disease) ICD Codes: I73.9 - Peripheral vascular disease, unspecified Status: Chronic (2) IDDM (insulin dependent diabetes mellitus) ICD Codes: E11.9 - Type 2 diabetes mellitus without complications; Z79.4 - USP (current) use of insulin Status: Chronic Plan: Status post amputation open of the right hallux 1 day A/P PLAN: Dressing and packing were removed. Negative pressure wound therapy VAC was applied. It is to run at 125 mmHg continuous. Nursing to change dressing Saturday and Saturday. Continue to follow. Dwaine Calloway DPM Jul 29, 2017 12:23
[2017-07-29] MEDS: SODIUM CHLOR 0.9% 1000 ML INJ 1,000 ML IV SCH ×2 (12:27→17:27)
[2017-07-29 15:24] LABS: RETIC % 0.9 % (0.4-3.0); REVIEW FLAG FINAL
--- NOTE | 2017-07-29 15:50 | HHI.IDPN ---
Subjective Subjective Remarks no fever minimal urine output bladder scan with no residuals creatinie 4+ today Antibiotics zosyn vancomycin Allergies: Coded Allergies: aspirin (Verified Allergy, Intermediate, nausea, 07/22/17) Objective . Vital Signs Date Time Temp Pulse Resp B/P (MAP) Pulse Ox O2 Delivery O2 Flow Rate FiO2 07/29/17 12:00 98.4 94 18 130/74 (92) 94 07/29/17 08:00 98.4 94 18 128/70 (89) 93 07/29/17 07:40 92 07/29/17 04:00 99.3 95 19 137/69 (91) 99 07/29/17 00:00 99.3 99 20 128/71 (90) 98 07/28/17 22:00 Room Air 07/28/17 20:00 94 07/28/17 20:00 98.9 97 20 134/69 (90) 97 07/28/17 17:57 100 Nasal Cannula 2.00 07/28/17 17:00 20 07/28/17 16:00 88 07/28/17 16:00 97.0 60 20 130/91 (104) 99 . Laboratory Tests Test 07/27/17 23:18 07/28/17 10:10 07/29/17 09:40 07/29/17 14:16 Hemoglobin 8.2 GM/DL 7.7 GM/DL 7.4 GM/DL Hematocrit 25.7 % 24.0 % 23.1 % White Blood Count 19.1 TH/MM3 21.4 TH/MM3 Red Blood Count 3.40 MIL/MM3 3.27 MIL/MM3 Mean Corpuscular Volume 70.6 FL 70.7 FL Mean Corpuscular Hemoglobin 22.8 PG 22.6 PG Mean Corpuscular Hemoglobin Concent 32.2 % 31.9 % Red Cell Distribution Width 21.8 % 22.2 % Platelet Count 154 TH/MM3 142 TH/MM3 Mean Platelet Volume 9.1 FL 8.9 FL Neutrophils (%) (Auto) 83.4 % 82.8 % Lymphocytes (%) (Auto) 8.2 % 9.5 % Monocytes (%) (Auto) 6.8 % 5.6 % Eosinophils (%) (Auto) 1.2 % 1.9 % Basophils (%) (Auto) 0.4 % 0.2 % Neutrophils # (Auto) 16.0 TH/MM3 17.7 TH/MM3 Lymphocytes # (Auto) 1.6 TH/MM3 2.0 TH/MM3 Monocytes # (Auto) 1.3 TH/MM3 1.2 TH/MM3 Eosinophils # (Auto) 0.2 TH/MM3 0.4 TH/MM3 Basophils # (Auto) 0.1 TH/MM3 0.1 TH/MM3 CBC Comment AUTO DIFF AUTO DIFF Differential Total Cells Counted 100 100 Neutrophils % (Manual) 75 % 85 % Band Neutrophils % 12 % 2 % Lymphocytes % 6 % 10 % Monocytes % 4 % 2 % Eosinophils % 3 % Neutrophils # (Manual) 16.6 TH/MM3 18.8 TH/MM3 Differential Comment FINAL DIFF MANUAL FINAL DIFF MANUAL Platelet Estimate NORMAL LOW Platelet Morphology Comment NORMAL NORMAL Ovalocytes 1+ 1+ Acanthocytes 1+ Blood Smear Pathologist Review Myelocytes 1 % Keratocytes OCC Reticulocyte Count 0.9 % Absolute Reticulocyte Count 26.5 MIL/L Laboratory Tests Test 07/28/17 10:10 07/29/17 09:40 Blood Urea Nitrogen 52 MG/DL 59 MG/DL Creatinine 3.57 MG/DL 4.65 MG/DL Random Glucose 197 MG/DL 172 MG/DL Calcium Level 7.5 MG/DL 7.9 MG/DL Sodium Level 140 MEQ/L 139 MEQ/L Potassium Level 3.9 MEQ/L 4.8 MEQ/L Chloride Level 113 MEQ/L 114 MEQ/L Carbon Dioxide Level 17.3 MEQ/L 15.5 MEQ/L Anion Gap 10 MEQ/L 10 MEQ/L Estimat Glomerular Filtration Rate 21 ML/MIN 16 ML/MIN Phosphorus Level 4.1 MG/DL Total Protein 5.9 GM/DL Microbiology Date/Time Source Procedure Growth Status 07/29/17 09:15 Urine Clean Catch Urine Culture Pending Received 07/27/17 08:30 Wound Toe Fungal Smear - Final NO FUNGAL ELEMENTS SEEN. Resulted 07/27/17 08:30 Wound Toe Fungal Culture Pending Resulted 07/27/17 08:30 Wound Toe Gram Stain - Final Complete 07/27/17 08:30 Wound Culture - Final Group B Beta Strep Complete Imaging Last Impressions Renal Ultrasound 07/28/17 0000 Signed Impressions: Service Date/Time: Friday, July 28, 2017 09:48 - CONCLUSION: Normal examination. Ruiz Jhonson MD Chest X-Ray 07/28/17 0000 Signed Impressions: Service Date/Time: Friday, July 28, 2017 09:19 - CONCLUSION: Bilateral lower lobe airspace disease. Ruiz Johnson MD Foot X-Ray 07/27/17 0000 Signed Impressions: Service Date/Time: Thursday, July 27, 2017 10:40 - CONCLUSION: Postsurgical changes are identified right first digit amputation. Ruiz Johnson MD Head CT 07/22/17 1826 Signed Impressions: Service Date/Time: Saturday, July 22, 2017 19:17 - CONCLUSION: 1. No acute abnormality is seen. 2. Atrophy. 3. Persistent stable encephalomalacia at the inferior left cerebellar hemisphere. Markus Denny MD Abdomen/Pelvis CT 07/22/17 0000 Signed Impressions: Service Date/Time: Saturday, July 22, 2017 23:56 - CONCLUSION: 1. No acute finding is identified within the abdomen or pelvis. There is mild respiratory motion artifact. 2. Stable nonacute findings include small hiatal hernia and small bilateral low-density renal lesions. There is trace left pleural fluid. Markus Chester MD Physical Exam CONSTITUTIONAL/GENERAL: lethargic, in no apparent distress. TUBES/LINES/DRAINS: SKIN: No jaundice, rashes, or lesions. CARDIOVASCULAR: Regular rate and rhythm without murmurs, gallops, or rubs. RESPIRATORY/CHEST: Symmetric, unlabored respirations. Clear to auscultation. GASTROINTESTINAL: Abdomen soft, non-tender, nondistended. Bowel sounds present. GENITOURINARY: Ceja catheter in place withminimal amount of very dark bloody urine MUSCULOSKELETAL: Extremities without clubbing, cyanosis, STATUS LOCALIS: R foot with VAC in place with serosang dc\rainage NEUROLOGICAL: lethargic, difficult to arouse PSYCHIATRIC: unable to assess Assessment & Plan Remarks Fever, leukocytosis 2/2 severe R hallux DFI, klikely polimicrobial with mixed aerobic/anaerobic asad grew GBS DFI with wet and dry gangrene present Persistent fever and leukocytosis 2/ severe DFI, wet gangrene and likley severe osteo - sp R hallux amputation PVD, sp successuful endocvascular revascularisation moderate SFA stenosis - successful SPOUT LINER >90% AT stenosis - successful SPOUT LINER DP occlusion - recanalized and SPOUT LINER Poorly controlled DM POor compliance Obstructive uropahty, sp ceja placement : resolutionof obstruction ARF - likley 2/2 obstructive uropathy, other potentially contributing factors: contrast nephropathy, abx - no eosinophils in the urine cont zosyn , adjust dose dc vanco monitor creatinine dw @ b/s Rima Godinez RN, MD Jul 29, 2017 15:50
--- NOTE | 2017-07-29 16:06 | HHI.NPPN ---
Subjective History of Present Illness 62-year-old male with past medical history of diabetes mellitus which is longstanding since he was a teenager, history of hypertension, peripheral vascular disease, chronic kidney disease, history of cerebrovascular accident, ischemic heart disease who was admitted on July 22 with complaint of nausea, or vomiting and abdominal pain. I was called to see the patient because of elevated BUN and creatinine. The patient has known history of chronic kidney disease and looking back it looks like his creatinine was 1.1 about 6 days before admission. Additional Remarks Patient is awake, no SOB, not eating well. Review of Systems General Constitutional: Fatigue Respiratory Lungs: Wheeze Cardiovascular Cardiac: Edema, HO Objective Data Data Vital Signs Date Time Temp Pulse Resp B/P (MAP) Pulse Ox O2 Delivery O2 Flow Rate FiO2 07/29/17 12:00 98.4 94 18 130/74 (92) 94 07/29/17 08:00 98.4 94 18 128/70 (89) 93 07/29/17 07:40 92 07/29/17 04:00 99.3 95 19 137/69 (91) 99 07/29/17 00:00 99.3 99 20 128/71 (90) 98 07/28/17 22:00 Room Air 07/28/17 20:00 94 07/28/17 20:00 98.9 97 20 134/69 (90) 97 07/28/17 17:57 100 Nasal Cannula 2.00 07/28/17 17:00 20 -: 07/29/17 0940 07/29/17 0940 Microbiology 07/29/17 Urine Culture, Received Pending Physical Exam General Appearance: Well Nourished, No Acute Distress, Comfortable Eyes Eye Exam: Pupils Equal Throat Throat Exam: Oral Mucosa [place] & Moist Neck Neck Exam: Neck Supple Pulmonary Resp Exam: No Distress, Rhonchi, Decreased Bases, Diminished Breath Sounds Gastrointestinal/Abdomen GI Exam: Soft, Non-Tender, Bowel Sounds Present, Distended Extremeties Extremities Exam: Moderate Edema, Pitting Edema Neurologic Neuro Exam: Alert, Awake, Oriented Psychiatric Psych Exam: Appropriate Responses Assessment/Plan Assessment Summary: HOWARD/Acute Renal Failure, Hypertension, CKD Stage III Problem List: (1) Blindness ICD Codes: H54.0 - Blindness, both eyes Status: Acute (2) CAD (coronary artery disease) ICD Codes: I25.10 - Atherosclerotic heart disease of [place] coronary artery without angina pectoris Status: Acute (3) Hyperlipidemia ICD Codes: E78.5 - Hyperlipidemia, unspecified Status: Acute (4) Anemia ICD Codes: D64.9 - Anemia, unspecified (5) Diabetes mellitus ICD Codes: E11.9 - Type 2 diabetes mellitus without complications Status: Chronic (6) Hypertension ICD Codes: I10 - Essential (primary) hypertension Status: Chronic (7) 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 Most likely has Hypertensive or Diabetic renal disease. Urine out put is low. Creatinine continue to increase. Most likely has Contrast Nephropathy. HCo3 decreased, add NaHco3 in IVF. If continue to get worse, may will need HD. D/W the patient. Problem Qualifiers (1) Hyperlipidemia: Qualified Codes: E78.00 - Pure hypercholesterolemia, unspecified (2) Anemia: Qualified Codes: D64.9 - Anemia, unspecified (3) Diabetes mellitus: Qualified Codes: E10.52 - Type 1 diabetes mellitus with diabetic peripheral angiopathy with gangrene (4) Hypertension: Qualified Codes: I10 - Essential (primary) hypertension (5) Diabetes mellitus with peripheral angiopathy with gangrene: Qualified Codes: E10.52 - Type 1 diabetes mellitus with diabetic peripheral angiopathy with gangrene Grace Mckeon MD Jul 29, 2017 16:06
[2017-07-29] MEDS: PIPERACIL-TAZO 2.25 GM PREMIX 50 ML IV SCH ×2 (17:13→23:01)
[2017-07-29] MEDS ORDERED: PHARMACY ORDERED LAB ONE (17:45)
[2017-07-29] MEDS: hydrOXYzine HCL 50 MG TAB PO SCH (21:08)
[2017-07-29] MEDS: ATORVASTATIN 80 MG TAB PO SCH (21:08)
[2017-07-29] MEDS: MONTELUKAST SODIUM 5 MG CHEWABLE TAB CHEW SCH (21:08)
[2017-07-29 22:40] LABS: HEMATOCRIT 26.4 % (39.0-51.0)
[2017-07-29 22:42] LABS: REVIEW FLAG FINAL
[2017-07-30] VITALS (8 sets, daily range): BP systolic 133–162; BP diastolic 66–87; PULSE 90–104; RESP 18–20; TEMP 97.5–98.4; O2SAT 96–98
[2017-07-30] MEDS: PIPERACIL-TAZO 2.25 GM PREMIX 50 ML IV SCH ×4 (04:24→22:32)
[2017-07-30] MEDS: INSULIN ASPART SUPPLEMENTAL SCALE SQ SCH ×4 (06:15→21:00)
[2017-07-30 09:05] LABS: ALBUMIN SPE 1.77 GM/DL (3.50-5.00); ALPHA 1 GLOBULIN 0.57 GM/DL (0.11-0.29); ALPHA 2 GLOBULIN 0.99 GM/DL (0.22-1.00); BETA GLOBULINS (SPE) 1.12 GM/DL (0.53-1.03)
[2017-07-30] MEDS: NYSTATIN SUSP 500,000 U/5 ML CUP SWISH-SWAL SCH ×4 (09:36→21:13)
[2017-07-30] MEDS: TOPIRAMATE 100 MG TAB PO SCH (09:36)
[2017-07-30] MEDS: PANTOPRAZOLE SOD 40 MG DELAYED RELEASE TAB PO SCH (09:36)
[2017-07-30] MEDS: LACTOBACILLUS ACIDOPHILUS 1 GM PACKET PO SCH ×3 (09:36→18:28)
[2017-07-30] MEDS: HEPARIN SODIUM - SQ 10,000 UNITS/ML VIAL SQ SCH ×2 (09:36→21:14)
[2017-07-30] MEDS: CARVEDILOL 6.25 MG TAB PO SCH ×2 (09:37→21:13)
[2017-07-30] MEDS: CLOPIDOGREL 75 MG TAB PO SCH (09:38)
[2017-07-30] MEDS: FERROUS SULFATE 325 MG (65 MG ELEMENTAL IRON) TAB PO SCH ×2 (09:39→21:13)
[2017-07-30] MEDS: DOCUSATE SODIUM 50 MG/SENNA 8.6 MG TAB PO SCH ×2 (09:39→21:13)
[2017-07-30] MEDS: ASPIRIN 81 MG CHEW TAB CHEW SCH (09:39)
[2017-07-30] MEDS: SODIUM CHLORIDE 0.9% FLUSH 10 ML FLUSH IV FLUSH SCH ×2 (09:40→21:16)
[2017-07-30] MEDS: SERTRALINE HCL 100 MG TAB PO SCH (09:40)
[2017-07-30] MEDS: prednisoLONE ACETATE 1% OPHT SUSP 5 ML BTL EACH EYE SCH (09:41)
[2017-07-30 09:49] LABS: AUTOMATED NEUTROPHIL # 17.2 TH/MM3 (1.8-7.7); BASOPHIL % 0.2 % (0.0-2.0); EOSINOPHIL # 0.2 TH/MM3 (0-0.4); EOSINOPHIL % 1.1 % (0.0-4.0); HEMATOCRIT 23.3 % (39.0-51.0); LYMPH % 9.5 % (9.0-44.0); MEAN CELL VOLUME 72.7 FL (80.0-100.0); MEAN CORPUSCULAR HEMOGLOBIN 24.2 PG (27.0-34.0); MEAN CORPUSCULAR HGB CONC 33.3 % (32.0-36.0); MONO % 6.4 % (0.0-8.0); NEUT % 82.8 % (16.0-70.0); PLATELET COUNT 129 TH/MM3 (150-450); RED BLOOD COUNT 3.21 MIL/MM3 (4.50-5.90); RED CELL DISTRIBUTION WIDTH 23.9 % (11.6-17.2); WHITE BLOOD COUNT 20.8 TH/MM3 (4.0-11.0)
[2017-07-30 09:51] LABS: HEMO FLAGS AUTO DIFF
[2017-07-30] MEDS: INSULIN DETEMIR 100 UNITS/ML VIAL SQ SCH ×2 (10:03→21:26)
[2017-07-30 10:13] LABS: ALKALINE PHOSPHATASE 118 U/L (45-117); ALT (GPT) 22 U/L (12-78); ANION GAP 13 MEQ/L (5-15); AST (GOT) 48 U/L (15-37); BICARBONATE 12.2 MEQ/L (21.0-32.0); BLOOD UREA NITROGEN 65 MG/DL (7-18); CHLORIDE 114 MEQ/L (98-107); GLOMERULAR FILTRATION RATE 12 ML/MIN (>89); POTASSIUM 4.7 MEQ/L (3.5-5.1); SODIUM (NA) 139 MEQ/L (136-145); TOTAL BILIRUBIN ADULT 0.6 MG/DL (0.2-1.0)
--- NOTE | 2017-07-30 10:37 | HHI.FPPN ---
Subjective Remarks No acute issues overnight. Patient has been afebrile for greater than 24 hours. He continues to have tachycardia up to the 100s and his blood pressure has started spiking in the 160s/70s. He denies any chest pain, shortness of breath, fever, chills, nausea or vomiting today. He is reflecting on his health and understands that he may need dialysis if his kidney function does not improve. His is at bedside with him. (Aniya Jacobo MD, R3) Objective Vitals Vital Signs Date Time Temp Pulse Resp B/P (MAP) Pulse Ox O2 Delivery O2 Flow Rate FiO2 07/30/17 08:00 98.4 96 18 149/74 (99) 96 07/30/17 04:00 98.4 101 20 162/79 (106) 98 07/30/17 00:00 98.3 104 20 162/78 (106) 98 07/29/17 20:15 138/72 (94) 07/29/17 20:00 98.6 103 20 165/75 (105) 96 07/29/17 20:00 Room Air 07/29/17 20:00 104 07/29/17 16:43 99.0 99 20 124/71 96 07/29/17 16:28 98.5 97 20 128/66 96 07/29/17 12:00 98.4 94 18 130/74 (92) 94 I/O 07/29/17 07/29/17 07/29/17 07/30/17 07/30/17 07/30/17 07:00 15:00 23:00 07:00 15:00 23:00 Intake Total 1596 ml 50 ml 1285 ml 170 ml Output Total 100 ml 270 ml 200 ml Balance 1496 ml 50 ml 1015 ml -30 ml Intake Oral 240 ml 120 ml 120 ml IV Total 1356 ml 50 ml 749 ml 50 ml Packed Cells 391 ml Blood Product IV Normal Saline Flush 25 ml Output Urine Total 100 ml 250 ml 200 ml Drainage Total 20 ml Bladder Scan Volume Amount 6 ml # Bowel Movements 0 1 (Aniya Jacobo MD, R3) Result Diagram: 07/30/17 0855 07/30/17 0855 Imaging Last Impressions Renal Ultrasound 07/28/17 0000 Signed Impressions: Service Date/Time: Friday, July 28, 2017 09:48 - CONCLUSION: Normal examination. Ruiz A. Alex, MD Chest X-Ray 07/28/17 0000 Signed Impressions: Service Date/Time: Friday, July 28, 2017 09:19 - CONCLUSION: Bilateral lower lobe airspace disease. Ruiz Johnson MD Foot X-Ray 07/27/17 0000 Signed Impressions: Service Date/Time: Thursday, July 27, 2017 10:40 - CONCLUSION: Postsurgical changes are identified right first digit amputation. Ruiz Johnson MD Head CT 07/22/17 1826 Signed Impressions: Service Date/Time: Saturday, July 22, 2017 19:17 - CONCLUSION: 1. No acute abnormality is seen. 2. Atrophy. 3. Persistent stable encephalomalacia at the inferior left cerebellar hemisphere. Markus Denny MD Abdomen/Pelvis CT 07/22/17 0000 Signed Impressions: Service Date/Time: Saturday, July 22, 2017 23:56 - CONCLUSION: 1. No acute finding is identified within the abdomen or pelvis. There is mild respiratory motion artifact. 2. Stable nonacute findings include small hiatal hernia and small bilateral low-density renal lesions. There is trace left pleural fluid. Markus Chester MD Objective Remarks Gen.: Well-nourished, well-developed male lying in bed. No acute distress CV: Regular rate and rhythm, no murmurs appreciated. Respiratory: Clear to auscultation bilaterally, no wheezes or rales. EXT: Right foot with angela bandage wrapping. Non draining. Elevated on pillow. GI: Soft NT ND BS present Neuro: Awake and alert, moving all extremities. Psych: Appropriate insight and judgement. (Aniya Jacobo MD, R3) Urinary Catheter: Yes Assessment to: Continue [place] insert reason: Obstruction/Retention (Aniya Jacobo MD, R3) A/P Assessment and Plan 61-year-old male with history of hypertension, poorly controlled diabetes, CVA in 2012, [place], admitted for sepsis secondary to right diabetic foot ulcer with wet gangrene and severe osteomyelitis, now s/p right hallux amputation and endovascular revascularization. Discharge Planning Timetable unclear at this time. (Aniya Jacobo MD, R3) Attending Attestation Patient seen and examined. Case reviewed and discussed with the resident team. Agree with plan of care as discussed with me and documented in the resident note. unfortunately, all the DM problems are effecting this gentleman. He may need dialysis and knows that but hopefully his renal fxn will start to improve. 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 s/p right hallux amputation on 07/27 and endovascular revascularization on 07/25 Afebrile x 48 hours Last fever 101.4 F on 07/28/2017. Leukocytosis of 20.8 today 07/22 BCx x 2 No growth 07/24 BCx x 2 No growth 07/26 BCx x 2 NGTD 07/27 wound culture growing Group B strep, no fungal elements seen 07/29 UCx pending CXR: no acute disease Head CT: no acute abnormality Plan: -Continue Vancomycin q12H with pharmacy consult (started 07/22) -Continue Zosyn 3.375g q6H (started 07/25) -Infectious Disease, Podiatry, and Vascular Surgery Consulted- Appreciate recommendations. (3) OHWARD (acute kidney injury) ICD Codes: N17.9 - Acute kidney failure, unspecified Status: Acute Plan: Stage 3 chronic kidney disease secondary to hypertensive or diabetic renal disease Acute renal impairment from contrast nephropathy BUN and Creatinine trending up 07/29 UA significant for large occult blood, moderate leukocyte esterase, moderate bacteria. Urine culture pending. Renal US normal Nephrology consulted- Appreciate recommendations. Started IV Sodium Bicarb, patient may need hemodialysis if renal function worsens. (4) Anemia ICD Codes: D64.9 - Anemia, unspecified Plan: s/p 3 units Packed RBCs, 1 on 07/25, 1 on 07/27, and 1 on 07/29. Right first metatarsal amputation on 07/27 complicated by bleeding. Additional bleeding noted in wound vac. Peripheral smear obtained given anemia, persistent leukocytosis, and fevers/ chills/night sweats for several weeks. Continue Ferrous Sulfate 325 BID. Continue to monitor H/H Transfuse if Hgb <7.5 (5) Diabetes mellitus ICD Codes: E11.9 - Type 2 diabetes mellitus without complications Status: Chronic Plan: History of poorly controlled diabetes. Home regimen is Lantus 40 units SQ at bedtime and Humalog mix 10 units 3 times a day. -Accu-Cheks ranging 159-185 -Medium dose SSI - Diabetic Diet -Continue Levemir 20 units BID . (6) Hypertension ICD Codes: I10 - Essential (primary) hypertension Status: Chronic Plan: Blood pressures spiking likely secondary to renal failure. Continue home meds -Coreg 6.2mg BID -Lisinopril 20mg daily - Clonidine 0.1mg PO Q6H PRN BP >170/100 (7) Thrush, oral ICD Codes: B37.0 - Candidal stomatitis Plan: Thrush on tongue on physical exam. Patient with uncontrolled diabetes, more susceptible to fungal infections. -Nystatin QID x 7-14 days (started 07/23) (8) Depression ICD Codes: F32.9 - Major depressive disorder, single episode, unspecified Plan: Stable. Continue sertraline 150 mg PO daily. (9) FEN Status: Acute Plan: Fluids: Sodium Bicarb @ 100ml/hr Electrolytes: wnl, continue to monitor Diet: Diabetic diet DVT ppx: heparin 5000units SQ q12H GI Pxx: Protonix 40 mg PO daily. dw Dr. Foster (Aniya Jacobo MD, R3) Problem Qualifiers (1) Diabetes mellitus with peripheral angiopathy with gangrene: Qualified Codes: E10.52 - Type 1 diabetes mellitus with diabetic peripheral angiopathy with gangrene (2) Sepsis: Qualified Codes: A41.9 - Sepsis, unspecified organism (3) Anemia: Qualified Codes: D64.9 - Anemia, unspecified (4) Diabetes mellitus: Qualified Codes: E10.52 - Type 1 diabetes mellitus with diabetic peripheral angiopathy with gangrene (5) Hypertension: Qualified Codes: I10 - Essential (primary) hypertension (6) Depression: Qualified Codes: F32.0 - Major depressive disorder, single episode, mild Aniya Jacobo MD, R3 Jul 30, 2017 10:37 Mary Foster MD Jul 30, 2017 16:09
[2017-07-30 10:54] LABS: OVALOCYTES 1+ (NORMAL); PLATELET ESTIMATE SMEAR LOW (NORMAL); PLATELET MORPHOLOGY NORMAL (NORMAL); SCAN/DIFF AUTO DIFF CONFIRMED; TEARDROP RBCS 1+ (NORMAL)
--- NOTE | 2017-07-30 11:13 | PD.VS.PN ---
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 Angioseal Subjective/Hospital Course Pt laying in bed w/ and daughter at the BS Pt resting comfortable Dressing to R foot I/C/D Objective Vitals/I&O Date Time Temp Pulse Resp B/P (MAP) Pulse Ox O2 Delivery O2 Flow Rate FiO2 07/30/17 08:00 98.4 96 18 149/74 (99) 96 07/30/17 04:00 98.4 101 20 162/79 (106) 98 07/30/17 00:00 98.3 104 20 162/78 (106) 98 07/29/17 20:15 138/72 (94) 07/29/17 20:00 98.6 103 20 165/75 (105) 96 07/29/17 20:00 Room Air 07/29/17 20:00 104 07/29/17 16:43 99.0 99 20 124/71 96 07/29/17 16:28 98.5 97 20 128/66 96 07/29/17 12:00 98.4 94 18 130/74 (92) 94 07/30/17 07/30/17 07/30/17 07:00 15:00 23:00 Intake Total 170 ml 50 ml Output Total 200 ml Balance -30 ml 50 ml Exam: GENERAL: Alert in NAD/Legally blind 62/AA/M SKIN: Warm and dry/ Dressing to R foot I/C/D R DP/PT with strong biphasic signals heard via Doppler LE warm w/ motor intact Laboratory Laboratory Tests Test 07/29/17 14:16 07/29/17 22:31 07/30/17 08:55 Reticulocyte Count 0.9 Absolute Reticulocyte Count 26.5 Hemoglobin 8.5 7.8 Hematocrit 26.4 23.3 White Blood Count 20.8 Red Blood Count 3.21 Mean Corpuscular Volume 72.7 Mean Corpuscular Hemoglobin 24.2 Mean Corpuscular Hemoglobin Concent 33.3 Red Cell Distribution Width 23.9 Platelet Count 129 Mean Platelet Volume 9.3 Neutrophils (%) (Auto) 82.8 Lymphocytes (%) (Auto) 9.5 Monocytes (%) (Auto) 6.4 Eosinophils (%) (Auto) 1.1 Basophils (%) (Auto) 0.2 Neutrophils # (Auto) 17.2 Lymphocytes # (Auto) 2.0 Monocytes # (Auto) 1.3 Eosinophils # (Auto) 0.2 Basophils # (Auto) 0.0 CBC Comment AUTO DIFF Differential Comment AUTO DIFF CONFIRMED Platelet Estimate LOW Platelet Morphology Comment NORMAL Tear Drop Cells 1+ Ovalocytes 1+ Blood Urea Nitrogen 65 Creatinine 5.71 Random Glucose 144 Total Protein 5.9 Albumin 1.2 Calcium Level 7.7 Alkaline Phosphatase 118 Aspartate Amino Transf (AST/SGOT) 48 Alanine Aminotransferase (ALT/SGPT) 22 Total Bilirubin 0.6 Sodium Level 139 Potassium Level 4.7 Chloride Level 114 Carbon Dioxide Level 12.2 Anion Gap 13 Estimat Glomerular Filtration Rate 12 Date/Time Source Procedure Growth Status 07/26/17 05:18 Blood Peripheral Aerobic Blood Culture - Preliminary NO GROWTH IN 3 DAYS Resulted 07/26/17 05:18 Blood Peripheral Anaerobic Blood Culture - Preliminary NO GROWTH IN 3 DAYS Resulted 07/30/17 06:30 Stool Stool Stool Occult Blood (DEEPAK) Pending Received 07/29/17 09:15 Urine Clean Catch Urine Culture Pending Received 07/27/17 08:30 Wound Toe Fungal Smear - Final NO FUNGAL ELEMENTS SEEN. Resulted 07/27/17 08:30 Wound Toe Fungal Culture Pending Resulted Assessment and Plan Assessment: (1) PAD (peripheral artery disease) Status: Chronic (2) Toe ulcer, right Status: Acute Plan PAD Pt with a hx of moderate occlusive disease Pt s/p R LE angiogram w/ endovascular revascularization doing well Pt with adequate perfusion to LE Plan Pt clear for D/C from a vascular standpoint Arranged out patient f/u Discussed F/U with pt//daughter Ordered Post op shoe to R foot for transfers and ambulation Continue medical management for PAD (anticoagulation/statin therapy) Marguerite CUELLO [facility] [phone] Discharge Planning Clear for D/C from a vascular standpoint Arranged OP F/U Problem Qualifiers (1) Toe ulcer, right: Qualified Codes: L97.512 - Non-pressure chronic ulcer of other part of right foot with fat layer exposed Marguerite Shi Jul 30, 2017 11:13
--- NOTE | 2017-07-30 12:02 | PD.POD ---
Subjective Podiatric Problems Dry gangrene of the right hallux Pain scale used: 0-10 numeric scale Pain score: 1 Remarks 62-year-old diabetic male with peripheral vascular disease presented with dry gangrene of the right hallux. Vascular surgery consult appreciated. Dr. Romo was able to open up his blood supply for now. I performed an open amputation of the right hallux. Because of the patient's heparin the blood through his negative pressure wound VAC which was discontinued in PACU. The negative pressure wound therapy VAC was reapplied yesterday by myself. Received call from the charge nurse at the canister had filled up twice and was draining blood around the edges. Discontinued the wound VAC at this time. Bone culture from interop is growing strep species Past Med/Surg/Social History Past Medical History PFSH Reviewed: Yes HEENT: REPORTS HX OF: Other HEENT history (PRP Laser OU( dr. Cr 05/2009)) Endocrine: REPORTS HX OF: Diabetes mellitus Cardiovascular: REPORTS HX OF: Hyperlipidemia, Hypertension, Peripheral vascular dz Past Surgical History Cardiovascular: REPORTS HX OF: Coronary stent Musculoskeletal: REPORTS HX OF: Other musculoskeletal srg (amputation of the right hallux) Social History Smoking Status: Former Smoker Review of Systems Notes No changes in his 14 point review of systems exam since he was last seen Objective Vital Signs Vital Signs Date Time Temp Pulse Resp B/P (MAP) Pulse Ox O2 Delivery O2 Flow Rate FiO2 07/30/17 08:00 98.4 96 18 149/74 (99) 96 07/30/17 04:00 98.4 101 20 162/79 (106) 98 07/30/17 00:00 98.3 104 20 162/78 (106) 98 07/29/17 20:15 138/72 (94) 07/29/17 20:00 98.6 103 20 165/75 (105) 96 07/29/17 20:00 Room Air 07/29/17 20:00 104 07/29/17 16:43 99.0 99 20 124/71 96 07/29/17 16:28 98.5 97 20 128/66 96 07/29/17 12:00 98.4 94 18 130/74 (92) 94 Coded Allergies: aspirin (Verified Allergy, Intermediate, nausea, 07/22/17) Medications and IVs Current Medications Sodium Chloride (NS Flush) 2 ml UNSCH PRN IVF FLUSH AFTER USING IV ACCESS; Start 07/22/17 at 18:30; Stop 07/28/17 at 08:50; Status DC Sodium Chloride 1,000 ml @ 1,000 mls/hr Q1H ONCE IV Last administered on 19:11; Start 07/22/17 at 18:26; Stop 07/22/17 at 19:25; Status DC Ondansetron HCl (Zofran Inj) 4 mg ONCE ONCE IVP Last administered on 19:11; Start 07/22/17 at 18:30; Stop 07/22/17 at 18:32; Status DC Vancomycin HCl 1000 mg/Sodium Chloride 250 ml @ 250 mls/hr ONCE STAT IV Last administered on 07/22/17 20:01; Start 07/22/17 at 20:01; Stop 07/22/17 at 21:00 ; Status DC Piperacillin Sod/ Tazobactam Sod 100 ml @ 200 mls/hr ONCE STAT IV Last administered on 07/22/17 20:01; Start 07/22/17 at 20:01; Stop 07/22/17 at 20:30 ; Status DC Sodium Chloride 1,000 ml @ 999 mls/hr BOLUS ONCE IV Last administered on 07/22 20:15; Start 07/22/17 at 20:15; Stop 07/22/17 at 21:16; Status DC Sodium Chloride 1,000 ml @ 100 mls/hr Q10H IV Last administered on 07/26/17 09 :14; Start 07/22/17 at 21:50; Stop 07/27/17 at 09:37; Status DC Sodium Chloride (NS Flush) 2 ml UNSCH PRN IV FLUSH FLUSH AFTER USING IV ACCESS ; Start 07/22/17 at 22:00; Stop 07/28/17 at 08:50; Status DC Sodium Chloride (NS Flush) 2 ml BID IV FLUSH Last administered on 07/27/17 21: 58; Start 07/23/17 at 09:00; Stop 07/28/17 at 08:50; Status DC Acetaminophen (Tylenol) 650 mg Q4H PRN PO TEMP > 100.4 Last administered on 07/28 01:05; Start 07/22/17 at 22:00 Ondansetron HCl (Zofran Inj) 4 mg Q6H PRN IVP NAUSEA OR VOMITING Last administered on 07/29/17 09:48; Start 07/22/17 at 22:00 Heparin Sodium (Porcine) (Heparin Inj) 5,000 units Q12H SQ Last administered on 07/30/17 09:36; Start 07/22/17 at 22:00 Naloxone HCl (Narcan Inj) 0.4 mg UNSCH PRN IV SEE LABEL COMMENTS; Start at 22:00; Stop 07/29/17 at 19:39; Status DC Senna/Docusate Sodium (Najma-Colace) 1 tab BID PO Last administered on 07/30/17 09:39; Start 07/23/17 at 09:00 Magnesium Hydroxide (Milk Of Magnesia Liq) 30 ml Q12H PRN PO MILD - MODERATE CONSTIPATION; Start 07/22/17 at 22:00 Sennosides (Senokot) 17.2 mg Q12H PRN PO MODERATE - SEVERE CONSTIPATION; Start 07/22/17 at 22:00 Bisacodyl (Dulcolax Supp) 10 mg DAILY PRN RECTAL SEVERE CONSITIPATION; Start at 22:00 Lactulose (Lactulose Liq) 30 ml DAILY PRN PO SEVERE CONSITIPATION; Start at 22:00 Pharmacy Profile Note 0 ml @ 0 mls/hr UNSCH OTHER ; Start 07/22/17 at 22:00; Stop 07/29/17 at 15:32; Status DC Vancomycin HCl 1500 mg/Sodium Chloride 515 ml @ 257.5 mls/ hr Q12H IV ; Start 07/23/17 at 08:00; Status UNV Piperacillin Sod/ Tazobactam Sod 100 ml @ 200 mls/hr Q6H IV Last administered on 07/25/17 09:23; Start 07/23/17 at 02:00; Stop 07/25/17 at 09:58; Status DC Aspirin (Aspirin Chew) 81 mg DAILY CHEW Last administered on 07/30/17 09:39; Start 07/23/17 at 09:00 Atorvastatin Calcium (Lipitor) 80 mg HS PO Last administered on 07/29/17 21:08 ; Start 07/23/17 at 21:00 Carvedilol (Coreg) 6.25 mg BID PO Last administered on 07/30/17 09:37; Start at 09:00 Clopidogrel Bisulfate (Plavix) 75 mg DAILY PO Last administered on 07/30/17 09: 38; Start 07/23/17 at 09:00 Hydroxyzine HCl (Atarax) 50 mg HS PO Last administered on 07/29/17 21:08; Start 07/23/17 at 21:00 Lisinopril (Prinivil) 20 mg DAILY PO Last administered on 07/24/17 08:56; Start 07/23/17 at 09:00; Status Future Hold Montelukast Sodium (Singulair Chew) 5 mg HS CHEW Last administered on 07/29/17 21:08; Start 07/23/17 at 21:00 Prednisolone Acetate (Pred Forte 1% Opth Susp) 1 drop DAILY EACH EYE Last administered on 07/30/17 09:41; Start 07/23/17 at 09:00 Sertraline HCl (Zoloft) 100 mg DAILY PO Last administered on 07/26/17 09:16; Start 07/23/17 at 09:00; Stop 07/28/17 at 08:42; Status DC Topiramate (Topamax) 100 mg DAILY PO Last administered on 07/30/17 09:36; Start 07/23/17 at 09:00 Dextrose (D50w (Vial) Inj) 50 ml UNSCH PRN IV HYPOGLYCEMIA-SEE COMMENTS; Start 07/22/17 at 22:15 Glucagon (Glucagon Inj) 1 mg UNSCH PRN OTHER HYPOGLYCEMIA-SEE COMMENTS; Start 07/22/17 at 22:15 Insulin Aspart (NovoLOG SUPPLEMENTAL SCALE) 1 ACHS SLIDING SCALE SQ Last administered on 07/30/17 06:15; Start 07/23/17 at 07:00 Vancomycin HCl 1000 mg/Sodium Chloride 250 ml @ 250 mls/hr ONCE ONCE IV Last administered on 07/22/17 22:15; Start 07/22/17 at 22:15; Stop 07/22/17 at 23:14 ; Status DC Diatrizoate Meglum/ Diatrizoate Sod ( Gastroview Liq) 18 ml STK-MED ONCE .ROUTE ; Start 07/22/17 at 22:16; Stop 07/22/17 at 22:17; Status DC Diatrizoate Meglum/ Diatrizoate Sod ( Gastroview Liq) 18 ml NOW ONCE PO Last administered on 07/22/17 22:45; Start 07/22/17 at 22:45; Stop 07/22/17 at 22:46; Status DC Nystatin (Mycostatin Liq) 5 ml QID SWISH-SWAL Last administered on 07/30/17 09 :36; Start 07/23/17 at 09:00 Pantoprazole Sodium (Protonix Inj) 40 mg DAILY IV PUSH Last administered on 07/29 09:27; Start 07/22/17 at 22:45; Stop 07/29/17 at 11:21; Status DC Iohexol (Omnipaque 350 Inj) 95 ml STK-MED ONCE IVCONTRAST Last administered on 07/22/17 23:59; Start 07/22/17 at 23:59; Stop 07/23/17 at 00:00; Status DC Nitroglycerin (Nitroglycerin 2% Oint) 1 inch ONCE ONCE TOPICAL Last administered on 07/23/17 10:22; Start 07/23/17 at 10:00; Stop 07/23/17 at 10:01 ; Status DC Vancomycin HCl 2000 mg/Sodium Chloride 520 ml @ 250 mls/hr Q24H IV Last administered on 07/25/17 21:46; Start 07/23/17 at 18:00; Stop 07/26/17 at 09:24 ; Status DC Miscellaneous Information SPECIFIC LAB TO BE DRAWN:VANCOMYCIN TROUGH DATE TO... ONCE ONCE .XX ; Start 07/25/17 at 17:45; Stop 07/25/17 at 17:46; Status DC Lactobacillus Acidophilus (Lactinex Pkt) 1 gm TID PO Last administered on 09:36; Start 07/23/17 at 18:00 Pharmacy Profile Note 0 ml @ 0 mls/hr UNSCH OTHER ; Start 07/24/17 at 16:45; Stop 07/24/17 at 17:00; Status DC Insulin Detemir (Levemir Inj) 20 units ONCE ONCE SQ Last administered on 17:00; Start 07/24/17 at 17:00; Stop 07/24/17 at 17:01; Status DC Insulin Detemir (Levemir Inj) 20 units Q12HR SQ Last administered on 07/30/17 10:03; Start 07/25/17 at 21:00 Potassium Chloride (KCl) 30 meq DAILY PO Last administered on 07/28/17 09:01; Start 07/25/17 at 09:45; Stop 07/28/17 at 22:23; Status DC Sodium Chloride 250 ml @ 15 mls/hr ONCE ONCE IV Last administered on 23:48; Start 07/25/17 at 10:00; Stop 07/26/17 at 02:39; Status DC Furosemide (Lasix Inj) 20 mg YOUTH MANAGER IV Last administered on 07/26/17 03:39; Start 07/25/17 at 09:45; Stop 07/26/17 at 09:44; Status DC Piperacillin Sod/ Tazobactam Sod 50 ml @ 100 mls/hr Q6H IV Last administered on 07/29/17 09:41; Start 07/25/17 at 16:00; Stop 07/29/17 at 14:06; Status DC Heparin Sodium/ Sodium Chloride 500 ml @ As Directed STK-MED ONCE .ROUTE Last administered on 07/25/17 16:08; Start 07/25/17 at 16:08; Stop 07/25/17 at 16:09 ; Status DC Midazolam HCl (Versed Inj) 5 mg STK-MED ONCE .ROUTE Last administered on 16:37; Start 07/25/17 at 16:28; Stop 07/25/17 at 16:29; Status DC Fentanyl Citrate (fentaNYL INJ) 100 mcg STK-MED ONCE .ROUTE Last administered on 07/25/17 16:36; Start 07/25/17 at 16:28; Stop 07/25/17 at 16:29; Status DC Heparin Sodium/ Sodium Chloride 500 ml @ As Directed STK-MED ONCE .ROUTE Last administered on 07/25/17 16:35; Start 07/25/17 at 16:35; Stop 07/25/17 at 16:36 ; Status DC Heparin Sodium (Porcine) (Heparin Inj) 10,000 units STK-MED ONCE .ROUTE Last administered on 07/25/17 16:46; Start 07/25/17 at 16:46; Stop 07/25/17 at 16:47 ; Status DC Midazolam HCl (Versed Inj) 5 mg STK-MED ONCE .ROUTE ; Start 07/25/17 at 17:18; Stop 07/25/17 at 17:19; Status DC Fentanyl Citrate (fentaNYL INJ) 100 mcg STK-MED ONCE .ROUTE ; Start 07/25/17 at 17:18; Stop 07/25/17 at 17:19; Status DC Clopidogrel Bisulfate (Plavix) 75 mg DAILY PO ; Start 07/27/17 at 09:00; Stop 07/27/17 at 09:00; Status DC Clopidogrel Bisulfate (Plavix) 150 mg ONCE ONCE PO Last administered on 21:46; Start 07/25/17 at 20:45; Stop 07/25/17 at 21:35; Status DC Iohexol 50 ml @ 0 mls/hr ONCE ONCE IV ; Start 07/25/17 at 17:54; Stop 07/25/17 at 21:35; Status DC Sodium Chloride 1,000 ml @ 500 mls/hr Q2H IV Last administered on 07/26/17 15: 48; Start 07/26/17 at 05:45; Stop 07/26/17 at 07:45; Status DC Vancomycin HCl 1750 mg/Sodium Chloride 517.5 ml @ 250 mls/hr Q24H IV ; Start at 18:00; Stop 07/26/17 at 18:00; Status DC Miscellaneous Information SPECIFIC LAB TO BE SEPIDEH... ONCE ONCE .XX ; Start at 17:45; Stop 07/29/17 at 17:46; Status Cancel Vancomycin HCl 1500 mg/Sodium Chloride 515 ml @ 257.5 mls/ hr Q24H IV Last administered on 07/27/17 18:44; Start 07/26/17 at 18:00; Stop 07/29/17 at 15:32; Status DC Bupivacaine HCl (Marcaine Pf 0.5% Inj) 30 ml STK-MED ONCE .ROUTE ; Start at 05:31; Stop 07/27/17 at 05:32; Status DC Dexamethasone Sodium Phosphate (Decadron Inj) 4 mg STK-MED ONCE .ROUTE ; Start 07/27/17 at 05:32; Stop 07/27/17 at 05:33; Status DC Lidocaine HCl (Xylocaine 1% Inj (50 ml)) 50 ml STK-MED ONCE .ROUTE ; Start at 05:32; Stop 07/27/17 at 05:33; Status DC Fentanyl Citrate (fentaNYL INJ) 100 mcg STK-MED ONCE .ROUTE ; Start 07/27/17 at 08:54; Stop 07/27/17 at 08:55; Status DC Sodium Chloride (NS Flush) 2 ml UNSCH PRN IV FLUSH FLUSH AFTER USING IV ACCESS ; Start 07/27/17 at 09:00 Sodium Chloride (NS Flush) 2 ml BID IV FLUSH Last administered on 07/30/17 09: 40; Start 07/27/17 at 09:00 Miscellaneous Information (Post-op Orders (for Pharmacy)) STAT ONCE XX ; Start 07/27/17 at 09:00; Stop 07/27/17 at 09:27; Status DC Oxycodone HCl (Roxicodone) 10 mg Q4H PRN PO PAIN SCALE 6 TO 10 Last administered on 07/30/17 09:45; Start 07/27/17 at 09:00 Hydromorphone HCl (Dilaudid Pf Inj) 1 mg Q3H PRN IV BREAKTHROUGH PAIN; Start at 09:00 Oxycodone HCl (Roxicodone) 5 mg Q4H PRN PO PAIN SCALE 3 TO 5 Last administered on 07/28/17 15:53; Start 07/27/17 at 09:00 Naloxone HCl (Narcan Inj) 0.4 mg UNSCH PRN IV SEE LABEL COMMENTS; Start at 09:00 Miscellaneous Information ALL NURSING DEPARTME... UNSCH PRN .XX SEE LABEL COMMENTS; Start 07/27/17 at 09:30; Stop 07/28/17 at 09:29; Status DC Potassium Chloride/Sodium Chloride 1,000 ml @ 125 mls/hr Q8H IV Last administered on 07/29/17 03:28; Start 07/27/17 at 09:45; Stop 07/29/17 at 11:18; Status DC Sodium Chloride 250 ml @ 15 mls/hr ONCE ONCE IV Last administered on 15:30; Start 07/27/17 at 15:30; Stop 07/28/17 at 08:09; Status DC Acetaminophen (Tylenol) 650 mg Q4H PRN PO SEE LABEL COMMENTS; Start 07/27/17 at 15:30 Diphenhydramine HCl (Benadryl) 25 mg Q4H PRN PO SEE LABEL COMMENTS; Start at 15:30 Furosemide (Lasix Inj) 20 mg ONCE ONCE IV Last administered on 07/27/17 21:58 ; Start 07/27/17 at 15:30; Stop 07/27/17 at 15:33; Status DC Sertraline HCl (Zoloft) 150 mg DAILY PO Last administered on 07/30/17 09:40; Start 07/28/17 at 09:00 Miscellaneous (Pill Splitter) 1 ea UNSCH PRN OTHER SEE LABEL COMMENTS; Start at 09:00 Ferrous Sulfate (Ferrous Sulfate) 325 mg BID PO Last administered on 07/30/17 09:39; Start 07/28/17 at 09:00 Furosemide (Lasix Inj) 40 mg ONCE ONCE IV PUSH Last administered on 07/28/17 14:17; Start 07/28/17 at 12:45; Stop 07/28/17 at 12:46; Status DC Sodium Chloride 1,000 ml @ 145 mls/hr Q6H54M IV Last administered on 07/29/17 17:27; Start 07/29/17 at 12:00; Stop 07/29/17 at 19:37; Status DC Pantoprazole Sodium (Protonix) 40 mg DAILY PO Last administered on 07/30/17 09: 36; Start 07/30/17 at 09:00 Sodium Chloride 250 ml @ 15 mls/hr ONCE ONCE IV Last administered on 16:35; Start 07/29/17 at 12:00; Stop 07/30/17 at 04:39; Status DC Piperacillin Sod/ Tazobactam Sod 50 ml @ 100 mls/hr Q6H IV Last administered on 07/30/17 09:45; Start 07/29/17 at 16:00 Sodium Bicarbonate 50 meq/Sodium Chloride 1,050 ml @ 100 mls/hr [id number] IV ; Start 07/30/17 at 12:00 Clonidine (Catapres) 0.1 mg Q6H PRN PO SEE LABEL COMMENTS; Start 07/30/17 at 02: 30 Other Results Laboratory Tests Test 07/29/17 09:40 07/29/17 14:16 07/29/17 22:31 07/30/17 08:55 White Blood Count 21.4 TH/MM3 20.8 TH/MM3 Red Blood Count 3.27 MIL/MM3 3.21 MIL/MM3 Hemoglobin 7.4 GM/DL 8.5 GM/DL 7.8 GM/DL Hematocrit 23.1 % 26.4 % 23.3 % Mean Corpuscular Volume 70.7 FL 72.7 FL Mean Corpuscular Hemoglobin 22.6 PG 24.2 PG Mean Corpuscular Hemoglobin Concent 31.9 % 33.3 % Red Cell Distribution Width 22.2 % 23.9 % Platelet Count 142 TH/MM3 129 TH/MM3 Mean Platelet Volume 8.9 FL 9.3 FL Neutrophils (%) (Auto) 82.8 % 82.8 % Lymphocytes (%) (Auto) 9.5 % 9.5 % Monocytes (%) (Auto) 5.6 % 6.4 % Eosinophils (%) (Auto) 1.9 % 1.1 % Basophils (%) (Auto) 0.2 % 0.2 % Neutrophils # (Auto) 17.7 TH/MM3 17.2 TH/MM3 Lymphocytes # (Auto) 2.0 TH/MM3 2.0 TH/MM3 Monocytes # (Auto) 1.2 TH/MM3 1.3 TH/MM3 Eosinophils # (Auto) 0.4 TH/MM3 0.2 TH/MM3 Basophils # (Auto) 0.1 TH/MM3 0.0 TH/MM3 CBC Comment AUTO DIFF AUTO DIFF Differential Total Cells Counted 100 Neutrophils % (Manual) 85 % Band Neutrophils % 2 % Lymphocytes % 10 % Monocytes % 2 % Neutrophils # (Manual) 18.8 TH/MM3 Myelocytes 1 % Differential Comment FINAL DIFF MANUAL AUTO DIFF CONFIRMED Platelet Estimate LOW LOW Platelet Morphology Comment NORMAL NORMAL Ovalocytes 1+ 1+ Keratocytes OCC Reticulocyte Count 0.9 % Absolute Reticulocyte Count 26.5 MIL/L Tear Drop Cells 1+ Laboratory Tests Test 07/29/17 09:40 07/30/17 08:55 Blood Urea Nitrogen 59 MG/DL 65 MG/DL Creatinine 4.65 MG/DL 5.71 MG/DL Random Glucose 172 MG/DL 144 MG/DL Calcium Level 7.9 MG/DL 7.7 MG/DL Phosphorus Level 4.1 MG/DL Sodium Level 139 MEQ/L 139 MEQ/L Potassium Level 4.8 MEQ/L 4.7 MEQ/L Chloride Level 114 MEQ/L 114 MEQ/L Carbon Dioxide Level 15.5 MEQ/L 12.2 MEQ/L Anion Gap 10 MEQ/L 13 MEQ/L Estimat Glomerular Filtration Rate 16 ML/MIN 12 ML/MIN Total Protein 5.9 GM/DL 5.9 GM/DL Albumin 1.77 GM/DL 1.2 GM/DL Albumin/Globulin Ratio 0.43 Ikibe-9-Rcarrnzdy 0.57 GM/DL Iankt-4-Ogredvsqu 0.99 GM/DL Beta Globulins 1.12 GM/DL Gamma Globulins 1.45 GM/DL Alkaline Phosphatase 118 U/L Aspartate Amino Transf (AST/SGOT) 48 U/L Alanine Aminotransferase (ALT/SGPT) 22 U/L Total Bilirubin 0.6 MG/DL Microbiology Date/Time Source Procedure Growth Status 07/30/17 06:30 Stool Stool Stool Occult Blood (DEEPAK) Pending Received 07/29/17 09:15 Urine Clean Catch Urine Culture Pending Received Exam-Podiatry Constitutional General appearance: comfortable Nutritional status: overweight Orientation: alert and oriented x3 Dermatological Exam Skin Temp - Right: Within Normal Limits Skin Texture - Right: Within Normal Limits Skin Elasticity - Right: Within Normal Limits Skin Tugor - Right: Within Normal Limits Hair Growth - Right: Within Normal Limits Pigmentation - Right: Within Normal Limits Skin Temp - Left: Within Normal Limits Skin Texture - Left: Within Normal Limits Skin Elasticity - Left: Within Normal Limits Skin Tugor - Left: Within Normal Limits Hair Growth - Left: Within Normal Limits Pigmentation - Left: Within Normal Limits Other: Scars, Surgery,Injury Dressing to right hallux amputation site is dry and intact. No strike through bleeding. 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 I would change his dressing tomorrow and apply monzells solution to stop bleeding. Spoke with patient's daughter. Feels halfway facility placement will be the best for Mr. ribera. Case management consult written. Dwaine Calloway DPM Jul 30, 2017 12:01
[2017-07-30] MEDS: SODIUM BICARBONATE 8.4% INJ 50 MEQ in SODIUM CHLOR 0.45% 1000 ML INJ 1,000 ML IV SCH (14:43)
[2017-07-30 16:11] LABS: HEMATOCRIT 23.4 % (39.0-51.0)
[2017-07-30 16:12] LABS: REVIEW FLAG FINAL
[2017-07-30] MEDS ORDERED: SODIUM CHLOR 0.9% 250 ML INJ 250 ML IV ONE (17:00)
--- NOTE | 2017-07-30 20:03 | HHI.NPPN ---
Subjective History of Present Illness 62-year-old male with past medical history of diabetes mellitus which is longstanding since he was a teenager, history of hypertension, peripheral vascular disease, chronic kidney disease, history of cerebrovascular accident, ischemic heart disease who was admitted on July 22 with complaint of nausea, or vomiting and abdominal pain. I was called to see the patient because of elevated BUN and creatinine. The patient has known history of chronic kidney disease and looking back it looks like his creatinine was 1.1 about 6 days before admission. Additional Remarks Patient is awake, no SOB, not in distress. Review of Systems General Constitutional: Fatigue Respiratory Lungs: Wheeze Cardiovascular Cardiac: Edema, HO Objective Data Data 07/30/17 07/31/17 19:00 07:00 Intake Total 290 ml 526 ml Output Total 100 ml Balance 190 ml 526 ml Intake Oral 240 ml IV Total 50 ml 526 ml Output Urine Total 100 ml Bladder Scan Volume Amount 6 ml # Bowel Movements 2 Vital Signs Date Time Temp Pulse Resp B/P (MAP) Pulse Ox O2 Delivery O2 Flow Rate FiO2 07/30/17 16:00 98.0 90 20 149/66 (93) 98 07/30/17 13:45 98 07/30/17 12:00 98.4 93 18 144/75 (98) 97 07/30/17 08:00 96 07/30/17 08:00 98.4 96 18 149/74 (99) 96 07/30/17 04:00 98.4 101 20 162/79 (106) 98 07/30/17 00:00 98.3 104 20 162/78 (106) 98 07/29/17 20:15 138/72 (94) -: 07/30/17 1515 07/30/17 0855 Microbiology 07/30/17 Stool Occult Blood (DEEPAK) - Final, Complete HEMOCCULT NEGATIVE Physical Exam General Appearance: Well Nourished, No Acute Distress, Comfortable Eyes Eye Exam: Pupils Equal Throat Throat Exam: Oral Mucosa [place] & Moist Neck Neck Exam: Neck Supple Pulmonary Resp Exam: No Distress, Rhonchi, Decreased Bases, Diminished Breath Sounds Gastrointestinal/Abdomen GI Exam: Soft, Non-Tender, Bowel Sounds Present, Distended Extremeties Extremities Exam: Moderate Edema, Pitting Edema Neurologic Neuro Exam: Alert, Awake, Oriented Psychiatric Psych Exam: Appropriate Responses Assessment/Plan Assessment Summary: HOWARD/Acute Renal Failure, Hypertension, CKD Stage III Problem List: (1) Blindness ICD Codes: H54.0 - Blindness, both eyes Status: Acute (2) CAD (coronary artery disease) ICD Codes: I25.10 - Atherosclerotic heart disease of [place] coronary artery without angina pectoris Status: Acute (3) Hyperlipidemia ICD Codes: E78.5 - Hyperlipidemia, unspecified Status: Acute (4) Anemia ICD Codes: D64.9 - Anemia, unspecified (5) Diabetes mellitus ICD Codes: E11.9 - Type 2 diabetes mellitus without complications Status: Chronic (6) Hypertension ICD Codes: I10 - Essential (primary) hypertension Status: Chronic (7) 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 Most likely has Hypertensive or Diabetic renal disease. Urine out put is low. Creatinine continue to increase. Most likely has Contrast Nephropathy, or possibly Vanco related as level was high. HCo3 decreased, on NaHco3 in IVF. If not better by tomorrow , possible HD. 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
[2017-07-30] MEDS: ATORVASTATIN 80 MG TAB PO SCH (21:13)
[2017-07-30] MEDS: hydrOXYzine HCL 50 MG TAB PO SCH (21:13)
[2017-07-30] MEDS: MONTELUKAST SODIUM 5 MG CHEWABLE TAB CHEW SCH (21:15)
[2017-07-31] VITALS (9 sets, daily range): BP systolic 145–182; BP diastolic 70–93; PULSE 93–104; RESP 18–19; TEMP 97.7–98.7; O2SAT 96–98
[2017-07-31 02:51] LABS: AUTOMATED NEUTROPHIL # 17.5 TH/MM3 (1.8-7.7); BASOPHIL # 0.1 TH/MM3 (0-0.2); BASOPHIL % 0.5 % (0.0-2.0); EOSINOPHIL # 0.4 TH/MM3 (0-0.4); HEMATOCRIT 28.7 % (39.0-51.0); LYMPH % 7.1 % (9.0-44.0); LYMPHOCYTE # 1.5 TH/MM3 (1.0-4.8); MEAN CELL VOLUME 74.5 FL (80.0-100.0); MEAN CORPUSCULAR HGB CONC 32.3 % (32.0-36.0); MONO % 5.1 % (0.0-8.0); NEUT % 85.3 % (16.0-70.0); PLATELET COUNT 152 TH/MM3 (150-450); RED BLOOD COUNT 3.86 MIL/MM3 (4.50-5.90); RED CELL DISTRIBUTION WIDTH 25.4 % (11.6-17.2); WHITE BLOOD COUNT 20.6 TH/MM3 (4.0-11.0)
[2017-07-31 02:52] LABS: HEMO FLAGS AUTO DIFF
[2017-07-31 03:03] LABS: ALT (GPT) 23 U/L (12-78); ANION GAP 11 MEQ/L (5-15); AST (GOT) 52 U/L (15-37); BICARBONATE 16.4 MEQ/L (21.0-32.0); BLOOD UREA NITROGEN 70 MG/DL (7-18); CHLORIDE 113 MEQ/L (98-107); GLOMERULAR FILTRATION RATE 10 ML/MIN (>89); POTASSIUM 5.2 MEQ/L (3.5-5.1); SODIUM (NA) 140 MEQ/L (136-145)
[2017-07-31 03:05] LABS: ALKALINE PHOSPHATASE 131 U/L (45-117); TOTAL BILIRUBIN ADULT 0.6 MG/DL (0.2-1.0)
[2017-07-31 04:41] LABS: BANDS 4 % (0-6); EOSINOPHILS 1 % (0-4); METAMYELOCYTES 1 % (0-1); NEUTROPHIL # MANUAL DIFF 17.1 TH/MM3 (1.8-7.7); POLYS (SEG NEUTROPHILS) 78 % (16-70); WBC DIFF SAMPLE 100
[2017-07-31 04:42] LABS: SCAN/DIFF FINAL DIFF MANUAL
[2017-07-31 04:43] LABS: ACANTHOCYTES 1+ (NORMAL); OVALOCYTES 1+ (NORMAL); PLATELET ESTIMATE SMEAR NORMAL (NORMAL); PLATELET MORPHOLOGY NORMAL (NORMAL)
[2017-07-31] MEDS: PIPERACIL-TAZO 2.25 GM PREMIX 50 ML IV SCH ×4 (05:09→20:40)
[2017-07-31] MEDS: SODIUM BICARBONATE 8.4% INJ 50 MEQ in SODIUM CHLOR 0.45% 1000 ML INJ 1,000 ML IV SCH ×3 (05:11→17:22)
[2017-07-31] MEDS: INSULIN ASPART SUPPLEMENTAL SCALE SQ SCH ×4 (05:42→20:39)
[2017-07-31] MEDS: SODIUM CHLORIDE 0.9% FLUSH 10 ML FLUSH IV FLUSH SCH ×2 (09:00→20:40)
[2017-07-31] MEDS: HEPARIN SODIUM - SQ 10,000 UNITS/ML VIAL SQ SCH ×2 (09:02→20:40)
[2017-07-31] MEDS: NYSTATIN SUSP 500,000 U/5 ML CUP SWISH-SWAL SCH ×4 (09:03→20:40)
[2017-07-31] MEDS: FERROUS SULFATE 325 MG (65 MG ELEMENTAL IRON) TAB PO SCH ×2 (09:03→20:36)
[2017-07-31] MEDS: LACTOBACILLUS ACIDOPHILUS 1 GM PACKET PO SCH ×3 (09:03→17:22)
[2017-07-31] MEDS: TOPIRAMATE 100 MG TAB PO SCH (09:03)
[2017-07-31] MEDS: DOCUSATE SODIUM 50 MG/SENNA 8.6 MG TAB PO SCH ×2 (09:03→20:36)
[2017-07-31] MEDS: SERTRALINE HCL 100 MG TAB PO SCH (09:03)
[2017-07-31] MEDS: CLOPIDOGREL 75 MG TAB PO SCH (09:03)
[2017-07-31] MEDS: ASPIRIN 81 MG CHEW TAB CHEW SCH (09:03)
[2017-07-31] MEDS: prednisoLONE ACETATE 1% OPHT SUSP 5 ML BTL EACH EYE SCH (09:04)
[2017-07-31] MEDS: PANTOPRAZOLE SOD 40 MG DELAYED RELEASE TAB PO SCH (09:04)
[2017-07-31] MEDS: CARVEDILOL 6.25 MG TAB PO SCH ×2 (09:04→20:36)
[2017-07-31] MEDS: INSULIN DETEMIR 100 UNITS/ML VIAL SQ SCH ×2 (09:09→20:38)
--- NOTE | 2017-07-31 10:14 | HHI.FPPN ---
Subjective Remarks Acute issues overnight. Patient remains tachycardic up to 100 and hypertensive up to 180/86. He states that he has been in pain overnight, specifically in his penis and scrotum. He denies any chest pain or shortness of breath. He has minimal urine output. He is feeling sad that his kidneys are failing. (Aniya Jacobo MD, R3) Objective Vitals Vital Signs Date Time Temp Pulse Resp B/P (MAP) Pulse Ox O2 Delivery O2 Flow Rate FiO2 07/31/17 08:00 98.7 99 18 180/86 (117) 96 07/31/17 04:00 98.5 100 18 157/86 (109) 98 07/31/17 00:15 97.7 98 18 145/85 98 07/31/17 00:00 97.9 98 18 145/85 (105) 98 07/30/17 21:15 97.8 95 18 137/70 96 07/30/17 20:51 97.5 91 18 133/87 98 07/30/17 16:00 98.0 90 20 149/66 (93) 98 07/30/17 13:45 98 07/30/17 12:00 98.4 93 18 144/75 (98) 97 I/O 07/30/17 07/30/17 07/30/17 07/31/17 07/31/17 07/31/17 07:00 15:00 23:00 07:00 15:00 23:00 Intake Total 170 ml 50 ml 766 ml 420 ml Output Total 200 ml 100 ml 50 ml Balance -30 ml 50 ml 666 ml 370 ml Intake Oral 120 ml 240 ml 0 ml IV Total 50 ml 50 ml 526 ml Packed Cells 400 ml Blood Product IV Normal Saline Flush 20 ml Output Urine Total 200 ml 100 ml 50 ml Bladder Scan Volume Amount 6 ml 10 ml # Bowel Movements 1 2 0 (Aniya Jacobo MD, R3) Result Diagram: 07/31/1722307/31/17223 Imaging Last Impressions Renal Ultrasound 07/28/17 0000 Signed Impressions: Service Date/Time: Friday, July 28, 2017 09:48 - CONCLUSION: Normal examination. Ruiz Johnson MD Chest X-Ray 07/28/17 0000 Signed Impressions: Service Date/Time: Friday, July 28, 2017 09:19 - CONCLUSION: Bilateral lower lobe airspace disease. Ruiz Johnson MD Foot X-Ray 07/27/17 0000 Signed Impressions: Service Date/Time: Thursday, July 27, 2017 10:40 - CONCLUSION: Postsurgical changes are identified right first digit amputation. Ruiz Johnson MD Head CT 07/22/17 1826 Signed Impressions: Service Date/Time: Saturday, July 22, 2017 19:17 - CONCLUSION: 1. No acute abnormality is seen. 2. Atrophy. 3. Persistent stable encephalomalacia at the inferior left cerebellar hemisphere. Markus Denny MD Abdomen/Pelvis CT 07/22/17 0000 Signed Impressions: Service Date/Time: Saturday, July 22, 2017 23:56 - CONCLUSION: 1. No acute finding is identified within the abdomen or pelvis. There is mild respiratory motion artifact. 2. Stable nonacute findings include small hiatal hernia and small bilateral low-density renal lesions. There is trace left pleural fluid. Markus Chester MD Objective Remarks Gen.: Well-nourished, well-developed male lying in bed. Appears to be in pain. CV: Regular rate and rhythm, no murmurs appreciated. Respiratory: Clear to auscultation bilaterally, no wheezes or rales. EXT: Right foot with angela bandage wrapping. Non draining. Elevated on pillow. Edematous bilateral lower extremities. GI: Soft NT ND BS present GENITOURINARY: Penis and scrotum edematous. Foreskin easily retractable, no erythema, drainage, or bleeding. Neuro: Awake and alert, moving all extremities. Psych: Appropriate insight and judgement. (Aniya Jacobo MD, R3) Urinary Catheter: Yes Assessment to: Continue Medina insert reason: Obstruction/Retention (Aniya Jacobo MD, R3) A/P Assessment and Plan 61-year-old male with history of hypertension, poorly controlled diabetes, CVA in 2012, , admitted for sepsis secondary to right diabetic foot ulcer with wet gangrene and severe osteomyelitis, now s/p right hallux amputation and endovascular revascularization. Now with acute on chronic renal failure. Discharge Planning Timetable unclear at this time. (Aniya Jacobo MD, R3) Attending Attestation Patient seen and examined. Case reviewed and discussed with the resident team. Agree with plan of care as discussed with me and documented in the resident note. have been talking to he and his about dialysis. he stated he would get it "if needed". he is at that point right now with essentially oliguria and now edema and worse kidneys every day unfortunately. both he and his know he has many end stage problems from his DM. discussed hospice and the choice of not getting dialysis but he and his though sad about it don't want to quit treatment at this time. palliative can see him and see if he decides any other way (Mary Foster MD) Problem List: (1) HOWARD (acute kidney injury) ICD Codes: N17.9 - Acute kidney failure, unspecified Status: Acute Plan: Stage 3 chronic kidney disease secondary to hypertensive or diabetic renal disease Acute renal impairment from contrast nephropathy and vancomycin BUN and Creatinine trending up 07/29 UA significant for large occult blood, moderate leukocyte esterase, moderate bacteria. Urine culture shows no growth. Renal US normal Nephrology consulted- Appreciate recommendations. IV Sodium Bicarb, patient will need hemodialysis as renal function worsens. (2) Diabetes mellitus with peripheral angiopathy with gangrene ICD Codes: E11.52 - Type 2 diabetes mellitus with diabetic peripheral angiopathy with gangrene (3) Sepsis ICD Codes: A41.9 - Sepsis, unspecified organism Status: Acute Plan: Secondary to severe right hallux diabetic foot infection with wet gangrene and likely severe osteomyelitis. s/p right hallux amputation on 07/27 and endovascular revascularization on 07/25 Afebrile x 48 hours Last fever 101.4 F on 07/28/2017. Leukocytosis of 20.8 today 07/22 BCx x 2 No growth 07/24 BCx x 2 No growth 07/26 BCx x 2 NGTD 07/27 wound culture growing Group B strep, no fungal elements seen 07/29 UCx no growth CXR: no acute disease Head CT: no acute abnormality s/p Vancomycin q12H (07/22-07/27) Plan: -Continue Zosyn 3.375g q6H (started 07/25) -Infectious Disease, Podiatry, and Vascular Surgery Consulted- Appreciate recommendations. (4) Anemia ICD Codes: D64.9 - Anemia, unspecified Status: Acute Plan: s/p 3 units Packed RBCs, 1 on 07/25, 1 on 07/27, 1 on 07/29, and 1 on 07/30. Right first metatarsal amputation on 07/27 complicated by bleeding. Additional bleeding noted in wound vac. Peripheral smear significant for substantial microcytic hypochromic anemia, significant number fragmented blood cells is a possibility of microangiopathic hemolytic process. Continue Ferrous Sulfate 325 BID. Continue to monitor H/H Transfuse if Hgb <7.5 (5) Diabetes mellitus ICD Codes: E11.9 - Type 2 diabetes mellitus without complications Status: Chronic Plan: History of poorly controlled diabetes. Home regimen is Lantus 40 units SQ at bedtime and Humalog mix 10 units 3 times a day. -Accu-Cheks ranging 122-159 -Medium dose SSI - Diabetic Diet -Continue Levemir 20 units BID. (6) Hypertension ICD Codes: I10 - Essential (primary) hypertension Status: Chronic Plan: Blood pressures spiking likely secondary to renal failure. Continue home meds -Coreg 6.2mg BID -Lisinopril 20mg daily - Clonidine 0.1mg PO Q6H PRN BP >170/100 (7) Thrush, oral ICD Codes: B37.0 - Candidal stomatitis Plan: Thrush on tongue on physical exam. Patient with uncontrolled diabetes, more susceptible to fungal infections. -Nystatin QID x 7-14 days (started 07/23) (8) Depression ICD Codes: F32.9 - Major depressive disorder, single episode, unspecified Plan: Stable. Continue sertraline 150 mg PO daily. (9) FEN Status: Acute Plan: Fluids: Sodium Bicarb @ 100ml/hr Electrolytes: wnl, continue to monitor Diet: Diabetic diet DVT ppx: heparin 5000units SQ q12H GI Pxx: Protonix 40 mg PO daily. dw Dr. Foster (Aniya Jacobo MD, R3) Problem Qualifiers (1) Diabetes mellitus with peripheral angiopathy with gangrene: Qualified Codes: E10.52 - Type 1 diabetes mellitus with diabetic peripheral angiopathy with gangrene (2) Sepsis: Qualified Codes: A41.9 - Sepsis, unspecified organism (3) Anemia: Qualified Codes: D64.9 - Anemia, unspecified (4) Diabetes mellitus: Qualified Codes: E10.52 - Type 1 diabetes mellitus with diabetic peripheral angiopathy with gangrene (5) Hypertension: Qualified Codes: I10 - Essential (primary) hypertension (6) Depression: Qualified Codes: F32.0 - Major depressive disorder, single episode, mild Aniya Jacobo MD, R3 Jul 31, 2017 10:14 Mary oFster MD Jul 31, 2017 16:21
[2017-07-31] MEDS ORDERED: SODIUM CHLOR 0.9% 1000 ML INJ 1,000 ML IV PRN (11:09)
[2017-07-31] MEDS ORDERED: SODIUM CHLOR 0.9% 1000 ML INJ 1,000 ML OTHER PRN (11:09)
[2017-07-31] MEDS ORDERED: diphenhydrAMINE HCL 25 MG CAP PO PRN (11:15)
[2017-07-31] MEDS ORDERED: MANNITOL 12.5 GM/50 ML VIAL IV PRN (11:15)
[2017-07-31] MEDS ORDERED: NITROGLYCERIN 0.4 MG SL 25 TABS/BTL SL PRN (11:15)
[2017-07-31] MEDS ORDERED: ACETAMINOPHEN 325 MG TAB PO PRN (11:15)
[2017-07-31] MEDS ORDERED: cloNIDine HCL 0.1 MG TAB PO PRN (11:15)
[2017-07-31] MEDS ORDERED: GELATIN 12 MM/7 MM FOAM TOP PRN (11:15)
[2017-07-31] MEDS ORDERED: SODIUM CHLORIDE 0.9% FLUSH 10 ML FLUSH IV FLUSH PRN (11:15)
[2017-07-31] MEDS ORDERED: ONDANSETRON HCL 4 MG/2 ML VIAL IV PRN (11:15)
[2017-07-31] MEDS ORDERED: ALBUMIN HUMAN 25% 25 GM/100 ML BAGP IV PRN (11:15)
[2017-07-31] MEDS ORDERED: HEPARIN SODIUM - IV 10,000 UNITS/10 ML VIAL IVF PRN (11:15)
--- NOTE | 2017-07-31 13:09 | PD.RAD ---
Post Procedure Progress Note Pre Procedure Diagnosis: (1) HOWARD (acute kidney injury) Post Procedure Diagnosis: (1) HOWARD (acute kidney injury) Procedure Date: Jul 31, 2017 Supervising Radiologist: Paresh Hughes Proceduralist/Assist: Joanna Gill RT(R), RT Kelby(R)() Anesthesia: Local Plan of Activity Patient to Unit: Other (Dialysis) Patient Condition: Good See PACS Report for procedural detail/treatment Central Venous Access Device Procedure 1 Right Internal Jugular Hemodialysis Catheter Non-Tunneled Placement dual lumen Finnish: 14 PICC Line Length (cm): 15 Paresh Hughes MD Jul 31, 2017 13:09
[2017-07-31] MEDS ORDERED: SODIUM CHLORIDE 0.9% FLUSH 10 ML FLUSH IVF PRN (13:15)
[2017-07-31] MEDS ORDERED: HEPARIN SODIUM - IV 2,000 UNITS/2 ML VIAL IV FLUSH PRN (13:15)
--- NOTE | 2017-07-31 13:56 | PD.CONS ---
Consult Service Palliative Care Consult Requested By Dr. Foster/Dr. Jacobo . Primary Care Physician Sonia Nicholson MD Reason for Consultation a. To assist with evaluation and management of symptoms including: Debility and pain. b. To assist medical decision maker(s) with: better understanding of current medical conditions; weighing benefits/burdens of medical treatment options; making medical treatment decisions. . HPI History of Present Illness Mr. Obando it's a 62-year-old male with a medical history significant for diabetes uncontrolled mellitus type 2, CAD status post stent placement in on May 2017, PR on October 2015, hypertension, CVA in 2012 and diabetic ulcer to right foot. Patient presented to ED on 07/22/17 for evaluation of generalized weakness, headaches and decreased oral intake. Patient was seen by his primary care doctor who recommended ED follow-up. Abdomen and pelvis CT negative for acute process. Head CT negative for acute process, persistent stable encephalomalacia see at the inferior left cerebellar hemisphere. Chest x-ray negative for acute process. Laboratory workup including WBC 21.8, Hgb 9.8, platelet count 241. Sodium 142, potassium 3.9, BUN/creatinine 37/1.66. Liver enzymes slightly elevated to include AST 88, ALT 52, alkaline phosphatase 152. Patient was admitted for further management of sepsis. Podiatry, Dr. Calloway consulted on 07/24/17 for evaluation of right toe ulceration -evaluation for possible shaving versus amputation. Vascular surgery consulted, patient was seen by Dr. Romo. Cardiology, Dr. Guerrero consulted on 07/23/17 secondary to elevated troponin. Patient with history of coronary artery disease and prior PR in October 2015. Cardiology recommending peripheral vascular evaluation given wound infection. Infectious disease, Dr. Khan was consulted on 07/26/17 for evaluation of wound. Patient presented with fever, leukocytosis secondary to severe right hallux infection. Both weight and dry gangrene present at the time of ID exam, amputation recommended to control infection. Patient underwent right lower extremity angiogram revealing high-grade proximal superficial artery stenosis. Patient was treated with femoral angioplasty, tibial artery angioplasty, and dorsalis pedis artery angioplasty on 07/25/17. Subsequently, patient underwent open amputation of right hallux on 07/27/17, no intraoperative complications reported. Clinical course complicated by acute kidney failure. Nephrology, Dr. Mckeon consulted on 07/28/17 for evaluation of BUN/creatinine. Acute kidney injury possibly related to acute tubular necrosis, interstitial nephritis or contrast nephropathy. BUN/creatinine continue to increase. Currently 70/6.66 from 65/ 5.71 yesterday. Hemodialysis was discussed. Palliative care has been consulted for further clarifications of goals of care. Reviewed patient past medical history. Recent ED visit on 07/16/17 secondary to abdominal pain. Patient was discharged home. Patient seen in dialysis unit. Ongoing HD. Patient alert and oriented x self, place and situation, frequently confused. Lethargic. Patient is legally blind. Patient endorsing generalized pain and not feeling well. When asked why he was here at the hospital, patient responded "because I'm very sick". Obtained a past medical history and psychosocial history. Patient denies advance directives, patient wishes for his to make medical decisions on his behalf. Patient afebrile, hypertensive with with SBP in the 170s to 180s. Tolerated room air with O2 saturation in the high 90s. Laboratory workup today revealing persistent leukocytosis with WBC 20.6, Hgb 9.3 status post PRBC transfusion for hemoglobin of 7.5. Sodium 140, potassium 5.2, BUN/creatinine 70 /6.66 from 65/5.71. Patient undergoing hemodialysis, first treatment. Bedside conversation with patient's Ioana Obando. Reviewed the role of palliative care in advanced illness as it pertains to symptom management and assistance with advance directives/goals of care. tell me that she has been to patient since 2009. Patient disabled since 2009 secondary to multiple chronic comorbidities. Patient requiring progressive assistance with ADLs, nonambulatory for the 2 weeks prior to ED arrival. Walking with a walker prior to that, unsteady gait with frequent falls. Medical update provided. Shared concerns of patient's clinical condition and very poor prognosis for an improved quality of life or survival given multiple chronic ongoing comorbidities, sepsis/wound infection with osteomyelitis, acute on chronic kidney failure requiring renal replacement therapy, progressive decline, malnutrition with albumin 1.4 and profound physical deconditioning. Discussed risks, benefits and limitations of CPR, intubation and mechanical ventilation given the above. Patient and electing no code-DNR/DNI. Patient's verbalized that they have discussed artificial life support previously, she further tells me that patient has previously verbalized that "he has been wanting to for a while now". Hospice philosophy and benefits introduced, patient's familiar with hospice services. receptive to continue goals of care conversation, plan to follow-up tomorrow. Case discussed with Dr. Foster. . Function/Cognitive Trajectory Patient residing with his spouse prior to this hospitalization. Requiring assistance with ADLs. Patient disabled since 2009 secondary to multiple chronic comorbidities. Patient requiring progressive assistance with ADLs, nonambulatory for the 2 weeks prior to ED arrival. Walking with a walker prior to that, unsteady gait with frequent falls. . Review of Systems ROS Limitations: Clinical Condition, Poor Historian Constitutional: COMPLAINS OF: Fatigue, Pain, Generalized weakness, DENIES: Fever Eyes: COMPLAINS OF: Vision loss Ears, nose, mouth, throat: DENIES: Hearing loss, Nasal discharge, Running Nose Respiratory: COMPLAINS OF: Shortness of breath, DENIES: Cough Cardiovascular: COMPLAINS OF: Lower Extremity Edema Gastrointestinal: DENIES: Nausea, Vomiting Genitourinary: DENIES: Urinary incontinence Musculoskeletal: COMPLAINS OF: Muscle aches Integumentary: DENIES: Abnormal pigmentation Hematologic/Lymphatics: COMPLAINS OF: Bruising Immunologic/Allergic: DENIES: Eczema Neurologic: COMPLAINS OF: Abnormal gait, Poor Balance, DENIES: Tremor Psychiatric: COMPLAINS OF: Confusion, Depression, DENIES: Agitation Past Family Social History Coded Allergies: aspirin (Verified Allergy, Intermediate, nausea, 07/22/17) Past Medical History Uncontrolled diabetes mellitus type 2, CAD status post stent placement PR on October 2015 Hypertension CVA on 2012 Depression . Past Surgical History Eye surgery Stent placement . Reported Medications Bentyl (Dicyclomine HCl) 10 Mg Cap 10 Mg PO QID 12 Days Singulair (Montelukast Sodium) 5 Mg Chew 5 Mg CHEW HS Carvedilol 6.25 Mg Tab 6.25 Mg PO BID Farxiga (Dapagliflozin) 5 Mg Tab 5 Mg PO DAILY Lipitor (Atorvastatin Calcium) 80 Mg Tab 80 Mg PO HS Humalog Mix 75-25 Kwikpen Pen Inj (Insulin Lispro Protamine-Lispro 75-25 Inj) 300 unit/3 ML Pen 10 Units SQ TIDAC Lantus Solostar Pen Inj (Insulin Glargine) 300 Unit/3 Ml Pen 40 Units SQ HS Reglan (Metoclopramide HCl) 10 Mg Tab 10 Mg PO TIDAC Prednisolone Acetate Opth 1% Susp 1 Drop EACH EYE DAILY Lisinopril 20 Mg Tab 20 Mg PO DAILY Plavix (Clopidogrel Bisulfate) 75 Mg Tab 75 Mg PO DAILY Topamax (Topiramate) 100 Mg Tab 100 Mg PO DAILY Omeprazole 20 Mg Cap 1 Cap PO DAILY Zofran Odt (Ondansetron Odt) 4 Mg Tab 4 Mg SL Q6HR PRN Sertraline (Sertraline HCl) 100 Mg Tab 100 Mg PO DAILY Reported Hydroxyzine HCl 50 Mg Tab 50 Mg PO HS Current Medications Medications (Trade) Dose Ordered Sig/Dre Route Start Time Stop Time Status Last Admin (Tylenol) 650 mg Q4H PRN PO 07/22/17 22:00 07/28/17 01:05 (Zofran Inj) 4 mg Q6H PRN IVP 07/22/17 22:00 07/29/17 09:48 (Heparin Inj) 5,000 units Q12H SQ 07/22/17 22:00 07/31/17 09:02 (Najma-Colace) 1 tab BID PO 07/23/17 09:00 07/31/17 09:03 (Milk Of Magnesia Liq) 30 ml Q12H PRN PO 07/22/17 22:00 (Senokot) 17.2 mg Q12H PRN PO 07/22/17 22:00 (Dulcolax Supp) 10 mg DAILY PRN RECTAL 07/22/17 22:00 (Lactulose Liq) 30 ml DAILY PRN PO 07/22/17 22:00 (Aspirin Chew) 81 mg DAILY CHEW 07/23/17 09:00 07/31/17 09:03 (Lipitor) 80 mg HS PO 07/23/17 21:00 07/30/17 21:13 (Coreg) 6.25 mg BID PO 07/23/17 09:00 07/31/17 09:04 (Plavix) 75 mg DAILY PO 07/23/17 09:00 07/31/17 09:03 (Atarax) 50 mg HS PO 07/23/17 21:00 07/30/17 21:13 (Prinivil) 20 mg DAILY PO 07/23/17 09:00 Future Hold 07/24/17 08:56 (Singulair Chew) 5 mg HS CHEW 07/23/17 21:00 07/30/17 21:15 (Pred Forte 1% Opth Susp) 1 drop DAILY EACH EYE 07/23/17 09:00 07/31/17 09:04 (Topamax) 100 mg DAILY PO 07/23/17 09:00 07/31/17 09:03 (D50w (Vial) Inj) 50 ml UNSCH PRN IV 07/22/17 22:15 (Glucagon Inj) 1 mg UNSCH PRN OTHER 07/22/17 22:15 (NovoLOG SUPPLEMENTAL SCALE) 1 ACHS SLIDING SCALE SQ 07/23/17 07:00 07/30/17 06:15 (Mycostatin Liq) 5 ml QID SWISH-SWAL 07/23/17 09:00 07/31/17 09:03 (Lactinex Pkt) 1 gm TID PO 07/23/17 18:00 07/31/17 09:03 (Levemir Inj) 20 units Q12HR SQ 07/25/17 21:00 07/31/17 09:09 (NS Flush) 2 ml UNSCH PRN IV FLUSH 07/27/17 09:00 (NS Flush) 2 ml BID IV FLUSH 07/27/17 09:00 07/30/17 21:16 (Roxicodone) 10 mg Q4H PRN PO 07/27/17 09:00 07/31/17 09:04 (Dilaudid Pf Inj) 1 mg Q3H PRN IV 07/27/17 09:00 (Roxicodone) 5 mg Q4H PRN PO 07/27/17 09:00 07/28/17 15:53 (Narcan Inj) 0.4 mg UNSCH PRN IV 07/27/17 09:00 (Tylenol) 650 mg Q4H PRN PO 07/27/17 15:30 (Benadryl) 25 mg Q4H PRN PO 07/27/17 15:30 (Zoloft) 150 mg DAILY PO 07/28/17 09:00 07/31/17 09:03 (Pill Splitter) 1 ea UNSCH PRN OTHER 07/28/17 09:00 (Ferrous Sulfate) 325 mg BID PO 07/28/17 09:00 07/31/17 09:03 (Protonix) 40 mg DAILY PO 07/30/17 09:00 07/31/17 09:04 Piperacillin Sod/ Tazobactam Sod 50 ml @ 100 mls/hr Q6H IV 07/29/17 16:00 07/31/17 09:02 Sodium Bicarbonate 50 meq/Sodium Chloride 1,050 ml @ 100 mls/hr [id number] IV 07/30/17 12:00 07/31/17 09:05 (Catapres) 0.1 mg Q6H PRN PO 07/30/17 02:30 Sodium Chloride 1,000 ml @ 0 mls/hr Q0M PRN OTHER 07/31/17 11:09 (Heparin Inj) 8,000 units UNSCH PRN IVF 07/31/17 11:15 Sodium Chloride 1,000 ml @ 200 mls/hr Q5H PRN IV 07/31/17 11:09 Sodium Chloride 1,000 ml @ 0 mls/hr Q0M PRN OTHER 07/31/17 11:09 (Mannitol Inj) 12.5 gm UNSCH PRN IV 07/31/17 11:15 (Albumin 25% Inj) 25 gm UNSCH PRN IV 07/31/17 11:15 (NS Flush) 5 ml UNSCH PRN IV FLUSH 07/31/17 11:15 (Heparin Inj) UNSCH PRN .XX 07/31/17 11:15 (Gentamicin (Dialysis) Inj) 20 mg UNSCH PRN IV 07/31/17 11:15 (Zofran Inj) 4 mg UNSCH PRN IV 07/31/17 11:15 (Tylenol) 650 mg UNSCH PRN PO 07/31/17 11:15 (Benadryl) 25 mg UNSCH PRN PO 07/31/17 11:15 (Nitrostat Sl) 0.4 mg UNSCH PRN SL 07/31/17 11:15 (Catapres) 0.1 mg UNSCH PRN PO 07/31/17 11:15 (Gelfoam 12 Mm/7 Mm Top) 1 foam UNSCH PRN TOP 07/31/17 11:15 (NS Flush) UNSCH PRN IVF 07/31/17 13:15 UNV (Heparin Inj) UNSCH PRN IV FLUSH 07/31/17 13:15 UNV Family History Fatherdeceased, unknown cause Motherdeceased, unknown cause Siblings2 sisters and 3 brothers, healthy Childrenone daughter, healthy . Substance Use Tobacco: Former smoker. Alcohol: Denies. Prescription med abuse: Denies. Illicits: Denies. . Psychosocial History Patient originally from [facility]. to current since 2009. No children together. Patient has a biological daughter by the name of Leslee Obando who resides in [place]. 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 No service. . Spiritual/Cultural Factors Hindu jose. . Living Will: Never completed Health Care Surrogate: Never completed Durable Power of Superintendent Schools: Never completed Health Care Surrogate(s): No advance directives completed. Proxy healthcare decision-making falls to patient's Ioana Obando. . Today's verbally stated goals: No code. DNR/DNI. Continue current medical management short of no code. Hospice philosophy and benefits has been introduced. . Family/friends goals: Patient's Ioana fully supportive of patient's wishes. . Ethical and Legal Issues No ethical legal issues identified. . Physical Exam Vital Signs Date Time Temp Pulse Resp B/P (MAP) Pulse Ox O2 Delivery O2 Flow Rate FiO2 07/31/17 08:00 98.7 99 18 180/86 (117) 96 07/31/17 04:00 98.5 100 18 157/86 (109) 98 07/31/17 00:15 97.7 98 18 145/85 98 07/31/17 00:00 97.9 98 18 145/85 (105) 98 07/30/17 21:15 97.8 95 18 137/70 96 07/30/17 20:51 97.5 91 18 133/87 98 07/30/17 16:00 98.0 90 20 149/66 (93) 98 07/30/17 13:45 98 07/31/17 08/01/17 19:00 07:00 Intake Total 250 ml Balance 250 ml IV Total 250 ml Exam CONSTITUTIONAL/GENERAL: This is an obese, frail man resting in bed in no acute distress. Patient appears older than stated age. TUBES/LINES/DRAINS: Right IJ Vas-Cath, PIV's, Medina catheter. SKIN: No jaundice, rashes, or lesions. Ecchymoses on upper extremities. Skin temperature appropriate. Not diaphoretic. Right foot wrapped in Maxi bandages. HEAD: Atraumatic. Normocephalic. EYES: Unable to evaluate eyes, patient legally blind. Very sensitive to light. Unable to open eyes for exam. ENT: Hearing grossly normal. Nose without bleeding or purulent drainage. Moist oral mucosa. Thrush observed. edentulous. NECK: Trachea midline. Supple, nontender. CARDIOVASCULAR: Regular rate and rhythm. Limited CV exam, patient receiving HD at time of visit. RESPIRATORY/CHEST: Symmetric, unlabored respirations. Clear, diminished to auscultation. Breath sounds equal bilaterally. No wheezes, rales, or rhonchi. GASTROINTESTINAL: Abdomen obese, round, large. Positive bowel sounds. Unable to appreciate hepatomegaly secondary to body habitus. GENITOURINARY: Without palpable bladder distension. Medina catheter in place. MUSCULOSKELETAL: Extremities without clubbing, cyanosis. Right foot wrapped in Maxi bandages. NEUROLOGICAL: Awake and alert x self, place and situation. Frequently confused/ forgetful. Following commands. Slurred speech. Weak. PSYCHIATRIC: Calm. . Diagnostic Tests Laboratory Laboratory Tests Test 07/29/17 09:15 07/29/17 09:40 07/29/17 14:16 07/29/17 22:31 Urine Color BROWN (YELLW/STRAW) Urine Turbidity CLOUDY (CLEAR) Urine pH 5.0 (5.0-8.5) Urine Specific Hurst 1.036 (1.002-1.035) Urine Protein 30 mg/dL (NEG-TRACE) Urine Glucose (UA) 70 mg/dL (NEG) Urine Ketones TRACE mg/dL (NEG) Urine Occult Blood LARGE (NEG) Urine Nitrite NEG (NEG) Urine Bilirubin NEG (NEG) Urine Urobilinogen LESS THAN 2.0 MG/DL (LESS Urine Leukocyte Esterase MOD (NEG) Urine RBC /hpf (0-3) Urine WBC 157 /hpf (0-5) Urine WBC Clumps FEW (NONE) Urine Amorphous Sediment MOD Urine Bacteria MOD /hpf (NONE) Microscopic Urinalysis Comment CULTURE INDICATED Urine Eosinophils NONE SEEN /HPF (NONE SEEN) Urine Random Sodium 30 MEQ/L White Blood Count 21.4 TH/MM3 (4.0-11.0) Red Blood Count 3.27 MIL/MM3 (4.50-5.90) Hemoglobin 7.4 GM/DL (13.0-17.0) 8.5 GM/DL (13.0-17.0) Hematocrit 23.1 % (39.0-51.0) 26.4 % (39.0-51.0) Mean Corpuscular Volume 70.7 FL (80.0-100.0) Mean Corpuscular Hemoglobin 22.6 PG (27.0-34.0) Mean Corpuscular Hemoglobin Concent 31.9 % (32.0-36.0) Red Cell Distribution Width 22.2 % (11.6-17.2) Platelet Count 142 TH/MM3 (150-450) Mean Platelet Volume 8.9 FL (7.0-11.0) Neutrophils (%) (Auto) 82.8 % (16.0-70.0) Lymphocytes (%) (Auto) 9.5 % (9.0-44.0) Monocytes (%) (Auto) 5.6 % (0.0-8.0) Eosinophils (%) (Auto) 1.9 % (0.0-4.0) Basophils (%) (Auto) 0.2 % (0.0-2.0) Neutrophils # (Auto) 17.7 TH/MM3 (1.8-7.7) Lymphocytes # (Auto) 2.0 TH/MM3 (1.0-4.8) Monocytes # (Auto) 1.2 TH/MM3 (0-0.9) Eosinophils # (Auto) 0.4 TH/MM3 (0-0.4) Basophils # (Auto) 0.1 TH/MM3 (0-0.2) CBC Comment AUTO DIFF Differential Total Cells Counted 100 Neutrophils % (Manual) 85 % (16-70) Band Neutrophils % 2 % (0-6) Lymphocytes % 10 % (9-44) Monocytes % 2 % (0-8) Neutrophils # (Manual) 18.8 TH/MM3 (1.8-7.7) Myelocytes 1 % (0-0) Differential Comment FINAL DIFF MANUAL Platelet Estimate LOW (NORMAL) Platelet Morphology Comment NORMAL (NORMAL) Ovalocytes 1+ (NORMAL) Keratocytes OCC (NORMAL) Blood Urea Nitrogen 59 MG/DL (7-18) Creatinine 4.65 MG/DL (0.60-1.30) Random Glucose 172 MG/DL (74-106) Calcium Level 7.9 MG/DL (8.5-10.1) Phosphorus Level 4.1 MG/DL (2.5-4.9) Sodium Level 139 MEQ/L (136-145) Potassium Level 4.8 MEQ/L (3.5-5.1) Chloride Level 114 MEQ/L (98-107) Carbon Dioxide Level 15.5 MEQ/L (21.0-32.0) Anion Gap 10 MEQ/L (5-15) Estimat Glomerular Filtration Rate 16 ML/MIN (>89) Total Protein 5.9 GM/DL (6.0-7.6) Albumin 1.77 GM/DL (3.50-5.00) Albumin/Globulin Ratio 0.43 (1.39-2.23) Mqjlf-5-Nalizdcer 0.57 GM/DL (0.11-0.29) Kdqii-3-Tptylgoby 0.99 GM/DL (0.22-1.00) Beta Globulins 1.12 GM/DL (0.53-1.03) Gamma Globulins 1.45 GM/DL (0.50-1.39) Electrophoresis Pathologist Comment Random Vancomycin Level 34.6 COMMENT Reticulocyte Count 0.9 % (0.4-3.0) Absolute Reticulocyte Count 26.5 MIL/L (20.0-150.0) Test 07/30/17 08:55 07/30/17 15:15 07/31/17 02:24 White Blood Count 20.8 TH/MM3 (4.0-11.0) 20.6 TH/MM3 (4.0-11.0) Red Blood Count 3.21 MIL/MM3 (4.50-5.90) 3.86 MIL/MM3 (4.50-5.90) Hemoglobin 7.8 GM/DL (13.0-17.0) 7.5 GM/DL (13.0-17.0) 9.3 GM/DL (13.0-17.0) Hematocrit 23.3 % (39.0-51.0) 23.4 % (39.0-51.0) 28.7 % (39.0-51.0) Mean Corpuscular Volume 72.7 FL (80.0-100.0) 74.5 FL (80.0-100.0) Mean Corpuscular Hemoglobin 24.2 PG (27.0-34.0) 24.0 PG (27.0-34.0) Mean Corpuscular Hemoglobin Concent 33.3 % (32.0-36.0) 32.3 % (32.0-36.0) Red Cell Distribution Width 23.9 % (11.6-17.2) 25.4 % (11.6-17.2) Platelet Count 129 TH/MM3 (150-450) 152 TH/MM3 (150-450) Mean Platelet Volume 9.3 FL (7.0-11.0) 8.8 FL (7.0-11.0) Neutrophils (%) (Auto) 82.8 % (16.0-70.0) 85.3 % (16.0-70.0) Lymphocytes (%) (Auto) 9.5 % (9.0-44.0) 7.1 % (9.0-44.0) Monocytes (%) (Auto) 6.4 % (0.0-8.0) 5.1 % (0.0-8.0) Eosinophils (%) (Auto) 1.1 % (0.0-4.0) 2.0 % (0.0-4.0) Basophils (%) (Auto) 0.2 % (0.0-2.0) 0.5 % (0.0-2.0) Neutrophils # (Auto) 17.2 TH/MM3 (1.8-7.7) 17.5 TH/MM3 (1.8-7.7) Lymphocytes # (Auto) 2.0 TH/MM3 (1.0-4.8) 1.5 TH/MM3 (1.0-4.8) Monocytes # (Auto) 1.3 TH/MM3 (0-0.9) 1.1 TH/MM3 (0-0.9) Eosinophils # (Auto) 0.2 TH/MM3 (0-0.4) 0.4 TH/MM3 (0-0.4) Basophils # (Auto) 0.0 TH/MM3 (0-0.2) 0.1 TH/MM3 (0-0.2) CBC Comment AUTO DIFF AUTO DIFF Differential Comment AUTO DIFF CONFIRMED FINAL DIFF MANUAL Platelet Estimate LOW (NORMAL) NORMAL (NORMAL) Platelet Morphology Comment NORMAL (NORMAL) NORMAL (NORMAL) Tear Drop Cells 1+ (NORMAL) Ovalocytes 1+ (NORMAL) 1+ (NORMAL) Blood Urea Nitrogen 65 MG/DL (7-18) 70 MG/DL (7-18) Creatinine 5.71 MG/DL (0.60-1.30) 6.66 MG/DL (0.60-1.30) Random Glucose 144 MG/DL (74-106) 125 MG/DL (74-106) Total Protein 5.9 GM/DL (6.4-8.2) 6.6 GM/DL (6.4-8.2) Albumin 1.2 GM/DL (3.4-5.0) 1.4 GM/DL (3.4-5.0) Calcium Level 7.7 MG/DL (8.5-10.1) 8.1 MG/DL (8.5-10.1) Alkaline Phosphatase 118 U/L (45-117) 131 U/L (45-117) Aspartate Amino Transf (AST/SGOT) 48 U/L (15-37) 52 U/L (15-37) Alanine Aminotransferase (ALT/SGPT) 22 U/L (12-78) 23 U/L (12-78) Total Bilirubin 0.6 MG/DL (0.2-1.0) 0.6 MG/DL (0.2-1.0) Sodium Level 139 MEQ/L (136-145) 140 MEQ/L (136-145) Potassium Level 4.7 MEQ/L (3.5-5.1) 5.2 MEQ/L (3.5-5.1) Chloride Level 114 MEQ/L (98-107) 113 MEQ/L (98-107) Carbon Dioxide Level 12.2 MEQ/L (21.0-32.0) 16.4 MEQ/L (21.0-32.0) Anion Gap 13 MEQ/L (5-15) 11 MEQ/L (5-15) Estimat Glomerular Filtration Rate 12 ML/MIN (>89) 10 ML/MIN (>89) Differential Total Cells Counted 100 Neutrophils % (Manual) 78 % (16-70) Band Neutrophils % 4 % (0-6) Lymphocytes % 11 % (9-44) Monocytes % 5 % (0-8) Eosinophils % 1 % (0-4) Neutrophils # (Manual) 17.1 TH/MM3 (1.8-7.7) Metamyelocytes 1 % (0-1) Acanthocytes 1+ (NORMAL) Anti-Nuclear Antibody Screen NEG (NEG) Complement C3 123 MG/DL (90-180) Complement C4 29 MG/DL (10-40) Result Diagram: 07/31/1722307/31/17223 Microbiology Microbiology Date/Time Source Procedure Growth Status 07/30/17 06:30 Stool Stool Stool Occult Blood (DEEPAK) - Final HEMOCCULT NEGATIVE Complete 07/29/17 09:15 Urine Clean Catch Urine Culture - Final NO GROWTH IN 48 HOURS. Complete Imaging Last Impressions Renal Ultrasound 07/28/17 0000 Signed Impressions: Service Date/Time: Friday, July 28, 2017 09:48 - CONCLUSION: Normal examination. Ruiz Johnson MD Chest X-Ray 07/28/17 0000 Signed Impressions: Service Date/Time: Friday, July 28, 2017 09:19 - CONCLUSION: Bilateral lower lobe airspace disease. Ruiz Johnson MD Foot X-Ray 07/27/17 0000 Signed Impressions: Service Date/Time: Thursday, July 27, 2017 10:40 - CONCLUSION: Postsurgical changes are identified right first digit amputation. Ruiz Johnson MD Head CT 07/22/17 1826 Signed Impressions: Service Date/Time: Saturday, July 22, 2017 19:17 - CONCLUSION: 1. No acute abnormality is seen. 2. Atrophy. 3. Persistent stable encephalomalacia at the inferior left cerebellar hemisphere. Markus Denny MD Abdomen/Pelvis CT 07/22/17 0000 Signed Impressions: Service Date/Time: Saturday, July 22, 2017 23:56 - CONCLUSION: 1. No acute finding is identified within the abdomen or pelvis. There is mild respiratory motion artifact. 2. Stable nonacute findings include small hiatal hernia and small bilateral low-density renal lesions. There is trace left pleural fluid. Markus Chester MD Procedures * 07/25/17 -1. Right lower extremity angiogram, Superficial femoral artery angioplasty, 6 mm, Right anterior tibial artery angioplasty 3 mm, Right dorsalis pedis artery angioplasty 2 mm and Left common femoral artery Angio- Seal. * 07/27/17 -Open Amputation of right hallux * 07/31/17 -hemodialysis catheter placement . Patient/Family Conference Present at Family Conference: Patient and Ioana. Family Conference Time (mins): 42 Family Conference Location: Bedside Issues Discussed: * Palliative care role, purpose, approach * Additional medical, psychosocial, and spiritual history * Patients general health, functional status, and cognitive changes in the months leading up to the current hospitalization * Patient/family understanding of the current medical problems - multiple chronic ongoing comorbidities, sepsis/wound infection with osteomyelitis, acute on chronic kidney failure requiring renal replacement therapy, progressive decline, malnutrition with albumin 1.4 and profound physical deconditioning. * Patient/family understanding of prognosis -poor prognosis * Patients goals of care as best understood from advance directives and/or conversations and/or values * Current medical treatment options and benefits/burdens of those options * Likely scenarios comparing ongoing aggressive care with a transition to comfort measures only/discontinuation of renal replacement therapy * Questions answered to the best of my ability * Palliative care contact information provided * Hospice philosophy and benefits * Risks, benefits and limitations of CPR, intubation and mechanical ventilation given patient's clinical condition and overall poor prognosis . Assessment and Plan Disease Oriented Problem List: (1) Sepsis (2) Diabetes mellitus with peripheral angiopathy with gangrene (3) HOWARD (acute kidney injury) (4) CAD (coronary artery disease) (5) Hypertension (6) Depression Symptom Scale: (1) Debility 0-10 Scale: Unable to quantify Pertinent Non-Medical Issues Psychosocial: Patient originally from [facility]. to current since 2009. No children together. Patient has a biological daughter by the name of Leslee Obando who resides in [place]. 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 No service. Spiritual: Hindu jose. Legal: No advance directives completed. Ethical issues impacting care: No advance directives completed. . Important Contacts Patient's Ioana Obando . . Prognosis Very poor prognosis for an improved quality of life or survival given multiple chronic ongoing comorbidities, sepsis/wound infection with osteomyelitis, acute on chronic kidney failure requiring renal replacement therapy, progressive decline, malnutrition with albumin 1.4 and profound physical deconditioning. Patient at high risk for further complications, clinical decline and . Patient appears hospice appropriate should he elects comfort-directed care/ discontinuation of renal replacement therapy. . Code Status: No Code Plan * CODE STATUS: No code. DNR/DNI. Risks, benefits and limitations of CPR, intubation and mechanical ventilation discussed. Patient and electing no code. * HEALTHCARE DECISION-MAKING: Patient with limited participation in medical decision-making, intermittent confusion/lethargy. He relies heavily on his for input/medical decision-making. No advance directives completed. As per [place] statute, proxy healthcare decision-making falls to patient's Ioana Laws. Palliative care recommends shared decision-making with patient's . * GOALS OF CARE: Patient and electing to continue current medical management short of no code. Shared concerns of patient's very poor prognosis for an improved quality of life or survival given multiple chronic ongoing comorbidities, sepsis/wound infection with osteomyelitis, acute on chronic kidney failure requiring renal replacement therapy, progressive decline, malnutrition with albumin 1.4 and profound physical deconditioning. Patient's tells me that patient has previously verbalized that "he has been wanting to for a while now". Hospice philosophy and benefits introduced, patient's familiar with hospice services. Discussed the future role of hospice should patient's elects comfort-directed care/discontinue renal replacement therapy, additional complications, continue decline or increased symptoms burden. Patient's verbalize being unable to continue caring for patient at home, would like long-term placement. Patient and receptive to palliative care follow-ups. * SYMPTOMS: = Pain, multifactorial. Secondary to medical interventions, surgical interventions, bedbound state. Currently on oxycodone 5 mg and 10 mg q4h PRN. Has received a total of oxycodone 20 mg in the past 24 hours. Dilaudid 1 mg q3h PRN available. No PRN doses given in the past 24 hours. No recommendations at this time. = Debility, progressive. Worsened during the past month. Likely to continue to progress. * Case discussed with Dr. Foster. * Provided education on living will, advanced directives and community DNR. Forms left with patient's further review. * Palliative care contact information has been provided to patient and . * Palliative care will continue to follow-up for further clarifications of goals of care as patient's clinical course continues to evolve. . Time Spent Total Floor Time (mins): 118 (Total time to include review and summarization of available medical records to include prior hospitalizations and ED visits, physical exam, goals of care conversation with patient and , education regarding living will and advanced directives and case discussion with Dr. Foster.) >50% Counseling/Coord of Care: Yes Thank you for the opportunity to participate in the care of Mr. Obando. Attestation To help prompt me to consider important information that might be impacting today's encounter and assessment, information from prior notes written by myself or my colleagues may have been "brought forward" into today's note. My signature on this note, however, is an attestation that I personally performed the exam, history, and/or decision-making noted today, and, unless otherwise indicated, the interactions with patient, family, and staff as well as the review of records all occurred today. I also attest that the listed assessment and stated plan reflect my best clinical judgment today based on the combination of historical information, prior notes, and today's exam/ interactions. When time spent is documented, it refers only to time spent today by the signer, or if indicated, combined time spent today by collaborating physician/nurse practitioner. Thelma León Jul 31, 2017 13:56
--- NOTE | 2017-07-31 14:33 | RADRPT ---
EXAM DATE/TIME: 07/31/2017 12:30 [facility] COMPARISON: No previous studies available for comparison. INDICATIONS : Patient with history of renal disease in need of vascath placement for dialysis. MEDICAL HISTORY : 1.DM 2.CAD 3.CVA 4.HTN SURGICAL HISTORY : 1.Eye surgery 2.PCI with stent placement ENCOUNTER: Initial ACUITY: > 1 year PAIN SCORE: 0/10 FLUORO TIME: 0.2 minutes IMAGE SERIES: 1 ACCESS: Right internal jugular vein MEDICATION(S): 1.) 2200 units Heparin IV 1.) 14 Greek dual lumen 15 cm Schon catheter PROCEDURE : 1. Ultrasound guided venipuncture. 2. Fluoroscopic guidance. 3. Central line placement. The risks, benefits and alternatives to the procedure were explained and verbal and written consent w as obtained. The site was prepped in sterile fashion. Full sterile technique was used, including ca p, mask, sterile gloves and gown and a large sterile sheet. Hand hygiene and 2% chlorhexidine prep w as utilized per protocol for cutaneous antisepsis with appropriate dry time for site. Sterile gel an d sterile probe cover were utilized for ultrasound guidance. The skin and subcutaneous tissues were infiltrated with local anesthetic solution. A suitable site a [place] the vein was selected with ultrasound and fluoroscopic guidance. A small incision was made. Th e vein was accessed under direct ultrasound visualization using the micropuncture technique. The shyam ropuncture set was exchanged for a 0.035 wire. The tract was dilated. The catheter was advanced int o position under direct fluoroscopic visualization. The catheter was fixed in place with suture and a sterile dressing was applied. The patient tolerated the procedure well and there were no complications. CONCLUSION: Uncomplicated line placement as above. Paresh Hughes MD on July 31, 2017 at 14:32 Board Certified Radiologist. This report was verified electronically.
--- NOTE | 2017-07-31 16:47 | HHI.NPPN ---
Subjective History of Present Illness 62-year-old male with past medical history of diabetes mellitus which is longstanding since he was a teenager, history of hypertension, peripheral vascular disease, chronic kidney disease, history of cerebrovascular accident, ischemic heart disease who was admitted on July 22 with complaint of nausea, or vomiting and abdominal pain. I was called to see the patient because of elevated BUN and creatinine. The patient has known history of chronic kidney disease and looking back it looks like his creatinine was 1.1 about 6 days before admission. Additional Remarks Patient is awake, seen after HD, tolerated well, no dizziness, BP is stable. Review of Systems General Constitutional: Fatigue Respiratory Lungs: Wheeze Cardiovascular Cardiac: Edema, HO Objective Data Data 07/31/17 08/01/17 19:00 07:00 Intake Total 250 ml Balance 250 ml IV Total 250 ml Vital Signs Date Time Temp Pulse Resp B/P (MAP) Pulse Ox O2 Delivery O2 Flow Rate FiO2 07/31/17 12:00 98.6 93 19 174/70 (104) 96 07/31/17 08:40 99 07/31/17 08:00 98.7 99 18 180/86 (117) 96 07/31/17 04:00 98.5 100 18 157/86 (109) 98 07/31/17 00:15 97.7 98 18 145/85 98 07/31/17 00:00 97.9 98 18 145/85 (105) 98 07/30/17 21:15 97.8 95 18 137/70 96 07/30/17 20:51 97.5 91 18 133/87 98 -: 07/31/17 0224 07/31/17 0224 Physical Exam General Appearance: Well Nourished, No Acute Distress, Comfortable Eyes Eye Exam: Pupils Equal Throat Throat Exam: Oral Mucosa [place] & Moist Neck Neck Exam: Neck Supple Pulmonary Resp Exam: No Distress, Rhonchi, Decreased Bases, Diminished Breath Sounds Gastrointestinal/Abdomen GI Exam: Soft, Non-Tender, Bowel Sounds Present, Distended Extremeties Extremities Exam: Moderate Edema, Pitting Edema Neurologic Neuro Exam: Alert, Awake, Oriented Psychiatric Psych Exam: Appropriate Responses Assessment/Plan Assessment Summary: HOWARD/Acute Renal Failure, Hypertension, CKD Stage III Problem List: (1) Blindness ICD Codes: H54.0 - Blindness, both eyes Status: Acute (2) CAD (coronary artery disease) ICD Codes: I25.10 - Atherosclerotic heart disease of [place] coronary artery without angina pectoris Status: Acute (3) Hyperlipidemia ICD Codes: E78.5 - Hyperlipidemia, unspecified Status: Acute (4) Anemia ICD Codes: D64.9 - Anemia, unspecified Status: Acute (5) Diabetes mellitus ICD Codes: E11.9 - Type 2 diabetes mellitus without complications Status: Chronic (6) Hypertension ICD Codes: I10 - Essential (primary) hypertension Status: Chronic (7) 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 Most likely has Hypertensive or Diabetic renal disease. Urine out put is low. Creatinine continue to increase. Most likely has Contrast Nephropathy, or possibly Vanco related as level was high. BUN and Creatinine continue to increase. Started on HD after the Vascath. Continue HD for now. Problem Qualifiers (1) Hyperlipidemia: Qualified Codes: E78.00 - Pure hypercholesterolemia, unspecified (2) Anemia: Qualified Codes: D64.9 - Anemia, unspecified (3) Diabetes mellitus: Qualified Codes: E10.52 - Type 1 diabetes mellitus with diabetic peripheral angiopathy with gangrene (4) Hypertension: Qualified Codes: I10 - Essential (primary) hypertension (5) Diabetes mellitus with peripheral angiopathy with gangrene: Qualified Codes: E10.52 - Type 1 diabetes mellitus with diabetic peripheral angiopathy with gangrene Grace Mckeon MD Jul 31, 2017 16:46
[2017-07-31] MEDS: ATORVASTATIN 80 MG TAB PO SCH (20:35)
[2017-07-31] MEDS: MONTELUKAST SODIUM 5 MG CHEWABLE TAB CHEW SCH (20:36)
[2017-07-31] MEDS: hydrOXYzine HCL 50 MG TAB PO SCH (20:36)
[2017-08-01] VITALS (8 sets, daily range): BP systolic 154–172; BP diastolic 74–90; PULSE 94–107; RESP 18–22; TEMP 97.4–98.9; O2SAT 93–100
[2017-08-01] MEDS: ONDANSETRON HCL 4 MG/2 ML VIAL IVP PRN (01:14)
[2017-08-01] MEDS: PIPERACIL-TAZO 2.25 GM PREMIX 50 ML IV SCH ×4 (04:08→21:48)
[2017-08-01] MEDS: SODIUM BICARBONATE 8.4% INJ 50 MEQ in SODIUM CHLOR 0.45% 1000 ML INJ 1,000 ML IV SCH ×3 (05:52→22:50)
[2017-08-01] MEDS: INSULIN ASPART SUPPLEMENTAL SCALE SQ SCH (05:56)
[2017-08-01] MEDS: SODIUM CHLORIDE 0.9% FLUSH 10 ML FLUSH IV FLUSH SCH ×2 (09:00→21:00)
[2017-08-01] MEDS: INSULIN DETEMIR 100 UNITS/ML VIAL SQ SCH (09:00)
[2017-08-01] MEDS: ASPIRIN 81 MG CHEW TAB CHEW SCH (09:36)
[2017-08-01] MEDS: DOCUSATE SODIUM 50 MG/SENNA 8.6 MG TAB PO SCH ×2 (09:37→21:48)
[2017-08-01] MEDS: LACTOBACILLUS ACIDOPHILUS 1 GM PACKET PO SCH ×3 (09:37→17:15)
[2017-08-01] MEDS: PANTOPRAZOLE SOD 40 MG DELAYED RELEASE TAB PO SCH (09:37)
[2017-08-01] MEDS: SERTRALINE HCL 100 MG TAB PO SCH (09:37)
[2017-08-01] MEDS: TOPIRAMATE 100 MG TAB PO SCH (09:37)
[2017-08-01] MEDS: FERROUS SULFATE 325 MG (65 MG ELEMENTAL IRON) TAB PO SCH (09:37)
[2017-08-01] MEDS: CLOPIDOGREL 75 MG TAB PO SCH (09:37)
[2017-08-01] MEDS: CARVEDILOL 6.25 MG TAB PO SCH ×2 (09:37→21:48)
[2017-08-01] MEDS: prednisoLONE ACETATE 1% OPHT SUSP 5 ML BTL EACH EYE SCH (09:38)
[2017-08-01] MEDS: HEPARIN SODIUM - SQ 10,000 UNITS/ML VIAL SQ SCH ×2 (09:38→21:48)
[2017-08-01] MEDS: NYSTATIN SUSP 500,000 U/5 ML CUP SWISH-SWAL SCH ×4 (09:38→21:49)
--- NOTE | 2017-08-01 09:43 | HHI.FPPN ---
Subjective Remarks Patient is very uncomfortable and states that he has been suffering since 2012. He states that he does not want to suffer anymore and is tired of taking medications. He did dialysis yesterday but states that he does not want to do that again. He is feeling unwell overall. (Aniya Jacobo MD, R3) Objective Vitals Vital Signs Date Time Temp Pulse Resp B/P (MAP) Pulse Ox O2 Delivery O2 Flow Rate FiO2 08/01/17 08:00 98.9 102 20 154/74 (100) 94 08/01/17 04:00 98.1 94 18 172/90 (117) 96 08/01/17 00:00 97.4 98 18 168/85 (112) 98 07/31/17 20:00 98.0 104 18 182/93 (122) 97 07/31/17 17:37 96 21 07/31/17 16:00 98.4 99 18 150/84 (106) 96 07/31/17 12:00 98.6 93 19 174/70 (104) 96 I/O 07/31/17 07/31/17 07/31/17 08/01/17 08/01/17 08/01/17 07:00 15:00 23:00 07:00 15:00 23:00 Intake Total 420 ml 250 ml 1745 ml 0 ml Output Total 50 ml 25 ml 100 ml Balance 370 ml 225 ml 1745 ml -100 ml Intake Oral 0 ml 0 ml 0 ml IV Total 250 ml 1745 ml Packed Cells 400 ml Blood Product IV Normal Saline Flush 20 ml Output Urine Total 50 ml 25 ml 100 ml Bladder Scan Volume Amount 10 ml # Bowel Movements 0 1 (Aniya Jacobo MD, R3) Result Diagram: 07/31/1722307/31/17223 Imaging Last Impressions Catheter Placement X-Ray 07/31/17 0000 Signed Impressions: Service Date/Time: Monday, July 31, 2017 12:30 - CONCLUSION: Uncomplicated line placement as above. Paresh Hughes MD Renal Ultrasound 07/28/17 0000 Signed Impressions: Service Date/Time: Friday, July 28, 2017 09:48 - CONCLUSION: Normal examination. Ruiz Johnson MD Chest X-Ray 07/28/17 0000 Signed Impressions: Service Date/Time: Friday, July 28, 2017 09:19 - CONCLUSION: Bilateral lower lobe airspace disease. Ruiz Johnson MD Foot X-Ray 07/27/17 0000 Signed Impressions: Service Date/Time: Thursday, July 27, 2017 10:40 - CONCLUSION: Postsurgical changes are identified right first digit amputation. Ruiz Johnson MD Head CT 07/22/17 1826 Signed Impressions: Service Date/Time: Saturday, July 22, 2017 19:17 - CONCLUSION: 1. No acute abnormality is seen. 2. Atrophy. 3. Persistent stable encephalomalacia at the inferior left cerebellar hemisphere. Markus Denny MD Abdomen/Pelvis CT 07/22/17 0000 Signed Impressions: Service Date/Time: Saturday, July 22, 2017 23:56 - CONCLUSION: 1. No acute finding is identified within the abdomen or pelvis. There is mild respiratory motion artifact. 2. Stable nonacute findings include small hiatal hernia and small bilateral low-density renal lesions. There is trace left pleural fluid. Markus Chester MD Objective Remarks Gen.: Well-nourished, well-developed male lying in bed. Appears uncomfortable. CV: Regular rate and rhythm, no murmurs appreciated. Respiratory: Clear to auscultation bilaterally, no wheezes or rales. EXT: Right foot with [place] bandage wrapping. Non draining. Elevated on pillow. Edematous bilateral lower extremities. GI: Soft NT ND BS present GENITOURINARY: Penis and scrotum edematous. Foreskin easily retractable, no erythema, drainage, or bleeding. Neuro: Awake and alert, moving all extremities. Psych: Appropriate insight and judgement. (Aniya Jacobo MD, R3) Urinary Catheter: Yes Assessment to: Continue [place] insert reason: Obstruction/Retention (Aniya Jacobo MD, R3) A/P Assessment and Plan 61-year-old male with history of hypertension, poorly controlled diabetes, CVA in 2012, , admitted for sepsis secondary to right diabetic foot ulcer with wet gangrene and severe osteomyelitis, now s/p right hallux amputation and endovascular revascularization. Now with acute on chronic renal failure. Discharge Planning Timetable unclear at this time. (Aniya Jacobo MD, R3) Attending Attestation Patient seen and examined. Case reviewed and discussed with the resident team. Agree with plan of care as discussed with me and documented in the resident note. based on him wanting hospice will at least stop his iron and lipitor now. he feels nauseated with all his meds. he is not eating so will hold his insulin. hopefully he can leave the hospital today with hospice. (Mary Foster MD) Problem List: (1) HOWARD (acute kidney injury) ICD Codes: N17.9 - Acute kidney failure, unspecified Status: Acute Plan: Stage 3 chronic kidney disease secondary to hypertensive or diabetic renal disease Acute renal impairment from contrast nephropathy and vancomycin BUN and Creatinine trending up. 07/29 UA significant for large occult blood, moderate leukocyte esterase, moderate bacteria. Urine culture shows no growth. Renal US normal Plan: Nephrology consulted- Appreciate recommendations. Hemodialysis on 07/31 Patient would like to forgo any further treatment. He is agreeable to hospice at this time. Will consult hospice. (2) Diabetes mellitus with peripheral angiopathy with gangrene ICD Codes: E11.52 - Type 2 diabetes mellitus with diabetic peripheral angiopathy with gangrene (3) Sepsis ICD Codes: A41.9 - Sepsis, unspecified organism Status: Acute Plan: Secondary to severe right hallux diabetic foot infection with wet gangrene and likely severe osteomyelitis. s/p right hallux amputation on 07/27 and endovascular revascularization on 07/25 Last fever 101.4 F on 07/28/2017. Leukocytosis of 20.8 today 07/22 BCx x 2 No growth 07/24 BCx x 2 No growth 07/26 BCx x 2 NGTD 07/27 wound culture growing Group B strep, no fungal elements seen 07/29 UCx no growth CXR: no acute disease Head CT: no acute abnormality s/p Vancomycin q12H (07/22-07/27) Plan: -Continue Zosyn 3.375g q6H (started 07/25) -Infectious Disease, Podiatry, and Vascular Surgery Consulted- Appreciate recommendations. (4) Anemia ICD Codes: D64.9 - Anemia, unspecified Status: Acute Plan: s/p 3 units Packed RBCs, 1 on 07/25, 1 on 07/27, 1 on 07/29, and 1 on 07/30. Right first metatarsal amputation on 9/2 complicated by bleeding. Additional bleeding noted in wound vac. Peripheral smear significant for substantial microcytic hypochromic anemia, significant number fragmented blood cells is a possibility of microangiopathic hemolytic process. Continue Ferrous Sulfate 325 BID. Continue to monitor H/H Transfuse if Hgb <7.5 (5) Diabetes mellitus ICD Codes: E11.9 - Type 2 diabetes mellitus without complications Status: Chronic Plan: History of poorly controlled diabetes. Home regimen is Lantus 40 units SQ at bedtime and Humalog mix 10 units 3 times a day. -Accu-Cheks ranging 111-148 -Medium dose SSI - Diabetic Diet -Continue Levemir 20 units BID. (6) Hypertension ICD Codes: I10 - Essential (primary) hypertension Status: Chronic Plan: Blood pressures spiking likely secondary to renal failure. Continue home meds -Coreg 6.2mg BID -Lisinopril 20mg daily - Clonidine 0.1mg PO Q6H PRN BP >170/100 (7) Thrush, oral ICD Codes: B37.0 - Candidal stomatitis Plan: Thrush on tongue on physical exam. Patient with uncontrolled diabetes, more susceptible to fungal infections. -Nystatin QID x 7-14 days (started 07/23) (8) Depression ICD Codes: F32.9 - Major depressive disorder, single episode, unspecified Plan: Stable. Continue sertraline 150 mg PO daily. (9) FEN Status: Acute Plan: Fluids: Sodium Bicarb @ 100ml/hr Electrolytes: wnl, continue to monitor Diet: Diabetic diet DVT ppx: heparin 5000units SQ q12H GI Pxx: Protonix 40 mg PO daily. ingrid Foster (Aniya Jacobo MD, R3) Problem Qualifiers (1) Diabetes mellitus with peripheral angiopathy with gangrene: Qualified Codes: E10.52 - Type 1 diabetes mellitus with diabetic peripheral angiopathy with gangrene (2) Sepsis: Qualified Codes: A41.9 - Sepsis, unspecified organism (3) Anemia: Qualified Codes: D64.9 - Anemia, unspecified (4) Diabetes mellitus: Qualified Codes: E10.52 - Type 1 diabetes mellitus with diabetic peripheral angiopathy with gangrene (5) Hypertension: Qualified Codes: I10 - Essential (primary) hypertension (6) Depression: Qualified Codes: F32.0 - Major depressive disorder, single episode, mild Aniya Jacobo MD, R3 Aug 01, 2017 09:43 Mary Foster MD Aug 01, 2017 11:01
--- NOTE | 2017-08-01 10:38 | HHI.HCPN ---
Reason for visit a. To assist with evaluation and management of symptoms including: Debility and pain. b. To assist medical decision maker(s) with: better understanding of current medical conditions; weighing benefits/burdens of medical treatment options; making medical treatment decisions. . Subjective/Interval History Mr. Obando it's a 62-year-old male with a medical history significant for diabetes uncontrolled mellitus type 2, CAD status post stent placement in on May 2017, MS on October 2015, hypertension, CVA in 2012 and diabetic ulcer to right foot. Clinical course complicated by sepsis/gangrene and osteomyelitis to right big toe, acute on chronic kidney failure requiring hemodialysis, increased symptoms burden and profound physical deconditioning. Palliative care consulted for further clarifications of goals of care. Patient seen in his room. He was resting in bed in moderate distress secondary to acute nausea and vomiting. Endorsing feeling sick, generalized pain. Patient underwent hemodialysis yesterday. Laboratory workup for today is still pending. Patient afebrile, slightly tachycardic with heart rate in the low 100s. Hypertensive with SBP in the 160s to 180s. Tolerating her room air, oxygen saturation in the meet the high 90s. Goals of care conversation with patient. He reports that he had a conversation with his yesterday. He verbalized wishing comfort-directed care and stopping hemodialysis. Patient verbalized "being tired of being sick". Hospice philosophy and benefits introduced, patient verbalize understanding that if he discontinues hemodialysis, he will . Patient tells me that he understands that a hospice center is where you go to "sleep away". Discussed hospice care center for symptom management and end of life care. Patient in agreement to this. Telephone conversation with patient's Mrs. Triplett. She reports being fully supportive of patient's wishes. Discussed with patient' s that discharged to hospice care center is contingent on bed availability. She verbalized understanding. Case discussed with Dr. Mckeon. . Family/friend interactions See interval note. . Advance Directives Living Will: Never completed Health Care Surrogate: Never completed Durable Power of Industrial Arts Teacher: Never completed Advance Directive Specifics Health Care Surrogate(s): No advance directives completed. Proxy healthcare decision-making falls to patient's Ioana Obando. . Significant change in goals: No code. DNR/DNI. Comfort-directed care. Considering hospice. . Objective Vital Signs Date Time Temp Pulse Resp B/P (MAP) Pulse Ox O2 Delivery O2 Flow Rate FiO2 08/01/17 08:00 98.9 102 20 154/74 (100) 94 08/01/17 04:00 98.1 94 18 172/90 (117) 96 08/01/17 00:00 97.4 98 18 168/85 (112) 98 07/31/17 20:00 98.0 104 18 182/93 (122) 97 07/31/17 17:37 96 21 07/31/17 16:00 98.4 99 18 150/84 (106) 96 07/31/17 12:00 98.6 93 19 174/70 (104) 96 Intake & Output 08/01/17 08/01/17 07:00 19:00 Intake Total 0 ml Output Total 100 ml Balance -100 ml Intake Oral 0 ml Output Urine Total 100 ml # Bowel Movements 1 Physical Exam CONSTITUTIONAL/GENERAL: This is an obese, frail man resting in bed in moderate distress secondary to acute nausea vomiting. Patient appears older than stated age. TUBES/LINES/DRAINS: Right IJ Vas-Cath, PIV's, Medina catheter. SKIN: No jaundice, rashes, or lesions. Ecchymoses on upper extremities. Skin temperature appropriate. Not diaphoretic. Right foot wrapped in Maxi bandages. HEAD: Atraumatic. Normocephalic. EYES: Unable to evaluate eyes, patient legally blind. Very sensitive to light. Unable to open eyes for exam. ENT: Hearing grossly normal. Nose without bleeding or purulent drainage. Moist oral mucosa. Thrush observed. edentulous. NECK: Trachea midline. Supple, nontender. CARDIOVASCULAR: Regular rate and rhythm. RESPIRATORY/CHEST: Symmetric, unlabored respirations. Clear, diminished to auscultation. Breath sounds equal bilaterally. No wheezes, rales, or rhonchi. GASTROINTESTINAL: Abdomen obese, round, large. Positive bowel sounds. Unable to appreciate hepatomegaly secondary to body habitus. GENITOURINARY: Without palpable bladder distension. Medina catheter in place with scant amount of urine. MUSCULOSKELETAL: Extremities without clubbing, cyanosis. Right foot wrapped in Maxi bandages. NEUROLOGICAL: Awake and alert x self, place and situation. Frequently confused/ forgetful. Following commands. Slurred speech. Weak. PSYCHIATRIC: Calm. . Diagnostic Tests Laboratory Laboratory Tests Test 07/29/17 14:16 07/29/17 22:31 07/30/17 08:55 07/30/17 15:15 Reticulocyte Count 0.9 % (0.4-3.0) Absolute Reticulocyte Count 26.5 MIL/L (20.0-150.0) Hemoglobin 8.5 GM/DL (13.0-17.0) 7.8 GM/DL (13.0-17.0) 7.5 GM/DL (13.0-17.0) Hematocrit 26.4 % (39.0-51.0) 23.3 % (39.0-51.0) 23.4 % (39.0-51.0) White Blood Count 20.8 TH/MM3 (4.0-11.0) Red Blood Count 3.21 MIL/MM3 (4.50-5.90) Mean Corpuscular Volume 72.7 FL (80.0-100.0) Mean Corpuscular Hemoglobin 24.2 PG (27.0-34.0) Mean Corpuscular Hemoglobin Concent 33.3 % (32.0-36.0) Red Cell Distribution Width 23.9 % (11.6-17.2) Platelet Count 129 TH/MM3 (150-450) Mean Platelet Volume 9.3 FL (7.0-11.0) Neutrophils (%) (Auto) 82.8 % (16.0-70.0) Lymphocytes (%) (Auto) 9.5 % (9.0-44.0) Monocytes (%) (Auto) 6.4 % (0.0-8.0) Eosinophils (%) (Auto) 1.1 % (0.0-4.0) Basophils (%) (Auto) 0.2 % (0.0-2.0) Neutrophils # (Auto) 17.2 TH/MM3 (1.8-7.7) Lymphocytes # (Auto) 2.0 TH/MM3 (1.0-4.8) Monocytes # (Auto) 1.3 TH/MM3 (0-0.9) Eosinophils # (Auto) 0.2 TH/MM3 (0-0.4) Basophils # (Auto) 0.0 TH/MM3 (0-0.2) CBC Comment AUTO DIFF Differential Comment AUTO DIFF CONFIRMED Platelet Estimate LOW (NORMAL) Platelet Morphology Comment NORMAL (NORMAL) Tear Drop Cells 1+ (NORMAL) Ovalocytes 1+ (NORMAL) Blood Urea Nitrogen 65 MG/DL (7-18) Creatinine 5.71 MG/DL (0.60-1.30) Random Glucose 144 MG/DL (74-106) Total Protein 5.9 GM/DL (6.4-8.2) Albumin 1.2 GM/DL (3.4-5.0) Calcium Level 7.7 MG/DL (8.5-10.1) Alkaline Phosphatase 118 U/L (45-117) Aspartate Amino Transf (AST/SGOT) 48 U/L (15-37) Alanine Aminotransferase (ALT/SGPT) 22 U/L (12-78) Total Bilirubin 0.6 MG/DL (0.2-1.0) Sodium Level 139 MEQ/L (136-145) Potassium Level 4.7 MEQ/L (3.5-5.1) Chloride Level 114 MEQ/L (98-107) Carbon Dioxide Level 12.2 MEQ/L (21.0-32.0) Anion Gap 13 MEQ/L (5-15) Estimat Glomerular Filtration Rate 12 ML/MIN (>89) Test 07/31/17 02:24 07/31/17 15:15 08/01/17 09:45 White Blood Count 20.6 TH/MM3 (4.0-11.0) Red Blood Count 3.86 MIL/MM3 (4.50-5.90) Hemoglobin 9.3 GM/DL (13.0-17.0) Hematocrit 28.7 % (39.0-51.0) Mean Corpuscular Volume 74.5 FL (80.0-100.0) Mean Corpuscular Hemoglobin 24.0 PG (27.0-34.0) Mean Corpuscular Hemoglobin Concent 32.3 % (32.0-36.0) Red Cell Distribution Width 25.4 % (11.6-17.2) Platelet Count 152 TH/MM3 (150-450) Mean Platelet Volume 8.8 FL (7.0-11.0) Neutrophils (%) (Auto) 85.3 % (16.0-70.0) Lymphocytes (%) (Auto) 7.1 % (9.0-44.0) Monocytes (%) (Auto) 5.1 % (0.0-8.0) Eosinophils (%) (Auto) 2.0 % (0.0-4.0) Basophils (%) (Auto) 0.5 % (0.0-2.0) Neutrophils # (Auto) 17.5 TH/MM3 (1.8-7.7) Lymphocytes # (Auto) 1.5 TH/MM3 (1.0-4.8) Monocytes # (Auto) 1.1 TH/MM3 (0-0.9) Eosinophils # (Auto) 0.4 TH/MM3 (0-0.4) Basophils # (Auto) 0.1 TH/MM3 (0-0.2) CBC Comment AUTO DIFF Differential Total Cells Counted 100 Neutrophils % (Manual) 78 % (16-70) Band Neutrophils % 4 % (0-6) Lymphocytes % 11 % (9-44) Monocytes % 5 % (0-8) Eosinophils % 1 % (0-4) Neutrophils # (Manual) 17.1 TH/MM3 (1.8-7.7) Metamyelocytes 1 % (0-1) Differential Comment FINAL DIFF MANUAL Platelet Estimate NORMAL (NORMAL) Platelet Morphology Comment NORMAL (NORMAL) Ovalocytes 1+ (NORMAL) Acanthocytes 1+ (NORMAL) Blood Urea Nitrogen 70 MG/DL (7-18) Creatinine 6.66 MG/DL (0.60-1.30) Random Glucose 125 MG/DL (74-106) Total Protein 6.6 GM/DL (6.4-8.2) Albumin 1.4 GM/DL (3.4-5.0) Calcium Level 8.1 MG/DL (8.5-10.1) Alkaline Phosphatase 131 U/L (45-117) Aspartate Amino Transf (AST/SGOT) 52 U/L (15-37) Alanine Aminotransferase (ALT/SGPT) 23 U/L (12-78) Total Bilirubin 0.6 MG/DL (0.2-1.0) Sodium Level 140 MEQ/L (136-145) Potassium Level 5.2 MEQ/L (3.5-5.1) Chloride Level 113 MEQ/L (98-107) Carbon Dioxide Level 16.4 MEQ/L (21.0-32.0) Anion Gap 11 MEQ/L (5-15) Estimat Glomerular Filtration Rate 10 ML/MIN (>89) Anti-Nuclear Antibody Screen NEG (NEG) Complement C3 123 MG/DL (90-180) Complement C4 29 MG/DL (10-40) Result Diagram: 07/31/1722307/31/17223 Microbiology Microbiology Date/Time Source Procedure Growth Status 07/30/17 06:30 Stool Stool Stool Occult Blood ([facility]) - Final HEMOCCULT NEGATIVE Complete Procedures * 07/25/17 -1. Right lower extremity angiogram, Superficial femoral artery angioplasty, 6 mm, Right anterior tibial artery angioplasty 3 mm, Right dorsalis pedis artery angioplasty 2 mm and Left common femoral artery Angio- Seal. * 07/27/17 -Open Amputation of right hallux * 07/31/17 -hemodialysis catheter placement . 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 to current since 2009. No children together. Patient has a biological daughter by the name of Leslee Obando who resides in [place]. 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 No service. Spiritual: Sabianism jose. Legal: No advance directives completed. Ethical issues impacting care: No advance directives completed. . Important Contacts Patient's Ioana Obando . . Prognosis Very poor prognosis for an improved quality of life or survival given multiple chronic ongoing comorbidities, sepsis/wound infection with osteomyelitis, acute on chronic kidney failure requiring renal replacement therapy, progressive decline, malnutrition with albumin 1.4 and profound physical deconditioning. Patient at high risk for further complications, clinical decline and . Patient appears hospice appropriate should he elects comfort-directed care/ discontinuation of renal replacement therapy. . Code Status: No Code Plan * CODE STATUS: No code. DNR/DNI. Risks, benefits and limitations of CPR, intubation and mechanical ventilation discussed. Patient and electing no code. * HEALTHCARE DECISION-MAKING: Patient with limited participation in medical decision-making, intermittent confusion/lethargy. He relies heavily on his for input/medical decision-making. No advance directives completed. As per [place] statute, proxy healthcare decision-making falls to patient's Ioana Obando. Palliative care recommends shared decision-making with patient's . * GOALS OF CARE: Patient verbalized wishing comfort-directed care and stopping hemodialysis. He further verbalized "being tired of being sick". Hospice philosophy and benefits introduced. Patient verbalized understanding that if he discontinues hemodialysis, he will . Patient tells me that he understands that hospice center is where you go to "sleep away". Discussed hospice care center for symptom management and end of life care. Patient wishing to discontinue all medical treatment to focus on comfort-directed care and symptom management. Telephone conversation with patient's Mrs. Triplett. She reports being fully supportive of patient's wishes. Discussed with patient's that discharged to hospice care center is contingent on bed availability. Hospice referral made. * SYMPTOMS: = Nausea/vomiting , multifactorial. Sepsis, electrolyte imbalances , acute kidney failure. History of gastroparesis. Zofran 4 mg IV Q6h available as needed. = Pain, multifactorial. Secondary to medical interventions, surgical interventions, bedbound state. Currently on oxycodone 5 mg and 10 mg q4h PRN. = Debility, progressive. Worsened during the past month. Likely to continue to progress. * Case discussed with Dr. Mckeon. * Palliative care contact information has been provided to patient and . * Palliative care will continue to follow-up for further clarifications of goals of care as patient's clinical course continues to evolve. . Time Spent Total Floor Time (mins): 42 (Total time to include review medical records, physical exam, goals of care conversation with patient, telephone conversation with patient's , case discussion with Dr. Mckeon. ) >50% Counseling/Coord of Care: Yes Attestation To help prompt me to consider important information that might be impacting today's encounter and assessment, information from prior notes written by myself or my colleagues may have been "brought forward" into today's note. My signature on this note, however, is an attestation that I personally performed the exam, history, and/or decision-making noted today, and, unless otherwise indicated, the interactions with patient, family, and staff as well as the review of records all occurred today. I also attest that the listed assessment and stated plan reflect my best clinical judgment today based on the combination of historical information, prior notes, and today's exam/ interactions. When time spent is documented, it refers only to time spent today by the signer, or if indicated, combined time spent today by collaborating physician/nurse practitioner. Thelma León Aug 01, 2017 10:38
--- NOTE | 2017-08-01 12:24 | HHI.NPPN ---
Subjective History of Present Illness 62-year-old male with past medical history of diabetes mellitus which is longstanding since he was a teenager, history of hypertension, peripheral vascular disease, chronic kidney disease, history of cerebrovascular accident, ischemic heart disease who was admitted on July 22 with complaint of nausea, or vomiting and abdominal pain. I was called to see the patient because of elevated BUN and creatinine. The patient has known history of chronic kidney disease and looking back it looks like his creatinine was 1.1 about 6 days before admission. Additional Remarks Patient is awake, not in distress, no SOB. Review of Systems General Constitutional: Fatigue Respiratory Lungs: Wheeze Cardiovascular Cardiac: Edema, HO Objective Data Data Vital Signs Date Time Temp Pulse Resp B/P (MAP) Pulse Ox O2 Delivery O2 Flow Rate FiO2 08/01/17 08:00 98.9 102 20 154/74 (100) 94 08/01/17 04:00 98.1 94 18 172/90 (117) 96 08/01/17 00:00 97.4 98 18 168/85 (112) 98 07/31/17 20:00 98.0 104 18 182/93 (122) 97 07/31/17 17:37 96 21 07/31/17 16:00 98.4 99 18 150/84 (106) 96 -: 07/31/17 0224 07/31/17 0224 Physical Exam General Appearance: Well Nourished, No Acute Distress, Comfortable Eyes Eye Exam: Pupils Equal Throat Throat Exam: Oral Mucosa Ricardo & Moist Neck Neck Exam: Neck Supple Pulmonary Resp Exam: No Distress, Rhonchi, Decreased Bases, Diminished Breath Sounds Gastrointestinal/Abdomen GI Exam: Soft, Non-Tender, Bowel Sounds Present, Distended Extremeties Extremities Exam: Moderate Edema, Pitting Edema Neurologic Neuro Exam: Alert, Awake, Oriented Psychiatric Psych Exam: Appropriate Responses Assessment/Plan Assessment Summary: HOWARD/Acute Renal Failure, Hypertension, CKD Stage III Problem List: (1) Blindness ICD Codes: H54.0 - Blindness, both eyes Status: Acute (2) CAD (coronary artery disease) ICD Codes: I25.10 - Atherosclerotic heart disease of [place] coronary artery without angina pectoris Status: Acute (3) Hyperlipidemia ICD Codes: E78.5 - Hyperlipidemia, unspecified Status: Acute (4) Anemia ICD Codes: D64.9 - Anemia, unspecified Status: Acute (5) Diabetes mellitus ICD Codes: E11.9 - Type 2 diabetes mellitus without complications Status: Chronic (6) Hypertension ICD Codes: I10 - Essential (primary) hypertension Status: Chronic (7) 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 Most likely has Hypertensive or Diabetic renal disease. Urine out put is low. Creatinine continue to increase. Most likely has Contrast Nephropathy, or possibly Vanco related as level was high. BUN and Creatinine continue to increase. Started on HD after the Vascath. Patient now seen by Palliative care. Want to go on Hospice and want to stop Dialysis. I will sign off from Nephrology. Problem Qualifiers (1) Hyperlipidemia: Qualified Codes: E78.00 - Pure hypercholesterolemia, unspecified (2) Anemia: Qualified Codes: D64.9 - Anemia, unspecified (3) Diabetes mellitus: Qualified Codes: E10.52 - Type 1 diabetes mellitus with diabetic peripheral angiopathy with gangrene (4) Hypertension: Qualified Codes: I10 - Essential (primary) hypertension (5) Diabetes mellitus with peripheral angiopathy with gangrene: Qualified Codes: E10.52 - Type 1 diabetes mellitus with diabetic peripheral angiopathy with gangrene Grace Mckeon MD Aug 01, 2017 12:24
--- NOTE | 2017-08-01 12:58 | HHI.PR ---
Addendum to Inpatient Note Addendum Reason: Additional Documentation Additional Information Patient elects to go to hospice. No further dressing changes needed to right foot. We'll sign off for now. Reconsult if needed Dwaine Calloway DPM Aug 01, 2017 12:57
[2017-08-01 20:12] LABS: ALKALINE PHOSPHATASE 132 U/L (45-117); ALT (GPT) 20 U/L (12-78); ANION GAP 13 MEQ/L (5-15); AST (GOT) 47 U/L (15-37); BLOOD UREA NITROGEN 61 MG/DL (7-18); CHLORIDE 105 MEQ/L (98-107); GLOMERULAR FILTRATION RATE 12 ML/MIN (>89); POTASSIUM 3.6 MEQ/L (3.5-5.1); SODIUM (NA) 138 MEQ/L (136-145); TOTAL BILIRUBIN ADULT 0.5 MG/DL (0.2-1.0)
[2017-08-01 20:14] LABS: AUTOMATED NEUTROPHIL # 14.9 TH/MM3 (1.8-7.7); BASOPHIL # 0.1 TH/MM3 (0-0.2); BASOPHIL % 0.3 % (0.0-2.0); EOSINOPHIL # 0.3 TH/MM3 (0-0.4); EOSINOPHIL % 1.7 % (0.0-4.0); HEMATOCRIT 27.1 % (39.0-51.0); LYMPH % 10.4 % (9.0-44.0); LYMPHOCYTE # 1.9 TH/MM3 (1.0-4.8); MEAN CELL VOLUME 71.7 FL (80.0-100.0); MEAN CORPUSCULAR HGB CONC 33.5 % (32.0-36.0); MONO % 5.8 % (0.0-8.0); NEUT % 81.8 % (16.0-70.0); PLATELET COUNT 154 TH/MM3 (150-450); RED BLOOD COUNT 3.77 MIL/MM3 (4.50-5.90); RED CELL DISTRIBUTION WIDTH 25.3 % (11.6-17.2); WHITE BLOOD COUNT 18.2 TH/MM3 (4.0-11.0)
[2017-08-01 20:18] LABS: HEMO FLAGS AUTO DIFF
[2017-08-01 20:48] LABS: BANDS 1 % (0-6); EOSINOPHILS 3 % (0-4); NEUTROPHIL # MANUAL DIFF 16.4 TH/MM3 (1.8-7.7); POLYS (SEG NEUTROPHILS) 89 % (16-70); WBC DIFF SAMPLE 100
[2017-08-01 20:49] LABS: ACANTHOCYTES 1+ (NORMAL); KERATOCYTES 1+ (NORMAL); OVALOCYTES 2+ (NORMAL); PLATELET ESTIMATE SMEAR NORMAL (NORMAL); PLATELET MORPHOLOGY NORMAL (NORMAL)
[2017-08-01 20:50] LABS: SCAN/DIFF FINAL DIFF MANUAL
[2017-08-01] MEDS: hydrOXYzine HCL 50 MG TAB PO SCH (21:48)
[2017-08-01] MEDS: cloNIDine HCL 0.1 MG TAB PO PRN (23:55)
[2017-08-02] VITALS (10 sets, daily range): BP systolic 156–184; BP diastolic 79–98; PULSE 90–112; RESP 18–24; TEMP 96.7–98.9; O2SAT 93–97
[2017-08-02] MEDS: PIPERACIL-TAZO 2.25 GM PREMIX 50 ML IV SCH (04:37)
[2017-08-02] MEDS: cefTRIAXone INJ 1,000 MG in SODIUM CHLORIDE 0.9% INJ 100 ML IV SCH (07:00)
[2017-08-02 08:04] LABS: AUTOMATED NEUTROPHIL # 14.7 TH/MM3 (1.8-7.7); BASOPHIL # 0.1 TH/MM3 (0-0.2); BASOPHIL % 0.3 % (0.0-2.0); EOSINOPHIL # 0.2 TH/MM3 (0-0.4); EOSINOPHIL % 1.2 % (0.0-4.0); HEMATOCRIT 25.4 % (39.0-51.0); LYMPH % 9.3 % (9.0-44.0); LYMPHOCYTE # 1.6 TH/MM3 (1.0-4.8); MEAN CELL VOLUME 72.5 FL (80.0-100.0); MEAN CORPUSCULAR HEMOGLOBIN 24.4 PG (27.0-34.0); MEAN CORPUSCULAR HGB CONC 33.6 % (32.0-36.0); MONO % 5.7 % (0.0-8.0); NEUT % 83.5 % (16.0-70.0); PLATELET COUNT 165 TH/MM3 (150-450); RED CELL DISTRIBUTION WIDTH 25.7 % (11.6-17.2); WHITE BLOOD COUNT 17.7 TH/MM3 (4.0-11.0)
[2017-08-02 08:06] LABS: HEMO FLAGS AUTO DIFF
[2017-08-02 08:07] LABS: BICARBONATE 19.3 MEQ/L (21.0-32.0); CALCIUM-PROTEIN CORRECTED 7.9 MG/DL (8.5-10.1); POTASSIUM 3.8 MEQ/L (3.5-5.1); TOTAL BILIRUBIN ADULT 0.6 MG/DL (0.2-1.0)
[2017-08-02] MEDS: SODIUM CHLORIDE 0.9% FLUSH 10 ML FLUSH IV FLUSH SCH ×2 (09:00→20:46)
[2017-08-02] MEDS: NYSTATIN SUSP 500,000 U/5 ML CUP SWISH-SWAL SCH ×5 (09:00→20:46)
[2017-08-02] MEDS ORDERED: SERTRALINE HCL 50 MG TAB PO SCH (09:00)
--- NOTE | 2017-08-02 09:05 | HHI.FPPN ---
Subjective Remarks No acute issues overnight. Vitals are stable, patient remains afebrile. He is feeling more comfortable today and plans for dialysis today. He had a discussion with his [id number] and last night and decided to forego hospice. He will continue dialysis at this time. He denies any new chest pain , shortness of breath, fever, chills, nausea or vomiting. He has very poor by mouth intake at this time. He remains oliguric. (Aniay Jacobo MD, R3) Objective Vitals Vital Signs Date Time Temp Pulse Resp B/P (MAP) Pulse Ox O2 Delivery O2 Flow Rate FiO2 08/02/17 08:00 98.6 107 19 166/85 (112) 93 08/02/17 06:01 18 08/02/17 04:00 94 Room Air 08/02/17 04:00 98.9 108 24 160/98 (118) 96 08/02/17 00:35 164/92 (116) 08/02/17 00:00 98.8 110 20 184/98 (126) 93 08/01/17 20:15 107 08/01/17 20:00 98.7 94 20 154/85 (108) 100 Automatic Cuff 08/01/17 17:51 93 21 08/01/17 16:00 98.6 100 22 164/90 (114) 93 08/01/17 12:00 98.7 98 22 162/86 (111) 95 I/O 08/01/17 08/01/17 08/01/17 08/02/17 08/02/17 08/02/17 06:59 14:59 22:59 06:59 14:59 22:59 Intake Total 0 ml 290 ml 893 ml Output Total 100 ml 150 ml 100 ml Balance -100 ml 140 ml 793 ml Intake Oral 0 ml 240 ml 120 ml IV Total 50 ml 773 ml Output Urine Total 100 ml 150 ml 100 ml # Bowel Movements 1 2 0 (Aniya Jacobo MD, R3) Result Diagram: 08/02/1715 08/02/17614 Imaging Last Impressions Catheter Placement X-Ray 07/31/17 0000 Signed Impressions: Service Date/Time: Monday, July 31, 2017 12:30 - CONCLUSION: Uncomplicated line placement as above. Paresh Hughes MD Renal Ultrasound 07/28/17 0000 Signed Impressions: Service Date/Time: Friday, July 28, 2017 09:48 - CONCLUSION: Normal examination. Ruiz Johnson MD Chest X-Ray 07/28/17 0000 Signed Impressions: Service Date/Time: Friday, July 28, 2017 09:19 - CONCLUSION: Bilateral lower lobe airspace disease. Ruiz Johnson MD Foot X-Ray 07/27/17 0000 Signed Impressions: Service Date/Time: Thursday, July 27, 2017 10:40 - CONCLUSION: Postsurgical changes are identified right first digit amputation. Ruiz Johnson MD Head CT 07/22/17 1826 Signed Impressions: Service Date/Time: Saturday, July 22, 2017 19:17 - CONCLUSION: 1. No acute abnormality is seen. 2. Atrophy. 3. Persistent stable encephalomalacia at the inferior left cerebellar hemisphere. Markus Denny MD Abdomen/Pelvis CT 07/22/17 0000 Signed Impressions: Service Date/Time: Saturday, July 22, 2017 23:56 - CONCLUSION: 1. No acute finding is identified within the abdomen or pelvis. There is mild respiratory motion artifact. 2. Stable nonacute findings include small hiatal hernia and small bilateral low-density renal lesions. There is trace left pleural fluid. Markus Chester MD Objective Remarks Gen.: Well-nourished, well-developed male lying in bed. Appears comfortable. CV: Regular rate and rhythm, no murmurs appreciated. Respiratory: Clear to auscultation bilaterally, no wheezes or rales. EXT: Right foot with angela bandage wrapping. Non draining. Elevated on pillow. Edematous bilateral lower extremities. GI: Soft NT ND BS present GENITOURINARY: Penis and scrotum edematous. Foreskin easily retractable, no erythema, drainage, or bleeding. Neuro: Awake and alert, moving all extremities. Psych: Easily confused and disoriented. (Aniya Jacobo MD, R3) Urinary Catheter: Yes Assessment to: Continue Medina insert reason: Obstruction/Retention (Aniya Jacobo MD, R3) A/P Assessment and Plan 61-year-old male with history of hypertension, poorly controlled diabetes, CVA in 2012, , admitted for sepsis secondary to right diabetic foot ulcer with wet gangrene and severe osteomyelitis, now s/p right hallux amputation and endovascular revascularization. Now with acute on chronic renal failure. Discharge Planning Timetable unclear at this time. (Aniya Jacobo MD, R3) Attending Attestation Patient seen and examined. Case reviewed and discussed with the resident team. Agree with plan of care as discussed with me and documented in the resident note. met today with pt and and discussed dialysis. the pt did not want this. however, his daughter in law and now his want dialysis for him. he may be a bit uremic at this point. we met with palliative, his and his medical team today. we discussed his terrible condition with his vessels- CVA, blind, renal failure, vasculopath, etc all from diabetes. His knows he cannot get his kidneys "fixed" but feels "when it is his time to he will " whether he has dialysis or not. I explained that Mr Topher, as the patient who has to undergo dialysis, has to agree and now today he is probably uremic so it is hard for him to make decisions. However, he had not wanted it or really changed his mind multiple times. His stated "he just wants to " and she does not feel that is appropriate for him to make that decision. She was reassured that we wanted to respect her and her husbands wishes. (Mary Foster MD) Problem List: (1) HWOARD (acute kidney injury) ICD Codes: N17.9 - Acute kidney failure, unspecified Status: Acute Plan: Stage 3 chronic kidney disease secondary to hypertensive and/or diabetic renal disease Acute renal impairment likely from contrast nephropathy and vancomycin Renal US normal BUN and Creatinine stable on dialysis Plan: Nephrology consulted- Appreciate recommendations. Patient has decided to proceed with hemodialysis (2) Diabetes mellitus with peripheral angiopathy with gangrene ICD Codes: E11.52 - Type 2 diabetes mellitus with diabetic peripheral angiopathy with gangrene (3) Sepsis ICD Codes: A41.9 - Sepsis, unspecified organism Status: Acute Plan: Secondary to severe right hallux diabetic foot infection with wet gangrene and likely severe osteomyelitis. s/p right hallux amputation on 07/27 and endovascular revascularization on 07/25 Last fever 101.4 F on 07/28/2017. Leukocytosis trending down 07/22, 07/24, 07/26 BCx x 2 No growth 07/27 wound culture growing Group B strep, no fungal elements seen 07/29 UCx no growth CXR: no acute disease Head CT: no acute abnormality s/p Vancomycin q12H (07/22-07/27) Plan: -Discontinue Zosyn 3.375g q6H (07/25-08/02), start Rocephin 1g IV Q24H per ID -Infectious Disease, Podiatry, and Vascular Surgery Consulted- Appreciate recommendations. (4) Anemia ICD Codes: D64.9 - Anemia, unspecified Status: Acute Plan: s/p 4 units Packed RBCs, 1 on 07/25, 1 on 07/27, 1 on 07/29, and 1 on 07/30. Right first metatarsal amputation on 07/27 complicated by bleeding. Peripheral smear significant for substantial microcytic hypochromic anemia, significant number fragmented blood cells is a possibility of microangiopathic hemolytic process. Continue Ferrous Sulfate 325 BID. Continue to monitor H/H Transfuse if Hgb <7.5 (5) Diabetes mellitus ICD Codes: E11.9 - Type 2 diabetes mellitus without complications Status: Chronic Plan: History of poorly controlled diabetes. Home regimen is Lantus 40 units SQ at bedtime and Humalog mix 10 units 3 times a day. - Accu-Cheks ranging 111-154 - Given poor oral intake, will reduce insulin regimen to low dose SSI - Diabetic Diet (6) Hypertension ICD Codes: I10 - Essential (primary) hypertension Status: Chronic Plan: Blood pressures spiking likely secondary to renal failure. Continue home meds -Coreg 6.2mg BID -Lisinopril 20mg daily - Clonidine 0.1mg PO Q6H PRN BP >170/100 (7) Thrush, oral ICD Codes: B37.0 - Candidal stomatitis Plan: Thrush on tongue on physical exam. Patient with uncontrolled diabetes, more susceptible to fungal infections. -Nystatin QID x 14 days (started 07/23) (8) Depression ICD Codes: F32.9 - Major depressive disorder, single episode, unspecified Plan: Stable. Continue sertraline 150 mg PO daily. (9) FEN Status: Acute Plan: Fluids: Sodium Bicarb @ 100ml/hr Electrolytes: wnl, continue to monitor Diet: Diabetic diet DVT ppx: heparin 5000units SQ q12H GI Pxx: Protonix 40 mg PO daily. dw Dr. Foster (Aniya Jacobo MD, R3) Problem Qualifiers (1) Diabetes mellitus with peripheral angiopathy with gangrene: Qualified Codes: E10.52 - Type 1 diabetes mellitus with diabetic peripheral angiopathy with gangrene (2) Sepsis: Qualified Codes: A41.9 - Sepsis, unspecified organism (3) Anemia: Qualified Codes: D64.9 - Anemia, unspecified (4) Diabetes mellitus: Qualified Codes: E10.52 - Type 1 diabetes mellitus with diabetic peripheral angiopathy with gangrene (5) Hypertension: Qualified Codes: I10 - Essential (primary) hypertension (6) Depression: Qualified Codes: F32.0 - Major depressive disorder, single episode, mild Aniya Jacobo MD, R3 Aug 02, 2017 09:05 Mary Foster MD Aug 02, 2017 14:07
[2017-08-02] MEDS ORDERED: GLUCAGON 1 MG/ML VIAL OTHER PRN (09:15)
[2017-08-02] MEDS ORDERED: DEXTROSE 50% IN WATER 50 ML VIAL(D50) IV PRN (09:15)
[2017-08-02] MEDS: CARVEDILOL 6.25 MG TAB PO SCH ×2 (09:31→20:46)
[2017-08-02] MEDS: LACTOBACILLUS ACIDOPHILUS 1 GM PACKET PO SCH ×3 (09:32→17:39)
[2017-08-02] MEDS: CLOPIDOGREL 75 MG TAB PO SCH (09:33)
[2017-08-02] MEDS: DOCUSATE SODIUM 50 MG/SENNA 8.6 MG TAB PO SCH ×2 (09:33→20:46)
[2017-08-02] MEDS: TOPIRAMATE 100 MG TAB PO SCH (09:33)
[2017-08-02] MEDS: HEPARIN SODIUM - SQ 10,000 UNITS/ML VIAL SQ SCH ×2 (09:33→20:46)
[2017-08-02] MEDS: PANTOPRAZOLE SOD 40 MG DELAYED RELEASE TAB PO SCH (09:33)
[2017-08-02 09:34] LABS: ACANTHOCYTES 1+ (NORMAL); KERATOCYTES OCC (NORMAL); OVALOCYTES 1+ (NORMAL)
[2017-08-02 09:35] LABS: PLATELET ESTIMATE SMEAR NORMAL (NORMAL); PLATELET MORPHOLOGY ENLARGED (NORMAL); SCAN/DIFF AUTO DIFF CONFIRMED
[2017-08-02] MEDS: prednisoLONE ACETATE 1% OPHT SUSP 5 ML BTL EACH EYE SCH (09:35)
[2017-08-02] MEDS: INSULIN ASPART SUPPLEMENTAL SCALE SQ SCH ×3 (12:18→20:47)
[2017-08-02] MEDS: SODIUM BICARBONATE 8.4% INJ 50 MEQ in SODIUM CHLOR 0.45% 1000 ML INJ 1,000 ML IV SCH ×2 (13:33→22:51)
--- NOTE | 2017-08-02 14:38 | HHI.HCPN ---
Reason for visit a. To assist with evaluation and management of symptoms including: Debility and pain. b. To assist medical decision maker(s) with: better understanding of current medical conditions; weighing benefits/burdens of medical treatment options; making medical treatment decisions. . Subjective/Interval History Mr. Obando it's a 62-year-old male with a medical history significant for diabetes uncontrolled mellitus type 2, CAD status post stent placement in on May 2017, GA on October 2015, hypertension, CVA in 2012 and diabetic ulcer to right foot. Clinical course complicated by sepsis/gangrene and osteomyelitis to right big toe, acute on chronic kidney failure requiring hemodialysis, increased symptoms burden and profound physical deconditioning. Palliative care consulted for further clarifications of goals of care. Patient seen in his room. He was resting in bed in no acute distress. Patient alert and oriented x self, place and situation. Intermittently confused/ forgetful. Very weak. Endorsing generalized weakness, decreased appetite and nausea. Patient afebrile, tachycardic with heart rate in the 110s. Hypertensive with SBP in the 160s to 180s. Tolerated room air, oxygen saturation in the low 90s. Laboratory workup today revealing WBC 17.7, Hgb 8.5 , platelet count 165. BUN/creatinine 64/6.04. Albumin 1.2. Bedside meeting. In attendance patient's Ioana, palliative care, Dr. Foster and Dr. Jacobo. Medical update provided. Discussed patient's medical history, clinical course and current medical management. Discussed patient's overall poor prognosis for an improved quality of life or long-term survival given multiple chronic ongoing comorbidities, sepsis/wound infection with osteomyelitis, acute on chronic kidney failure requiring renal replacement therapy, progressive decline, malnutrition with albumin 1.4 and profound physical deconditioning. Discussed continuation of current management to include HD vs transition patient to comfort-directed care with hospice. Patient and family electing at this time to continue current medical management. Family was encouraged to continue goals of care conversation. Telephone conversation with patient's stepdaughter. Overall poor prognosis and current medical management was discussed. Case discussed with bedside RN, Dr. Foster and Dr. Jacobo. . Family/friend interactions See interval note. . Advance Directives Living Will: Never completed Health Care Surrogate: Never completed Durable Power of Partner Marketing Intern: Never completed Advance Directive Specifics Health Care Surrogate(s): No advance directives completed. Proxy healthcare decision-making falls to patient's Ioana Obando. . Significant change in goals: No code. DNR/DNI. Continue current management to include renal replacement therapy. . Objective Vital Signs Date Time Temp Pulse Resp B/P (MAP) Pulse Ox O2 Delivery O2 Flow Rate FiO2 08/02/17 11:40 98.5 102 19 168/91 (116) 94 08/02/17 08:00 98.6 107 19 166/85 (112) 93 08/02/17 06:01 18 08/02/17 04:00 94 Room Air 08/02/17 04:00 98.9 108 24 160/98 (118) 96 08/02/17 00:35 164/92 (116) 08/02/17 00:00 98.8 110 20 184/98 (126) 93 08/01/17 20:15 107 08/01/17 20:00 98.7 94 20 154/85 (108) 100 Automatic Cuff 08/01/17 17:51 93 21 08/01/17 16:00 98.6 100 22 164/90 (114) 93 Intake & Output 08/02/17 08/02/17 07:00 19:00 Intake Total 943 ml Output Total 100 ml Balance 843 ml Intake Oral 120 ml IV Total 823 ml Output Urine Total 100 ml # Bowel Movements 0 Physical Exam CONSTITUTIONAL/GENERAL: This is an obese, frail man resting in bed in no acute distress. Patient appears older than stated age. TUBES/LINES/DRAINS: Right IJ Vas-Cath, PIV's, Medina catheter. SKIN: No jaundice, rashes, or lesions. Ecchymoses on upper extremities. Skin temperature appropriate. Not diaphoretic. Right foot wrapped in Maxi bandages. HEAD: Atraumatic. Normocephalic. EYES: Unable to evaluate eyes, patient legally blind. Very sensitive to light. Unable to open eyes for exam. Periorbital edema bilaterally. ENT: Hearing grossly normal. Nose without bleeding or purulent drainage. Moist oral mucosa. Thrush observed. edentulous. NECK: Trachea midline. Supple, nontender. CARDIOVASCULAR: Regular rate and rhythm. RESPIRATORY/CHEST: Symmetric, unlabored respirations. Clear, diminished to auscultation. Breath sounds equal bilaterally. No wheezes, rales, or rhonchi. GASTROINTESTINAL: Abdomen obese, round, large. Positive bowel sounds. Unable to appreciate hepatomegaly secondary to body habitus. GENITOURINARY: Without palpable bladder distension. Medina catheter in place with scant amount of urine. MUSCULOSKELETAL: Extremities without clubbing, cyanosis. Right foot wrapped in Maxi bandages. NEUROLOGICAL: Awake and alert x self, place and situation. Frequently confused/ forgetful. Following commands. Slurred speech. Weak. PSYCHIATRIC: Calm. . Diagnostic Tests Laboratory Laboratory Tests Test 07/30/17 15:15 07/31/17 02:24 07/31/17 15:15 08/01/17 18:40 Hemoglobin 7.5 GM/DL (13.0-17.0) 9.3 GM/DL (13.0-17.0) 9.1 GM/DL (13.0-17.0) Hematocrit 23.4 % (39.0-51.0) 28.7 % (39.0-51.0) 27.1 % (39.0-51.0) White Blood Count 20.6 TH/MM3 (4.0-11.0) 18.2 TH/MM3 (4.0-11.0) Red Blood Count 3.86 MIL/MM3 (4.50-5.90) 3.77 MIL/MM3 (4.50-5.90) Mean Corpuscular Volume 74.5 FL (80.0-100.0) 71.7 FL (80.0-100.0) Mean Corpuscular Hemoglobin 24.0 PG (27.0-34.0) 24.0 PG (27.0-34.0) Mean Corpuscular Hemoglobin Concent 32.3 % (32.0-36.0) 33.5 % (32.0-36.0) Red Cell Distribution Width 25.4 % (11.6-17.2) 25.3 % (11.6-17.2) Platelet Count 152 TH/MM3 (150-450) 154 TH/MM3 (150-450) Mean Platelet Volume 8.8 FL (7.0-11.0) 9.3 FL (7.0-11.0) Neutrophils (%) (Auto) 85.3 % (16.0-70.0) 81.8 % (16.0-70.0) Lymphocytes (%) (Auto) 7.1 % (9.0-44.0) 10.4 % (9.0-44.0) Monocytes (%) (Auto) 5.1 % (0.0-8.0) 5.8 % (0.0-8.0) Eosinophils (%) (Auto) 2.0 % (0.0-4.0) 1.7 % (0.0-4.0) Basophils (%) (Auto) 0.5 % (0.0-2.0) 0.3 % (0.0-2.0) Neutrophils # (Auto) 17.5 TH/MM3 (1.8-7.7) 14.9 TH/MM3 (1.8-7.7) Lymphocytes # (Auto) 1.5 TH/MM3 (1.0-4.8) 1.9 TH/MM3 (1.0-4.8) Monocytes # (Auto) 1.1 TH/MM3 (0-0.9) 1.0 TH/MM3 (0-0.9) Eosinophils # (Auto) 0.4 TH/MM3 (0-0.4) 0.3 TH/MM3 (0-0.4) Basophils # (Auto) 0.1 TH/MM3 (0-0.2) 0.1 TH/MM3 (0-0.2) CBC Comment AUTO DIFF AUTO DIFF Differential Total Cells Counted 100 100 Neutrophils % (Manual) 78 % (16-70) 89 % (16-70) Band Neutrophils % 4 % (0-6) 1 % (0-6) Lymphocytes % 11 % (9-44) 5 % (9-44) Monocytes % 5 % (0-8) 2 % (0-8) Eosinophils % 1 % (0-4) 3 % (0-4) Neutrophils # (Manual) 17.1 TH/MM3 (1.8-7.7) 16.4 TH/MM3 (1.8-7.7) Metamyelocytes 1 % (0-1) Differential Comment FINAL DIFF MANUAL FINAL DIFF MANUAL Platelet Estimate NORMAL (NORMAL) NORMAL (NORMAL) Platelet Morphology Comment NORMAL (NORMAL) NORMAL (NORMAL) Ovalocytes 1+ (NORMAL) 2+ (NORMAL) Acanthocytes 1+ (NORMAL) 1+ (NORMAL) Blood Urea Nitrogen 70 MG/DL (7-18) 61 MG/DL (7-18) Creatinine 6.66 MG/DL (0.60-1.30) 6.01 MG/DL (0.60-1.30) Random Glucose 125 MG/DL (74-106) 138 MG/DL (74-106) Total Protein 6.6 GM/DL (6.4-8.2) 6.0 GM/DL (6.4-8.2) Albumin 1.4 GM/DL (3.4-5.0) 1.2 GM/DL (3.4-5.0) Calcium Level 8.1 MG/DL (8.5-10.1) 7.6 MG/DL (8.5-10.1) Alkaline Phosphatase 131 U/L (45-117) 132 U/L (45-117) Aspartate Amino Transf (AST/SGOT) 52 U/L (15-37) 47 U/L (15-37) Alanine Aminotransferase (ALT/SGPT) 23 U/L (12-78) 20 U/L (12-78) Total Bilirubin 0.6 MG/DL (0.2-1.0) 0.5 MG/DL (0.2-1.0) Sodium Level 140 MEQ/L (136-145) 138 MEQ/L (136-145) Potassium Level 5.2 MEQ/L (3.5-5.1) 3.6 MEQ/L (3.5-5.1) Chloride Level 113 MEQ/L (98-107) 105 MEQ/L (98-107) Carbon Dioxide Level 16.4 MEQ/L (21.0-32.0) 20.0 MEQ/L (21.0-32.0) Anion Gap 11 MEQ/L (5-15) 13 MEQ/L (5-15) Estimat Glomerular Filtration Rate 10 ML/MIN (>89) 12 ML/MIN (>89) Anti-Nuclear Antibody Screen NEG (NEG) Complement C3 123 MG/DL (90-180) Complement C4 29 MG/DL (10-40) Hepatitis A IgM Antibody NEGATIVE (NEGATIVE) Hepatitis B Surface Antigen NEGATIVE (NEGATIVE) Hepatitis B Core IgM Antibody NEGATIVE (NEGATIVE) Hepatitis C Antibody REACTIVE (NEGATIVE) Keratocytes 1+ (NORMAL) Test 08/02/17 06:15 White Blood Count 17.7 TH/MM3 (4.0-11.0) Red Blood Count 3.50 MIL/MM3 (4.50-5.90) Hemoglobin 8.5 GM/DL (13.0-17.0) Hematocrit 25.4 % (39.0-51.0) Mean Corpuscular Volume 72.5 FL (80.0-100.0) Mean Corpuscular Hemoglobin 24.4 PG (27.0-34.0) Mean Corpuscular Hemoglobin Concent 33.6 % (32.0-36.0) Red Cell Distribution Width 25.7 % (11.6-17.2) Platelet Count 165 TH/MM3 (150-450) Mean Platelet Volume 9.4 FL (7.0-11.0) Neutrophils (%) (Auto) 83.5 % (16.0-70.0) Lymphocytes (%) (Auto) 9.3 % (9.0-44.0) Monocytes (%) (Auto) 5.7 % (0.0-8.0) Eosinophils (%) (Auto) 1.2 % (0.0-4.0) Basophils (%) (Auto) 0.3 % (0.0-2.0) Neutrophils # (Auto) 14.7 TH/MM3 (1.8-7.7) Lymphocytes # (Auto) 1.6 TH/MM3 (1.0-4.8) Monocytes # (Auto) 1.0 TH/MM3 (0-0.9) Eosinophils # (Auto) 0.2 TH/MM3 (0-0.4) Basophils # (Auto) 0.1 TH/MM3 (0-0.2) CBC Comment AUTO DIFF Differential Comment AUTO DIFF CONFIRMED Platelet Estimate NORMAL (NORMAL) Platelet Morphology Comment ENLARGED (NORMAL) Ovalocytes 1+ (NORMAL) Acanthocytes 1+ (NORMAL) Keratocytes OCC (NORMAL) Blood Urea Nitrogen 64 MG/DL (7-18) Creatinine 6.04 MG/DL (0.60-1.30) Random Glucose 184 MG/DL (74-106) Total Protein 5.9 GM/DL (6.4-8.2) Albumin 1.2 GM/DL (3.4-5.0) Calcium Level 7.3 MG/DL (8.5-10.1) Alkaline Phosphatase 140 U/L (45-117) Aspartate Amino Transf (AST/SGOT) 45 U/L (15-37) Alanine Aminotransferase (ALT/SGPT) 20 U/L (12-78) Total Bilirubin 0.6 MG/DL (0.2-1.0) Sodium Level 137 MEQ/L (136-145) Potassium Level 3.8 MEQ/L (3.5-5.1) Chloride Level 103 MEQ/L (98-107) Carbon Dioxide Level 19.3 MEQ/L (21.0-32.0) Anion Gap 15 MEQ/L (5-15) Estimat Glomerular Filtration Rate 11 ML/MIN (>89) Protein Corrected Calcium 7.9 MG/DL (8.5-10.1) Result Diagram: 08/02/1761408/02/17 0615 Procedures * 07/25/17 -1. Right lower extremity angiogram, Superficial femoral artery angioplasty, 6 mm, Right anterior tibial artery angioplasty 3 mm, Right dorsalis pedis artery angioplasty 2 mm and Left common femoral artery Angio- Seal. * 07/27/17 -Open Amputation of right hallux * 07/31/17 -hemodialysis catheter placement . Assessment and Plan Disease Oriented Problem List: (1) Sepsis (2) Diabetes mellitus with peripheral angiopathy with gangrene (3) HOWARD (acute kidney injury) (4) CAD (coronary artery disease) (5) Hypertension (6) Depression Symptom Scale: (1) Debility 0-10 Scale: Unable to quantify (2) Nausea and vomiting 0-10 Scale: 0 Pertinent Non-Medical Issues Psychosocial: Patient originally from [facility]. to current since 2009. No children together. Patient has a biological daughter by the name of Leslee Obando who resides in [place]. 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 No service. Spiritual: Evangelical jose. Legal: No advance directives completed. Ethical issues impacting care: No advance directives completed. . Important Contacts Patient's Ioana Obando . . Prognosis Very poor prognosis for an improved quality of life or survival given multiple chronic ongoing comorbidities, sepsis/wound infection with osteomyelitis, acute on chronic kidney failure requiring renal replacement therapy, progressive decline, malnutrition with albumin 1.4 and profound physical deconditioning. Patient at high risk for further complications, clinical decline and . Patient appears hospice appropriate should he elects comfort-directed care/ discontinuation of renal replacement therapy. . Code Status: No Code Plan * CODE STATUS: No code. DNR/DNI. Code status readdressed on 08/02/17. * HEALTHCARE DECISION-MAKING: Patient with limited participation in medical decision-making, intermittent confusion/lethargy. He relies heavily on his for input/medical decision-making. No advance directives completed. As per [place] statute, proxy healthcare decision-making falls to patient's Ioana Laws. Palliative care recommends shared decision-making with patient's . * GOALS OF CARE: Patient and family electing at this time to continue current medical management to include renal replacement therapy. Hospice philosophy and benefits previously introduced. Patient and receptive to hospice should pt's clinical condition continues to decline, additional complications or increased symptoms burden. * Bedside meeting. In attendance patient's Ioana, palliative care, Dr. Foster and Dr. Jacobo. Medical update provided. Discussed patient's medical history, clinical course and current medical management. Discussed patient's overall poor prognosis for an improved quality of life or long-term survival given multiple chronic ongoing comorbidities, sepsis/wound infection with osteomyelitis, acute on chronic kidney failure requiring renal replacement therapy, progressive decline, malnutrition with albumin 1.4 and profound physical deconditioning. Discussed continuation of current management to include HD vs transition patient to comfort-directed care with hospice. Patient and family electing at this time to continue current medical management. Family was encouraged to continue goals of care conversation. * SYMPTOMS: = Nausea/vomiting , multifactorial. Sepsis, electrolyte imbalances , acute kidney failure. History of gastroparesis. Zofran 4 mg IV Q6h available as needed. = Pain, multifactorial. Secondary to medical interventions, surgical interventions, bedbound state. Currently on oxycodone 5 mg and 10 mg q4h PRN. = Debility, progressive. Worsened during the past month. Likely to continue to progress. * Case discussed with bedside RN, Dr. Foster and Dr. Jacobo. * Palliative care contact information has been provided to patient and . * Palliative care will continue to follow-up for further clarifications of goals of care as patient's clinical course continues to evolve. . Time Spent Total Floor Time (mins): 44 (Total time to include review medical records, physical exam, goals of care conversation with patient and family, case discussion with Dr. Foster and Dr. Jacobo. ) >50% Counseling/Coord of Care: Yes Attestation To help prompt me to consider important information that might be impacting today's encounter and assessment, information from prior notes written by myself or my colleagues may have been "brought forward" into today's note. My signature on this note, however, is an attestation that I personally performed the exam, history, and/or decision-making noted today, and, unless otherwise indicated, the interactions with patient, family, and staff as well as the review of records all occurred today. I also attest that the listed assessment and stated plan reflect my best clinical judgment today based on the combination of historical information, prior notes, and today's exam/ interactions. When time spent is documented, it refers only to time spent today by the signer, or if indicated, combined time spent today by collaborating physician/nurse practitioner. Thelma León Aug 02, 2017 14:38
[2017-08-02 15:50] LABS: MYELOPEROXIDASE LESS THAN 1.0 AI (<1.0); PROTEINASE-3 LESS THAN 1.0 AI (<1.0)
[2017-08-02] MEDS: hydrOXYzine HCL 50 MG TAB PO SCH (20:46)
[2017-08-03] VITALS (8 sets, daily range): BP systolic 148–170; BP diastolic 84–102; PULSE 88–113; RESP 16–20; TEMP 97.1–99.1; O2SAT 96–99
[2017-08-03] MEDS: cloNIDine HCL 0.1 MG TAB PO PRN (04:34)
[2017-08-03] MEDS: cefTRIAXone INJ 1,000 MG in SODIUM CHLORIDE 0.9% INJ 100 ML IV SCH (06:10)
[2017-08-03] MEDS: INSULIN ASPART SUPPLEMENTAL SCALE SQ SCH ×4 (06:16→20:22)
[2017-08-03 07:11] LABS: AUTOMATED NEUTROPHIL # 14.7 TH/MM3 (1.8-7.7); BASOPHIL # 0.1 TH/MM3 (0-0.2); BASOPHIL % 0.7 % (0.0-2.0); EOSINOPHIL # 0.2 TH/MM3 (0-0.4); EOSINOPHIL % 1.3 % (0.0-4.0); LYMPH % 9.2 % (9.0-44.0); LYMPHOCYTE # 1.6 TH/MM3 (1.0-4.8); MEAN CELL VOLUME 73.1 FL (80.0-100.0); MEAN CORPUSCULAR HEMOGLOBIN 24.3 PG (27.0-34.0); MEAN CORPUSCULAR HGB CONC 33.2 % (32.0-36.0); MONO % 6.2 % (0.0-8.0); NEUT % 82.6 % (16.0-70.0); PLATELET COUNT 201 TH/MM3 (150-450); RED BLOOD COUNT 3.42 MIL/MM3 (4.50-5.90); WHITE BLOOD COUNT 17.8 TH/MM3 (4.0-11.0)
[2017-08-03 07:13] LABS: HEMO FLAGS AUTO DIFF
[2017-08-03 07:14] LABS: ALKALINE PHOSPHATASE 128 U/L (45-117); TOTAL BILIRUBIN ADULT 0.4 MG/DL (0.2-1.0)
[2017-08-03 07:33] LABS: ALT (GPT) 22 U/L (12-78); ANION GAP 15 MEQ/L (5-15); AST (GOT) 45 U/L (15-37); BICARBONATE 19.5 MEQ/L (21.0-32.0); BLOOD UREA NITROGEN 71 MG/DL (7-18); CHLORIDE 103 MEQ/L (98-107); GLOMERULAR FILTRATION RATE 11 ML/MIN (>89); POTASSIUM 3.9 MEQ/L (3.5-5.1); SODIUM (NA) 137 MEQ/L (136-145)
--- NOTE | 2017-08-03 08:55 | HHI.FPPN ---
Subjective Remarks No acute issues overnight. Vitals are stable, patient remains afebrile. He is wanting to resume dialysis. He denies any new pain, shortness of breath, fever , chills, nausea or vomiting. His and granddaughter are at bedside. He remains oliguric. (Aniya Jacobo MD, R3) Objective Vitals Vital Signs Date Time Temp Pulse Resp B/P (MAP) Pulse Ox O2 Delivery O2 Flow Rate FiO2 08/03/17 06:22 162/96 (118) 08/03/17 04:00 97.1 88 18 170/102 (124) 99 08/03/17 04:00 Nasal Cannula 2.00 08/03/17 00:00 98.7 104 16 160/98 (118) 98 08/03/17 00:00 Nasal Cannula 2.00 08/02/17 22:51 18 08/02/17 22:15 156/98 (117) 08/02/17 20:00 112 08/02/17 20:00 98.8 90 18 180/79 (112) 97 08/02/17 17:46 94 21 08/02/17 15:57 96.7 111 19 170/92 (118) 94 08/02/17 15:15 94 Room Air 08/02/17 11:40 98.5 102 19 168/91 (116) 94 08/02/17 10:22 93 21 I/O 08/02/17 08/02/17 08/02/17 08/03/17 08/03/17 08/03/17 06:59 14:59 22:59 06:59 14:59 22:59 Intake Total 893 ml 200 ml 769 ml 100 ml Output Total 100 ml 100 ml 250 ml Balance 793 ml 100 ml 519 ml 100 ml Intake Oral 120 ml 200 ml IV Total 773 ml 769 ml 100 ml Output Urine Total 100 ml 100 ml 250 ml # Bowel Movements 0 1 (Aniya Jcaobo MD, R3) Result Diagram: 08/03/1762808/03/17628 Imaging Last Impressions Catheter Placement X-Ray 07/31/17 0000 Signed Impressions: Service Date/Time: Monday, July 31, 2017 12:30 - CONCLUSION: Uncomplicated line placement as above. Paresh Hughes MD Renal Ultrasound 07/28/17 0000 Signed Impressions: Service Date/Time: Friday, July 28, 2017 09:48 - CONCLUSION: Normal examination. Ruiz Johnson MD Chest X-Ray 07/28/17 0000 Signed Impressions: Service Date/Time: Friday, July 28, 2017 09:19 - CONCLUSION: Bilateral lower lobe airspace disease. Ruiz Johnson MD Foot X-Ray 07/27/17 0000 Signed Impressions: Service Date/Time: Thursday, July 27, 2017 10:40 - CONCLUSION: Postsurgical changes are identified right first digit amputation. Ruiz Johnson MD Head CT 07/22/17 1826 Signed Impressions: Service Date/Time: Saturday, July 22, 2017 19:17 - CONCLUSION: 1. No acute abnormality is seen. 2. Atrophy. 3. Persistent stable encephalomalacia at the inferior left cerebellar hemisphere. Markus Denny MD Abdomen/Pelvis CT 07/22/17 0000 Signed Impressions: Service Date/Time: Saturday, July 22, 2017 23:56 - CONCLUSION: 1. No acute finding is identified within the abdomen or pelvis. There is mild respiratory motion artifact. 2. Stable nonacute findings include small hiatal hernia and small bilateral low-density renal lesions. There is trace left pleural fluid. Markus Chester MD Objective Remarks Gen.: Well-nourished, well-developed male lying in bed. Appears comfortable. CV: Regular rate and rhythm, no murmurs appreciated. Respiratory: Clear to auscultation bilaterally, no wheezes or rales. EXT: Right foot with angela bandage wrapping. Non draining. Elevated on pillow. Edematous bilateral lower extremities. GI: Soft NT ND BS present Neuro: Awake and drowsy, moving all extremities. Psych: Easily confused. (Aniya Jacobo MD, R3) A/P Assessment and Plan 61-year-old male with history of hypertension, poorly controlled diabetes, CVA in 2012, , admitted for sepsis secondary to right diabetic foot ulcer with wet gangrene and severe osteomyelitis, now s/p right hallux amputation and endovascular revascularization. Now with acute on chronic renal failure. Discharge Planning Timetable unclear at this time. (Aniya Jacobo MD, R3) Attending Attestation Patient seen and examined. Case reviewed and discussed with the resident team. Agree with plan of care as discussed with me and documented in the resident note. saw pt in dialysis. he is stable overall. he will decide if he wants to continue dialysis (Mary Foster MD) Problem List: (1) HOWARD (acute kidney injury) ICD Codes: N17.9 - Acute kidney failure, unspecified Status: Acute Plan: Stage 3 chronic kidney disease secondary to hypertensive and/or diabetic renal disease Acute renal impairment likely from contrast nephropathy and vancomycin Renal US normal BUN and Creatinine stable on dialysis Plan: Nephrology consulted- Appreciate recommendations. Patient has decided to proceed with hemodialysis (2) Diabetes mellitus with peripheral angiopathy with gangrene ICD Codes: E11.52 - Type 2 diabetes mellitus with diabetic peripheral angiopathy with gangrene Plan: Severe right hallux diabetic foot infection with wet gangrene and likely severe osteomyelitis. s/p right hallux amputation on 07/27 and endovascular revascularization on 07/25 Afebrile Leukocytosis stable 07/22, 07/24, 07/26 BCx x 2 No growth 07/27 wound culture growing Group B strep, no fungal elements seen s/p Vancomycin q12H (07/22-07/27) Plan: -Discontinue Zosyn 3.375g q6H (07/25-08/02), continue Rocephin 1g IV Q24H per ID -Infectious Disease, Podiatry, and Vascular Surgery Consulted- Appreciate recommendations. (3) Anemia ICD Codes: D64.9 - Anemia, unspecified Status: Acute Plan: s/p 4 units Packed RBCs, 1 on 07/25, 1 on 07/27, 1 on 07/29, and 1 on 07/30. Right first metatarsal amputation on 07/27 complicated by bleeding. Continue to monitor H/H Transfuse if Hgb <7.5 (4) Diabetes mellitus ICD Codes: E11.9 - Type 2 diabetes mellitus without complications Status: Chronic Plan: History of poorly controlled diabetes. Home regimen is Lantus 40 units SQ at bedtime and Humalog mix 10 units 3 times a day. - Accu-Cheks ranging 159-259 - Given poor oral intake, on low dose SSI - Diabetic Diet (5) Hypertension ICD Codes: I10 - Essential (primary) hypertension Status: Chronic Plan: Blood pressures spiking likely secondary to renal failure. Continue home meds -Coreg 6.2mg BID -Lisinopril 20mg daily - Clonidine 0.1mg PO Q6H PRN BP >170/100 (6) Thrush, oral ICD Codes: B37.0 - Candidal stomatitis Plan: Thrush on tongue on physical exam. Patient with uncontrolled diabetes, more susceptible to fungal infections. -Nystatin QID x 14 days (started 07/23, end 08/06) (7) Depression ICD Codes: F32.9 - Major depressive disorder, single episode, unspecified Plan: Stable. Continue sertraline 150 mg PO daily. (8) FEN Status: Acute Plan: Fluids: Sodium Bicarb @ 100ml/hr Electrolytes: wnl, continue to monitor Diet: Diabetic diet DVT ppx: heparin 5000units SQ q12H GI Pxx: Protonix 40 mg PO daily. dw Dr. Foster (Aniya Jacobo MD, R3) Problem Qualifiers (1) Diabetes mellitus with peripheral angiopathy with gangrene: Qualified Codes: E10.52 - Type 1 diabetes mellitus with diabetic peripheral angiopathy with gangrene (2) Anemia: Qualified Codes: D64.9 - Anemia, unspecified (3) Diabetes mellitus: Qualified Codes: E10.52 - Type 1 diabetes mellitus with diabetic peripheral angiopathy with gangrene (4) Hypertension: Qualified Codes: I10 - Essential (primary) hypertension (5) Depression: Qualified Codes: F32.0 - Major depressive disorder, single episode, mild Aniya Jacobo MD, R3 Aug 03, 2017 08:55 Mary Foster MD Aug 03, 2017 16:54
[2017-08-03 08:56] LABS: OVALOCYTES 1+ (NORMAL)
[2017-08-03 08:57] LABS: KERATOCYTES OCC (NORMAL); SCAN/DIFF AUTO DIFF CONFIRMED; TEARDROP RBCS 1+ (NORMAL)
[2017-08-03] MEDS: NYSTATIN SUSP 500,000 U/5 ML CUP SWISH-SWAL SCH ×5 (09:56→20:16)
[2017-08-03] MEDS: TOPIRAMATE 100 MG TAB PO SCH (09:56)
[2017-08-03] MEDS: CARVEDILOL 6.25 MG TAB PO SCH ×2 (09:56→20:16)
[2017-08-03] MEDS: CLOPIDOGREL 75 MG TAB PO SCH (09:56)
[2017-08-03] MEDS: PANTOPRAZOLE SOD 40 MG DELAYED RELEASE TAB PO SCH (09:56)
[2017-08-03] MEDS: DOCUSATE SODIUM 50 MG/SENNA 8.6 MG TAB PO SCH ×2 (09:56→20:16)
[2017-08-03] MEDS: SERTRALINE HCL 50 MG TAB PO SCH (09:57)
[2017-08-03] MEDS: SODIUM CHLORIDE 0.9% FLUSH 10 ML FLUSH IV FLUSH SCH ×2 (09:57→20:16)
[2017-08-03] MEDS: HEPARIN SODIUM - SQ 10,000 UNITS/ML VIAL SQ SCH ×2 (09:57→21:56)
[2017-08-03] MEDS: prednisoLONE ACETATE 1% OPHT SUSP 5 ML BTL EACH EYE SCH (09:58)
[2017-08-03] MEDS: LACTOBACILLUS ACIDOPHILUS 1 GM PACKET PO SCH ×3 (10:15→16:54)
--- NOTE | 2017-08-03 12:16 | HHI.NPPN ---
Subjective History of Present Illness 62-year-old male with past medical history of diabetes mellitus which is longstanding since he was a teenager, history of hypertension, peripheral vascular disease, chronic kidney disease, history of cerebrovascular accident, ischemic heart disease who was admitted on July 22 with complaint of nausea, or vomiting and abdominal pain. I was called to see the patient because of elevated BUN and creatinine. The patient has known history of chronic kidney disease and looking back it looks like his creatinine was 1.1 about 6 days before admission. Additional Remarks Patient is awake, had nausea Review of Systems General Constitutional: Fatigue Respiratory Lungs: Wheeze Cardiovascular Cardiac: Edema, HO Objective Data Data 08/03/17 08/04/17 18:59 06:59 Intake Total 100 ml Balance 100 ml IV Total 100 ml Vital Signs Date Time Temp Pulse Resp B/P (MAP) Pulse Ox O2 Delivery O2 Flow Rate FiO2 08/03/17 10:17 Nasal Cannula 2.00 08/03/17 09:51 98.7 112 16 157/87 (110) 97 08/03/17 06:22 162/96 (118) 08/03/17 04:00 97.1 88 18 170/102 (124) 99 08/03/17 04:00 Nasal Cannula 2.00 08/03/17 00:00 98.7 104 16 160/98 (118) 98 08/03/17 00:00 Nasal Cannula 2.00 08/02/17 22:51 18 08/02/17 22:15 156/98 (117) 08/02/17 20:00 112 08/02/17 20:00 98.8 90 18 180/79 (112) 97 08/02/17 17:46 94 21 08/02/17 15:57 96.7 111 19 170/92 (118) 94 08/02/17 15:15 94 Room Air -: 08/03/17 0629 08/03/17 0629 Physical Exam General Appearance: Well Nourished, No Acute Distress, Comfortable Throat Throat Exam: Oral Mucosa [place] & Moist Neck Neck Exam: Neck Supple Pulmonary Resp Exam: No Distress, Rhonchi, Decreased Bases, Diminished Breath Sounds Gastrointestinal/Abdomen GI Exam: Soft, Non-Tender, Bowel Sounds Present, Distended Extremeties Extremities Exam: Moderate Edema, Pitting Edema Neurologic Neuro Exam: Alert, Awake, Oriented Psychiatric Psych Exam: Appropriate Responses Assessment/Plan Assessment Summary: HOWARD/Acute Renal Failure, Hypertension, CKD Stage III Problem List: (1) Blindness ICD Codes: H54.0 - Blindness, both eyes Status: Acute (2) CAD (coronary artery disease) ICD Codes: I25.10 - Atherosclerotic heart disease of [place] coronary artery without angina pectoris Status: Acute (3) Hyperlipidemia ICD Codes: E78.5 - Hyperlipidemia, unspecified Status: Acute (4) Anemia ICD Codes: D64.9 - Anemia, unspecified Status: Acute (5) Diabetes mellitus ICD Codes: E11.9 - Type 2 diabetes mellitus without complications Status: Chronic (6) Hypertension ICD Codes: I10 - Essential (primary) hypertension Status: Chronic (7) 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 Most likely has Hypertensive or Diabetic renal disease. Urine out put is low. Creatinine continue to increase. Most likely has Contrast Nephropathy, or possibly Vanco related he and family decided to restart dialysis I will resume dialysis as no significant improvement in GFR In fact going down cr 6.4 1500 seen at [facility] [address] Mckeon to follow next week Problem Qualifiers (1) Hyperlipidemia: Qualified Codes: E78.00 - Pure hypercholesterolemia, unspecified (2) Anemia: Qualified Codes: D64.9 - Anemia, unspecified (3) Diabetes mellitus: Qualified Codes: E10.52 - Type 1 diabetes mellitus with diabetic peripheral angiopathy with gangrene (4) Hypertension: Qualified Codes: I10 - Essential (primary) hypertension (5) Diabetes mellitus with peripheral angiopathy with gangrene: Qualified Codes: E10.52 - Type 1 diabetes mellitus with diabetic peripheral angiopathy with gangrene Marielle Mckeon MD Aug 03, 2017 12:15
[2017-08-03] MEDS: SODIUM CHLOR 0.9% 1000 ML INJ 1,000 ML OTHER PRN (15:07)
[2017-08-03] MEDS: HEPARIN SODIUM - IV 10,000 UNITS/10 ML VIAL PRN (15:08)
[2017-08-03] MEDS: GENTAMICIN SULFATE (DIALYSIS USE ONLY) 20 MG/2 ML VIAL IV PRN (15:08)
[2017-08-03] MEDS: SODIUM BICARBONATE 8.4% INJ 50 MEQ in SODIUM CHLOR 0.45% 1000 ML INJ 1,000 ML IV SCH ×2 (16:52→20:24)
[2017-08-03] MEDS: hydrOXYzine HCL 50 MG TAB PO SCH (20:16)
[2017-08-04] VITALS (7 sets, daily range): BP systolic 160–165; BP diastolic 65–87; PULSE 80–121; RESP 19–20; TEMP 98.1–98.7; O2SAT 90–96
[2017-08-04] MEDS: cloNIDine HCL 0.1 MG TAB PO PRN (01:04)
[2017-08-04] MEDS: SODIUM BICARBONATE 8.4% INJ 50 MEQ in SODIUM CHLOR 0.45% 1000 ML INJ 1,000 ML IV SCH ×3 (04:02→17:17)
[2017-08-04] MEDS: cefTRIAXone INJ 1,000 MG in SODIUM CHLORIDE 0.9% INJ 100 ML IV SCH (06:04)
[2017-08-04] MEDS: INSULIN ASPART SUPPLEMENTAL SCALE SQ SCH ×4 (06:04→20:49)
[2017-08-04] MEDS: SODIUM CHLORIDE 0.9% FLUSH 10 ML FLUSH IV FLUSH SCH ×2 (08:53→20:50)
[2017-08-04] MEDS: PANTOPRAZOLE SOD 40 MG DELAYED RELEASE TAB PO SCH (08:56)
[2017-08-04] MEDS: CARVEDILOL 6.25 MG TAB PO SCH ×2 (08:58→20:50)
[2017-08-04] MEDS: CLOPIDOGREL 75 MG TAB PO SCH (08:58)
[2017-08-04] MEDS: DOCUSATE SODIUM 50 MG/SENNA 8.6 MG TAB PO SCH ×2 (08:58→20:49)
[2017-08-04] MEDS: prednisoLONE ACETATE 1% OPHT SUSP 5 ML BTL EACH EYE SCH (08:59)
[2017-08-04] MEDS: HEPARIN SODIUM - SQ 10,000 UNITS/ML VIAL SQ SCH ×2 (08:59→20:50)
[2017-08-04] MEDS: TOPIRAMATE 100 MG TAB PO SCH (08:59)
[2017-08-04] MEDS: NYSTATIN SUSP 500,000 U/5 ML CUP SWISH-SWAL SCH ×4 (09:00→20:49)
[2017-08-04] MEDS: SERTRALINE HCL 50 MG TAB PO SCH (09:02)
[2017-08-04] MEDS: LACTOBACILLUS ACIDOPHILUS 1 GM PACKET PO SCH ×3 (09:03→17:06)
--- NOTE | 2017-08-04 09:35 | HHI.FPPN ---
Subjective Remarks No acute issues overnight. Patient had dialysis yesterday and is feeling well this morning. He is currently eating breakfast without nausea or vomiting. He denies any new pain, shortness of breath, fever, or chills. His and granddaughter are at bedside. He has a [place] catheter in place. (Aniya Jacobo MD, R3) Objective Vitals Vital Signs Date Time Temp Pulse Resp B/P (MAP) Pulse Ox O2 Delivery O2 Flow Rate FiO2 08/04/17 04:00 98.7 117 20 165/65 (98) 94 08/04/17 04:00 Nasal Cannula 2.00 08/04/17 00:00 98.6 118 20 94 08/03/17 23:45 Room Air 08/03/17 20:00 Nasal Cannula 2.00 08/03/17 20:00 99.1 110 20 150/90 (110) 97 08/03/17 20:00 110 08/03/17 16:00 98.8 111 20 169/84 (112) 99 08/03/17 12:26 109 08/03/17 12:10 97.4 113 18 148/90 (109) 96 08/03/17 10:17 Nasal Cannula 2.00 08/03/17 09:51 98.7 112 16 157/87 (110) 97 I/O 08/03/17 08/03/17 08/03/17 08/04/17 08/04/17 08/04/17 07:00 15:00 23:00 07:00 15:00 23:00 Intake Total 769 ml 100 ml 884 ml 1200 ml Output Total 250 ml 3100 ml Balance 519 ml 100 ml -2216 ml 1200 ml Intake Oral 720 ml IV Total 769 ml 100 ml 164 ml 1200 ml Output Urine Total 250 ml 600 ml Hemodialysis 2500 ml # Bowel Movements 0 (Aniya Jacobo MD, R3) Result Diagram: 08/03/17 0629 08/03/17 0629 Imaging Last Impressions Catheter Placement X-Ray 07/31/17 0000 Signed Impressions: Service Date/Time: Monday, July 31, 2017 12:30 - CONCLUSION: Uncomplicated line placement as above. Paresh Hughes MD Renal Ultrasound 07/28/17 0000 Signed Impressions: Service Date/Time: Friday, July 28, 2017 09:48 - CONCLUSION: Normal examination. Ruiz Johnson MD Chest X-Ray 07/28/17 0000 Signed Impressions: Service Date/Time: Friday, July 28, 2017 09:19 - CONCLUSION: Bilateral lower lobe airspace disease. Ruiz Johnson MD Foot X-Ray 07/27/17 0000 Signed Impressions: Service Date/Time: Thursday, July 27, 2017 10:40 - CONCLUSION: Postsurgical changes are identified right first digit amputation. Ruiz Johnson MD Head CT 07/22/17 1826 Signed Impressions: Service Date/Time: Saturday, July 22, 2017 19:17 - CONCLUSION: 1. No acute abnormality is seen. 2. Atrophy. 3. Persistent stable encephalomalacia at the inferior left cerebellar hemisphere. Markus Denny MD Abdomen/Pelvis CT 07/22/17 0000 Signed Impressions: Service Date/Time: Saturday, July 22, 2017 23:56 - CONCLUSION: 1. No acute finding is identified within the abdomen or pelvis. There is mild respiratory motion artifact. 2. Stable nonacute findings include small hiatal hernia and small bilateral low-density renal lesions. There is trace left pleural fluid. Markus Chester MD Objective Remarks Gen.: Well-nourished, well-developed male lying in bed. Appears comfortable. CV: Regular rate and rhythm, no murmurs appreciated. Respiratory: Clear to auscultation bilaterally, no wheezes or rales. EXT: Right foot with angela bandage wrapping. Non draining. Edematous bilateral lower extremities. GI: Soft NT ND BS present Neuro: Awake and drowsy, moving all extremities. (Aniya Jacobo MD, R3) Urinary Catheter: Yes Assessment to: Continue Medina insert reason: Obstruction/Retention (Aniya Jacobo MD, R3) A/P Assessment and Plan 61-year-old male with history of hypertension, poorly controlled diabetes, CVA in 2012, [place], admitted for sepsis secondary to right diabetic foot ulcer with wet gangrene and severe osteomyelitis, now s/p right hallux amputation and endovascular revascularization. Now with acute on chronic renal failure on hemodialysis. Discharge Planning Timetable unclear at this time. (Aniya Jacobo MD, R3) Attending Attestation Patient seen and examined. Case reviewed and discussed Agree with plan of care as discussed with me and documented in the resident note. (Delmy Cowan MD) Problem List: (1) HOWARD (acute kidney injury) ICD Codes: N17.9 - Acute kidney failure, unspecified Status: Acute Plan: Stage 3 chronic kidney disease secondary to hypertensive and/or diabetic renal disease Acute renal impairment likely from contrast nephropathy and vancomycin Renal US normal BUN and Creatinine stable on dialysis Plan: Nephrology consulted- Appreciate recommendations. Continue hemodialysis (2) Diabetes mellitus with peripheral angiopathy with gangrene ICD Codes: E11.52 - Type 2 diabetes mellitus with diabetic peripheral angiopathy with gangrene Plan: Severe right hallux diabetic foot infection with wet gangrene and likely severe osteomyelitis. s/p right hallux amputation on 07/27 and endovascular revascularization on 07/25 07/22, 07/24, 07/26 BCx x 2 No growth 07/27 wound culture growing Group B strep, no fungal elements seen s/p Vancomycin q12H (07/22-07/27) and Zosyn 3.375g q6H (07/25-08/02) Plan: -Continue Rocephin 1g IV Q24H per ID -Infectious Disease, Podiatry, and Vascular Surgery Consulted- Appreciate recommendations. (3) Anemia ICD Codes: D64.9 - Anemia, unspecified Status: Acute Plan: s/p 4 units Packed RBCs, 1 on 07/25, 1 on 07/27, 1 on 07/29, and 1 on 07/30. Right first metatarsal amputation on 07/27 complicated by bleeding. Continue to monitor H/H Transfuse if Hgb <7.5 (4) Diabetes mellitus ICD Codes: E11.9 - Type 2 diabetes mellitus without complications Status: Chronic Plan: History of poorly controlled diabetes. Home regimen is Lantus 40 units SQ at bedtime and Humalog mix 10 units 3 times a day. - Accu-Cheks ranging 170-232 - Given poor oral intake, on low dose SSI - Diabetic Diet (5) Hypertension ICD Codes: I10 - Essential (primary) hypertension Status: Chronic Plan: Blood pressures spiking likely secondary to renal failure. Continue home meds -Coreg 6.2mg BID -Lisinopril 20mg daily - Clonidine 0.1mg PO Q6H PRN BP >170/100 (6) Thrush, oral ICD Codes: B37.0 - Candidal stomatitis Plan: Patient with uncontrolled diabetes, more susceptible to fungal infections. -Nystatin QID x 14 days (started 07/23, end 08/06) (7) Depression ICD Codes: F32.9 - Major depressive disorder, single episode, unspecified Plan: Stable. Continue sertraline 150 mg PO daily. (8) FEN Status: Acute Plan: Fluids: Sodium Bicarb @ 100ml/hr Electrolytes: wnl, continue to monitor Diet: Diabetic diet DVT ppx: heparin 5000units SQ q12H GI Pxx: Protonix 40 mg PO daily. dw Dr. Cowan (Aniya Jacobo MD, R3) Problem Qualifiers (1) Diabetes mellitus with peripheral angiopathy with gangrene: Qualified Codes: E10.52 - Type 1 diabetes mellitus with diabetic peripheral angiopathy with gangrene (2) Anemia: Qualified Codes: D64.9 - Anemia, unspecified (3) Diabetes mellitus: Qualified Codes: E10.52 - Type 1 diabetes mellitus with diabetic peripheral angiopathy with gangrene (4) Hypertension: Qualified Codes: I10 - Essential (primary) hypertension (5) Depression: Qualified Codes: F32.0 - Major depressive disorder, single episode, mild Aniya Jacobo MD, R3 Aug 04, 2017 09:35 Delmy Cowan MD Aug 04, 2017 15:36
[2017-08-04 10:44] LABS: AUTOMATED NEUTROPHIL # 11.9 TH/MM3 (1.8-7.7); BASOPHIL # 0.1 TH/MM3 (0-0.2); BASOPHIL % 0.5 % (0.0-2.0); EOSINOPHIL # 0.2 TH/MM3 (0-0.4); EOSINOPHIL % 1.5 % (0.0-4.0); HEMATOCRIT 25.4 % (39.0-51.0); LYMPH % 12.4 % (9.0-44.0); LYMPHOCYTE # 1.9 TH/MM3 (1.0-4.8); MEAN CELL VOLUME 73.7 FL (80.0-100.0); MEAN CORPUSCULAR HEMOGLOBIN 24.7 PG (27.0-34.0); MEAN CORPUSCULAR HGB CONC 33.6 % (32.0-36.0); MONO % 6.3 % (0.0-8.0); NEUT % 79.3 % (16.0-70.0); PLATELET COUNT 195 TH/MM3 (150-450); RED BLOOD COUNT 3.44 MIL/MM3 (4.50-5.90); RED CELL DISTRIBUTION WIDTH 25.7 % (11.6-17.2); WHITE BLOOD COUNT 15.1 TH/MM3 (4.0-11.0)
[2017-08-04 10:46] LABS: HEMO FLAGS AUTO DIFF
[2017-08-04 11:32] LABS: ALKALINE PHOSPHATASE 118 U/L (45-117); ALT (GPT) 18 U/L (12-78); ANION GAP 15 MEQ/L (5-15); AST (GOT) 31 U/L (15-37); BICARBONATE 22.5 MEQ/L (21.0-32.0); BLOOD UREA NITROGEN 57 MG/DL (7-18); CHLORIDE 100 MEQ/L (98-107); GLOMERULAR FILTRATION RATE 15 ML/MIN (>89); POTASSIUM 3.7 MEQ/L (3.5-5.1); SODIUM (NA) 137 MEQ/L (136-145); TOTAL BILIRUBIN ADULT 0.4 MG/DL (0.2-1.0)
[2017-08-04 13:35] LABS: KERATOCYTES OCC (NORMAL); OVALOCYTES 1+ (NORMAL); SCAN/DIFF AUTO DIFF CONFIRMED
[2017-08-04] MEDS: hydrOXYzine HCL 50 MG TAB PO SCH (20:50)
[2017-08-05] VITALS (7 sets, daily range): BP systolic 161–176; BP diastolic 81–98; PULSE 107–116; RESP 19–22; TEMP 97.4–98.9; O2SAT 93–98
[2017-08-05] MEDS: INSULIN ASPART SUPPLEMENTAL SCALE SQ SCH ×4 (05:42→21:29)
[2017-08-05] MEDS: cefTRIAXone INJ 1,000 MG in SODIUM CHLORIDE 0.9% INJ 100 ML IV SCH (05:50)
[2017-08-05] MEDS: SODIUM CHLORIDE 0.9% FLUSH 10 ML FLUSH IV FLUSH SCH ×2 (07:51→21:00)
[2017-08-05 08:13] LABS: HEMATOCRIT 24.9 % (39.0-51.0); MEAN CELL VOLUME 74.2 FL (80.0-100.0); MEAN CORPUSCULAR HEMOGLOBIN 24.4 PG (27.0-34.0); MEAN CORPUSCULAR HGB CONC 32.9 % (32.0-36.0); PLATELET COUNT 219 TH/MM3 (150-450); RED BLOOD COUNT 3.36 MIL/MM3 (4.50-5.90); RED CELL DISTRIBUTION WIDTH 25.8 % (11.6-17.2); WHITE BLOOD COUNT 12.7 TH/MM3 (4.0-11.0)
[2017-08-05 08:20] LABS: REVIEW FLAG FINAL
[2017-08-05] MEDS: NYSTATIN SUSP 500,000 U/5 ML CUP SWISH-SWAL SCH ×4 (08:26→21:32)
[2017-08-05] MEDS: LACTOBACILLUS ACIDOPHILUS 1 GM PACKET PO SCH ×3 (08:27→17:59)
[2017-08-05] MEDS: TOPIRAMATE 100 MG TAB PO SCH (08:27)
[2017-08-05] MEDS: PANTOPRAZOLE SOD 40 MG DELAYED RELEASE TAB PO SCH (08:27)
[2017-08-05] MEDS: SERTRALINE HCL 50 MG TAB PO SCH (08:27)
[2017-08-05] MEDS: CLOPIDOGREL 75 MG TAB PO SCH (08:27)
[2017-08-05] MEDS: DOCUSATE SODIUM 50 MG/SENNA 8.6 MG TAB PO SCH ×2 (08:27→21:33)
[2017-08-05] MEDS: CARVEDILOL 6.25 MG TAB PO SCH (08:27)
[2017-08-05] MEDS: prednisoLONE ACETATE 1% OPHT SUSP 5 ML BTL EACH EYE SCH (08:28)
[2017-08-05] MEDS: HEPARIN SODIUM - SQ 10,000 UNITS/ML VIAL SQ SCH ×2 (09:14→21:32)
[2017-08-05] MEDS ORDERED: CARVEDILOL 6.25 MG TAB PO ONE (11:45)
--- NOTE | 2017-08-05 11:56 | HHI.FPPN ---
Subjective Remarks No acute events overnight . VS continue to show elevated BP of 160-170s systolic. This morning patient reports that he is the same with no acute symptoms. Does report having nausea every time after eating. Objective Vitals Vital Signs Date Time Temp Pulse Resp B/P (MAP) Pulse Ox O2 Delivery O2 Flow Rate FiO2 08/05/17 09:27 Nasal Cannula 2.00 21 08/05/17 08:06 98.9 115 22 176/94 (121) 98 08/05/17 04:00 98.5 116 19 176/98 (124) 93 08/05/17 00:00 2.00 08/05/17 00:00 97.8 110 20 162/81 (108) 93 08/04/17 20:50 Nasal Cannula 2.00 08/04/17 20:00 Nasal Cannula 2.00 08/04/17 20:00 113 08/04/17 20:00 98.3 114 20 165/87 (113) 96 08/04/17 16:06 98.2 110 20 162/82 (108) 90 08/04/17 12:06 98.3 121 19 164/82 (109) 94 08/04/17 11:39 Nasal Cannula 2.00 21 I/O 08/04/17 08/04/17 08/04/17 08/05/17 08/05/17 08/05/17 07:00 15:00 23:00 07:00 15:00 23:00 Intake Total 1200 ml 1323 ml 1200 ml Output Total 2000 ml 350 ml Balance 1200 ml -677 ml 850 ml Intake Oral 420 ml 0 ml IV Total 1200 ml 903 ml 1200 ml Output Urine Total 2000 ml 350 ml # Bowel Movements 0 0 Result Diagram: 08/05/17 0700 08/04/17 1002 Objective Remarks Gen.: Well-nourished, well-developed male lying in bed. Appears comfortable but appears to having difficulty speaking loudly. CV: Regular rate and rhythm, no murmurs appreciated. Respiratory: Clear to auscultation bilaterally, no wheezes or rales. EXT: Right foot with angela bandage wrapping. Non draining. No calf tenderness GI: Abdomen non distended Neuro: Awake and alert. Very difficult to understand A/P Assessment and Plan 61-year-old male with history of hypertension, poorly controlled diabetes, CVA in 2012, [place], admitted for sepsis secondary to right diabetic foot ulcer with wet gangrene and severe osteomyelitis, now s/p right hallux amputation and endovascular revascularization. Now with acute on chronic renal failure on hemodialysis. Discharge Planning Timetable unclear at this time. Problem List: (1) HOWARD (acute kidney injury) ICD Codes: N17.9 - Acute kidney failure, unspecified Status: Acute Plan: Stage 3 chronic kidney disease secondary to hypertensive and/or diabetic renal disease Acute renal impairment likely from contrast nephropathy and vancomycin Renal US normal Plan: Nephrology consulted- Appreciate recommendations. Continue hemodialysis (2) Diabetes mellitus with peripheral angiopathy with gangrene ICD Codes: E11.52 - Type 2 diabetes mellitus with diabetic peripheral angiopathy with gangrene Plan: Severe right hallux diabetic foot infection with wet gangrene and likely severe osteomyelitis. s/p right hallux amputation on 07/27 and endovascular revascularization on 07/25 07/22, 07/24, 07/26 BCx x 2 No growth 07/27 wound culture growing Group B strep, no fungal elements seen s/p Vancomycin q12H (07/22-07/27) and Zosyn 3.375g q6H (07/25-08/02) Plan: -Continue Rocephin 1g IV Q24H per ID -Infectious Disease, Podiatry, and Vascular Surgery Consulted- Appreciate recommendations. (3) Anemia ICD Codes: D64.9 - Anemia, unspecified Status: Chronic Plan: s/p 4 units Packed RBCs, 1 on 07/25, 1 on 07/27, 1 on 07/29, and 1 on 07/30. Right first metatarsal amputation on 07/27 complicated by bleeding. Continue to monitor H/H Transfuse if Hgb <7.5 (4) Diabetes mellitus ICD Codes: E11.9 - Type 2 diabetes mellitus without complications Status: Chronic Plan: History of poorly controlled diabetes. Home regimen is Lantus 40 units SQ at bedtime and Humalog mix 10 units 3 times a day. Likely complicated by gastroparesis - Accu-Cheks acceptable. - Given poor oral intake, on low dose SSI without basal -Reglan 5mg TIDAC (5) Hypertension ICD Codes: I10 - Essential (primary) hypertension Status: Chronic Plan: Blood pressures spiking likely secondary to renal failure. Continue home meds -Increased Coreg to 12.5mg BID. -Lisinopril 20mg daily -Clonidine 0.1mg PO Q6H PRN BP >170/100 (6) Thrush, oral ICD Codes: B37.0 - Candidal stomatitis Plan: Patient with uncontrolled diabetes, more susceptible to fungal infections. -Nystatin QID x 14 days (started 07/23, end 08/06) (7) Depression ICD Codes: F32.9 - Major depressive disorder, single episode, unspecified Plan: Stable. Continue sertraline 150 mg PO daily. (8) FEN Status: Acute Plan: Fluids: Sodium Bicarb @ 100ml/hr Electrolytes: wnl, continue to monitor Diet: Diabetic diet DVT ppx: heparin 5000units SQ q12H GI Pxx: Protonix 40 mg PO daily. Problem Qualifiers (1) Diabetes mellitus with peripheral angiopathy with gangrene: Qualified Codes: E10.52 - Type 1 diabetes mellitus with diabetic peripheral angiopathy with gangrene (2) Anemia: Qualified Codes: D64.9 - Anemia, unspecified (3) Diabetes mellitus: Qualified Codes: E10.52 - Type 1 diabetes mellitus with diabetic peripheral angiopathy with gangrene (4) Hypertension: Qualified Codes: I10 - Essential (primary) hypertension (5) Depression: Qualified Codes: F32.0 - Major depressive disorder, single episode, mild Rohan-Veronique Collazo MD, R3 Aug 05, 2017 11:56
[2017-08-05] MEDS: METOCLOPRAMIDE HCL 10 MG TAB PO SCH ×2 (13:27→16:40)
[2017-08-05] MEDS: SODIUM BICARBONATE 8.4% INJ 50 MEQ in SODIUM CHLOR 0.45% 1000 ML INJ 1,000 ML IV SCH (13:29)
[2017-08-05 13:47] LABS: BICARBONATE 25.6 MEQ/L (21.0-32.0); POTASSIUM 4.2 MEQ/L (3.5-5.1)
--- NOTE | 2017-08-05 17:07 | HHI.NPPN ---
Subjective History of Present Illness 62-year-old male with past medical history of diabetes mellitus which is longstanding since he was a teenager, history of hypertension, peripheral vascular disease, chronic kidney disease, history of cerebrovascular accident, ischemic heart disease who was admitted on July 22 with complaint of nausea, or vomiting and abdominal pain. I was called to see the patient because of elevated BUN and creatinine. The patient has known history of chronic kidney disease and looking back it looks like his creatinine was 1.1 about 6 days before admission. Additional Remarks Patient is awake, had nausea, not eating well, not in distress. Review of Systems General Constitutional: Fatigue Respiratory Lungs: Wheeze Cardiovascular Cardiac: Edema, HO Objective Data Data Vital Signs Date Time Temp Pulse Resp B/P (MAP) Pulse Ox O2 Delivery O2 Flow Rate FiO2 08/05/17 12:06 97.4 107 22 163/89 (113) 98 08/05/17 09:27 Nasal Cannula 2.00 21 08/05/17 08:06 98.9 115 22 176/94 (121) 98 08/05/17 04:00 98.5 116 19 176/98 (124) 93 08/05/17 00:00 2.00 08/05/17 00:00 97.8 110 20 162/81 (108) 93 08/04/17 20:50 Nasal Cannula 2.00 08/04/17 20:00 Nasal Cannula 2.00 08/04/17 20:00 113 08/04/17 20:00 98.3 114 20 165/87 (113) 96 -: 08/05/17 0700 08/05/17 1206 Physical Exam General Appearance: Well Nourished, No Acute Distress, Comfortable Throat Throat Exam: Oral Mucosa [place] & Moist Neck Neck Exam: Neck Supple Pulmonary Resp Exam: No Distress, Rhonchi, Decreased Bases, Diminished Breath Sounds Gastrointestinal/Abdomen GI Exam: Soft, Non-Tender, Bowel Sounds Present, Distended Extremeties Extremities Exam: Moderate Edema, Pitting Edema Neurologic Neuro Exam: Alert, Awake, Oriented Psychiatric Psych Exam: Appropriate Responses Assessment/Plan Assessment Summary: HOWARD/Acute Renal Failure, Hypertension, CKD Stage III Problem List: (1) Blindness ICD Codes: H54.0 - Blindness, both eyes Status: Acute (2) CAD (coronary artery disease) ICD Codes: I25.10 - Atherosclerotic heart disease of [place] coronary artery without angina pectoris Status: Acute (3) Hyperlipidemia ICD Codes: E78.5 - Hyperlipidemia, unspecified Status: Acute (4) Anemia ICD Codes: D64.9 - Anemia, unspecified Status: Chronic (5) Diabetes mellitus ICD Codes: E11.9 - Type 2 diabetes mellitus without complications Status: Chronic (6) Hypertension ICD Codes: I10 - Essential (primary) hypertension Status: Chronic (7) 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 Most likely has Hypertensive or Diabetic renal disease. Urine out put is low. Creatinine continue to increase. Most likely has Contrast Nephropathy, or possibly V[place] related family decided to restart dialysis. HD was done on Sat. D/W the patient and in detail and will continue HD for now TTS and as needed. Follow the urine out put and BMP. Watch for renal recovery. Problem Qualifiers (1) Hyperlipidemia: Qualified Codes: E78.00 - Pure hypercholesterolemia, unspecified (2) Anemia: Qualified Codes: D64.9 - Anemia, unspecified (3) Diabetes mellitus: Qualified Codes: E10.52 - Type 1 diabetes mellitus with diabetic peripheral angiopathy with gangrene (4) Hypertension: Qualified Codes: I10 - Essential (primary) hypertension (5) Diabetes mellitus with peripheral angiopathy with gangrene: Qualified Codes: E10.52 - Type 1 diabetes mellitus with diabetic peripheral angiopathy with gangrene Grace Mckeon MD Aug 05, 2017 17:07
[2017-08-05] MEDS: CARVEDILOL 12.5 MG TAB PO SCH (21:33)
[2017-08-05] MEDS: hydrOXYzine HCL 50 MG TAB PO SCH (21:33)
[2017-08-06] VITALS (11 sets, daily range): BP systolic 152–172; BP diastolic 87–97; PULSE 106–113; RESP 20–24; TEMP 97.3–98; O2SAT 85–98
[2017-08-06] MEDS: cloNIDine HCL 0.1 MG TAB PO PRN (04:14)
[2017-08-06] MEDS: cefTRIAXone INJ 1,000 MG in SODIUM CHLORIDE 0.9% INJ 100 ML IV SCH (05:50)
[2017-08-06] MEDS: SODIUM BICARBONATE 8.4% INJ 50 MEQ in SODIUM CHLOR 0.45% 1000 ML INJ 1,000 ML IV SCH ×2 (06:06→13:04)
[2017-08-06] MEDS: INSULIN ASPART SUPPLEMENTAL SCALE SQ SCH ×3 (06:08→17:26)
[2017-08-06] MEDS: SODIUM CHLORIDE 0.9% FLUSH 10 ML FLUSH IV FLUSH SCH ×2 (09:00→22:52)
[2017-08-06] MEDS ORDERED: RESP: ALBUTEROL 2.5 MG/3 ML NEB (PRN) INH (09:30)
[2017-08-06] MEDS: LACTOBACILLUS ACIDOPHILUS 1 GM PACKET PO SCH ×3 (09:38→17:20)
[2017-08-06] MEDS: CLOPIDOGREL 75 MG TAB PO SCH (09:38)
[2017-08-06] MEDS: PANTOPRAZOLE SOD 40 MG DELAYED RELEASE TAB PO SCH (09:38)
[2017-08-06] MEDS: TOPIRAMATE 100 MG TAB PO SCH (09:38)
[2017-08-06] MEDS: METOCLOPRAMIDE HCL 10 MG TAB PO SCH ×3 (09:39→17:20)
[2017-08-06] MEDS: DOCUSATE SODIUM 50 MG/SENNA 8.6 MG TAB PO SCH ×2 (09:39→21:00)
[2017-08-06] MEDS: SERTRALINE HCL 50 MG TAB PO SCH (09:39)
[2017-08-06] MEDS: CARVEDILOL 12.5 MG TAB PO SCH ×2 (09:39→22:51)
[2017-08-06] MEDS: HEPARIN SODIUM - SQ 10,000 UNITS/ML VIAL SQ SCH ×2 (09:39→22:52)
[2017-08-06] MEDS: NYSTATIN SUSP 500,000 U/5 ML CUP SWISH-SWAL SCH (09:39)
[2017-08-06] MEDS: prednisoLONE ACETATE 1% OPHT SUSP 5 ML BTL EACH EYE SCH (09:44)
--- NOTE | 2017-08-06 11:08 | HHI.FPPN ---
Subjective Remarks No acute issues overnight. Patient is feeling short of breath this morning. He feels like it is difficult to get air in. He currently is breathing with nasal cannula and saturating 92% on 2 L NC. He denies any associated cough or chest pain. He continues to have swelling of his extremities. He is starting to feel uncomfortable again. Last dialysis was a couple days ago. (Aniya Jacobo MD, R3) Objective Vitals Vital Signs Date Time Temp Pulse Resp B/P (MAP) Pulse Ox O2 Delivery O2 Flow Rate FiO2 08/06/17 09:33 Nasal Cannula 2.00 08/06/17 09:33 109 08/06/17 08:20 92 Nasal Cannula 2.00 08/06/17 08:07 98.0 110 22 164/95 (118) 93 08/06/17 04:00 97.3 113 20 172/97 (122) 95 08/06/17 04:00 Nasal Cannula 3.00 08/06/17 00:00 97.5 106 20 159/92 (114) 98 08/06/17 00:00 Nasal Cannula 2.00 08/05/17 20:10 107 08/05/17 20:04 Nasal Cannula 2.00 08/05/17 20:00 Nasal Cannula 2.00 08/05/17 20:00 97.6 111 20 161/96 (117) 96 08/05/17 16:03 97.6 107 22 166/93 (117) 94 08/05/17 12:06 97.4 107 22 163/89 (113) 98 I/O 08/05/17 08/05/17 08/05/17 08/06/17 08/06/17 08/06/17 07:00 15:00 23:00 07:00 15:00 23:00 Intake Total 1200 ml 220 ml 1350 ml Output Total 350 ml 400 ml 550 ml Balance 850 ml -180 ml 800 ml Intake Oral 0 ml 220 ml 50 ml IV Total 1200 ml 1300 ml Output Urine Total 350 ml 400 ml 550 ml # Bowel Movements 0 0 0 (Aniya Jacobo MD, R3) Result Diagram: 08/05/17 0700 08/05/17 1206 Imaging Last Impressions Catheter Placement X-Ray 07/31/17 0000 Signed Impressions: Service Date/Time: Monday, July 31, 2017 12:30 - CONCLUSION: Uncomplicated line placement as above. Paresh Hughes MD Renal Ultrasound 07/28/17 0000 Signed Impressions: Service Date/Time: Friday, July 28, 2017 09:48 - CONCLUSION: Normal examination. Ruiz Johnson MD Chest X-Ray 07/28/17 0000 Signed Impressions: Service Date/Time: Friday, July 28, 2017 09:19 - CONCLUSION: Bilateral lower lobe airspace disease. Ruiz Johnson MD Foot X-Ray 07/27/17 0000 Signed Impressions: Service Date/Time: Thursday, July 27, 2017 10:40 - CONCLUSION: Postsurgical changes are identified right first digit amputation. Ruiz Johnson MD Head CT 07/22/17 1826 Signed Impressions: Service Date/Time: Saturday, July 22, 2017 19:17 - CONCLUSION: 1. No acute abnormality is seen. 2. Atrophy. 3. Persistent stable encephalomalacia at the inferior left cerebellar hemisphere. Markus Denny MD Abdomen/Pelvis CT 07/22/17 0000 Signed Impressions: Service Date/Time: Saturday, July 22, 2017 23:56 - CONCLUSION: 1. No acute finding is identified within the abdomen or pelvis. There is mild respiratory motion artifact. 2. Stable nonacute findings include small hiatal hernia and small bilateral low-density renal lesions. There is trace left pleural fluid. Markus Chester MD Objective Remarks Gen.: Well-nourished, well-developed male lying in bed. Appears to be short of breath. CV: Regular rate and rhythm, no murmurs appreciated. Respiratory: Clear to auscultation bilaterally, no wheezes or rales. Unable to speak in complete sentences without becoming short of breath. Nasal cannula in place. EXT: Right foot with angela bandage wrapping. Non draining. No calf tenderness. Bilateral lower extremity edema. GI: Abdomen mildly distended, non-tender. Neuro: Awake and alert. Very difficult to understand (Aniya Jacobo MD, R3) Urinary Catheter: Yes Assessment to: Continue Medina insert reason: Obstruction/Retention (Aniya Jacobo MD, R3) A/P Assessment and Plan 61-year-old male with history of hypertension, poorly controlled diabetes, CVA in 2012, [place], admitted for sepsis secondary to right diabetic foot ulcer with wet gangrene and severe osteomyelitis, now s/p right hallux amputation and endovascular revascularization. Now with acute on chronic renal failure on hemodialysis. Discharge Planning Timetable unclear at this time. ingrid Foster (Aniya Jacobo MD, R3) Attending Attestation Patient seen and examined. Case reviewed and discussed with the resident team. Agree with plan of care as discussed with me and documented in the resident note. saw Mr Obando in dialysis. he is bedridden and not very talkative at all. when asked if he felt improved after dialysis started he could not really answer in the affirmative. his family is very adamant about him getting dialysis (Mary Foster MD) Problem List: (1) HOWARD (acute kidney injury) ICD Codes: N17.9 - Acute kidney failure, unspecified Status: Acute Plan: Stage 3 chronic kidney disease secondary to hypertensive and/or diabetic renal disease Acute renal impairment likely from contrast nephropathy and vancomycin Renal US normal Plan: Nephrology consulted- Appreciate recommendations. Continue hemodialysis Shortness of breath today likely secondary to fluid overload, will give breathing treatments to attempt symptomatic relief. (2) Diabetes mellitus with peripheral angiopathy with gangrene ICD Codes: E11.52 - Type 2 diabetes mellitus with diabetic peripheral angiopathy with gangrene Plan: Severe right hallux diabetic foot infection with wet gangrene and likely severe osteomyelitis. s/p right hallux amputation on 07/27 and endovascular revascularization on 07/25 07/22, 07/24, 07/26 Blood cultures, No growth 07/27 wound culture growing Group B strep, no fungal elements seen s/p Vancomycin q12H (07/22-07/27) and Zosyn 3.375g q6H (07/25-08/02) Plan: -Continue Rocephin 1g IV Q24H per ID -Infectious Disease, Podiatry, and Vascular Surgery Consulted- Appreciate recommendations. (3) Anemia ICD Codes: D64.9 - Anemia, unspecified Status: Chronic Plan: s/p 4 units Packed RBCs, 1 on 07/25, 1 on 07/27, 1 on 07/29, and 1 on 07/30. Right first metatarsal amputation on 07/27 complicated by bleeding. Continue to monitor H/H Transfuse if Hgb <7.5 (4) Diabetes mellitus ICD Codes: E11.9 - Type 2 diabetes mellitus without complications Status: Chronic Plan: History of poorly controlled diabetes. Home regimen is Lantus 40 units SQ at bedtime and Humalog mix 10 units 3 times a day. Likely complicated by gastroparesis - Accu-Cheks - Given poor oral intake, on low dose SSI without basal - Reglan 5mg TIDAC for nausea (5) Hypertension ICD Codes: I10 - Essential (primary) hypertension Status: Chronic Plan: Blood pressures spiking likely secondary to renal failure. Continue home meds -Coreg to 12.5mg BID. -Lisinopril 20mg daily -Clonidine 0.1mg PO Q6H PRN BP >170/100 (6) Thrush, oral ICD Codes: B37.0 - Candidal stomatitis Status: Resolved Plan: Patient with uncontrolled diabetes, more susceptible to fungal infections. -Nystatin QID x 14 days (started 07/23, end today) (7) Depression ICD Codes: F32.9 - Major depressive disorder, single episode, unspecified Plan: Stable. Continue sertraline 150 mg PO daily. (8) FEN Status: Acute Plan: Fluids: Sodium Bicarb @ 100ml/hr Electrolytes: wnl, continue to monitor Diet: Diabetic diet DVT ppx: heparin 5000units SQ q12H GI Pxx: Protonix 40 mg PO daily. (Aniya Jacobo MD, R3) Problem Qualifiers (1) Diabetes mellitus with peripheral angiopathy with gangrene: Qualified Codes: E10.52 - Type 1 diabetes mellitus with diabetic peripheral angiopathy with gangrene (2) Anemia: Qualified Codes: D64.9 - Anemia, unspecified (3) Diabetes mellitus: Qualified Codes: E10.52 - Type 1 diabetes mellitus with diabetic peripheral angiopathy with gangrene (4) Hypertension: Qualified Codes: I10 - Essential (primary) hypertension (5) Depression: Qualified Codes: F32.0 - Major depressive disorder, single episode, mild Aniya Jacobo MD, R3 Aug 06, 2017 11:08 Mary Foster MD Aug 06, 2017 16:34
--- NOTE | 2017-08-06 12:42 | HHI.HCPN ---
Reason for visit a. To assist with evaluation and management of symptoms including: Debility and pain. b. To assist medical decision maker(s) with: better understanding of current medical conditions; weighing benefits/burdens of medical treatment options; making medical treatment decisions. . (Thelma León) Subjective/Interval History Mr. Obando it's a 62-year-old male with a medical history significant for diabetes uncontrolled mellitus type 2, CAD status post stent placement in on May 2017, [place] on October 2015, hypertension, CVA in 2012 and diabetic ulcer to right foot. Clinical course complicated by sepsis/gangrene and osteomyelitis to right big toe, acute on chronic kidney failure requiring hemodialysis, increased symptoms burden and profound physical deconditioning. Palliative care consulted for further clarifications of goals of care. Patient seen in his room. He was resting in bed in moderate distress secondary to increased work of breathing. Patient endorsing shortness of breath, nausea and generalized weakness. Shortness of breath worsen with physical exertion/ movement. Remains nauseous with decreased oral intake giving nausea and vomiting. Denies pain at this time. Ioana at bedside. Patient underwent hemodialysis on 08/04/17, 2500 mL removed. Remains with reduced to minimal urinary output. Most recent laboratory workup 08/05/17 revealing WBC 12.7, Hgb 8.2, platelet count 219. BUN/creatinine 63/4.59. Total albumin 1.3. Patient afebrile, tachycardic with heart rate in the 110s. Hypertensive with SBP in the 160s to 170s. Currently on O2 via nasal cannula at 2 L, oxygen saturation in the low 90s. No new imaging for review. . Family/friend interactions Bedside conversation with patient's Ioana. Share concerns of patient's worsening clinical condition as evidenced by increased work of breathing and overall profound physical deconditioning. Addressed CODE STATUS once more, patient's confirming DNR/DNI status. Share concerns regarding patient's overall very poor prognosis given multiple chronic ongoing comorbidities, sepsis /wound infection with osteomyelitis, acute on chronic kidney failure requiring renal replacement therapy, progressive decline, malnutrition with albumin 1.3 and profound physical deconditioning. Discussed that patient is at a very high risk for further complications, continue decline and . Patient's verbalized understanding. . (Thelma León) Advance Directives Living Will: Never completed Health Care Surrogate: Never completed Durable Power of Insurance Manager: Never completed (Thelma León) Advance Directive Specifics Health Care Surrogate(s): No advance directives completed. Proxy healthcare decision-making falls to patient's Ioana Obando. . Significant change in goals: No code. DNR/DNI. Continue current management short of no code to include hemodialysis. . (Thelma León) Objective Vital Signs Date Time Temp Pulse Resp B/P (MAP) Pulse Ox O2 Delivery O2 Flow Rate FiO2 08/06/17 09:33 Nasal Cannula 2.00 08/06/17 09:33 109 08/06/17 08:20 92 Nasal Cannula 2.00 08/06/17 08:07 98.0 110 22 164/95 (118) 93 08/06/17 04:00 97.3 113 20 172/97 (122) 95 08/06/17 04:00 Nasal Cannula 3.00 08/06/17 00:00 97.5 106 20 159/92 (114) 98 08/06/17 00:00 Nasal Cannula 2.00 08/05/17 20:10 107 08/05/17 20:04 Nasal Cannula 2.00 08/05/17 20:00 Nasal Cannula 2.00 08/05/17 20:00 97.6 111 20 161/96 (117) 96 08/05/17 16:03 97.6 107 22 166/93 (117) 94 Intake & Output 08/06/17 08/06/17 07:00 19:00 Intake Total 1350 ml Output Total 550 ml Balance 800 ml Intake Oral 50 ml IV Total 1300 ml Output Urine Total 550 ml # Bowel Movements 0 Physical Exam CONSTITUTIONAL/GENERAL: This is an obese, frail man resting in bed in moderate distress secondary to increased work of breathing. Patient appears older than stated age. TUBES/LINES/DRAINS: Right IJ Vas-Cath, PIV's, Medina catheter. Nasal cannula. SKIN: No jaundice, rashes, or lesions. Ecchymoses on upper extremities. Skin temperature appropriate. Not diaphoretic. Right foot wrapped in Maxi bandages. HEAD: Atraumatic. Normocephalic. EYES: Unable to evaluate eyes, patient legally blind. Conjunctival discharge to right eye. Periorbital edema bilaterally. ENT: Hearing grossly normal. Nose without bleeding or purulent drainage. Moist oral mucosa. Thrush observed. edentulous. NECK: Trachea midline. Supple, nontender. CARDIOVASCULAR: Regular rate and rhythm. RESPIRATORY/CHEST: Symmetric, increased work of breathing. Inspiratory and expiratory wheezing bilaterally. O2 via nasal cannula at 2 L. GASTROINTESTINAL: Abdomen obese, round, large. Positive bowel sounds. Unable to appreciate hepatomegaly secondary to body habitus. GENITOURINARY: Without palpable bladder distension. Medina catheter in place with small amount of urine. MUSCULOSKELETAL: Extremities without clubbing, cyanosis. Right foot wrapped in Maxi bandages. NEUROLOGICAL: Awake and alert x self, place and situation. Frequently confused/ forgetful. Following commands. Slurred speech. Weak. PSYCHIATRIC: Calm. . (Thelma León) Diagnostic Tests Laboratory Laboratory Tests Test 08/04/17 10:02 08/05/17 07:00 08/05/17 12:06 White Blood Count 15.1 TH/MM3 (4.0-11.0) 12.7 TH/MM3 (4.0-11.0) Red Blood Count 3.44 MIL/MM3 (4.50-5.90) 3.36 MIL/MM3 (4.50-5.90) Hemoglobin 8.5 GM/DL (13.0-17.0) 8.2 GM/DL (13.0-17.0) Hematocrit 25.4 % (39.0-51.0) 24.9 % (39.0-51.0) Mean Corpuscular Volume 73.7 FL (80.0-100.0) 74.2 FL (80.0-100.0) Mean Corpuscular Hemoglobin 24.7 PG (27.0-34.0) 24.4 PG (27.0-34.0) Mean Corpuscular Hemoglobin Concent 33.6 % (32.0-36.0) 32.9 % (32.0-36.0) Red Cell Distribution Width 25.7 % (11.6-17.2) 25.8 % (11.6-17.2) Platelet Count 195 TH/MM3 (150-450) 219 TH/MM3 (150-450) Mean Platelet Volume 9.6 FL (7.0-11.0) 9.5 FL (7.0-11.0) Neutrophils (%) (Auto) 79.3 % (16.0-70.0) Lymphocytes (%) (Auto) 12.4 % (9.0-44.0) Monocytes (%) (Auto) 6.3 % (0.0-8.0) Eosinophils (%) (Auto) 1.5 % (0.0-4.0) Basophils (%) (Auto) 0.5 % (0.0-2.0) Neutrophils # (Auto) 11.9 TH/MM3 (1.8-7.7) Lymphocytes # (Auto) 1.9 TH/MM3 (1.0-4.8) Monocytes # (Auto) 1.0 TH/MM3 (0-0.9) Eosinophils # (Auto) 0.2 TH/MM3 (0-0.4) Basophils # (Auto) 0.1 TH/MM3 (0-0.2) CBC Comment AUTO DIFF Differential Comment AUTO DIFF CONFIRMED Ovalocytes 1+ (NORMAL) Keratocytes OCC (NORMAL) Blood Urea Nitrogen 57 MG/DL (7-18) 63 MG/DL (7-18) Creatinine 4.68 MG/DL (0.60-1.30) 4.59 MG/DL (0.60-1.30) Random Glucose 227 MG/DL (74-106) 301 MG/DL (74-106) Total Protein 6.3 GM/DL (6.4-8.2) Albumin 1.3 GM/DL (3.4-5.0) Calcium Level 7.6 MG/DL (8.5-10.1) 7.7 MG/DL (8.5-10.1) Alkaline Phosphatase 118 U/L (45-117) Aspartate Amino Transf (AST/SGOT) 31 U/L (15-37) Alanine Aminotransferase (ALT/SGPT) 18 U/L (12-78) Total Bilirubin 0.4 MG/DL (0.2-1.0) Sodium Level 137 MEQ/L (136-145) 136 MEQ/L (136-145) Potassium Level 3.7 MEQ/L (3.5-5.1) 4.2 MEQ/L (3.5-5.1) Chloride Level 100 MEQ/L (98-107) 98 MEQ/L (98-107) Carbon Dioxide Level 22.5 MEQ/L (21.0-32.0) 25.6 MEQ/L (21.0-32.0) Anion Gap 15 MEQ/L (5-15) 12 MEQ/L (5-15) Estimat Glomerular Filtration Rate 15 ML/MIN (>89) 16 ML/MIN (>89) (Thelma León) Result Diagram: 08/05/17 0700 08/05/17 1206 Procedures * 07/25/17 -1. Right lower extremity angiogram, Superficial femoral artery angioplasty, 6 mm, Right anterior tibial artery angioplasty 3 mm, Right dorsalis pedis artery angioplasty 2 mm and Left common femoral artery Angio- Seal. * 07/27/17 -Open Amputation of right hallux * 07/31/17 -hemodialysis catheter placement . (Thelma León) Assessment and Plan Disease Oriented Problem List: (1) Sepsis (2) Diabetes mellitus with peripheral angiopathy with gangrene (3) HOWARD (acute kidney injury) (4) CAD (coronary artery disease) (5) Hypertension (6) Depression Symptom Scale: (1) Shortness of breath 0-10 Scale: Unable to quantify Comment: O2 via nasal cannula (2) Nausea and vomiting 0-10 Scale: 0 (3) Debility 0-10 Scale: Unable to quantify Pertinent Non-Medical Issues Psychosocial: Patient originally from [facility]. to current since 2009. No children together. Patient has a biological daughter by the name of Leslee Obando who resides in [place]. 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 No service. Spiritual: Sikhism jose. Legal: No advance directives completed. Ethical issues impacting care: No advance directives completed. . Important Contacts Patient's Ioana Obando . . Prognosis Very poor prognosis for an improved quality of life or survival given multiple chronic ongoing comorbidities, sepsis/wound infection with osteomyelitis, acute on chronic kidney failure requiring renal replacement therapy, progressive decline, malnutrition with albumin 1.4 and profound physical deconditioning. Patient at high risk for further complications, clinical decline and . Patient appears hospice appropriate should he elects comfort-directed care/ discontinuation of renal replacement therapy. . Code Status: No Code Plan * CODE STATUS: No code. DNR/DNI. Code status readdressed on 08/06/17. Patient' s confirming no CODE STATUS. * HEALTHCARE DECISION-MAKING: Patient with limited participation in medical decision-making, intermittent confusion/lethargy. He relies heavily on his for input/medical decision-making. No advance directives completed. As per [place] statute, proxy healthcare decision-making falls to patient's Ioana Obando. Palliative care recommends shared decision-making with patient's . * GOALS OF CARE: Patient and family electing at this time to continue current medical management to include renal replacement therapy. Hospice philosophy and benefits previously introduced. Patient and receptive to hospice should pt's clinical condition continues to decline, additional complications or increased symptoms burden. * Bedside conversation with patient's Ioana. Share concerns of patient' s worsening clinical condition as evidenced by increased work of breathing and overall profound physical deconditioning. Shared concerns regarding patient's overall very poor prognosis given multiple chronic ongoing comorbidities, sepsis /wound infection with osteomyelitis, acute on chronic kidney failure requiring renal replacement therapy, progressive decline, malnutrition with albumin 1.3 and profound physical deconditioning. Discussed that patient is at a very high risk for further complications, continue decline and . Discussed that patient may not survive this hospitalization. Patient's verbalized understanding. * SYMPTOMS: = Shortness of breath, likely fluid overload. Currently on O2 via nasal cannula. = Nausea/vomiting , multifactorial. Sepsis, electrolyte imbalances, acute kidney failure. History of gastroparesis. Zofran 4 mg IV Q6h available as needed. = Pain, multifactorial. Secondary to medical interventions, surgical interventions, bedbound state. Currently on oxycodone 5 mg and 10 mg q4h PRN. = Debility, progressive. Worsened during the past month. Likely to continue to progress. * Palliative care contact information has been provided to patient and . * Palliative care will continue to follow-up for further clarifications of goals of care as patient's clinical course continues to evolve. . (Thelma León) Time Spent Total Floor Time (mins): 38 (Total time to include review medical records, physical exam, goals of care conversation with patient and .) >50% Counseling/Coord of Care: Yes (Thelma León) Attestation To help prompt me to consider important information that might be impacting today's encounter and assessment, information from prior notes written by myself or my colleagues may have been "brought forward" into today's note. My signature on this note, however, is an attestation that I personally performed the exam, history, and/or decision-making noted today, and, unless otherwise indicated, the interactions with patient, family, and staff as well as the review of records all occurred today. I also attest that the listed assessment and stated plan reflect my best clinical judgment today based on the combination of historical information, prior notes, and today's exam/ interactions. When time spent is documented, it refers only to time spent today by the signer, or if indicated, combined time spent today by collaborating physician/nurse practitioner. (Thelma León) Collaborating MD Comments Chart reviewed. Case discussed with palliative care [employer]ICE OFFICER. Above note reviewed and I concur. . (Ming Perry MD) Thelma León Aug 06, 2017 12:42 Ming Perry MD Sep 01, 2017 11:38
[2017-08-06] MEDS: RESP: ALBUTEROL 2.5 MG/IPRATROPIUM 0.5 MG NEB (SCH) INH ×3 (13:24→20:18)
--- NOTE | 2017-08-06 15:52 | HHI.NPPN ---
Subjective History of Present Illness 62-year-old male with past medical history of diabetes mellitus which is longstanding since he was a teenager, history of hypertension, peripheral vascular disease, chronic kidney disease, history of cerebrovascular accident, ischemic heart disease who was admitted on July 22 with complaint of nausea, or vomiting and abdominal pain. I was called to see the patient because of elevated BUN and creatinine. The patient has known history of chronic kidney disease and looking back it looks like his creatinine was 1.1 about 6 days before admission. Additional Remarks Patient is awake, seen during HD, has mild SOB, with nasal cannula. Review of Systems General Constitutional: Fatigue Respiratory Lungs: Wheeze Cardiovascular Cardiac: Edema, HO Objective Data Data Vital Signs Date Time Temp Pulse Resp B/P (MAP) Pulse Ox O2 Delivery O2 Flow Rate FiO2 08/06/17 12:07 97.8 110 22 168/88 (114) 96 08/06/17 09:33 Nasal Cannula 2.00 08/06/17 09:33 109 08/06/17 08:20 92 Nasal Cannula 2.00 08/06/17 08:07 98.0 110 22 164/95 (118) 93 08/06/17 04:00 97.3 113 20 172/97 (122) 95 08/06/17 04:00 Nasal Cannula 3.00 08/06/17 00:00 97.5 106 20 159/92 (114) 98 08/06/17 00:00 Nasal Cannula 2.00 08/05/17 20:10 107 08/05/17 20:04 Nasal Cannula 2.00 08/05/17 20:00 Nasal Cannula 2.00 08/05/17 20:00 97.6 111 20 161/96 (117) 96 08/05/17 16:03 97.6 107 22 166/93 (117) 94 -: 08/05/17 0700 08/05/17 1206 Physical Exam General Appearance: Well Nourished, No Acute Distress, Comfortable Throat Throat Exam: Oral Mucosa [place] & Moist Neck Neck Exam: Neck Supple Pulmonary Resp Exam: No Distress, Rhonchi, Decreased Bases, Diminished Breath Sounds Gastrointestinal/Abdomen GI Exam: Soft, Non-Tender, Bowel Sounds Present, Distended Extremeties Extremities Exam: Moderate Edema, Pitting Edema Neurologic Neuro Exam: Alert, Awake, Oriented Psychiatric Psych Exam: Appropriate Responses Assessment/Plan Assessment Summary: HOWARD/Acute Renal Failure, Hypertension, CKD Stage III Problem List: (1) Blindness ICD Codes: H54.0 - Blindness, both eyes Status: Acute (2) CAD (coronary artery disease) ICD Codes: I25.10 - Atherosclerotic heart disease of [place] coronary artery without angina pectoris Status: Acute (3) Hyperlipidemia ICD Codes: E78.5 - Hyperlipidemia, unspecified Status: Acute (4) Anemia ICD Codes: D64.9 - Anemia, unspecified Status: Chronic (5) Diabetes mellitus ICD Codes: E11.9 - Type 2 diabetes mellitus without complications Status: Chronic (6) Hypertension ICD Codes: I10 - Essential (primary) hypertension Status: Chronic (7) 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 Most likely has Hypertensive or Diabetic renal disease. Urine out put is low. Creatinine continue to increase. Most likely has Contrast Nephropathy, or possibly Vanco related family decided to restart dialysis. HD now and as needed. Follow for renal recovery. Problem Qualifiers (1) Hyperlipidemia: Qualified Codes: E78.00 - Pure hypercholesterolemia, unspecified (2) Anemia: Qualified Codes: D64.9 - Anemia, unspecified (3) Diabetes mellitus: Qualified Codes: E10.52 - Type 1 diabetes mellitus with diabetic peripheral angiopathy with gangrene (4) Hypertension: Qualified Codes: I10 - Essential (primary) hypertension (5) Diabetes mellitus with peripheral angiopathy with gangrene: Qualified Codes: E10.52 - Type 1 diabetes mellitus with diabetic peripheral angiopathy with gangrene Grace Mckeon MD Aug 06, 2017 15:52
[2017-08-06] MEDS: GENTAMICIN SULFATE (DIALYSIS USE ONLY) 20 MG/2 ML VIAL IV PRN (16:27)
[2017-08-06] MEDS: HEPARIN SODIUM - IV 10,000 UNITS/10 ML VIAL PRN (16:27)
[2017-08-06] MEDS: hydrOXYzine HCL 50 MG TAB PO SCH (22:52)
[2017-08-07] VITALS (12 sets, daily range): BP systolic 144–179; BP diastolic 81–92; PULSE 98–113; RESP 18–24; TEMP 97.3–98.6; O2SAT 91–99
[2017-08-07] MEDS: RESP: ALBUTEROL 2.5 MG/IPRATROPIUM 0.5 MG NEB (SCH) INH ×7 (00:07→23:57)
[2017-08-07] MEDS: INSULIN ASPART SUPPLEMENTAL SCALE SQ SCH ×5 (00:09→22:03)
[2017-08-07] MEDS: SODIUM BICARBONATE 8.4% INJ 50 MEQ in SODIUM CHLOR 0.45% 1000 ML INJ 1,000 ML IV SCH ×3 (00:10→17:44)
[2017-08-07] MEDS: cefTRIAXone INJ 1,000 MG in SODIUM CHLORIDE 0.9% INJ 100 ML IV SCH (06:33)
[2017-08-07] MEDS: SODIUM CHLORIDE 0.9% FLUSH 10 ML FLUSH IV FLUSH SCH ×2 (09:00→22:04)
[2017-08-07] MEDS: CARVEDILOL 12.5 MG TAB PO SCH ×2 (09:10→22:02)
[2017-08-07] MEDS: DOCUSATE SODIUM 50 MG/SENNA 8.6 MG TAB PO SCH ×2 (09:10→22:02)
[2017-08-07] MEDS: LACTOBACILLUS ACIDOPHILUS 1 GM PACKET PO SCH ×3 (09:10→17:39)
[2017-08-07] MEDS: TOPIRAMATE 100 MG TAB PO SCH (09:10)
[2017-08-07] MEDS: CLOPIDOGREL 75 MG TAB PO SCH (09:10)
[2017-08-07] MEDS: PANTOPRAZOLE SOD 40 MG DELAYED RELEASE TAB PO SCH (09:10)
[2017-08-07] MEDS: METOCLOPRAMIDE HCL 10 MG TAB PO SCH ×3 (09:10→17:38)
[2017-08-07] MEDS: prednisoLONE ACETATE 1% OPHT SUSP 5 ML BTL EACH EYE SCH (09:11)
[2017-08-07] MEDS: HEPARIN SODIUM - SQ 10,000 UNITS/ML VIAL SQ SCH ×2 (09:11→22:03)
[2017-08-07] MEDS: SERTRALINE HCL 50 MG TAB PO SCH (09:19)
[2017-08-07 10:09] LABS: HEMATOCRIT 24.2 % (39.0-51.0); MEAN CELL VOLUME 75.6 FL (80.0-100.0); MEAN CORPUSCULAR HEMOGLOBIN 24.9 PG (27.0-34.0); PLATELET COUNT 191 TH/MM3 (150-450); RED BLOOD COUNT 3.21 MIL/MM3 (4.50-5.90); RED CELL DISTRIBUTION WIDTH 25.7 % (11.6-17.2); WHITE BLOOD COUNT 9.3 TH/MM3 (4.0-11.0)
[2017-08-07 10:14] LABS: REVIEW FLAG FINAL
--- NOTE | 2017-08-07 10:18 | HHI.FPPN ---
Subjective Remarks No acute issues overnight. Vitals are stable, patient remains afebrile. He is saturating 94% on 2 LNC. He had dialysis yesterday and noted overall improvement in his comfort level and breathing after dialysis. He states that he could really use some sleep this morning. He denies any chest pain, abdominal pain, fever, chills, nausea or vomiting. (Aniya Jacobo MD, R3) Objective Vitals Vital Signs Date Time Temp Pulse Resp B/P (MAP) Pulse Ox O2 Delivery O2 Flow Rate FiO2 08/07/17 08:48 94 Nasal Cannula 2.00 08/07/17 08:00 98.5 110 18 144/82 (102) 92 08/07/17 05:10 97.3 105 20 145/81 (102) 96 08/07/17 00:03 98.3 102 20 153/86 (108) 98 08/06/17 23:00 111 08/06/17 21:07 97.4 111 24 166/94 (118) 97 08/06/17 20:21 85 08/06/17 19:00 Nasal Cannula 2.00 08/06/17 16:07 97.3 107 20 152/87 (108) 95 08/06/17 12:07 97.8 110 22 168/88 (114) 96 I/O 08/06/17 08/06/17 08/06/17 08/07/17 08/07/17 08/07/17 07:00 15:00 23:00 07:00 15:00 23:00 Intake Total 1350 ml 3291 ml 563 ml Output Total 550 ml 3000 ml 475 ml Balance 800 ml 291 ml 88 ml Intake Oral 50 ml 120 ml IV Total 1300 ml 3291 ml 443 ml Output Urine Total 550 ml 475 ml Hemodialysis 3000 ml # Bowel Movements 0 0 (Aniya Jacobo MD, R3) Result Diagram: 08/05/17 0700 08/05/17 1206 Imaging Last Impressions Catheter Placement X-Ray 07/31/17 0000 Signed Impressions: Service Date/Time: Monday, July 31, 2017 12:30 - CONCLUSION: Uncomplicated line placement as above. Paresh Hughes MD Renal Ultrasound 07/28/17 0000 Signed Impressions: Service Date/Time: Friday, July 28, 2017 09:48 - CONCLUSION: Normal examination. Ruiz Johnson MD Chest X-Ray 07/28/17 0000 Signed Impressions: Service Date/Time: Friday, July 28, 2017 09:19 - CONCLUSION: Bilateral lower lobe airspace disease. Ruiz Johnson MD Foot X-Ray 07/27/17 0000 Signed Impressions: Service Date/Time: Thursday, July 27, 2017 10:40 - CONCLUSION: Postsurgical changes are identified right first digit amputation. Ruiz Johnson MD Head CT 07/22/17 1826 Signed Impressions: Service Date/Time: Saturday, July 22, 2017 19:17 - CONCLUSION: 1. No acute abnormality is seen. 2. Atrophy. 3. Persistent stable encephalomalacia at the inferior left cerebellar hemisphere. Markus Denny MD Abdomen/Pelvis CT 07/22/17 0000 Signed Impressions: Service Date/Time: Saturday, July 22, 2017 23:56 - CONCLUSION: 1. No acute finding is identified within the abdomen or pelvis. There is mild respiratory motion artifact. 2. Stable nonacute findings include small hiatal hernia and small bilateral low-density renal lesions. There is trace left pleural fluid. Markus Chester MD Objective Remarks Gen.: Well-nourished, well-developed male lying in bed. Appears comfortable, in no acute distress. CV: Regular rate and rhythm, no murmurs appreciated. Respiratory: Clear to auscultation bilaterally, no wheezes or rales. Able to speak in complete sentences without becoming short of breath. Nasal cannula in place. EXT: Right foot with angela bandage wrapping. Non draining. No calf tenderness. Bilateral lower extremity edema. GI: Abdomen mildly distended, non-tender. Neuro: Awake and alert. Very difficult to understand (Aniya Jacobo MD, R3) Urinary Catheter: Yes Assessment to: Continue [place] insert reason: Obstruction/Retention (Aniya Jacobo MD, R3) A/P Assessment and Plan 61-year-old male with history of hypertension, poorly controlled diabetes, CVA in 2012, , admitted for sepsis secondary to right diabetic foot ulcer with wet gangrene and severe osteomyelitis, now s/p right hallux amputation and endovascular revascularization. Now with acute on chronic renal failure on hemodialysis. Discharge Planning Timetable unclear at this time. dw Dr. Foster (Aniya Jacobo MD, R3) Attending Attestation Patient seen and examined. Case reviewed and discussed with the resident team. Agree with plan of care as discussed with me and documented in the resident note.he is stable overall though extremely ill. (Mary Foster MD) Problem List: (1) HOWARD (acute kidney injury) ICD Codes: N17.9 - Acute kidney failure, unspecified Status: Acute Plan: Stage 3 chronic kidney disease secondary to hypertensive and/or diabetic renal disease Acute renal impairment likely from contrast nephropathy and vancomycin Renal US normal Plan: Nephrology consulted- Appreciate recommendations. Continue hemodialysis (2) Diabetes mellitus with peripheral angiopathy with gangrene ICD Codes: E11.52 - Type 2 diabetes mellitus with diabetic peripheral angiopathy with gangrene Status: Acute Plan: Severe right hallux diabetic foot infection with wet gangrene and likely severe osteomyelitis. s/p right hallux amputation on 07/27 and endovascular revascularization on 07/25 07/22, 07/24, 07/26 Blood cultures, No growth 07/27 wound culture growing Group B strep, no fungal elements seen s/p Vancomycin q12H (07/22-07/27) and Zosyn 3.375g q6H (07/25-08/02) Plan: -Continue Rocephin 1g IV Q24H per ID (started 08/02) -Infectious Disease, Podiatry, and Vascular Surgery Consulted- Appreciate recommendations. (3) Anemia ICD Codes: D64.9 - Anemia, unspecified Status: Chronic Plan: s/p 4 units Packed RBCs, 1 on 07/25, 1 on 07/27, 1 on 07/29, and 1 on 07/30. Right first metatarsal amputation on 07/27 complicated by bleeding. Continue to monitor H/H Transfuse if Hgb <7.5 (4) Diabetes mellitus ICD Codes: E11.9 - Type 2 diabetes mellitus without complications Status: Chronic Plan: History of poorly controlled diabetes. Home regimen is Lantus 40 units SQ at bedtime and Humalog mix 10 units 3 times a day. Likely complicated by gastroparesis - Accu-Cheks - Blood glucose now ranging 219-280, will add Levemir 5 units BID to low dose SSI - Reglan 5mg TIDAC for nausea (5) Hypertension ICD Codes: I10 - Essential (primary) hypertension Status: Chronic Plan: Stable. Continue home meds -Coreg to 12.5mg BID. -Lisinopril 20mg daily -Clonidine 0.1mg PO Q6H PRN BP >170/100 (6) Depression ICD Codes: F32.9 - Major depressive disorder, single episode, unspecified Plan: Stable. Continue sertraline 150 mg PO daily. (7) FEN Status: Acute Plan: Fluids: Sodium Bicarb @ 100ml/hr Electrolytes: wnl, continue to monitor Diet: Diabetic diet DVT ppx: heparin 5000units SQ q12H GI Pxx: Protonix 40 mg PO daily. (Aniya Jacobo MD, R3) Problem Qualifiers (1) Diabetes mellitus with peripheral angiopathy with gangrene: Qualified Codes: E10.52 - Type 1 diabetes mellitus with diabetic peripheral angiopathy with gangrene (2) Anemia: Qualified Codes: D64.9 - Anemia, unspecified (3) Diabetes mellitus: Qualified Codes: E10.52 - Type 1 diabetes mellitus with diabetic peripheral angiopathy with gangrene (4) Hypertension: Qualified Codes: I10 - Essential (primary) hypertension (5) Depression: Qualified Codes: F32.0 - Major depressive disorder, single episode, mild Aniya Jacobo MD, R3 Aug 07, 2017 10:18 Mary Foster MD Aug 09, 2017 15:37
[2017-08-07 10:49] LABS: POTASSIUM 3.6 MEQ/L (3.5-5.1)
--- NOTE | 2017-08-07 16:07 | HHI.NPPN ---
Subjective History of Present Illness 62-year-old male with past medical history of diabetes mellitus which is longstanding since he was a teenager, history of hypertension, peripheral vascular disease, chronic kidney disease, history of cerebrovascular accident, ischemic heart disease who was admitted on July 22 with complaint of nausea, or vomiting and abdominal pain. I was called to see the patient because of elevated BUN and creatinine. The patient has known history of chronic kidney disease and looking back it looks like his creatinine was 1.1 about 6 days before admission. Additional Remarks Patient is awake,has mild SOB, with nasal cannula, getting nebulizer treatment. Review of Systems General Constitutional: Fatigue Respiratory Lungs: Wheeze Cardiovascular Cardiac: Edema, HO Objective Data Data Vital Signs Date Time Temp Pulse Resp B/P (MAP) Pulse Ox O2 Delivery O2 Flow Rate FiO2 08/07/17 12:32 Nasal Cannula 2.00 08/07/17 12:00 98.6 99 18 147/84 (105) 96 08/07/17 09:27 108 08/07/17 09:27 Nasal Cannula 2.00 08/07/17 08:48 94 Nasal Cannula 2.00 08/07/17 08:00 98.5 110 18 144/82 (102) 92 08/07/17 05:10 97.3 105 20 145/81 (102) 96 08/07/17 00:03 98.3 102 20 153/86 (108) 98 08/06/17 23:00 111 08/06/17 21:07 97.4 111 24 166/94 (118) 97 08/06/17 20:21 85 08/06/17 19:00 Nasal Cannula 2.00 -: 08/07/17 0930 08/07/17 0930 Physical Exam General Appearance: Well Nourished, No Acute Distress, Comfortable Throat Throat Exam: Oral Mucosa [place] & Moist Neck Neck Exam: Neck Supple Pulmonary Resp Exam: No Distress, Rhonchi, Decreased Bases, Diminished Breath Sounds Gastrointestinal/Abdomen GI Exam: Soft, Non-Tender, Bowel Sounds Present, Distended Extremeties Extremities Exam: Moderate Edema, Pitting Edema Neurologic Neuro Exam: Alert, Awake, Oriented Psychiatric Psych Exam: Appropriate Responses Assessment/Plan Assessment Summary: HOWARD/Acute Renal Failure, Hypertension, CKD Stage III Problem List: (1) Blindness ICD Codes: H54.0 - Blindness, both eyes Status: Acute (2) CAD (coronary artery disease) ICD Codes: I25.10 - Atherosclerotic heart disease of [place] coronary artery without angina pectoris Status: Acute (3) Hyperlipidemia ICD Codes: E78.5 - Hyperlipidemia, unspecified Status: Acute (4) Anemia ICD Codes: D64.9 - Anemia, unspecified Status: Chronic (5) Diabetes mellitus ICD Codes: E11.9 - Type 2 diabetes mellitus without complications Status: Chronic (6) Hypertension ICD Codes: I10 - Essential (primary) hypertension Status: Chronic (7) 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 Most likely has Hypertensive or Diabetic renal disease. Urine out put is low. Creatinine continue to increase. Most likely has Contrast Nephropathy, or possibly Vanco related family decided to restart dialysis. HD done yesterday. Now the urine out put is better. Follow the BMP and HD as needed. Problem Qualifiers (1) Hyperlipidemia: Qualified Codes: E78.00 - Pure hypercholesterolemia, unspecified (2) Anemia: Qualified Codes: D64.9 - Anemia, unspecified (3) Diabetes mellitus: Qualified Codes: E10.52 - Type 1 diabetes mellitus with diabetic peripheral angiopathy with gangrene (4) Hypertension: Qualified Codes: I10 - Essential (primary) hypertension (5) Diabetes mellitus with peripheral angiopathy with gangrene: Qualified Codes: E10.52 - Type 1 diabetes mellitus with diabetic peripheral angiopathy with gangrene Grace Mckeon MD Aug 07, 2017 16:07
[2017-08-07] MEDS ORDERED: INSULIN DETEMIR 100 UNITS/ML VIAL SQ SCH (21:00)
[2017-08-07] MEDS: hydrOXYzine HCL 50 MG TAB PO SCH (22:02)
[2017-08-08] VITALS (9 sets, daily range): BP systolic 146–211; BP diastolic 84–108; PULSE 108–118; RESP 18–24; TEMP 97.3–99.3; O2SAT 93–97
[2017-08-08] MEDS: RESP: ALBUTEROL 2.5 MG/IPRATROPIUM 0.5 MG NEB (SCH) INH ×5 (03:09→20:26)
[2017-08-08] MEDS: SODIUM BICARBONATE 8.4% INJ 50 MEQ in SODIUM CHLOR 0.45% 1000 ML INJ 1,000 ML IV SCH ×2 (05:43→16:14)
[2017-08-08] MEDS: cefTRIAXone 1,000 MG/NS 100 ML IV SCH ×2 (05:55)
[2017-08-08] MEDS ORDERED: cefTRIAXone INJ 1,000 MG in SODIUM CHLORIDE 0.9% INJ 100 ML IV SCH (06:00)
--- NOTE | 2017-08-08 07:21 | HHI.FPPN ---
Subjective Remarks No acute issues overnight. Vitals are stable, patient remains afebrile. He is starting to feel short of breath again this morning. He denies any pain but states that he is not sure why he is here or what we are doing for him. Urine output was 525 mL in the past 24 hours. He had dialysis yesterday. (Aniya Jacobo MD, R3) Objective Vitals Vital Signs Date Time Temp Pulse Resp B/P (MAP) Pulse Ox O2 Delivery O2 Flow Rate FiO2 08/08/17 04:42 98.5 110 24 174/96 (122) 96 170/98 (122) 08/07/17 23:30 98.3 98 22 152/83 (106) 99 08/07/17 22:30 160/84 (109) 08/07/17 21:17 98.2 113 24 179/92 (121) 96 08/07/17 20:00 112 08/07/17 20:00 Nasal Cannula 3.00 08/07/17 19:37 91 Nasal Cannula 3.00 08/07/17 16:00 97.8 105 18 157/88 (111) 96 08/07/17 12:32 Nasal Cannula 2.00 08/07/17 12:00 98.6 99 18 147/84 (105) 96 08/07/17 09:27 108 08/07/17 09:27 Nasal Cannula 2.00 08/07/17 08:48 94 Nasal Cannula 2.00 08/07/17 08:00 98.5 110 18 144/82 (102) 92 I/O 08/07/17 08/07/17 08/07/17 08/08/17 08/08/17 08/08/17 07:00 15:00 23:00 07:00 15:00 23:00 Intake Total 563 ml 501 ml 1269 ml Output Total 475 ml 300 ml 225 ml Balance 88 ml 201 ml 1044 ml Intake Oral 120 ml 240 ml 240 ml IV Total 443 ml 261 ml 1029 ml Output Urine Total 475 ml 300 ml 225 ml # Bowel Movements 0 0 0 (Aniya Jacobo MD, R3) Result Diagram: 08/07/1730 08/07/1730 Imaging Last Impressions Catheter Placement X-Ray 07/31/17 0000 Signed Impressions: Service Date/Time: Monday, July 31, 2017 12:30 - CONCLUSION: Uncomplicated line placement as above. Paresh Hughes MD Renal Ultrasound 07/28/17 0000 Signed Impressions: Service Date/Time: Friday, July 28, 2017 09:48 - CONCLUSION: Normal examination. Ruiz Johnson MD Chest X-Ray 07/28/17 0000 Signed Impressions: Service Date/Time: Friday, July 28, 2017 09:19 - CONCLUSION: Bilateral lower lobe airspace disease. Ruiz Johnson MD Foot X-Ray 07/27/17 0000 Signed Impressions: Service Date/Time: Thursday, July 27, 2017 10:40 - CONCLUSION: Postsurgical changes are identified right first digit amputation. Ruiz Johnson MD Head CT 07/22/17 1826 Signed Impressions: Service Date/Time: Saturday, July 22, 2017 19:17 - CONCLUSION: 1. No acute abnormality is seen. 2. Atrophy. 3. Persistent stable encephalomalacia at the inferior left cerebellar hemisphere. Markus Denny MD Abdomen/Pelvis CT 07/22/17 0000 Signed Impressions: Service Date/Time: Saturday, July 22, 2017 23:56 - CONCLUSION: 1. No acute finding is identified within the abdomen or pelvis. There is mild respiratory motion artifact. 2. Stable nonacute findings include small hiatal hernia and small bilateral low-density renal lesions. There is trace left pleural fluid. Markus Chester MD Objective Remarks Gen.: Well-nourished, well-developed male lying in bed. Appears comfortable but mildly short of breath, in no acute distress. CV: Regular rate and rhythm, no murmurs appreciated. Respiratory: Clear to auscultation bilaterally, no wheezes or rales. Nasal cannula in place. EXT: Right foot with angela bandage wrapping. Non draining. No calf tenderness. Bilateral lower extremity edema. GI: Abdomen mildly distended, non-tender. Neuro: Awake and alert. Very difficult to understand (Aniya Jacobo MD, R3) Urinary Catheter: Yes Assessment to: Continue [place] insert reason: Obstruction/Retention (Aniya Jacobo MD, R3) A/P Assessment and Plan 61-year-old male with history of hypertension, poorly controlled diabetes, CVA in 2012, [place], admitted for sepsis secondary to right diabetic foot ulcer with wet gangrene and severe osteomyelitis, now s/p right hallux amputation and endovascular revascularization. Now with acute on chronic renal failure on hemodialysis. Discharge Planning Timetable unclear at this time. ingrid Foster (Aniya Jacobo MD, R3) Attending Attestation Patient seen and examined. Case reviewed and discussed with the resident team. Agree with plan of care as discussed with me and documented in the resident note. Mr Obando is extremely ill overall and have discussed with his who said, "I know he does not have long to live." (Mary Foster MD) Problem List: (1) HOWARD (acute kidney injury) ICD Codes: N17.9 - Acute kidney failure, unspecified Status: Acute Plan: Stage 3 chronic kidney disease secondary to hypertensive and/or diabetic renal disease Acute renal impairment likely from contrast nephropathy and vancomycin Renal US normal Creatinine improved after last hemodialysis from 4.59-2.83 Urine output also improving Plan: Nephrology consulted- Appreciate recommendations. Continue hemodialysis (2) Diabetes mellitus with peripheral angiopathy with gangrene ICD Codes: E11.52 - Type 2 diabetes mellitus with diabetic peripheral angiopathy with gangrene Status: Acute Plan: Severe right hallux diabetic foot infection with wet gangrene and likely severe osteomyelitis. s/p right hallux amputation on 07/27 and endovascular revascularization on 07/25 07/22, 07/24, 07/26 Blood cultures, No growth 07/27 wound culture growing Group B strep, no fungal elements seen s/p Vancomycin q12H (07/22-07/27) and Zosyn 3.375g q6H (07/25-08/02) Plan: -Continue Rocephin 1g IV Q24H per ID (started 08/02) -Infectious Disease, Podiatry, and Vascular Surgery Consulted- Appreciate recommendations. (3) Anemia ICD Codes: D64.9 - Anemia, unspecified Status: Chronic Plan: s/p 4 units Packed RBCs, 1 on 07/25, 1 on 07/27, 1 on 07/29, and 1 on 07/30. Right first metatarsal amputation on 07/27 complicated by bleeding. Continue to monitor H/H Transfuse if Hgb <7.5 (4) Diabetes mellitus ICD Codes: E11.9 - Type 2 diabetes mellitus without complications Status: Chronic Plan: History of poorly controlled diabetes. Home regimen is Lantus 40 units SQ at bedtime and Humalog mix 10 units 3 times a day. Likely complicated by gastroparesis - Accu-Cheks - Blood glucose now ranging 201-239, Increase to Levemir 10 units BID to low dose SSI - Reglan 5mg TIDAC for nausea (5) Hypertension ICD Codes: I10 - Essential (primary) hypertension Status: Chronic Plan: Stable. Continue home meds -Coreg to 12.5mg BID. -Lisinopril 20mg daily -Clonidine 0.1mg PO Q6H PRN BP >170/100 (6) Depression ICD Codes: F32.9 - Major depressive disorder, single episode, unspecified Plan: Stable. Continue sertraline 150 mg PO daily. (7) FEN Status: Acute Plan: Fluids: Sodium Bicarb @ 100ml/hr Electrolytes: wnl, continue to monitor Diet: Diabetic diet DVT ppx: heparin 5000units SQ q12H GI Pxx: Protonix 40 mg PO daily. (Aniya Jacobo MD, R3) Problem Qualifiers (1) Diabetes mellitus with peripheral angiopathy with gangrene: Qualified Codes: E10.52 - Type 1 diabetes mellitus with diabetic peripheral angiopathy with gangrene (2) Anemia: Qualified Codes: D64.9 - Anemia, unspecified (3) Diabetes mellitus: Qualified Codes: E10.52 - Type 1 diabetes mellitus with diabetic peripheral angiopathy with gangrene (4) Hypertension: Qualified Codes: I10 - Essential (primary) hypertension (5) Depression: Qualified Codes: F32.0 - Major depressive disorder, single episode, mild Aniya Jacobo MD, R3 Aug 08, 2017 07:20 Mary Foster MD Aug 10, 2017 12:04
[2017-08-08] MEDS: INSULIN ASPART SUPPLEMENTAL SCALE SQ SCH ×4 (08:41→21:51)
[2017-08-08] MEDS: SERTRALINE HCL 50 MG TAB PO SCH (08:43)
[2017-08-08] MEDS: LACTOBACILLUS ACIDOPHILUS 1 GM PACKET PO SCH ×4 (08:43→17:02)
[2017-08-08] MEDS: prednisoLONE ACETATE 1% OPHT SUSP 5 ML BTL EACH EYE SCH (08:43)
[2017-08-08] MEDS: METOCLOPRAMIDE HCL 10 MG TAB PO SCH ×3 (08:43→17:02)
[2017-08-08] MEDS: DOCUSATE SODIUM 50 MG/SENNA 8.6 MG TAB PO SCH ×2 (08:44→21:52)
[2017-08-08] MEDS: PANTOPRAZOLE SOD 40 MG DELAYED RELEASE TAB PO SCH (08:44)
[2017-08-08] MEDS: TOPIRAMATE 100 MG TAB PO SCH (08:44)
[2017-08-08] MEDS: INSULIN DETEMIR 100 UNITS/ML VIAL SQ SCH ×2 (08:44→21:52)
[2017-08-08] MEDS: CLOPIDOGREL 75 MG TAB PO SCH (08:44)
[2017-08-08] MEDS: HEPARIN SODIUM - SQ 10,000 UNITS/ML VIAL SQ SCH ×2 (08:44→21:52)
[2017-08-08] MEDS: SODIUM CHLORIDE 0.9% FLUSH 10 ML FLUSH IV FLUSH SCH ×2 (08:44→21:00)
[2017-08-08] MEDS: CARVEDILOL 12.5 MG TAB PO SCH ×2 (08:44→21:52)
[2017-08-08 09:15] LABS: HEMATOCRIT 23.7 % (39.0-51.0); MEAN CELL VOLUME 75.8 FL (80.0-100.0); MEAN CORPUSCULAR HEMOGLOBIN 24.4 PG (27.0-34.0); MEAN CORPUSCULAR HGB CONC 32.2 % (32.0-36.0); PLATELET COUNT 201 TH/MM3 (150-450); RED BLOOD COUNT 3.13 MIL/MM3 (4.50-5.90); RED CELL DISTRIBUTION WIDTH 25.1 % (11.6-17.2); WHITE BLOOD COUNT 8.5 TH/MM3 (4.0-11.0)
[2017-08-08 09:21] LABS: REVIEW FLAG FINAL
[2017-08-08 09:46] LABS: BICARBONATE 26.1 MEQ/L (21.0-32.0); POTASSIUM 3.4 MEQ/L (3.5-5.1)
[2017-08-08] MEDS: HEPARIN SODIUM - IV 10,000 UNITS/10 ML VIAL PRN (12:00)
[2017-08-08] MEDS: SODIUM CHLOR 0.9% 1000 ML INJ 1,000 ML OTHER PRN (12:00)
[2017-08-08] MEDS: GENTAMICIN SULFATE (DIALYSIS USE ONLY) 20 MG/2 ML VIAL IV PRN (12:00)
--- NOTE | 2017-08-08 13:32 | HHI.NPPN ---
Subjective History of Present Illness 62-year-old male with past medical history of diabetes mellitus which is longstanding since he was a teenager, history of hypertension, peripheral vascular disease, chronic kidney disease, history of cerebrovascular accident, ischemic heart disease who was admitted on July 22 with complaint of nausea, or vomiting and abdominal pain. I was called to see the patient because of elevated BUN and creatinine. The patient has known history of chronic kidney disease and looking back it looks like his creatinine was 1.1 about 6 days before admission. Additional Remarks Patient is awake,has mild SOB, with nasal cannula, getting nebulizer treatment. Review of Systems General Constitutional: Fatigue Respiratory Lungs: Wheeze Cardiovascular Cardiac: Edema, HO Objective Data Data 08/08/17 08/09/17 19:00 07:00 Output Total 2500 ml Balance -2500 ml Hemodialysis 2500 ml Vital Signs Date Time Temp Pulse Resp B/P (MAP) Pulse Ox O2 Delivery O2 Flow Rate FiO2 08/08/17 08:21 95 Nasal Cannula 3.00 08/08/17 08:00 98.8 117 20 211/108 (142) 97 08/08/17 04:42 98.5 110 24 174/96 (122) 96 170/98 (122) 08/07/17 23:30 98.3 98 22 152/83 (106) 99 08/07/17 22:30 160/84 (109) 08/07/17 21:17 98.2 113 24 179/92 (121) 96 08/07/17 20:00 112 08/07/17 20:00 Nasal Cannula 3.00 08/07/17 19:37 91 Nasal Cannula 3.00 08/07/17 16:00 97.8 105 18 157/88 (111) 96 -: 08/08/17 0739 08/08/17 0739 Physical Exam General Appearance: Well Nourished, No Acute Distress, Comfortable Throat Throat Exam: Oral Mucosa Cassandra & Moist Neck Neck Exam: Neck Supple Pulmonary Resp Exam: No Distress, Rhonchi, Decreased Bases, Diminished Breath Sounds Gastrointestinal/Abdomen GI Exam: Soft, Non-Tender, Bowel Sounds Present, Distended Extremeties Extremities Exam: Moderate Edema, Pitting Edema Neurologic Neuro Exam: Alert, Awake, Oriented Psychiatric Psych Exam: Appropriate Responses Assessment/Plan Assessment Summary: HOWARD/Acute Renal Failure, Hypertension, CKD Stage III Problem List: (1) Blindness ICD Codes: H54.0 - Blindness, both eyes Status: Acute (2) CAD (coronary artery disease) ICD Codes: I25.10 - Atherosclerotic heart disease of [place] coronary artery without angina pectoris Status: Acute (3) Hyperlipidemia ICD Codes: E78.5 - Hyperlipidemia, unspecified Status: Acute (4) Anemia ICD Codes: D64.9 - Anemia, unspecified Status: Chronic (5) Diabetes mellitus ICD Codes: E11.9 - Type 2 diabetes mellitus without complications Status: Chronic (6) Hypertension ICD Codes: I10 - Essential (primary) hypertension Status: Chronic (7) Diabetes mellitus with peripheral angiopathy with gangrene ICD Codes: E11.52 - Type 2 diabetes mellitus with diabetic peripheral angiopathy with gangrene Status: Acute (8) HOWARD (acute kidney injury) ICD Codes: N17.9 - Acute kidney failure, unspecified Status: Acute Plan Patient has stage 3 chronic kidney disease. Most likely has Hypertensive or Diabetic renal disease. Urine out put is low. Creatinine continue to increase. Most likely has Contrast Nephropathy, or possibly Vanco related family decided to restart dialysis. HD done yesterday. Now the urine out put is better. Follow the BMP and HD as needed. Problem Qualifiers (1) Hyperlipidemia: Qualified Codes: E78.00 - Pure hypercholesterolemia, unspecified (2) Anemia: Qualified Codes: D64.9 - Anemia, unspecified (3) Diabetes mellitus: Qualified Codes: E10.52 - Type 1 diabetes mellitus with diabetic peripheral angiopathy with gangrene (4) Hypertension: Qualified Codes: I10 - Essential (primary) hypertension (5) Diabetes mellitus with peripheral angiopathy with gangrene: Qualified Codes: E10.52 - Type 1 diabetes mellitus with diabetic peripheral angiopathy with gangrene Grace Mckeon MD Aug 08, 2017 13:32
--- NOTE | 2017-08-08 15:34 | HHI.HCPN ---
Reason for visit a. To assist with evaluation and management of symptoms including: Debility and pain. b. To assist medical decision maker(s) with: better understanding of current medical conditions; weighing benefits/burdens of medical treatment options; making medical treatment decisions. . Subjective/Interval History Mr. Obando it's a 62-year-old male with a medical history significant for diabetes uncontrolled mellitus type 2, CAD status post stent placement in on May 2017, [place] on October 2015, hypertension, CVA in 2012 and diabetic ulcer to right foot. Clinical course complicated by sepsis/gangrene and osteomyelitis to right big toe, acute on chronic kidney failure requiring hemodialysis, increased symptoms burden and profound physical deconditioning. Palliative care consulted for further clarifications of goals of care. Patient seen in his room. Patient resting in bed in moderate distress secondary to increased work of breathing. Patient endorsing shortness of breath , abdominal pain and generalized weakness. Shortness of breath worsened with physical exertion/movement and conversation. Patient remains on O2 2 L via NC. O2 saturation in the low 90s to mid 90s. Patient remains with decreased oral intake secondary to nausea and abdominal pain/discomfort. Laboratory workup revealing WBC 8.5, hemoglobin 7.6, platelet count 201, sodium 133, potassium 3.4, BUN/creatinine 45/2.93, Calcium 8.0. Patient underwent hemodialysis today, 2500 mL removed. Remains with reduced to minimal urinary output. Patient afebrile, tachycardic with heart rate in the low 100s. Hypertensive with SBP in the 160s to 170s. Remains on O2 via nasal cannula at 2 L, oxygen saturation in the low 90s. No new imaging for review. Patient's Ioana at bedside during visit. Patient was found awake, alert and interactive. Expressing frustration regarding his current clinical status. Discussed continuation of conservative management short of vs comfort- directed care. Patient wishing to continue current management at this time. Discussed with patient and family that comfort-directed care is unavailable treatment option. Patient unable by receptive to palliative care f/u visits for further clarifications of goals of care. . Family/friend interactions Patient's Ioana at bedside during visit. See interval note. . Advance Directives Living Will: Never completed Health Care Surrogate: Never completed Durable Power of Childhood Teacher: Never completed Advance Directive Specifics Health Care Surrogate(s): No advance directives completed. Proxy healthcare decision-making falls to patient's Ioana Obando. . Significant change in goals: Goals of care remain unchanged. . Objective Vital Signs Date Time Temp Pulse Resp B/P (MAP) Pulse Ox O2 Delivery O2 Flow Rate FiO2 08/08/17 13:30 97.6 108 20 161/84 (109) 93 08/08/17 08:21 95 Nasal Cannula 3.00 08/08/17 08:00 98.8 117 20 211/108 (142) 97 08/08/17 04:42 98.5 110 24 174/96 (122) 96 170/98 (122) 08/07/17 23:30 98.3 98 22 152/83 (106) 99 08/07/17 22:30 160/84 (109) 08/07/17 21:17 98.2 113 24 179/92 (121) 96 08/07/17 20:00 112 08/07/17 20:00 Nasal Cannula 3.00 08/07/17 19:37 91 Nasal Cannula 3.00 08/07/17 16:00 97.8 105 18 157/88 (111) 96 Intake & Output 08/08/17 08/08/17 07:00 19:00 Intake Total 1269 ml Output Total 225 ml 2500 ml Balance 1044 ml -2500 ml Intake Oral 240 ml IV Total 1029 ml Output Urine Total 225 ml Hemodialysis 2500 ml # Bowel Movements 0 Physical Exam CONSTITUTIONAL/GENERAL: This is an obese, frail man resting in bed in moderate distress secondary to increased work of breathing. Patient appears older than stated age. TUBES/LINES/DRAINS: Right IJ Vas-Cath, PIV's, Medina catheter. Nasal cannula. SKIN: No jaundice, rashes, or lesions. Ecchymoses on upper extremities. Skin temperature appropriate. Not diaphoretic. Right foot wrapped in Maxi bandages. HEAD: Atraumatic. Normocephalic. EYES: Unable to evaluate eyes, patient legally blind. Conjunctival discharge to right eye and erythema noted. Periorbital edema bilaterally. ENT: Hearing grossly normal. Nose without bleeding or purulent drainage. Moist oral mucosa. Thrush observed. edentulous. NECK: Trachea midline. Supple, nontender. CARDIOVASCULAR: Regular rate and rhythm. Generalized edema. RESPIRATORY/CHEST: Symmetric, increased work of breathing. Clear to auscultation but diminished in the bases. Unable to appreciate hepatomegaly secondary to body habitus. GENITOURINARY: Without palpable bladder distension. Medina catheter in place with small amount of urine. MUSCULOSKELETAL: Extremities without clubbing, cyanosis. Right foot wrapped in Maxi bandages. NEUROLOGICAL: Awake and alert x self, place and situation. Frequently confused/ forgetful. Following commands. Slurred speech. Weak. PSYCHIATRIC: Calm. . Diagnostic Tests Laboratory Laboratory Tests Test 08/07/17 09:30 08/08/17 07:39 White Blood Count 9.3 TH/MM3 (4.0-11.0) 8.5 TH/MM3 (4.0-11.0) Red Blood Count 3.21 MIL/MM3 (4.50-5.90) 3.13 MIL/MM3 (4.50-5.90) Hemoglobin 8.0 GM/DL (13.0-17.0) 7.6 GM/DL (13.0-17.0) Hematocrit 24.2 % (39.0-51.0) 23.7 % (39.0-51.0) Mean Corpuscular Volume 75.6 FL (80.0-100.0) 75.8 FL (80.0-100.0) Mean Corpuscular Hemoglobin 24.9 PG (27.0-34.0) 24.4 PG (27.0-34.0) Mean Corpuscular Hemoglobin Concent 33.0 % (32.0-36.0) 32.2 % (32.0-36.0) Red Cell Distribution Width 25.7 % (11.6-17.2) 25.1 % (11.6-17.2) Platelet Count 191 TH/MM3 (150-450) 201 TH/MM3 (150-450) Mean Platelet Volume 9.2 FL (7.0-11.0) 8.6 FL (7.0-11.0) Blood Urea Nitrogen 49 MG/DL (7-18) 45 MG/DL (7-18) Creatinine 2.83 MG/DL (0.60-1.30) 2.93 MG/DL (0.60-1.30) Random Glucose 243 MG/DL (74-106) 177 MG/DL (74-106) Calcium Level 7.5 MG/DL (8.5-10.1) 8.0 MG/DL (8.5-10.1) Sodium Level 136 MEQ/L (136-145) 133 MEQ/L (136-145) Potassium Level 3.6 MEQ/L (3.5-5.1) 3.4 MEQ/L (3.5-5.1) Chloride Level 97 MEQ/L (98-107) 95 MEQ/L (98-107) Carbon Dioxide Level 25.0 MEQ/L (21.0-32.0) 26.1 MEQ/L (21.0-32.0) Anion Gap 14 MEQ/L (5-15) 12 MEQ/L (5-15) Estimat Glomerular Filtration Rate 28 ML/MIN (>89) 26 ML/MIN (>89) Result Diagram: 08/08/17 0739 08/08/17 0739 Procedures * 07/25/17 -1. Right lower extremity angiogram, Superficial femoral artery angioplasty, 6 mm, Right anterior tibial artery angioplasty 3 mm, Right dorsalis pedis artery angioplasty 2 mm and Left common femoral artery Angio- Seal. * 07/27/17 -Open Amputation of right hallux * 07/31/17 -hemodialysis catheter placement . Assessment and Plan Disease Oriented Problem List: (1) Sepsis (2) Diabetes mellitus with peripheral angiopathy with gangrene (3) HOWARD (acute kidney injury) (4) CAD (coronary artery disease) (5) Hypertension (6) Depression Symptom Scale: (1) Shortness of breath 0-10 Scale: Unable to quantify Comment: O2 via nasal cannula (2) Nausea and vomiting 0-10 Scale: 0 (3) Debility 0-10 Scale: Unable to quantify Pertinent Non-Medical Issues Psychosocial: Patient originally from [facility]. to current since 2009. No children together. Patient has a biological daughter by the name of Leslee Obando who resides in [place]. 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 No service. Spiritual: Adventism jose. Legal: No advance directives completed. Ethical issues impacting care: No advance directives completed. . Important Contacts Patient's Ioana Obando . . Prognosis Very poor prognosis for an improved quality of life or survival given multiple chronic ongoing comorbidities, sepsis/wound infection with osteomyelitis, acute on chronic kidney failure requiring renal replacement therapy, progressive decline, malnutrition with albumin 1.4 and profound physical deconditioning. Patient at high risk for further complications, clinical decline and . Patient appears hospice appropriate should he elects comfort-directed care/ discontinuation of renal replacement therapy. . Code Status: No Code Plan * CODE STATUS: No code -DNR/DNI. * HEALTHCARE DECISION-MAKING: Patient with limited participation in medical decision-making, intermittent confusion/lethargy. He relies heavily on his for input/medical decision-making. No advance directives completed. As per [place] statute, proxy healthcare decision-making falls to patient's Ioana Laws. Palliative care recommends shared decision-making with patient's . * GOALS OF CARE: 08/08/17 -Patient and family electing to continue with current medical management to include renal replacement therapy. Hospice philosophy and benefits previously introduced. Patient and receptive to hospice should pt's clinical condition continues to decline, additional complications or increased symptoms burden. Patient and family receptive to palliative care f /u visits. * SYMPTOMS: = Shortness of breath, likely fluid overload. Currently on O2 via nasal cannula. = Nausea/vomiting , multifactorial. Sepsis, electrolyte imbalances, acute kidney failure. History of gastroparesis. Zofran 4 mg IV Q6h available as needed. = Pain, multifactorial. Secondary to medical interventions, surgical interventions, bedbound state. Currently on oxycodone 5 mg and 10 mg q4h PRN. = Debility, progressive. Worsened during the past month. Likely to continue to progress. * Palliative care contact information has been provided to patient and . * Palliative care will continue to follow-up for further clarifications of goals of care as patient's clinical course continues to evolve. . Time Spent Total Floor Time (mins): 27 (Total time to include review of medical records, physical exam, goals of care conversation with patient and family.) >50% Counseling/Coord of Care: Yes Attestation To help prompt me to consider important information that might be impacting today's encounter and assessment, information from prior notes written by myself or my colleagues may have been "brought forward" into today's note. My signature on this note, however, is an attestation that I personally performed the exam, history, and/or decision-making noted today, and, unless otherwise indicated, the interactions with patient, family, and staff as well as the review of records all occurred today. I also attest that the listed assessment and stated plan reflect my best clinical judgment today based on the combination of historical information, prior notes, and today's exam/ interactions. When time spent is documented, it refers only to time spent today by the signer, or if indicated, combined time spent today by collaborating physician/nurse practitioner. Thelma León Aug 08, 2017 15:34
[2017-08-08] MEDS: hydrOXYzine HCL 50 MG TAB PO SCH (21:52)
[2017-08-09] VITALS (10 sets, daily range): BP systolic 161–170; BP diastolic 81–97; PULSE 91–118; RESP 18–24; TEMP 98.5–98.9; O2SAT 91–100
[2017-08-09] MEDS: SODIUM BICARBONATE 8.4% INJ 50 MEQ in SODIUM CHLOR 0.45% 1000 ML INJ 1,000 ML IV SCH ×2 (03:00→14:29)
[2017-08-09] MEDS: RESP: ALBUTEROL 2.5 MG/IPRATROPIUM 0.5 MG NEB (SCH) INH ×6 (04:59→19:39)
[2017-08-09] MEDS: cefTRIAXone 1,000 MG/NS 100 ML IV SCH ×2 (05:08)
[2017-08-09] MEDS: INSULIN ASPART SUPPLEMENTAL SCALE SQ SCH ×4 (08:00→21:00)
[2017-08-09] MEDS: SODIUM CHLORIDE 0.9% FLUSH 10 ML FLUSH IV FLUSH SCH ×2 (09:00→21:00)
[2017-08-09] MEDS: HEPARIN SODIUM - SQ 10,000 UNITS/ML VIAL SQ SCH ×2 (09:23→23:20)
[2017-08-09] MEDS: TOPIRAMATE 100 MG TAB PO SCH (09:23)
[2017-08-09] MEDS: PANTOPRAZOLE SOD 40 MG DELAYED RELEASE TAB PO SCH (09:23)
[2017-08-09] MEDS: INSULIN DETEMIR 100 UNITS/ML VIAL SQ SCH ×2 (09:23→21:00)
[2017-08-09] MEDS: SERTRALINE HCL 50 MG TAB PO SCH (09:23)
[2017-08-09] MEDS: DOCUSATE SODIUM 50 MG/SENNA 8.6 MG TAB PO SCH ×2 (09:24→23:19)
[2017-08-09] MEDS: CARVEDILOL 12.5 MG TAB PO SCH ×2 (09:24→23:19)
[2017-08-09] MEDS: prednisoLONE ACETATE 1% OPHT SUSP 5 ML BTL EACH EYE SCH (09:24)
[2017-08-09] MEDS: METOCLOPRAMIDE HCL 10 MG TAB PO SCH ×3 (09:24→17:41)
[2017-08-09] MEDS: CLOPIDOGREL 75 MG TAB PO SCH (09:24)
[2017-08-09] MEDS: LACTOBACILLUS ACIDOPHILUS 1 GM PACKET PO SCH ×3 (09:25→17:41)
[2017-08-09 10:44] LABS: HEMATOCRIT 24.9 % (39.0-51.0); MEAN CELL VOLUME 76.6 FL (80.0-100.0); MEAN CORPUSCULAR HEMOGLOBIN 24.9 PG (27.0-34.0); MEAN CORPUSCULAR HGB CONC 32.5 % (32.0-36.0); PLATELET COUNT 202 TH/MM3 (150-450); RED BLOOD COUNT 3.25 MIL/MM3 (4.50-5.90); RED CELL DISTRIBUTION WIDTH 25.3 % (11.6-17.2); WHITE BLOOD COUNT 8.8 TH/MM3 (4.0-11.0)
[2017-08-09 11:02] LABS: BICARBONATE 30.8 MEQ/L (21.0-32.0); POTASSIUM 3.6 MEQ/L (3.5-5.1)
--- NOTE | 2017-08-09 11:06 | HHI.FPPN ---
Subjective Remarks No acute issues overnight. Vitals are stable, patient remains afebrile. He is currently saturating 94% on 3 LNC. He is short of breath today. He denies any chest pain, fever, chills, nausea or vomiting. He is having low oral intake and remains oliguric. (Aniya Jacobo MD, R3) Objective Vitals Vital Signs Date Time Temp Pulse Resp B/P (MAP) Pulse Ox O2 Delivery O2 Flow Rate FiO2 08/09/17 10:25 94 Nasal Cannula 3.00 08/09/17 08:44 Nasal Cannula 3.00 08/09/17 08:00 98.8 118 20 163/93 (116) 93 08/09/17 05:36 166/84 (111) 94 08/09/17 04:00 98.9 91 24 170/97 (121) 91 08/08/17 23:37 99.3 112 24 159/86 (110) 93 08/08/17 20:28 93 Nasal Cannula 3.00 08/08/17 20:00 Nasal Cannula 3.00 08/08/17 20:00 116 08/08/17 20:00 99.2 117 22 164/87 (112) 96 08/08/17 16:00 97.3 112 18 146/103 (117) 96 08/08/17 13:30 97.6 108 20 161/84 (109) 93 I/O 08/08/17 08/08/17 08/08/17 08/09/17 08/09/17 08/09/17 07:00 15:00 23:00 07:00 15:00 23:00 Intake Total 1269 ml 627 ml 1892 ml Output Total 225 ml 2500 ml 350 ml 175 ml Balance 1044 ml -2500 ml 277 ml 1717 ml Intake Oral 240 ml 360 ml 120 ml IV Total 1029 ml 267 ml 1772 ml Output Urine Total 225 ml 350 ml 175 ml Hemodialysis 2500 ml # Bowel Movements 0 0 (Aniya Jacobo MD, R3) Result Diagram: 08/08/17 0739 08/08/1739 Imaging Last Impressions Catheter Placement X-Ray 07/31/17 0000 Signed Impressions: Service Date/Time: Monday, July 31, 2017 12:30 - CONCLUSION: Uncomplicated line placement as above. Paresh Hughes MD Renal Ultrasound 07/28/17 0000 Signed Impressions: Service Date/Time: Friday, July 28, 2017 09:48 - CONCLUSION: Normal examination. Ruiz Johnson MD Chest X-Ray 07/28/17 0000 Signed Impressions: Service Date/Time: Friday, July 28, 2017 09:19 - CONCLUSION: Bilateral lower lobe airspace disease. Ruiz Johnson MD Foot X-Ray 07/27/17 0000 Signed Impressions: Service Date/Time: Thursday, July 27, 2017 10:40 - CONCLUSION: Postsurgical changes are identified right first digit amputation. Ruiz Johnson MD Head CT 07/22/17 1826 Signed Impressions: Service Date/Time: Saturday, July 22, 2017 19:17 - CONCLUSION: 1. No acute abnormality is seen. 2. Atrophy. 3. Persistent stable encephalomalacia at the inferior left cerebellar hemisphere. Markus Denny MD Abdomen/Pelvis CT 07/22/17 0000 Signed Impressions: Service Date/Time: Saturday, July 22, 2017 23:56 - CONCLUSION: 1. No acute finding is identified within the abdomen or pelvis. There is mild respiratory motion artifact. 2. Stable nonacute findings include small hiatal hernia and small bilateral low-density renal lesions. There is trace left pleural fluid. Markus Chester MD Objective Remarks Gen.: Well-nourished, well-developed male lying in bed. Appears comfortable but short of breath, in no acute distress. CV: Regular rate and rhythm, no murmurs appreciated. Respiratory: Clear to auscultation bilaterally, no wheezes or rales. Nasal cannula in place. EXT: Right foot with angela bandage wrapping. Non draining. No calf tenderness. Bilateral lower extremity edema. GI: Abdomen mildly distended, non-tender. Neuro: Awake and alert. Very difficult to understand (Aniya Jacobo MD, R3) A/P Assessment and Plan 61-year-old male with history of hypertension, poorly controlled diabetes, CVA in 2012, [place], admitted for sepsis secondary to right diabetic foot ulcer with wet gangrene and severe osteomyelitis, now s/p right hallux amputation and endovascular revascularization. Now with acute on chronic renal failure on hemodialysis. Discharge Planning Timetable unclear at this time. ingrid Foster (Aniya Jacobo MD, R3) Attending Attestation Patient seen and examined. Case reviewed and discussed with the resident team. Agree with plan of care as discussed with me and documented in the resident note Mr Obando does not want any extreme measures (Mary Foster MD) Problem List: (1) HOWARD (acute kidney injury) ICD Codes: N17.9 - Acute kidney failure, unspecified Status: Acute Plan: Stage 3 chronic kidney disease secondary to hypertensive and/or diabetic renal disease Acute renal impairment likely from contrast nephropathy and vancomycin Renal US normal Creatinine improved after last hemodialysis from 4.59-2.83 Urine output also improving Plan: Nephrology consulted- Appreciate recommendations. Continue hemodialysis (2) Diabetes mellitus with peripheral angiopathy with gangrene ICD Codes: E11.52 - Type 2 diabetes mellitus with diabetic peripheral angiopathy with gangrene Status: Acute Plan: Severe right hallux diabetic foot infection with wet gangrene and likely severe osteomyelitis. s/p right hallux amputation on 07/27 and endovascular revascularization on 07/25 07/22, 07/24, 07/26 Blood cultures, No growth 07/27 wound culture growing Group B strep, no fungal elements seen s/p Vancomycin q12H (07/22-07/27) and Zosyn 3.375g q6H (07/25-08/02) Plan: -Continue Rocephin 1g IV Q24H per ID (started 08/02) -Infectious Disease, Podiatry, and Vascular Surgery Consulted- Appreciate recommendations. (3) Anemia ICD Codes: D64.9 - Anemia, unspecified Status: Chronic Plan: s/p 4 units Packed RBCs, 1 on 07/25, 1 on 07/27, 1 on 07/29, and 1 on 07/30. Right first metatarsal amputation on 07/27 complicated by bleeding. Continue to monitor H/H Transfuse if Hgb <7.5 (4) Diabetes mellitus ICD Codes: E11.9 - Type 2 diabetes mellitus without complications Status: Chronic Plan: History of poorly controlled diabetes. Home regimen is Lantus 40 units SQ at bedtime and Humalog mix 10 units 3 times a day. Likely complicated by gastroparesis - Accu-Cheks - Blood glucose now ranging 145-194, Continue Levemir 10 units BID and low dose SSI - Reglan 5mg TIDAC for nausea (5) Hypertension ICD Codes: I10 - Essential (primary) hypertension Status: Chronic Plan: Stable. Continue home meds -Coreg to 12.5mg BID. -Lisinopril 20mg daily -Clonidine 0.1mg PO Q6H PRN BP >170/100 (6) Depression ICD Codes: F32.9 - Major depressive disorder, single episode, unspecified Plan: Stable. Continue sertraline 150 mg PO daily. (7) FEN Status: Acute Plan: Fluids: Sodium Bicarb @ 100ml/hr Electrolytes: wnl, continue to monitor Diet: Diabetic diet DVT ppx: heparin 5000units SQ q12H GI Pxx: Protonix 40 mg PO daily. (Aniya Jacobo MD, R3) Problem Qualifiers (1) Diabetes mellitus with peripheral angiopathy with gangrene: Qualified Codes: E10.52 - Type 1 diabetes mellitus with diabetic peripheral angiopathy with gangrene (2) Anemia: Qualified Codes: D64.9 - Anemia, unspecified (3) Diabetes mellitus: Qualified Codes: E10.52 - Type 1 diabetes mellitus with diabetic peripheral angiopathy with gangrene (4) Hypertension: Qualified Codes: I10 - Essential (primary) hypertension (5) Depression: Qualified Codes: F32.0 - Major depressive disorder, single episode, mild Aniya Jacobo MD, R3 Aug 09, 2017 11:06 Mary Foster MD Aug 10, 2017 12:05
[2017-08-09 11:13] LABS: REVIEW FLAG FINAL
--- NOTE | 2017-08-09 19:28 | HHI.NPPN ---
Subjective History of Present Illness 62-year-old male with past medical history of diabetes mellitus which is longstanding since he was a teenager, history of hypertension, peripheral vascular disease, chronic kidney disease, history of cerebrovascular accident, ischemic heart disease who was admitted on July 22 with complaint of nausea, or vomiting and abdominal pain. I was called to see the patient because of elevated BUN and creatinine. The patient has known history of chronic kidney disease and looking back it looks like his creatinine was 1.1 about 6 days before admission. Additional Remarks Patient is awake,has mild SOB, with nasal cannula, getting nebulizer treatment. Review of Systems General Constitutional: Fatigue Respiratory Lungs: Wheeze Cardiovascular Cardiac: Edema, HO Objective Data Data 08/09/17 08/10/17 19:00 07:00 Intake Total 1453 ml Output Total 300 ml Balance 1153 ml Intake Oral 240 ml IV Total 1213 ml Output Urine Total 300 ml # Bowel Movements 0 Vital Signs Date Time Temp Pulse Resp B/P (MAP) Pulse Ox O2 Delivery O2 Flow Rate FiO2 08/09/17 16:00 Nasal Cannula 3.00 08/09/17 16:00 98.5 107 18 167/87 (113) 100 08/09/17 12:00 Nasal Cannula 3.00 08/09/17 12:00 98.6 109 22 161/81 (107) 94 08/09/17 10:25 94 Nasal Cannula 3.00 08/09/17 08:44 Nasal Cannula 3.00 08/09/17 08:27 118 08/09/17 08:00 98.8 118 20 163/93 (116) 93 08/09/17 05:36 166/84 (111) 94 08/09/17 04:00 98.9 91 24 170/97 (121) 91 08/08/17 23:37 99.3 112 24 159/86 (110) 93 08/08/17 20:28 93 Nasal Cannula 3.00 08/08/17 20:00 Nasal Cannula 3.00 08/08/17 20:00 116 08/08/17 20:00 99.2 117 22 164/87 (112) 96 -: 08/09/17 0955 08/09/17 0955 Physical Exam General Appearance: Well Nourished, No Acute Distress, Comfortable Throat Throat Exam: Oral Mucosa [place] & Moist Neck Neck Exam: Neck Supple Pulmonary Resp Exam: No Distress, Rhonchi, Decreased Bases, Diminished Breath Sounds Gastrointestinal/Abdomen GI Exam: Soft, Non-Tender, Bowel Sounds Present, Distended Extremeties Extremities Exam: Moderate Edema, Pitting Edema Neurologic Neuro Exam: Alert, Awake, Oriented Psychiatric Psych Exam: Appropriate Responses Assessment/Plan Assessment Summary: HOWARD/Acute Renal Failure, Hypertension, CKD Stage III Problem List: (1) Blindness ICD Codes: H54.0 - Blindness, both eyes Status: Acute (2) CAD (coronary artery disease) ICD Codes: I25.10 - Atherosclerotic heart disease of [place] coronary artery without angina pectoris Status: Acute (3) Hyperlipidemia ICD Codes: E78.5 - Hyperlipidemia, unspecified Status: Acute (4) Anemia ICD Codes: D64.9 - Anemia, unspecified Status: Chronic (5) Diabetes mellitus ICD Codes: E11.9 - Type 2 diabetes mellitus without complications Status: Chronic (6) Hypertension ICD Codes: I10 - Essential (primary) hypertension Status: Chronic (7) Diabetes mellitus with peripheral angiopathy with gangrene ICD Codes: E11.52 - Type 2 diabetes mellitus with diabetic peripheral angiopathy with gangrene Status: Acute (8) HOWARD (acute kidney injury) ICD Codes: N17.9 - Acute kidney failure, unspecified Status: Acute Plan Patient has stage 3 chronic kidney disease. Most likely has Hypertensive or Diabetic renal disease. Urine out put is low. Creatinine better after dialysis check BMP Most likely has Contrast Nephropathy, or possibly Vanco related family decided to restart dialysis. HD done yesterday. Now the urine out put is better. Follow the BMP and HD as needed. Problem Qualifiers (1) Hyperlipidemia: Qualified Codes: E78.00 - Pure hypercholesterolemia, unspecified (2) Anemia: Qualified Codes: D64.9 - Anemia, unspecified (3) Diabetes mellitus: Qualified Codes: E10.52 - Type 1 diabetes mellitus with diabetic peripheral angiopathy with gangrene (4) Hypertension: Qualified Codes: I10 - Essential (primary) hypertension (5) Diabetes mellitus with peripheral angiopathy with gangrene: Qualified Codes: E10.52 - Type 1 diabetes mellitus with diabetic peripheral angiopathy with gangrene Marielle Mckeon MD Aug 09, 2017 19:28
--- NOTE | 2017-08-09 23:14 | HHI.FPPN ---
Addendum to progress note ADDENDUM Reason for addendum: Additonal documentation Additional information Residents received a page stating that the patient was talking about how today was going to be the day that he would pass away. He was desaturating to the 70s and was eventually placed on 50% oxygen by venti mask to get his oxygen saturations to the low 90s. We went to see him and he appeared calm with mild increased work of breathing and tachycardia on exam. His blood glucose was 90 before administration of his bedtime Levemir dose. Notably, the patient had not been eating for the past 2 days. We discussed with the nurse to hold his night Levemir dose and check a fingerstick glucose at 0300. The plan was that if he was found to be hypoglycemic, we would add D5 to his fluids. Nurse paged residents at 0300 stating that his fingerstick glucose was 109. D5 fluids was not started. Nisa Montiel MD R2 Aug 09, 2017 23:14
[2017-08-09] MEDS: hydrOXYzine HCL 50 MG TAB PO SCH (23:19)
[2017-08-10] VITALS (8 sets, daily range): BP systolic 147–177; BP diastolic 80–101; PULSE 117–123; RESP 18–24; TEMP 97.4–99.6; O2SAT 90–96
[2017-08-10] MEDS: RESP: ALBUTEROL 2.5 MG/IPRATROPIUM 0.5 MG NEB (SCH) INH ×3 (01:13→09:20)
[2017-08-10] MEDS: SODIUM BICARBONATE 8.4% INJ 50 MEQ in SODIUM CHLOR 0.45% 1000 ML INJ 1,000 ML IV SCH (02:47)
[2017-08-10] MEDS: cefTRIAXone 1,000 MG/NS 100 ML IV SCH ×2 (06:30)
[2017-08-10] MEDS: INSULIN ASPART SUPPLEMENTAL SCALE SQ SCH ×4 (08:00→21:00)
[2017-08-10] MEDS: METOCLOPRAMIDE HCL 10 MG TAB PO SCH ×3 (08:00→17:00)
[2017-08-10] MEDS ORDERED: methylPREDNISolone SOD SUCC 40 MG/1 ML VIAL IV PUSH ONE (08:30)
--- NOTE | 2017-08-10 08:48 | RADRPT ---
EXAM DATE/TIME: 08/10/2017 08:20 [facility] COMPARISON: CHEST SINGLE AP, July 28, 2017, 9:19. INDICATIONS : Chest pain and shortness of breath. MEDICAL HISTORY : Myocardial infarction. Cardiovascular disease. Diabetes mellitus type II. Sickle cell trait. SURGICAL HISTORY : Cardiac stent. ENCOUNTER: Subsequent ACUITY: 3 days PAIN SCORE: 10/10 LOCATION: Bilateral chest FINDINGS: There is a right internal jugular central line in place with tip overlying the SVC. The heart size is normal. There is diffuse increased densities throughout the lungs. There is further alveolar density seen in the left perihilar region. Bilateral effusions are present. There is silhouetting the hemidi aphragms. CONCLUSION: 1. Diffuse increased density throughout both lungs likely related to bilateral effusions been worseni ng on the right. 2. Suspected consolidation in the left perihilar region. Markus Denny MD on August 10, 2017 at 8:45 Board Certified Radiologist. This report was verified electronically.
[2017-08-10] MEDS: DOCUSATE SODIUM 50 MG/SENNA 8.6 MG TAB PO SCH ×2 (09:00→22:28)
[2017-08-10] MEDS: SERTRALINE HCL 50 MG TAB PO SCH (09:00)
[2017-08-10] MEDS: CLOPIDOGREL 75 MG TAB PO SCH (09:00)
[2017-08-10] MEDS: PANTOPRAZOLE SOD 40 MG DELAYED RELEASE TAB PO SCH (09:00)
[2017-08-10] MEDS: TOPIRAMATE 100 MG TAB PO SCH (09:00)
[2017-08-10] MEDS: CARVEDILOL 12.5 MG TAB PO SCH ×2 (09:00→22:28)
[2017-08-10] MEDS: INSULIN DETEMIR 100 UNITS/ML VIAL SQ SCH ×2 (09:00→21:00)
[2017-08-10] MEDS: LACTOBACILLUS ACIDOPHILUS 1 GM PACKET PO SCH ×3 (09:00→18:00)
--- NOTE | 2017-08-10 09:08 | HHI.FPPN ---
Subjective Remarks Overnight, the residents were called as patient was reporting that is was his time to . He was also found to have desaturations into the 70s. He was initially fighting the non rebreather but soft restraints were used to help increase his oxygenation. This morning, VS show pulse ox remains about 90-92 on 5L with non rebreather. This morning he reports that he feels unwell in general but with no specific complaints. Denies SOB or chest pain. After initial evaluation, I was re-paged as patient was refusing to go to dialysis. On re-examination, I was with his Nurse Darrius who witnessed the conversation. Patient reports that he did not want to go to dialysis and he understands the fact that he can today if he does not go. He states that he understands the consequences but does not want to be bothered too much but is agreeable to medications. I asked if he wanted hospice to be called but he declines this offer. He continues to express understanding of hospice and the consequences of refusing dialysis but remains consistent in his desires. MARIBEL Rizo witnessed this conversation and was in agreement in the fact that the patient understood the consequences and he had capacity to make this decision. (Veronique Ferrari MD, R3) Objective Vitals Vital Signs Date Time Temp Pulse Resp B/P (MAP) Pulse Ox O2 Delivery O2 Flow Rate FiO2 08/10/17 04:00 97.4 117 22 158/93 (114) 92 08/10/17 00:00 98.0 119 22 147/80 (102) 93 08/10/17 00:00 Venturi Mask 08/09/17 21:30 92 Venturi Mask 6.00 50 08/09/17 21:10 94 Venturi Mask 50 08/09/17 21:00 Nasal Cannula 4.00 08/09/17 20:00 Nasal Cannula 3.00 08/09/17 20:00 111 08/09/17 20:00 98.9 117 22 163/87 (112) 92 08/09/17 19:43 94 Nasal Cannula 3.00 08/09/17 16:00 Nasal Cannula 3.00 08/09/17 16:00 98.5 107 18 167/87 (113) 100 08/09/17 12:00 Nasal Cannula 3.00 08/09/17 12:00 98.6 109 22 161/81 (107) 94 08/09/17 10:25 94 Nasal Cannula 3.00 I/O 08/09/17 08/09/17 08/09/17 08/10/17 08/10/17 08/10/17 07:00 15:00 23:00 07:00 15:00 23:00 Intake Total 1892 ml 891 ml 562 ml 1138 ml Output Total 175 ml 300 ml 350 ml Balance 1717 ml 891 ml 262 ml 788 ml Intake Oral 120 ml 240 ml IV Total 1772 ml 891 ml 322 ml 1138 ml Output Urine Total 175 ml 300 ml 350 ml # Bowel Movements 0 (Veronique Ferrari MD, R3) Result Diagram: 08/09/1795408/09/[id number] Objective Remarks Gen.: Well-nourished, well-developed male lying in bed. Appears comfortable but short of breath. CV: Regular rate and rhythm, no murmurs appreciated. Respiratory: Coarse crackles bilaterally. Non-rebreather in place. EXT: 3+ LE edema of right foot. GI: Abdomen mildly distended, non-tender. Neuro: Awake and alert. Oriented to person, place, and time. Holds a conversation appropriately (Veronique Ferrari MD, R3) A/P Assessment and Plan 61-year-old male with history of hypertension, poorly controlled diabetes, CVA in 2012, [place], admitted for sepsis secondary to right diabetic foot ulcer with wet gangrene and severe osteomyelitis, now s/p right hallux amputation and endovascular revascularization. Now with acute on chronic renal failure on hemodialysis but is currently refusing hemodialysis treatment. Prognosis very poor at this time Discharge Planning Timetable unclear at this time. Very concerned that patient will pass away in the immediate future due to his refusal of dialysis. Dr. Foster has called patient's . Pt refuses hospice care at this time. Does report wanting comfort measures at this time. dw Dr. Foster (eVronique Ferrari MD, R3) Attending Attestation Patient seen and examined. Case reviewed and discussed with the resident team. Agree with plan of care as discussed with me and documented in the resident note. Mr Obando was going on hospice earlier in this hospitalization but his daughter in law talked he and his back into dialysis. Mr Obando has known it was "his time to " and is is also aware of this. I called and told her and she expected this to happen where he deteriorated and is comfortable with this. Because of the earlier tumult with hospice, he prefers to not have them called right now so we will need to treat his pain and discomfort. there are inpatient order sets for hospice that can be adjusted depending on what problems arise. as an individual with capacity, he has never wavered on his acceptance of his own demise and refusal of aggressive measures. (Mary Foster MD) Problem List: (1) Shortness of breath ICD Codes: R06.02 - Shortness of breath Status: Acute Plan: Concern for fluid overload that has been worsened by refusal to go to dialysis -CXR ordered: diffuse increased density throughout both lungs likely related to bilateral effusion been worsening on the right. Suspected consolidation in the left perihilar region -Lasix 40mg x1 now -Lasix 40mg BID for as long as patient is refusing dialysis -Hold fluids -titrate oxygen as needed (2) HOWARD (acute kidney injury) ICD Codes: N17.9 - Acute kidney failure, unspecified Status: Acute Plan: Stage 3 chronic kidney disease secondary to hypertensive and/or diabetic renal disease Acute renal impairment likely from contrast nephropathy and vancomycin Renal US normal Urine output stable Plan: Nephrology consulted- Appreciate recommendations. Continue hemodialysis but patient is now refusing (3) Diabetes mellitus with peripheral angiopathy with gangrene ICD Codes: E11.52 - Type 2 diabetes mellitus with diabetic peripheral angiopathy with gangrene Status: Acute Plan: Severe right hallux diabetic foot infection with wet gangrene and likely severe osteomyelitis. s/p right hallux amputation on 07/27 and endovascular revascularization on 07/25 07/22, 07/24, 07/26 Blood cultures, No growth 07/27 wound culture growing Group B strep, no fungal elements seen s/p Vancomycin q12H (07/22-07/27) and Zosyn 3.375g q6H (07/25-08/02) Plan: -Continue Rocephin 1g IV Q24H per ID (started 08/02) -Infectious Disease, Podiatry, and Vascular Surgery Consulted- Appreciate recommendations. (4) Anemia ICD Codes: D64.9 - Anemia, unspecified Status: Chronic Plan: s/p 4 units Packed RBCs, 1 on 07/25, 1 on 07/27, 1 on 07/29, and 1 on 07/30. Right first metatarsal amputation on 07/27 complicated by bleeding. Continue to monitor H/H Transfuse if Hgb <7.5 (5) Diabetes mellitus ICD Codes: E11.9 - Type 2 diabetes mellitus without complications Status: Chronic Plan: History of poorly controlled diabetes. Home regimen is Lantus 40 units SQ at bedtime and Humalog mix 10 units 3 times a day. Likely complicated by gastroparesis - Accu-Cheks - Blood glucose appropriate, Continue Levemir 10 units BID and low dose SSI - Reglan 5mg TIDAC for nausea (6) Hypertension ICD Codes: I10 - Essential (primary) hypertension Status: Chronic Plan: BP elevated -Coreg to 12.5mg BID. * consider increasing Coreg tomorrow pending pt's clinical status -Lisinopril 20mg daily -Clonidine 0.1mg PO Q6H PRN BP >170/100 (7) Depression ICD Codes: F32.9 - Major depressive disorder, single episode, unspecified Plan: Stable. Continue sertraline 150 mg PO daily. (8) FEN Status: Acute Plan: Fluids: Sodium Bicarb @ 100ml/hr Electrolytes: wnl, continue to monitor Diet: Diabetic diet DVT ppx: heparin 5000units SQ q12H GI Pxx: Protonix 40 mg PO daily. (Veronique Ferrari MD, R3) Problem Qualifiers (1) Diabetes mellitus with peripheral angiopathy with gangrene: Qualified Codes: E10.52 - Type 1 diabetes mellitus with diabetic peripheral angiopathy with gangrene (2) Anemia: Qualified Codes: D64.9 - Anemia, unspecified (3) Diabetes mellitus: Qualified Codes: E10.52 - Type 1 diabetes mellitus with diabetic peripheral angiopathy with gangrene (4) Hypertension: Qualified Codes: I10 - Essential (primary) hypertension (5) Depression: Qualified Codes: F32.0 - Major depressive disorder, single episode, mild Veronique Ferrari MD, R3 Aug 10, 2017 09:08 Mary Foster MD Aug 10, 2017 12:10
[2017-08-10] MEDS ORDERED: FUROSEMIDE 40 MG/4 ML VIAL IV PUSH ONE (09:15)
[2017-08-10] MEDS: SODIUM CHLORIDE 0.9% FLUSH 10 ML FLUSH IV FLUSH SCH ×2 (09:41→22:28)
[2017-08-10] MEDS: prednisoLONE ACETATE 1% OPHT SUSP 5 ML BTL EACH EYE SCH (09:50)
[2017-08-10] MEDS: HEPARIN SODIUM - SQ 10,000 UNITS/ML VIAL SQ SCH ×2 (09:52→22:00)
[2017-08-10] MEDS ORDERED: LORazepam 0.5 MG TAB PO PRN (10:15)
--- NOTE | 2017-08-10 17:37 | HHI.PR ---
Addendum to Inpatient Note Addendum Reason: Additional Documentation Additional Information Patient was re-evaluated at bedside due to family being at bedside and requesting answers regarding patient not getting dialysis. His nurse Darrius Rendon was present during patient evaluation and during discussion with family. Patient states he "wants to rest". He is asked at bedside about whether he wants dialysis now, and his answer is "no." He is asked about when he will want dialysis, and he replies "I just want to rest." He is asked his name, where he is and who the President is and and he answers these questions to the affirmative. He is asked if he knows what will happen if he does not get dialysis and he states "I will lose my life". His goals of care have been discussed in detail during hospital stay and goals discussed at this time are the same as that of this morning. He is still not interested in hospice care as of this morning. He is asked if he wants anything at all from medical staff and he states "no." He was told that he can change this decision at any time and he nodded and stated that he understood. He is noted to appear very tired during evaluation but is alert and correctly answers orientation questions. Six family members (all reportedly siblings, many with the last name Topher) are at bedside and discussion with them as well as patient's nurse, Darrius Rendon, was had away from the patient's bedside. Questions regarding patient's decisions were asked by the family, and questions were addressed in detail. They asked about whether he can go to hospice, and it was discussed that it would be the patient's decision and that we can initiate hospice transition at any time. The family was made aware that patient's condition can change at any time, as soon as today, and they requested that one of them, specifically Laura Huynh, be contacted in this situation. The patient's , Ioana Obando, was called at her number [phone] to discuss conversations with patient's siblings and permission was given for Laura Huynh's number to be placed on patient's chart to be called in the case of change in patient's condition. She was made aware of discussion regarding patient's continued refusal of dialysis and multiple medications and the respective implications, including as early as today. She is aware of his decision to be DNR. She did not have any questions at this time and stated she knows her " is ready to and there is nothing I can do about it" and endorsed she was feeling okay emotionally. She asked if he discussed that he was ready for hospice, and she was updated that he did not want hospice as of this morning but that the medical team can alert hospice team at any time if he changes this decision. She was told to call the patient's floor with any questions and endorsed she has the number and patient's PIN. She also stated she gave the family the patient's PIN. She had no other questions and states she will call if she thinks of any. Patient was discussed in detail with Dr. Veronique Ferrari and nurse Darrius Rendon. Sonia Nicholson MD R2 Aug 10, 2017 17:36
[2017-08-10] MEDS: FUROSEMIDE 40 MG/4 ML VIAL IV PUSH SCH (18:05)
[2017-08-10 21:51] LABS: HEMATOCRIT 23.6 % (39.0-51.0); MEAN CORPUSCULAR HEMOGLOBIN 24.2 PG (27.0-34.0); MEAN CORPUSCULAR HGB CONC 31.4 % (32.0-36.0); PLATELET COUNT 247 TH/MM3 (150-450); RED BLOOD COUNT 3.07 MIL/MM3 (4.50-5.90); RED CELL DISTRIBUTION WIDTH 24.6 % (11.6-17.2); REVIEW FLAG FINAL
[2017-08-10 22:09] LABS: BICARBONATE 27.5 MEQ/L (21.0-32.0); POTASSIUM 4.7 MEQ/L (3.5-5.1)
[2017-08-10] MEDS: hydrOXYzine HCL 50 MG TAB PO SCH (22:28)
[2017-08-11] VITALS (9 sets, daily range): BP systolic 103–167; BP diastolic 54–83; PULSE 76–118; RESP 18–23; TEMP 97.8–99.5; O2SAT 89–94
[2017-08-11] MEDS: cefTRIAXone 1,000 MG/NS 100 ML IV SCH ×2 (07:44)
[2017-08-11] MEDS: INSULIN DETEMIR 100 UNITS/ML VIAL SQ SCH (09:00)
--- NOTE | 2017-08-11 09:20 | HHI.FPPN ---
Subjective Remarks No acute events overnight. Night resident did speak with family about patient' s status. (Please see note for more detailed information). Vital signs continued to show tachycardia with pulse ox around 90-94%. Presently patient has nasal cannula on as he pulls off the facemask. This morning he states that he does not want dialysis today and just wants to rest. Otherwise he feels sick and also has a headache. (Veronique Ferrari MD, R3) Objective Vitals Vital Signs Date Time Temp Pulse Resp B/P (MAP) Pulse Ox O2 Delivery O2 Flow Rate FiO2 08/11/17 08:09 98.7 115 23 145/72 (96) 90 08/11/17 04:00 97.8 110 20 139/79 (99) 93 08/11/17 00:41 94 Venturi Mask 9.00 50 08/11/17 00:00 98.2 76 22 167/83 (111) 93 08/10/17 20:00 117 08/10/17 20:00 Venturi Mask 08/10/17 20:00 99.2 117 18 154/84 (107) 94 08/10/17 18:04 22 08/10/17 16:25 92 Venturi Mask 08/10/17 16:06 99.6 123 24 170/89 (116) 93 08/10/17 12:06 99.3 118 24 177/93 (121) 92 08/10/17 09:23 96 Aerosol Mask 7.00 I/O 08/10/17 08/10/17 08/10/17 08/11/17 08/11/17 08/11/17 07:00 15:00 23:00 07:00 15:00 23:00 Intake Total 1138 ml 0 ml 120 ml Output Total 350 ml 400 ml 800 ml Balance 788 ml -400 ml -680 ml Intake Oral 0 ml 120 ml IV Total 1138 ml Output Urine Total 350 ml 400 ml 800 ml # Bowel Movements 0 0 (Veronique Ferrari MD, R3) Result Diagram: 08/10/17213808/10/172138 Objective Remarks Gen.: Well-nourished, well-developed male lying in bed. Appears comfortable CV: Regular rate and rhythm, no murmurs appreciated. Respiratory: Coarse breath soudns bilaterally. NC in place. EXT: 3+ LE edema of right foot. Significant scrotal swelling GI: Abdomen mildly distended, non-tender. Neuro: Awake and alert. Oriented to person, place, and time. Holds a conversation appropriately (Veronique Ferrari MD, R3) A/P Assessment and Plan 61-year-old male with history of hypertension, poorly controlled diabetes, CVA in 2012, [place], admitted for sepsis secondary to right diabetic foot ulcer with wet gangrene and severe osteomyelitis, now s/p right hallux amputation and endovascular revascularization. Now with acute on chronic renal failure on hemodialysis but is currently refusing hemodialysis treatment and a number of other medications. Prognosis very poor at this time Discharge Planning Timetable unclear at this time. Very concerned that patient will pass away in the immediate future due to his refusal of dialysis. Does report wanting comfort measures at this time. wdw Dr. Foster (Veronique Ferrari MD, R3) Attending Attestation Patient seen and examined. Case reviewed and discussed with the resident team. Agree with plan of care as discussed with me and documented in the resident note. he cannot eat much at all so will stop the glucose checks and insulin. will not draw labs either. the goal is comfort care (Mary Foster MD) Problem List: (1) Shortness of breath ICD Codes: R06.02 - Shortness of breath Status: Acute Plan: Concern for fluid overload that has been worsened by refusal to go to dialysis -CXR ordered: diffuse increased density throughout both lungs likely related to bilateral effusion been worsening on the right. Suspected consolidation in the left perihilar region -Lasix 40mg BID for as long as patient is refusing dialysis -Hold fluids -titrate oxygen as needed (2) HOWARD (acute kidney injury) ICD Codes: N17.9 - Acute kidney failure, unspecified Status: Acute Plan: Stage 3 chronic kidney disease secondary to hypertensive and/or diabetic renal disease Acute renal impairment likely from contrast nephropathy and vancomycin Renal US normal Urine output stable Plan: Nephrology consulted- Appreciate recommendations. Continue hemodialysis but patient is now refusing (3) Diabetes mellitus with peripheral angiopathy with gangrene ICD Codes: E11.52 - Type 2 diabetes mellitus with diabetic peripheral angiopathy with gangrene Status: Acute Plan: Severe right hallux diabetic foot infection with wet gangrene and likely severe osteomyelitis. s/p right hallux amputation on 07/27 and endovascular revascularization on 07/25 07/22, 07/24, 07/26 Blood cultures, No growth 07/27 wound culture growing Group B strep, no fungal elements seen s/p Vancomycin q12H (07/22-07/27) and Zosyn 3.375g q6H (07/25-08/02) Plan: -Continue Rocephin 1g IV Q24H per ID (started 08/02) -Infectious Disease, Podiatry, and Vascular Surgery Consulted- Appreciate recommendations. (4) Anemia ICD Codes: D64.9 - Anemia, unspecified Status: Chronic Plan: s/p 4 units Packed RBCs, 1 on 07/25, 1 on 07/27, 1 on 07/29, and 1 on 07/30. Right first metatarsal amputation on 07/27 complicated by bleeding. Continue to monitor H/H Transfuse if Hgb <7.5 (5) Diabetes mellitus ICD Codes: E11.9 - Type 2 diabetes mellitus without complications Status: Chronic Plan: History of poorly controlled diabetes. Home regimen is Lantus 40 units SQ at bedtime and Humalog mix 10 units 3 times a day. Likely complicated by gastroparesis. Continues to have a very poor appetite - Accu-Cheks - Blood glucose appropriate - Hold Levemir 10 units BID due to lack of appetite and concern for hypoglycemia - Continue low dose SSI - Reglan 5mg TIDAC for nausea (6) Hypertension ICD Codes: I10 - Essential (primary) hypertension Status: Chronic Plan: BP elevated -Coreg to 12.5mg BID. -Lisinopril 20mg daily -Clonidine 0.1mg PO Q6H PRN BP >170/100 (7) Depression ICD Codes: F32.9 - Major depressive disorder, single episode, unspecified Plan: Stable. Continue sertraline 150 mg PO daily. (8) FEN Status: Acute Plan: Fluids: Hold as pt is refusing dialysis Electrolytes: wnl, continue to monitor Diet: Diabetic diet DVT ppx: heparin 5000units SQ q12H GI Pxx: Protonix 40 mg PO daily. (Veronique Ferrari MD, R3) Problem Qualifiers (1) Diabetes mellitus with peripheral angiopathy with gangrene: Qualified Codes: E10.52 - Type 1 diabetes mellitus with diabetic peripheral angiopathy with gangrene (2) Anemia: Qualified Codes: D64.9 - Anemia, unspecified (3) Diabetes mellitus: Qualified Codes: E10.52 - Type 1 diabetes mellitus with diabetic peripheral angiopathy with gangrene (4) Hypertension: Qualified Codes: I10 - Essential (primary) hypertension (5) Depression: Qualified Codes: F32.0 - Major depressive disorder, single episode, mild Rohan-Veronique Collazo MD, R3 Aug 11, 2017 09:20 Mary Foster MD Aug 11, 2017 18:17
[2017-08-11] MEDS: SODIUM CHLORIDE 0.9% FLUSH 10 ML FLUSH IV FLUSH SCH ×2 (09:37→21:20)
[2017-08-11] MEDS: FUROSEMIDE 40 MG/4 ML VIAL IV PUSH SCH ×2 (09:37→17:32)
[2017-08-11] MEDS: CARVEDILOL 12.5 MG TAB PO SCH ×2 (09:38→21:20)
[2017-08-11] MEDS: CLOPIDOGREL 75 MG TAB PO SCH (09:38)
[2017-08-11] MEDS: DOCUSATE SODIUM 50 MG/SENNA 8.6 MG TAB PO SCH ×2 (09:38→21:00)
[2017-08-11] MEDS: TOPIRAMATE 100 MG TAB PO SCH (09:38)
[2017-08-11] MEDS: PANTOPRAZOLE SOD 40 MG DELAYED RELEASE TAB PO SCH (09:38)
[2017-08-11] MEDS: prednisoLONE ACETATE 1% OPHT SUSP 5 ML BTL EACH EYE SCH (09:38)
[2017-08-11] MEDS: SERTRALINE HCL 50 MG TAB PO SCH (09:39)
[2017-08-11] MEDS: METOCLOPRAMIDE HCL 10 MG TAB PO SCH ×3 (09:39→17:00)
[2017-08-11] MEDS: HEPARIN SODIUM - SQ 10,000 UNITS/ML VIAL SQ SCH (09:40)
[2017-08-11] MEDS: INSULIN ASPART SUPPLEMENTAL SCALE SQ SCH ×2 (09:56→12:59)
[2017-08-11] MEDS: LACTOBACILLUS ACIDOPHILUS 1 GM PACKET PO SCH ×3 (09:57→17:33)
[2017-08-11] MEDS ORDERED: ACETAMINOPHEN 325 MG TAB PO ONE (10:00)
[2017-08-11 21:01] LABS: AUTOMATED NEUTROPHIL # 5.6 TH/MM3 (1.8-7.7); BASOPHIL # 0.1 TH/MM3 (0-0.2); BASOPHIL % 0.8 % (0.0-2.0); EOSINOPHIL # 0.2 TH/MM3 (0-0.4); EOSINOPHIL % 3.1 % (0.0-4.0); HEMATOCRIT 22.5 % (39.0-51.0); HEMO FLAGS DIFF FINAL; LYMPH % 15.8 % (9.0-44.0); LYMPHOCYTE # 1.2 TH/MM3 (1.0-4.8); MEAN CELL VOLUME 78.1 FL (80.0-100.0); MEAN CORPUSCULAR HEMOGLOBIN 24.2 PG (27.0-34.0); MONO % 9.2 % (0.0-8.0); NEUT % 71.1 % (16.0-70.0); PLATELET COUNT 211 TH/MM3 (150-450); RED BLOOD COUNT 2.88 MIL/MM3 (4.50-5.90); RED CELL DISTRIBUTION WIDTH 24.2 % (11.6-17.2); WHITE BLOOD COUNT 7.9 TH/MM3 (4.0-11.0)
[2017-08-11] MEDS: hydrOXYzine HCL 50 MG TAB PO SCH (21:20)
[2017-08-11 21:23] LABS: BICARBONATE 26.8 MEQ/L (21.0-32.0); POTASSIUM 4.3 MEQ/L (3.5-5.1)
[2017-08-12] VITALS: BP 141/71; PULSE 102; RESP 14; TEMP 98.2; O2SAT 94
[2017-08-12 04:00] VITALS: BP 137/84; PULSE 110; RESP 12; TEMP 99.1; O2SAT 92
[2017-08-12] MEDS: cefTRIAXone 1,000 MG/NS 100 ML IV SCH ×2 (05:58)
[2017-08-12 08:00] VITALS: BP 143/77; PULSE 115; RESP 20; TEMP 99.4; O2SAT 92
[2017-08-12 08:59] LABS: HEMATOCRIT 22.2 % (39.0-51.0); MEAN CELL VOLUME 75.7 FL (80.0-100.0); PLATELET COUNT 204 TH/MM3 (150-450); RED BLOOD COUNT 2.93 MIL/MM3 (4.50-5.90); RED CELL DISTRIBUTION WIDTH 24.7 % (11.6-17.2); REVIEW FLAG FINAL; WHITE BLOOD COUNT 8.3 TH/MM3 (4.0-11.0)
[2017-08-12] MEDS: LACTOBACILLUS ACIDOPHILUS 1 GM PACKET PO SCH (09:00)
[2017-08-12 09:41] LABS: BICARBONATE 27.2 MEQ/L (21.0-32.0); POTASSIUM 4.4 MEQ/L (3.5-5.1)
--- NOTE | 2017-08-12 09:57 | HHI.FPPN ---
Subjective Remarks No acute issues overnight. Vitals are stable, patient remains afebrile. He is becoming more uncomfortable with each day. He continues to have shortness of breath and is retaining a lot of fluid. He declines any further dialysis at this time and would like to go on hospice. (Aniya Jacobo MD, R3) Objective Vitals Vital Signs Date Time Temp Pulse Resp B/P (MAP) Pulse Ox O2 Delivery O2 Flow Rate FiO2 08/12/17 08:00 99.4 115 20 143/77 (99) 92 08/12/17 04:00 99.1 110 12 137/84 (101) 92 08/12/17 00:00 Nasal Cannula 3.00 08/12/17 00:00 98.2 102 14 141/71 (94) 94 08/11/17 20:00 107 08/11/17 20:00 Nasal Cannula 4.00 08/11/17 20:00 98.2 108 18 131/69 (89) 94 08/11/17 16:09 99.0 104 21 103/54 (70) 93 08/11/17 13:43 91 Venturi Mask 08/11/17 12:31 99.5 118 22 142/81 (101) 89 08/11/17 11:29 114 08/11/17 09:53 91 Nasal Cannula 5.00 I/O 08/11/17 08/11/17 08/11/17 08/12/17 08/12/17 08/12/17 07:00 15:00 23:00 07:00 15:00 23:00 Intake Total 120 ml 0 ml 100 ml Output Total 800 ml 500 ml 400 ml Balance -680 ml -500 ml -300 ml Intake Oral 120 ml 0 ml IV Total 100 ml Output Urine Total 800 ml 500 ml 400 ml # Bowel Movements 0 0 (Aniya Jacobo MD, R3) Result Diagram: 08/12/17 0703 08/12/17 0703 Imaging Last Impressions Chest X-Ray 08/10/17 0000 Signed Impressions: Service Date/Time: Thursday, August 10, 2017 08:20 - CONCLUSION: 1. Diffuse increased density throughout both lungs likely related to bilateral effusions been worsening on the right. 2. Suspected consolidation in the left perihilar region. Markus Denny MD Catheter Placement X-Ray 07/31/17 0000 Signed Impressions: Service Date/Time: Monday, July 31, 2017 12:30 - CONCLUSION: Uncomplicated line placement as above. Paresh Hughes MD Renal Ultrasound 07/28/17 0000 Signed Impressions: Service Date/Time: Friday, July 28, 2017 09:48 - CONCLUSION: Normal examination. Ruiz Johnson MD Foot X-Ray 07/27/17 0000 Signed Impressions: Service Date/Time: Thursday, July 27, 2017 10:40 - CONCLUSION: Postsurgical changes are identified right first digit amputation. Ruiz Johnson MD Head CT 07/22/17 1826 Signed Impressions: Service Date/Time: Saturday, July 22, 2017 19:17 - CONCLUSION: 1. No acute abnormality is seen. 2. Atrophy. 3. Persistent stable encephalomalacia at the inferior left cerebellar hemisphere. Markus Denny MD Abdomen/Pelvis CT 07/22/17 0000 Signed Impressions: Service Date/Time: Saturday, July 22, 2017 23:56 - CONCLUSION: 1. No acute finding is identified within the abdomen or pelvis. There is mild respiratory motion artifact. 2. Stable nonacute findings include small hiatal hernia and small bilateral low-density renal lesions. There is trace left pleural fluid. Markus Chester MD Objective Remarks Gen.: Well-nourished, well-developed male lying in bed. Appears comfortable CV: Regular rate and rhythm, no murmurs appreciated. Respiratory: Coarse breath sounds bilaterally. NC in place. EXT: 3+ LE edema of lower extremities bilaterally. Edema in upper extremities bilaterally. GI: Abdomen mildly distended, non-tender. Neuro: Awake and alert. (Aniya Jacobo MD, R3) A/P Assessment and Plan 61-year-old male with history of hypertension, poorly controlled diabetes, CVA in 2012, [place], admitted for sepsis secondary to right diabetic foot ulcer with wet gangrene and severe osteomyelitis, now s/p right hallux amputation and endovascular revascularization. Now with acute on chronic renal failure on hemodialysis but is currently declining further hemodialysis treatment. Prognosis very poor at this time and patient elects for hospice. Plan of care discussed with family who in agreement with Hospice at this time. Discharge Planning Discharge to hospice today. sdw Dr. Mcdaniel (Aniya Jacobo MD, R3) Attending Attestation THIS CASE WAS DISCUSSED WITH THE RESIDENT PHYSICIANS PATIENT WAS INTERVIEWED AND EXAMINED. I HAVE REVIEWED THE RECORD AND AGREE WITH THE ABOVE NOTE AND PLAN OF CARE WAS DISCUSSED. I HAVE AUTHORIZED THE ORDERS.Patient understands he will not survive without dialysis (Nick Mcdaniel MD) Problem List: (1) Shortness of breath ICD Codes: R06.02 - Shortness of breath Status: Chronic Plan: Secondary to fluid overload from renal failure. Will provide comfort measures. Patient electing to go to hospice. (2) HOWARD (acute kidney injury) ICD Codes: N17.9 - Acute kidney failure, unspecified Status: Acute Plan: Stage 3 chronic kidney disease secondary to hypertensive and/or diabetic renal disease Acute renal impairment likely from contrast nephropathy and vancomycin Renal US normal Urine output stable Plan: Nephrology consulted- Appreciate recommendations. Patient declining any further dialysis. (3) Diabetes mellitus with peripheral angiopathy with gangrene ICD Codes: E11.52 - Type 2 diabetes mellitus with diabetic peripheral angiopathy with gangrene Status: Chronic Plan: Severe right hallux diabetic foot infection with wet gangrene and likely severe osteomyelitis. s/p right hallux amputation on 07/27 and endovascular revascularization on 07/25 07/22, 07/24, 07/26 Blood cultures, No growth 07/27 wound culture growing Group B strep, no fungal elements seen s/p Vancomycin q12H (07/22-07/27) and Zosyn 3.375g q6H (07/25-08/02) Plan: -Continue Rocephin 1g IV Q24H per ID (started 08/02) -Infectious Disease, Podiatry, and Vascular Surgery Consulted- Appreciate recommendations. (4) Anemia ICD Codes: D64.9 - Anemia, unspecified Status: Chronic Plan: s/p 4 units Packed RBCs, 1 on 07/25, 1 on 07/27, 1 on 07/29, and 1 on 07/30. Right first metatarsal amputation on 07/27 complicated by bleeding. Continue to monitor H/H Transfuse if Hgb <7.5 (5) Diabetes mellitus ICD Codes: E11.9 - Type 2 diabetes mellitus without complications Status: Chronic Plan: History of poorly controlled diabetes. Home regimen is Lantus 40 units SQ at bedtime and Humalog mix 10 units 3 times a day. - Accu-Cheks - Blood glucose appropriate - Hold Levemir 10 units BID due to lack of appetite and concern for hypoglycemia - Continue low dose SSI - Reglan 5mg TIDAC for nausea (6) Hypertension ICD Codes: I10 - Essential (primary) hypertension Status: Chronic Plan: BP elevated -Coreg to 12.5mg BID. -Lisinopril 20mg daily -Clonidine 0.1mg PO Q6H PRN BP >170/100 (7) Depression ICD Codes: F32.9 - Major depressive disorder, single episode, unspecified Plan: Stable. Continue sertraline 150 mg PO daily. (8) FEN Status: Acute Plan: Fluids: Hold as pt is refusing dialysis Electrolytes: wnl, continue to monitor Diet: Diabetic diet DVT ppx: heparin 5000units SQ q12H GI Pxx: Protonix 40 mg PO daily. (Aniya Jacobo MD, R3) Problem Qualifiers (1) Diabetes mellitus with peripheral angiopathy with gangrene: Qualified Codes: E10.52 - Type 1 diabetes mellitus with diabetic peripheral angiopathy with gangrene (2) Anemia: Qualified Codes: D64.9 - Anemia, unspecified (3) Diabetes mellitus: Qualified Codes: E10.52 - Type 1 diabetes mellitus with diabetic peripheral angiopathy with gangrene (4) Hypertension: Qualified Codes: I10 - Essential (primary) hypertension (5) Depression: Qualified Codes: F32.0 - Major depressive disorder, single episode, mild Aniya Jacobo MD, R3 Aug 12, 2017 09:57 Nick Mcdaniel MD Aug 12, 2017 18:17
[2017-08-12] MEDS: CLOPIDOGREL 75 MG TAB PO SCH (10:13)
[2017-08-12] MEDS: DOCUSATE SODIUM 50 MG/SENNA 8.6 MG TAB PO SCH (10:13)
[2017-08-12] MEDS: CARVEDILOL 12.5 MG TAB PO SCH (10:13)
[2017-08-12] MEDS: SERTRALINE HCL 50 MG TAB PO SCH (10:13)
[2017-08-12] MEDS: PANTOPRAZOLE SOD 40 MG DELAYED RELEASE TAB PO SCH (10:13)
[2017-08-12] MEDS: TOPIRAMATE 100 MG TAB PO SCH (10:14)
[2017-08-12] MEDS: FUROSEMIDE 40 MG/4 ML VIAL IV PUSH SCH (10:14)
[2017-08-12] MEDS: METOCLOPRAMIDE HCL 10 MG TAB PO SCH (10:14)
[2017-08-12] MEDS: SODIUM CHLORIDE 0.9% FLUSH 10 ML FLUSH IV FLUSH SCH (10:15)
[2017-08-12] MEDS: prednisoLONE ACETATE 1% OPHT SUSP 5 ML BTL EACH EYE SCH (10:26)
[2017-08-12] MEDS: ONDANSETRON HCL 4 MG/2 ML VIAL IVP PRN (10:52)
--- NOTE | 2017-08-12 12:12 | HHI.HCPN ---
Reason for visit a. To assist with evaluation and management of symptoms including: Debility and pain. b. To assist medical decision maker(s) with: better understanding of current medical conditions; weighing benefits/burdens of medical treatment options; making medical treatment decisions. . Subjective/Interval History Mr. Obando it's a 62-year-old male with a medical history significant for diabetes uncontrolled mellitus type 2, CAD status post stent placement in on May 2017, MD on October 2015, hypertension, CVA in 2012 and diabetic ulcer to right foot. Clinical course complicated by sepsis/gangrene and osteomyelitis to right big toe, acute on chronic kidney failure requiring hemodialysis, increased symptoms burden and profound physical deconditioning. Palliative care consulted for further clarifications of goals of care. Patient seen in his room. Patient in moderate distress, actively vomiting c/o abdominal discomfort. Patient endorsing , "feeling sick and weak". Shortness of breath worsened with physical exertion/movement and conversation. On 08/10/17 chest x-ray revealed diffuse increased density throughout both lungs likely related to bilateral effusions been worsening on the right. Suspected consolidation in the left perihilar region. Patient was placed on a venturi mask for worsening respiratory status. Patient currently on O2 4 L via nasal cannula. O2 saturation, low 90s. Laboratory results 08/12/17 revealing WBC 8.3 , hemoglobin 7.3, platelet count 204, BUN/Creatinine 58/2.68. Low-grade temp, Tmax 99.4degrees F, SBP ranging from 140s -170s, HR low 100s. Patient`s Ioana at bedside during visit. Reintroduce hospice given patient's continued decline, increased symptom burden and overall poor prognosis. Patient and receptive to this. Hospice referral has been made. . Family/friend interactions Ioana at bedside during visit. . Advance Directives Living Will: Never completed Health Care Surrogate: Never completed Durable Power of Legal Paraprofessional: Never completed Advance Directive Specifics Health Care Surrogate(s): No advance directives completed. Proxy healthcare decision-making falls to patient's Ioana Obando. . Significant change in goals: DNR/DNI. Patient and actively considering hospice at this time. . . Objective Vital Signs Date Time Temp Pulse Resp B/P (MAP) Pulse Ox O2 Delivery O2 Flow Rate FiO2 08/12/17 08:00 99.4 115 20 143/77 (99) 92 08/12/17 04:00 99.1 110 12 137/84 (101) 92 08/12/17 00:00 Nasal Cannula 3.00 08/12/17 00:00 98.2 102 14 141/71 (94) 94 08/11/17 20:00 107 08/11/17 20:00 Nasal Cannula 4.00 08/11/17 20:00 98.2 108 18 131/69 (89) 94 08/11/17 16:09 99.0 104 21 103/54 (70) 93 08/11/17 13:43 91 Venturi Mask 08/11/17 12:31 99.5 118 22 142/81 (101) 89 08/11/17 11:29 114 Intake & Output 08/12/17 08/12/17 07:00 19:00 Intake Total 100 ml Output Total 400 ml Balance -300 ml IV Total 100 ml Output Urine Total 400 ml Physical Exam CONSTITUTIONAL/GENERAL: This is an obese, frail man resting in bed in moderate distress secondary to abdominal discomfort/ nausea and vomiting. Patient appears older than stated age. TUBES/LINES/DRAINS: Right IJ Vas-Cath, PIV's, Medina catheter. Nasal cannula. SKIN: No jaundice, rashes, or lesions. Ecchymoses on upper extremities. Skin temperature appropriate. Not diaphoretic. Right foot wrapped in Maxi bandages. HEAD: Atraumatic. Normocephalic. EYES: Unable to evaluate eyes, patient legally blind. Conjunctival discharge to right eye and erythema noted. Periorbital edema bilaterally. ENT: Hearing grossly normal. Nose without bleeding or purulent drainage. Moist oral mucosa. Thrush observed. edentulous. NECK: Trachea midline. Supple, nontender. CARDIOVASCULAR: Regular rate and rhythm. Generalized edema. RESPIRATORY/CHEST: Symmetric, increased work of breathing. Wheezing to auscultation, diminished breath sounds. Unable to appreciate hepatomegaly secondary to body habitus. GENITOURINARY: Without palpable bladder distension. Medina catheter in place with small amount of urine. MUSCULOSKELETAL: Extremities without clubbing, cyanosis. Right foot wrapped in Maxi bandages. NEUROLOGICAL: Awake and alert x self, place and situation. Frequently confused/ forgetful. Following commands. Slurred speech. Weak. PSYCHIATRIC: Anxious. Diagnostic Tests Laboratory Laboratory Tests Test 08/10/17 21:39 08/11/17 20:48 08/12/17 07:03 White Blood Count 10.0 TH/MM3 (4.0-11.0) 7.9 TH/MM3 (4.0-11.0) 8.3 TH/MM3 (4.0-11.0) Red Blood Count 3.07 MIL/MM3 (4.50-5.90) 2.88 MIL/MM3 (4.50-5.90) 2.93 MIL/MM3 (4.50-5.90) Hemoglobin 7.4 GM/DL (13.0-17.0) 7.0 GM/DL (13.0-17.0) 7.3 GM/DL (13.0-17.0) Hematocrit 23.6 % (39.0-51.0) 22.5 % (39.0-51.0) 22.2 % (39.0-51.0) Mean Corpuscular Volume 77.0 FL (80.0-100.0) 78.1 FL (80.0-100.0) 75.7 FL (80.0-100.0) Mean Corpuscular Hemoglobin 24.2 PG (27.0-34.0) 24.2 PG (27.0-34.0) 25.0 PG (27.0-34.0) Mean Corpuscular Hemoglobin Concent 31.4 % (32.0-36.0) 31.0 % (32.0-36.0) 33.0 % (32.0-36.0) Red Cell Distribution Width 24.6 % (11.6-17.2) 24.2 % (11.6-17.2) 24.7 % (11.6-17.2) Platelet Count 247 TH/MM3 (150-450) 211 TH/MM3 (150-450) 204 TH/MM3 (150-450) Mean Platelet Volume 8.2 FL (7.0-11.0) 8.1 FL (7.0-11.0) 9.1 FL (7.0-11.0) Blood Urea Nitrogen 48 MG/DL (7-18) 54 MG/DL (7-18) 58 MG/DL (7-18) Creatinine 2.48 MG/DL (0.60-1.30) 2.61 MG/DL (0.60-1.30) 2.68 MG/DL (0.60-1.30) Random Glucose 183 MG/DL (74-106) 210 MG/DL (74-106) 214 MG/DL (74-106) Calcium Level 8.3 MG/DL (8.5-10.1) 8.2 MG/DL (8.5-10.1) 8.3 MG/DL (8.5-10.1) Sodium Level 136 MEQ/L (136-145) 138 MEQ/L (136-145) 138 MEQ/L (136-145) Potassium Level 4.7 MEQ/L (3.5-5.1) 4.3 MEQ/L (3.5-5.1) 4.4 MEQ/L (3.5-5.1) Chloride Level 97 MEQ/L (98-107) 100 MEQ/L (98-107) 99 MEQ/L (98-107) Carbon Dioxide Level 27.5 MEQ/L (21.0-32.0) 26.8 MEQ/L (21.0-32.0) 27.2 MEQ/L (21.0-32.0) Anion Gap 12 MEQ/L (5-15) 11 MEQ/L (5-15) 12 MEQ/L (5-15) Estimat Glomerular Filtration Rate 32 ML/MIN (>89) 30 ML/MIN (>89) 29 ML/MIN (>89) Neutrophils (%) (Auto) 71.1 % (16.0-70.0) Lymphocytes (%) (Auto) 15.8 % (9.0-44.0) Monocytes (%) (Auto) 9.2 % (0.0-8.0) Eosinophils (%) (Auto) 3.1 % (0.0-4.0) Basophils (%) (Auto) 0.8 % (0.0-2.0) Neutrophils # (Auto) 5.6 TH/MM3 (1.8-7.7) Lymphocytes # (Auto) 1.2 TH/MM3 (1.0-4.8) Monocytes # (Auto) 0.7 TH/MM3 (0-0.9) Eosinophils # (Auto) 0.2 TH/MM3 (0-0.4) Basophils # (Auto) 0.1 TH/MM3 (0-0.2) CBC Comment DIFF FINAL Differential Comment Hematology Comments Result Diagram: 08/12/17 0703 08/12/17 0703 Imaging Last Impressions Chest X-Ray 08/10/17 0000 Signed Impressions: Service Date/Time: Thursday, August 10, 2017 08:20 - CONCLUSION: 1. Diffuse increased density throughout both lungs likely related to bilateral effusions been worsening on the right. 2. Suspected consolidation in the left perihilar region. Markus Denny MD Catheter Placement X-Ray 07/31/17 0000 Signed Impressions: Service Date/Time: Monday, July 31, 2017 12:30 - CONCLUSION: Uncomplicated line placement as above. Paresh Hughes MD Renal Ultrasound 07/28/17 0000 Signed Impressions: Service Date/Time: Friday, July 28, 2017 09:48 - CONCLUSION: Normal examination. Ruiz Johnson MD Foot X-Ray 07/27/17 0000 Signed Impressions: Service Date/Time: Thursday, July 27, 2017 10:40 - CONCLUSION: Postsurgical changes are identified right first digit amputation. Ruiz Johnson MD Head CT 07/22/17 1826 Signed Impressions: Service Date/Time: Saturday, July 22, 2017 19:17 - CONCLUSION: 1. No acute abnormality is seen. 2. Atrophy. 3. Persistent stable encephalomalacia at the inferior left cerebellar hemisphere. Markus Denny MD Abdomen/Pelvis CT 07/22/17 0000 Signed Impressions: Service Date/Time: Saturday, July 22, 2017 23:56 - CONCLUSION: 1. No acute finding is identified within the abdomen or pelvis. There is mild respiratory motion artifact. 2. Stable nonacute findings include small hiatal hernia and small bilateral low-density renal lesions. There is trace left pleural fluid. Markus Chester MD Procedures * 07/25/17 -1. Right lower extremity angiogram, Superficial femoral artery angioplasty, 6 mm, Right anterior tibial artery angioplasty 3 mm, Right dorsalis pedis artery angioplasty 2 mm and Left common femoral artery Angio- Seal. * 07/27/17 -Open Amputation of right hallux * 07/31/17 -hemodialysis catheter placement . Assessment and Plan Disease Oriented Problem List: (1) Sepsis (2) Diabetes mellitus with peripheral angiopathy with gangrene (3) HOWARD (acute kidney injury) (4) CAD (coronary artery disease) (5) Hypertension (6) Depression Symptom Scale: (1) Shortness of breath 0-10 Scale: Unable to quantify Comment: O2 via nasal cannula (2) Nausea and vomiting 0-10 Scale: 0 (3) Debility 0-10 Scale: Unable to quantify Pertinent Non-Medical Issues Psychosocial: Patient originally from [facility]. to current since 2009. No children together. Patient has a biological daughter by the name of Leslee Obando who resides in [place]. 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 No service. Spiritual: Scientology jose. Legal: No advance directives completed. Ethical issues impacting care: No advance directives completed. . Important Contacts Patient's Ioana Obando . . Prognosis Very poor prognosis for an improved quality of life or survival given multiple chronic ongoing comorbidities, sepsis/wound infection with osteomyelitis, acute on chronic kidney failure requiring renal replacement therapy, progressive decline, malnutrition with albumin 1.4 and profound physical deconditioning. Patient at high risk for further complications, clinical decline and . Patient appears hospice appropriate should he elects comfort-directed care/ discontinuation of renal replacement therapy. . Code Status: No Code Plan * CODE STATUS: No code -DNR/DNI. * HEALTHCARE DECISION-MAKING: Patient with limited participation in medical decision-making, intermittent confusion/lethargy. He relies heavily on his for input/medical decision-making. No advance directives completed. As per [place] statute, proxy healthcare decision-making falls to patient's Ioana Obando. Palliative care recommends shared decision-making with patient's . * GOALS OF CARE: 08/12/17 -Patient and actively considering transitioning patient to comfort -directed care with hospice given patient`s continued decline , increased symptom burden and overall poor prognosis. Hospice philosophy and benefits previously introduced. Hospice referral made. * SYMPTOMS: = Shortness of breath, likely fluid overload. Currently on O2 via nasal cannula. = Nausea/vomiting , multifactorial. Sepsis, electrolyte imbalances, acute kidney failure. History of gastroparesis. Zofran 4 mg IV Q6h available as needed. = Pain, multifactorial. Secondary to medical interventions, surgical interventions, bedbound state. Currently on oxycodone 5 mg and 10 mg q4h PRN. = Debility, progressive. Worsened during the past month. Likely to continue to progress. * Case discussed with Dr. Foster and nursing program coordinator Chandrika. * Palliative care contact information has been provided to patient and . * Palliative care will continue to follow-up for further clarifications of goals of care as patient's clinical course continues to evolve. . Time Spent Total Floor Time (mins): 33 (Total time to include review medical records, physical exam, goals of care conversation with patient and , case discussion with Dr. Foster and nursing program coordinator Chandrika.) Attestation To help prompt me to consider important information that might be impacting today's encounter and assessment, information from prior notes written by myself or my colleagues may have been "brought forward" into today's note. My signature on this note, however, is an attestation that I personally performed the exam, history, and/or decision-making noted today, and, unless otherwise indicated, the interactions with patient, family, and staff as well as the review of records all occurred today. I also attest that the listed assessment and stated plan reflect my best clinical judgment today based on the combination of historical information, prior notes, and today's exam/ interactions. When time spent is documented, it refers only to time spent today by the signer, or if indicated, combined time spent today by collaborating physician/nurse practitioner. Thelma León Aug 12, 2017 11:51
--- NOTE | 2017-08-12 12:13 | DEATH SUM ---
Pronouncement Date Pronounced : Aug 12, 2017 Time Of : 11:42 Pronouncement Code Blue heard overhead by residents; ACLS protocol initiated by nursing staff briefly until patient's who was at bedside confirmed DNR status. Patient was assessed shortly after ACLS was discontinued by Dr. Black and Dr. Flores: No heart sounds or respirations to auscultation, no peripheral pulses present. Pupils fixed; no pupillary light reflex. Patient pronounced decreased at 1142 08/12. Dr. Black, Dr. Flores, and myself present at pronouncement. 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 Preliminary Cause of : Cardiac arrest Jonathan Garcia MD, R3 Aug 12, 2017 11:58
== END 2017-08-12 14:15 | disposition expired | DRG 853 ==
LOC: NEDAMB 16:31 → NEDA 20:59 → NEDH 07-23 01:09 → NEPGCP 07-23 03:18 → N04A 07-24 22:41
PROVIDERS: ADMIT Family Medicine; ATTEND Family Medicine
PROC: 047K3ZZ Dilation of Right Femoral Artery, Percutaneous Approach (ICD-10-PCS; 2017-07-25)
PROC: 047V3ZZ Dilation of Right Foot Artery, Percutaneous Approach (ICD-10-PCS; 2017-07-25)
PROC: B41F1ZZ Fluoroscopy of Right Lower Extremity Arteries using Low Osmolar Contrast (ICD-10-PCS; 2017-07-25)
PROC: 30233N1 Transfusion of Nonautologous Red Blood Cells into Peripheral Vein, Percutaneous Approach (ICD-10-PCS; 2017-07-25)
PROC: 047P3ZZ Dilation of Right Anterior Tibial Artery, Percutaneous Approach (ICD-10-PCS; 2017-07-25 16:00)
PROC: 0Y6P0Z0 Detachment at Right 1st Toe, Complete, Open Approach (ICD-10-PCS; principal; 2017-07-27 07:57)
PROC: 02H633Z Insertion of Infusion Device into Right Atrium, Percutaneous Approach (ICD-10-PCS; 2017-07-31)
PROC: 5A1D60Z (ICD-10-PCS; 2017-07-31)
DX: A41.9 Sepsis, unspecified organism (principal); N18.6 End stage renal disease; J90 Pleural effusion, not elsewhere classified; B37.0 Candidal stomatitis; N17.9 Acute kidney failure, unspecified; E46 Unspecified protein-calorie malnutrition; E10.52 Type 1 diabetes mellitus with diabetic peripheral angiopathy with gangrene; I12.0 Hypertensive chronic kidney disease with stage 5 chronic kidney disease or end stage renal disease; F32.0 Major depressive disorder, single episode, mild; M86.9 Osteomyelitis, unspecified; Z51.5 Encounter for palliative care; E10.22 Type 1 diabetes mellitus with diabetic chronic kidney disease; E10.43 Type 1 diabetes mellitus with diabetic autonomic (poly)neuropathy; K31.84 Gastroparesis; E10.69 Type 1 diabetes mellitus with other specified complication; E10.621 Type 1 diabetes mellitus with foot ulcer; L97.512 Non-pressure chronic ulcer of other part of right foot with fat layer exposed; D50.9 Iron deficiency anemia, unspecified; I25.10 Atherosclerotic heart disease of native coronary artery without angina pectoris; E86.0 Dehydration; I25.2 Old myocardial infarction; E78.5 Hyperlipidemia, unspecified; N13.9 Obstructive and reflux uropathy, unspecified; N14.1 Nephropathy induced by other drugs, medicaments and biological substances; I46.9 Cardiac arrest, cause unspecified; E87.70 Fluid overload, unspecified; E10.649 Type 1 diabetes mellitus with hypoglycemia without coma; E10.628 Type 1 diabetes mellitus with other skin complications; L08.9 Local infection of the skin and subcutaneous tissue, unspecified; E10.319 Type 1 diabetes mellitus with unspecified diabetic retinopathy without macular edema; T50.8X5A Adverse effect of diagnostic agents, initial encounter; H54.0 Blindness, both eyes; R29.6 Repeated falls; Z66 Do not resuscitate; Z78.1 Physical restraint status; Z68.39 Body mass index [BMI] 39.0-39.9, adult; Z79.4 Long term (current) use of insulin; Z79.899 Other long term (current) drug therapy; Z86.73 Personal history of transient ischemic attack (TIA), and cerebral infarction without residual deficits; Z88.6 Allergy status to analgesic agent; Z87.891 Personal history of nicotine dependence; Z95.5 Presence of coronary angioplasty implant and graft
CPT/HCPCS: 36430; 36556; 37224; 37232; 70450; 71010; 73630; 74177; 75710; 76775; 76937; 77001; 80048; 80053; 80074; 80202; 81001; 82010; 82272; 82550; 82552; 82948; 83036; 83540; 83550; 83605; 83690; 83735; 84100; 84165; 84300; 84484; 85007; 85014; 85018; 85025; 85027; 85044; 85060; 85610; 85730; 86021; 86038; 86160; 86403; 86850; 86900; 86901; 86920; 87040; 87070; 87086; 87102; 87205; 87206; 88305; 88307; 88311; 90935; 93005; 93306; 93923; 94640; 94664; 96361; 96365; 96368; 96374; 96375; C1725; C1752; C1769; C9113; G0269; J0696; J1100; J1580; J1644; J1815; J1940; J2250; J2370; J2405; J2543; J2920; J3010; J3370; J3480; J7030; J7040; J7050; J7613; L3260; P9016; Q9963; Q9967